=== PATIENT | male | born 1955 | race Caucasian/White ===

== ENCOUNTER 2018-10-19 10:55 | Inpatient (IN) | payer OTHER, SELFPAY ==
[2018-10-19] VITALS (17 sets, daily range): BP systolic 118–163; BP diastolic 73–92; PULSE 83–107; RESP 12–22; TEMP 36.6–36.7; O2SAT 94–98; BMI 26.3; BMI 25.5
--- NOTE | 2018-10-19 11:19 | EKG12_ITS ---
Test Reason : SOB Blood Pressure : / mmHG Vent. Rate : 081 BPM Atrial Rate : 081 BPM P-R Int : 102 ms QRS Dur : 080 ms QT Int : 372 ms P-R-T Axes : 064 077 076 degrees QTc Int : 432 ms Sinus rhythm with sinus arrhythmia with short [place] Otherwise normal ECG Confirmed by ARIANE KATE, LATISHA ([id number]), editor greeting card BRETT BILL ([id number]) on 10/23/2018 1:19:21 PM Referred By: JUAN Confirmed By:LATISHA THAKKAR MD
--- NOTE | 2018-10-19 11:21 | NURSING ---
NO OLD EKGS
[2018-10-19] MEDS: Nitroglycerin Oint 1 INCH PACKET TRANSDERM. ×2 (11:36→17:15)
[2018-10-19] MEDS: Aspirin 81 MG TAB.CHEW 324 MG PO (11:36)
[2018-10-19] MEDS: Enoxaparin 100 MG/ML Syringe 80 MG SC (11:36)
[2018-10-19 11:39] LABS: Absolute Lymphocyte Count 1.24 X10^3/ul (0.83-4.51); Absolute Neutrophil Count 5.5 X10^3/uL (2.0-7.7); Basophil# 0.02 X10^3/uL; Basophil% 0.3 % (0-1); Eosinophil# 0.32 X10^3/uL; Eosinophils% 4.1 % (0-5); Hematocrit 44.1 % (40-54); Hemoglobin 14.4 g/dl (13.0-16.5); Lymphocyte # 1.24 X10^3/ul (4.0); Lymphocyte % 15.8 % (19-41); Mean Corp Hgb Conc 32.7 g/gl (32-36); Mean Corpuscular Hgb 30.8 pg (27.0-32.0); Mean Corpuscular Volume 94.2 fL (80-94); Mean Platelet Vol. 9.5 fl (6.2-12.0); Monocyte% 10.2 % (0-10); Neutrophil # 5.45 X10^3/uL (2.7-7.7); Neutrophil % 69.1 % (47-70); Platelet Count 195 K/mm3 (150-450); RBC Distribution Width CV 13.4 % (11.6-14.6); Red Blood Count 4.68 M/mm3 (4.6-6.2); White Blood Count 7.9 K/mm3 (4.4-11.0)
[2018-10-19 11:41] LABS: POSITIVE COUNT NO; POSITIVE DIFFERENTIAL NO; POSITIVE MORPHOLOGY NO
--- NOTE | 2018-10-19 11:41 | RAD_ITS ---
STUDY: X-RAY CHEST REASON FOR EXAM: Male, 63 years old. TECHNIQUE: COMPARISON: None. FINDINGS: The lungs are clear and expanded. There is no demonstrated pleural abnormality. Normal size heart. Normal mediastinum and christiane. Normal visualized pulmonary arteries. Normal visualized aortic arch and descending thoracic aorta. Normal visualized thoracic spine. Normal visualized ribs, clavicles, and shoulders. There is no demonstrated abnormality of the visualized soft tissue structures of the upper abdomen. RAD/Chest 1 View (Portable) IMPRESSION: Normal x-ray examination of the chest. Electronically Signed: Dorene Contreras, at 12:06 EST Tel , Service support ,
[2018-10-19 11:55] LABS: Anion Gap 5 (5-15); BUN 17 mg/dL (7-18); BUN/Creat Ratio 28.1 RATIO (10-20); Calcium,Total 9.2 mg/dL (8.5-10.1); Chloride 101 mmol/L (98-107); Creatinine, Serum 0.61 mg/dL (0.70-1.30); EST Glomerular Filtration Rate 144 mL/min (>60); Est Glom Filt Rate - Afr Amer 174 mL/min (>60); Estimated Creatinine Clearance 123.03 ml/min; Glucose 103 mg/dL (74-106); Potassium 4.3 mmol/L (3.5-5.1); Sodium Level 136 mmol/L (136-145)
--- NOTE | 2018-10-19 12:42 | ED.VISSUMM ---
- ER Visit Summary Date of Service: 10/19/18 Chief Complaint: Chest tightness and dyspnea with exertion History of Present Illness: The patient is a 63 M who was seen approximately 3 weeks ago and treated with azithromycin for presumed bronchitis. Patient does have a cough that is productive of clear sputum. He states the amount of sputum or colored sputum is not changed. His cough is not changed. Upon further questioning been determined that patient has dyspnea with exertion. He is now not able to walk up a flight of steps. He denies chest pain. He states he has tightness in his chest. He has had dyspnea with exertion and tightness in his chest for the past 3-4 weeks. He states the chest tightness goes away after 3-5 minutes of rest and the breathing improves after 10-15 minutes. He admits that less activity is required to precipitate the chest tightness and the dyspnea. He has no known history of coronary disease. He was a smoker of 1 pack/day for 50+ years. He quit 4 months ago. He denies hematemesis, melena medication. He denies history of reflux, hiatal hernia or peptic ulcer disease. He denies nausea, diaphoresis or radiation of the discomfort. He denies fever, chills or night sweats. He denies weight gain or weight loss. He denies ocular, visual auditory symptoms. He denies symptoms of claudication. He does admit that he has less hair on his legs that he did when he was younger. He denies headache, paresthesia, anesthesia or motor weakness. He denies problems with balance. He denies trouble with speech or swallowing. Please read written note for complete detail. Physical Examination: Vital signs noted and unremarkable. Patient appears slightly dyspneic. He states he had difficulty walking up the incline. He is presently pain-free. Head is atraumatic normocephalic. Pupils are equal round reactive. Extraocular muscles are intact. TMs are pearly white with landmarks noted. Nares patent with no drainage. Posterior pharynx without erythema or exudate. Uvula is midline. There is no dysphonia or dysphasia. Trachea is midline. There is no stridor with auscultation of the neck. Heart is regular without murmur, gallop or rub. S1 and S2 are normal. Lungs are clear to auscultation with good movement of air bilaterally. Abdomen is soft nontender with no palpable cell mass. He has no abdominal bruit. DP pulses palpable bilaterally. He has minimal hair on his legs and decreased hair on his toes. Neuro exam is nonfocal. Test Results: EKG reveals a sinus rhythm rate of 81 with respiratory variation. ND interval is short. QRS duration and QT interval on unremarkable. [place] is normal. This was obtained when he was pain-free. Portal chest x-ray reveals normal cardiac silhouette, mediastinum and lung parenchyma. There is no N O'Jaci osseous structures per my interpretation. CBC, basic minimal panel troponin are normal. Emergency Department Course and Treatment: Patient has classic exertional angina. Patient was informed he will need a cardiac catheterization. Patient was treated with aspirin, Nitropaste and 1 mg/kg of Lovenox. Case was discussed with hospitalist and substation operator automatic. Plan is cardiac catheterization in the morning. Treatment Plan: Treatment for acute coronary syndrome Disposition: PCU Impression: Acute coronary syndrome This note was generated with [employer] dictation software. It may contain incorrect words, spelling, and punctuation that were not noted in review of the chart prior to signing ED Disposition - Plan for ED Patient: Chief Complaint: Shortness of Breath Referrals: Phan Verdugo MD [Primary Care Provider] -
--- NOTE | 2018-10-19 12:47 | HP.PCM_ITS ---
Problem List (1) Unstable angina Status: Acute (2) COPD (chronic obstructive pulmonary disease) Status: Chronic Qualifiers: Emphysema type: unspecified History of Present Illness Date of Admission: 10/19/18 Chief Complaint: Chest pain, ongoing for 1 month The patient is a 63 year old M with PMHx of COPD, not on oxygen, former tobacco user who has been complaining of progressive chest tightness, worse with exertion, with no radiation, relieved with rest. Over the last 3 weeks, he has been very SOB with the minimal amount of exertion. He denied diaphoresis, palpitations, dizziness. He has associated orthopnea, PND. Denies leg edema. Vitals in the ED is 97.8F, BP 163/81, HR 91 , RR 22 Spo2 94%. The admitting labs were unremarkable. D-Dimer was negative. BNpep was 15.5 Chest x-ray was negative. EKG shows no acute ST-T changes. Past Medical History Past Medical History (Chronic Problems): Chronic Problems COPD (chronic obstructive pulmonary disease) (Chronic) Allergies No Known Allergies Allergy (Verified 10/19/18 10:58) Home Medications: Ambulatory Orders Medication Instructions Recorded Albuterol IH (ProAir) [Proair Hfa] 2 puff PO Q6H PRN PRN 10/19/18 Ibuprofen [Advil] 800 mg PO PRN PRN 10/19/18 Mometasone Furoate [Asmanex 220 1 - 2 puff INHALATION DAILY 10/19/18 mcg Twisthaler] Umeclidinium Brm/Vilanterol Tr 1 puff INHALATION DAILY 10/19/18 [Anoro Ellipta 62.5-25 Mcg INH] Surgical History: - - s/p back surgery, s/p right eye aneurysm repair Psychiatric History: No pertinent psych hx Lives: Spouse/ Significant Other Smoking Status: Former smoker Tobacco Use: Non-smoker Alcohol: None Drugs: None - *Family History Maternal History Items: No pertinent history Paternal History Items: No pertinent history Review of Systems Constitutional: Denies: Anorexia, Chills, Fever, Weakness, Weight Change Eyes: Denies: Blurred vision, Cataracts, Drainage, Eyelid Inflammation HEENT: Denies: Head Aches, Hearing Changes, Sinus Congestion, Sinus Drainage Cardiovascular: Reports: Chest Pain, Chest Pressure, Chest Tightness, Orthopnea. Denies: Light Headedness, Palpitations, Syncope Respiratory: Denies: Cough, Shortness of breath at rest, Sputum production Gastrointestinal: Denies: Abdominal Pain, Constipation, Nausea, Vomiting Genitourinary: Denies: Dysuria, Frequency, Incontinence Musculoskeletal: Denies: Joint Pain, Joint stiffness, Joint swelling, Joint Tenderness Skin: Denies: Rash, Wounds Neurological: Denies: Numbness, Tingling, Focal weakness Psychiatric: Denies: Anxiety, Depression, Homicidal Ideations, Suicidal Ideations Endocrine: Denies: Change in Body Habitus, Heat/ Cold Intolerance, Hx of Irradiation Hematologic/ Lymphatic: Denies: Easy Bruising, Easy Bleeding VTE Information - Inpt Only VTE Present on Admission: No VTE Pharm Prophylaxis ordered?: Yes Patient Problems: Active and Suspected Problems Unstable angina (Acute) Exertional angina (Acute) - Physical Exam General: Alert, Oriented x3, Cooperative, No apparent distress, - - obes HEENT: Atraumatic, PERRLA, EOMI, Normocephalic Oral: Moist Mucosa Neck: Supple Lungs: Clear to auscultation, Normal air movement Cardiovascular: Regular rate, Regular Rhythm, Normal S1, Normal S2, No murmurs Abdomen: Bowel Sounds Present, Soft, Non Tender, Non-Distended, No Hepato- splenomegaly Extremities: No edema Skin: No rashes, No breakdown Musculoskeletal: No Tenderness to Palpation of Joints or Extremities Lymphatic: No Cervical, Supraclavicular, or Inguinal Adenopathy Neurological: Cranial nerves II-XII grossly intact Psych/Mental Status: Normal Affect, Appropriate Vital Signs Temp Pulse Resp BP Pulse Ox 97.8 F 86 12 128/83 H 98 10/19/18 12:00 10/19/18 12:00 10/19/18 12:00 10/19/18 12:00 10/19/18 12:00 Oxygen Flow Rate (L/min) 2 Oxygen Delivery Method Nasal Cannula Weight: 78.562 kg Body Mass Index (BMI) 26.3 Laboratory Tests Past 24 Hrs 10/19/18 10/19/18 11:30 11:30 WBC 7.9 RBC 4.68 Hgb 14.4 Hct 44.1 MCV 94.2 H MCH 30.8 MCHC 32.7 RDW 13.4 RDW Differential 46.0 H Plt Count 195 MPV 9.5 Immature Gran % (Auto) 0.500 Neut % (Auto) 69.1 Lymph % (Auto) 15.8 L [place] % (Auto) 10.2 H Eos % (Auto) 4.1 Baso % (Auto) 0.3 Absolute Neuts (auto) 5.5 Absolute Lymphs (auto) 1.24 Total Counted Not Reportable Sodium 136 Potassium 4.3 Chloride 101 Carbon Dioxide 30.0 Anion Gap 5 BUN 17 Creatinine 0.61 L Estim Creat Clear Calc 123.03 Est GFR (MDRD) Af Amer 174 Est GFR (MDRD) Non-Af 144 BUN/Creatinine Ratio 28.1 H Glucose 103 Calcium 9.2 Troponin I < 0.015 Assessment/Plan All Active Problems Unstable angina (Acute) Exertional angina (Acute) 63 year old M with PMHx of COPD, not on oxygen, former tobacco user who has been complaining of progressive chest tightness, worse with exertion, with no radiation, relieved with rest. Over the last 3 weeks, he has been very SOB with the minimal amount of exertion. He denied diaphoresis, palpitations, dizziness. 1. Chest discomfort likely secondary to unstable angina, EKG showed no acute ST- T changes, troponin x 1 negative Plan: Admit to PCU, trend cardiac enzymes, 2d-ech, cardiology consult, aspirin, Lovenox - therapeutic dosing, metoprolol, statin 2. COPD, stable, on prn breathing treatments 3. DVT PPx- Lovenox Therapeutic dosing Code Visit Inpatient E&M: 14485 Init Hosp L3
--- NOTE | 2018-10-19 12:51 | ED.DCSUM_ITS ---
- ER Visit Summary Date of Service: 10/19/18 Chief Complaint: Chest tightness and dyspnea with exertion History of Present Illness: The patient is a 63 M who was seen approximately 3 weeks ago and treated with azithromycin for presumed bronchitis. Patient does have a cough that is productive of clear sputum. He states the amount of sputum or colored sputum is not changed. His cough is not changed. Upon further questioning been determined that patient has dyspnea with exertion. He is now not able to walk up a flight of steps. He denies chest pain. He states he has tightness in his chest. He has had dyspnea with exertion and tightness in his chest for the past 3-4 weeks. He states the chest tightness goes away after 3-5 minutes of rest and the breathing improves after 10-15 minutes. He admits that less activity is required to precipitate the chest tightness and the dyspnea. He has no known history of coronary disease. He was a smoker of 1 pack/day for 50+ years. He quit 4 months ago. He denies hematemesis, melena medication. He denies history of reflux, hiatal hernia or peptic ulcer disease. He denies nausea, diaphoresis or radiation of the discomfort. He denies fever, chills or night sweats. He denies weight gain or weight loss. He denies ocular, visual auditory symptoms. He denies symptoms of claudication. He does admit that he has less hair on his legs that he did when he was younger. He denies headache, paresthesia, anesthesia or motor weakness. He denies problems with balance. He denies trouble with speech or swallowing. Please read written note for complete detail. Physical Examination: Vital signs noted and unremarkable. Patient appears slightly dyspneic. He states he had difficulty walking up the incline. He is presently pain-free. Head is atraumatic normocephalic. Pupils are equal round reactive. Extraocular muscles are intact. TMs are pearly white with landmarks noted. Nares patent with no drainage. Posterior pharynx without erythema or exudate. Uvula is midline. There is no dysphonia or dysphasia. Trachea is midline. There is no stridor with auscultation of the neck. Heart is regular without murmur, gallop or rub. S1 and S2 are normal. Lungs are clear to auscultation with good movement of air bilaterally. Abdomen is soft nontender with no palpable cell mass. He has no abdominal bruit. DP pulses palpable bilaterally. He has minimal hair on his legs and decreased hair on his toes. Neuro exam is nonfocal. Test Results: EKG reveals a sinus rhythm rate of 81 with respiratory variation. [place] interval is short. QRS duration and QT interval on unremarkable. [place] is normal. This was obtained when he was pain-free. Portal chest x-ray reveals normal cardiac silhouette, mediastinum and lung parenchyma. There is no N O'Jaci osseous structures per my interpretation. CBC, basic minimal panel troponin are normal. Emergency Department Course and Treatment: Patient has classic exertional angina. Patient was informed he will need a cardiac catheterization. Patient was treated with aspirin, Nitropaste and 1 mg/kg of Lovenox. Case was discussed with hospitalist and tank builder helper. Plan is cardiac catheterization in the [facility]. Treatment Plan: Treatment for acute coronary syndrome Disposition: PCU Impression: Acute coronary syndrome This note was generated with [employer] dictation software. It may contain incorrect words, spelling, and punctuation that were not noted in review of the chart prior to signing ED Disposition - Plan for ED Patient: Chief Complaint: Shortness of Breath Referrals: Phan Verduog MD [Primary Care Provider] -
--- NOTE | 2018-10-19 13:08 | NURSING ---
PCU UNSTABLE ANGINA PAINTSIL
--- NOTE | 2018-10-19 14:00 | ED.RN ---
121 UNSTABLE ANGINA PAINTSIL
--- NOTE | 2018-10-19 14:15 | ECHOD_ITS ---
Reason For Study: CHEST PAIN Procedure This was a 2D Doppler, Color Flow transthoracic echocardiogram. The study was technically difficult. Exam performed portable in patient room. Left Ventricle Based upon the 2D echocardiographic images obtained there appears to be grossly normal left ventricular size, wall motion, and systolic function. The estimated ejection fraction is 55 %. Unable to assess diastolic dysfunction. Right Ventricle Based upon the 2D echocardiographic images obtained there appears to be grossly normal right ventricular size and systolic function. Atria Normal left atrium. Normal right atrium. No doppler evidence for ASD. Mitral Valve There is no mitral annular calcification. Normal mitral valve. Tricuspid Valve The tricuspid valve is not well visualized. Aortic Valve The aortic valve is not well visualized. Pulmonic Valve The pulmonic valve is not well visualized. Great Vessels Normal sized aortic root. Pericardium/Pleural No pericardial effusion. MMode/2D Measurements & Calculations Ao root diam: 3.1 cm LAV(MOD-sp4): 38.0 ml LA A4 area: 15.7 cm2 RA A4 area: 11.9 cm2 Time Measurements MV dec time: 0.22 sec Doppler Measurements & Calculations MV E max robert: 55.2 cm/sec Lat Peak E' Robert: 7.5 cm/sec Med Peak E' Robert: 8.5 cm/sec MV A max robert: 75.9 cm/sec E/E' lat: 7.4 E/E' med: 6.5 MV E/A: 0.73 Ao V2 max: 97.4 cm/sec LV V1 max: 91.3 cm/sec PA V2 max: 84.6 cm/sec Ao max P.8 mmHg LV V1 max P.3 mmHg Interpretation Summary The study was technically difficult. Based upon the 2D echocardiographic images obtained there appears to be grossly normal left ventricular size, wall motion, and systolic function. The estimated ejection fraction is 55 %. Unable to assess diastolic dysfunction. Ordering Physician: Remedios Gusman Referring Physician: ROBERTO NULL Performed By: Yumiko Grant RDCS
--- NOTE | 2018-10-19 14:53 | EKG12_ITS ---
Test Reason : Blood Pressure : / mmHG Vent. Rate : 090 BPM Atrial Rate : 090 BPM P-R Int : 108 ms QRS Dur : 080 ms QT Int : 376 ms P-R-T Axes : 075 072 072 degrees QTc Int : 459 ms Sinus rhythm with sinus arrhythmia with short CO Confirmed by ARIANE KATE, LATISHA ([id number]), online editor BRETT BILL ([id number]) on 10/23/2018 1:37:06 PM Referred By: ILIR Confirmed By:LATISHA THAKKAR MD
[2018-10-19 14:59] LABS: D-Dimer Quantitative (DVT/PE) < 0.27 FEU/ug/m (0.27-0.49)
[2018-10-19 15:10] LABS: Thyroid Stim Hormone (TSH) 1.01 uIU/mL (0.358-3.74)
[2018-10-19 15:23] LABS: BNP,B-Type NATRIURETIC PEPTIDE 15.5 pg/mL (0-100)
--- NOTE | 2018-10-19 16:09 | PCM.CONS.C ---
Problem List (1) Exertional angina Status: Acute Reason for Consult Date of Consultation: 10/19/18 History of Present Illness: The patient is a 63 year who was seen in this ER approximately 5 weeks ago and treated with azithromycin for presumed bronchitis. Patient now presents with severe exertional dyspnea and chests tightness for 3-4 weeks. does have a cough that is productive of clear sputum. He states the amount of sputum or colored sputum is not changed. His cough is not changed. Upon further questioning been determined that patient has dyspnea with exertion. He is now not able to walk up a flight of steps. He denies chest pain. He states he has tightness in his chest. He has had dyspnea with exertion and tightness in his chest for the past 3-4 weeks. He states the chest tightness goes away after 3-5 minutes of rest and the breathing improves after 10-15 minutes. He admits that less activity is required to precipitate the chest tightness and the dyspnea. He has no known history of coronary disease. He was a smoker of 1 pack/day for 50+ years. He quit 4 months ago. He denies hematemesis, melena medication. He denies history of reflux, hiatal hernia or peptic ulcer disease. He denies nausea, diaphoresis or radiation of the discomfort. He denies fever, chills or night sweats. He denies weight gain or weight loss. He denies ocular, visual auditory symptoms. He denies symptoms of claudication. He does admit that he has less hair on his legs that he did when he was younger. He denies headache, paresthesia, anesthesia or motor weakness. He denies problems with balance. He denies trouble with speech or swallowing. Please read written note for complete detail. [] Past Medical History Allergies/Adverse Reactions: Allergies No Known Allergies Allergy (Verified 10/19/18 10:58) Home Medications: Ambulatory Orders Medication Instructions Recorded Albuterol IH (ProAir) [Proair Hfa] 2 puff PO Q6H PRN PRN 10/19/18 Ibuprofen [Advil] 800 mg PO PRN PRN 10/19/18 Mometasone Furoate [Asmanex 220 1 - 2 puff INHALATION DAILY 10/19/18 mcg Twisthaler] Umeclidinium Brm/Vilanterol Tr 1 puff INHALATION DAILY 10/19/18 [Anoro Ellipta 62.5-25 Mcg INH] Past Medical History (Chronic Problems): Chronic Problems COPD (chronic obstructive pulmonary disease) (Chronic) Smoking Status: Former smoker Tobacco Use: Cigarettes Review of Systems - Review of Systems General: Reports: Fatigue - 12 system reviewed. Pertinent positive and negative ones are per HPI. Objective: Vital Signs Temp Pulse Resp BP Pulse Ox 98.0 F 83 18 131/82 H 96 10/19/18 14:21 10/19/18 14:21 10/19/18 14:21 10/19/18 14:21 10/19/18 14:21 Oxygen Flow Rate (L/min) 2 Oxygen Delivery Method Nasal Cannula Weight: 76.2 kg Body Mass Index (BMI) 25.5 General: Alert, Oriented x 3, No Acute Distress HEENT: Atraumatic Oral: Poor Dentition Neck: Supple, No JVD Lungs: Diminished Oneil Bases, Expiratory Wheezes-Oneil - mild Cardiovascular: Regular Rhythm, No Murmurs, No Gallops Vascular: No Carotid Bruits Abdomen: Bowel Sounds Present, Soft, Non Tender Extremities: No Cyanosis, No edema Skin: No Rashes Neurological: No Focal Motor or Sensory Deficit Psych/Mental Status: Appropriate 10/19/18 11:30: WBC 7.9, RBC 4.68, Hgb 14.4, Hct 44.1, MCV 94.2 H, MCH 30.8, MCHC 32.7, RDW 13.4, RDW Differential 46.0 H, Plt Count 195, MPV 9.5, Immature Gran % (Auto) 0.500, Neut % (Auto) 69.1, Lymph % (Auto) 15.8 L, [place] % (Auto) 10.2 H, Eos % (Auto) 4.1, Baso % (Auto) 0.3, Absolute Neuts (auto) 5.5, Total Counted Not Reportable 10/19/18 11:30: Sodium 136, Potassium 4.3, Chloride 101, Carbon Dioxide 30.0, Anion Gap 5, BUN 17, Creatinine 0.61 L, Est GFR (MDRD) Af Amer 174, Est GFR (MDRD) Non-Af 144, BUN/Creatinine Ratio 28.1 H, Glucose 103, Calcium 9.2, Troponin I < 0.015 10/19/18 11:30: B-Natriuretic Peptide 15.5 10/19/18 11:30: D-Dimer Quant (PE/DVT) < 0.27 L Rhythm: Mild sinus tachycardia. EKG: Mild sinus tachycardia, otherwise normal. ECHO: P. CXR: COPD. Assessment/Plan Exertional dyspnea, chest tightness, angina equivalent, modest CAD risk. Will Cath at AM. Further recommendations to follow.
[2018-10-19] MEDS: Ipratropium/Albuterol Sulfate 3 ML AMPUL.NEB INHALATION (19:51)
[2018-10-19] MEDS: Enoxaparin 80 MG/0.8 ML Syringe SC (22:12)
[2018-10-19] MEDS: Atorvastatin Calcium 80 MG Tablet PO (22:12)
[2018-10-19] MEDS: Metoprolol Tartrate 25 MG Tablet 12.5 MG PO (22:12)
[2018-10-19 22:26] LABS: Bacteria 0 SEEN /hpf (None Seen); Mucous, Urine 0 SEEN /hpf (<or=2+); Squamous Epithelial Cells - UA 0 SEEN /hpf (0-5)
[2018-10-19 22:27] LABS: Color, Urine Yellow (Yellow); Glucose, Dipstick Normal (Normal); Ketone-Dipstick Negative (Negative); Leukocyte Esterase-Dipstick Negative /ul (Negative); Nitrite-Dipstick Negative (Negative); Occult Blood-Urine Negative /ul (Negative); Protein-Dipstick Negative (Negative); Specific Gravity, Urine 1.015 (1.002-1.030); Urine Bilirubin Dipstick Negative (Negative); Urine Clarity Clear (Clear); Urine Urobilinogen Normal (Normal); Urine pH 6.5 (5.0 - 8.0)
[2018-10-19 22:41] LABS: Red Blood Cells-Urine 0-5 SEEN /hpf (0-5); White Blood Cells 0-5 SEEN /hpf (0-5)
[2018-10-20] VITALS (17 sets, daily range): BP systolic 97–115; BP diastolic 45–78; PULSE 72–90; RESP 16–18; TEMP 36.5–36.8; O2SAT 85–96
[2018-10-20] MEDS: Nitroglycerin Oint 1 INCH PACKET TRANSDERM. ×2 (00:01→06:23)
[2018-10-20 05:51] LABS: Hematocrit 40.4 % (40-54); Hemoglobin 13.4 g/dl (13.0-16.5); Mean Corp Hgb Conc 33.2 g/gl (32-36); Mean Corpuscular Hgb 31.2 pg (27.0-32.0); Mean Corpuscular Volume 94.2 fL (80-94); Mean Platelet Vol. 9.7 fl (6.2-12.0); Platelet Count 195 K/mm3 (150-450); RBC Distribution Width CV 13.1 % (11.6-14.6); RBC Distribution Width SD 43.6 fl (35.1-43.9); Red Blood Count 4.29 M/mm3 (4.6-6.2); White Blood Count 5.7 K/mm3 (4.4-11.0)
[2018-10-20 05:52] LABS: Scan Indicated on CBC? Y/N NO
--- NOTE | 2018-10-20 05:55 | EKG12_ITS ---
Test Reason : MORNING EKG Blood Pressure : / mmHG Vent. Rate : 073 BPM Atrial Rate : 073 BPM P-R Int : 118 ms QRS Dur : 078 ms QT Int : 386 ms P-R-T Axes : 058 071 073 degrees QTc Int : 425 ms Normal sinus rhythm Consider Early repolarization Normal ECG Confirmed by ARIANE KATE, LATISHA ([id number]), editor in chief BRETT BILL ([id number]) on 10/23/2018 1:31:20 PM Referred By: ILIR Confirmed By:LATISHA THAKKAR MD
[2018-10-20 06:01] LABS: Prothrombin Time (Protime)PT. 13.2 SECONDS (11.7-14.9)
[2018-10-20 06:02] LABS: Partial Thromboplast Time 34.2 Seconds (24.1-36.2)
[2018-10-20 06:08] LABS: ALB/GLOB Ratio 0.9 RATIO (0.9-2.4); AST(SGOT) 32 U/L (15-37); Alanine Aminotransfer ALT/SGPT 51 U/L (16-61); Albumin, Serum 3.2 g/dL (3.2-5.0); Alkaline Phosphatase 91 U/L (45-117); Anion Gap 8 (5-15); BUN 21 mg/dL (7-18); BUN/Creat Ratio 29.2 RATIO (10-20); Calcium,Total 8.6 mg/dL (8.5-10.1); Chloride 104 mmol/L (98-107); Cholesterol 195 mg/dL (200); Creatinine, Serum 0.72 mg/dL (0.70-1.30); EST Glomerular Filtration Rate 118 mL/min (>60); Est Glom Filt Rate - Afr Amer 142 mL/min (>60); Estimated Creatinine Clearance 104.24 ml/min; Globulin 3.6 g/dL (2.2-4.2); Glucose 106 mg/dL (74-106); High Density Lipoprotein 77 mg/dL; Potassium 4.5 mmol/L (3.5-5.1); Protein, Total 6.8 g/dL (6.4-8.2); Sodium Level 140 mmol/L (136-145); Triglycerides 163 mg/dL; Very Low Density Lipoprotein 33 mg/dL (5-40)
[2018-10-20] MEDS: 0.9% NaCl Peripheral Flush Adult/Peds IV (06:23)
[2018-10-20] MEDS: Aspirin E.C. 81 MG Tablet PO (06:23)
[2018-10-20] MEDS: Metoprolol Tartrate 25 MG Tablet 12.5 MG PO (06:23)
--- NOTE | 2018-10-20 08:00 | NURSING ---
Nursing called report to clinical laboratory scientist; report given to Bryson MENDOZA
--- NOTE | 2018-10-20 09:23 | CL.D_ITS ---
Patient Name: HALEY BOSTON Study Date: 10/20/2018 Performing: Hakeem De MD Ht: 68.11 inches 173 cm : 1955 Wt: 167.55 lbs 76 kg Age: 63 Gender: male BSA: 1.9 PROCEDURE(S) PERFORMED TO57-WQI/COR/LV CLINICAL PROFILE AND INDICATIONS Indications: Worsening Angina Heart Failure: None Stress/Imaging Stress/Image Study Performed: No CONCLUSIONS Elevated Left Ventricular End Diastolic Pressure Mild CAD Normal LV systolic function RECOMMENDATIONS DESCRIPTION OF PROCEDURE The patient arrived to the procedure lab. The risks and benefits of the procedure as well as a full d escription of our services here and current unavailability of surgical backup were fully explained to the patient and/or their significant other prior to the catheterization. The Timeout was completed, verifying the correct patient and procedure. The patient's procedural site was prepped and draped in the usual fashion. Local anesthetic was given subcutaneously to right radial region with Lidocaine 2% . Using a modified Seldinger technique, arterial access was obtained via the right radial artery, a 6 Fr sheath was inserted. Right Coronary Artery selective angiography was then performed in multiple v iews using a 6 Fr. JR 4 catheter. Left Coronary Artery selective angiography was performed in multipl e views using a 5 Fr. JL3.5 catheter. Left Ventriculography was performed in ROMERO projection using a 5 Fr. Pigtail catheter. LV to AO pullback pressures were then recorded.The arterial sheath was pulled and a TR Band was applied for hemostasis 14 cc air CORONARY ANGIOGRAPHY DOMINANCE: Right Dominant LEFT HEART ASSESSMENT Left Ventricular Ejection Fraction: by LV Gram 65 % Normal LV wall motion LVEDP elevated at 24 LEFT MAIN: Angiographically normal LEFT ANTERIOR DECENDING ARTERY: MID LAD: Mild luminal irregularities less than 30% DISTAL LAD: sluggish flow noted DIAGONAL 1: Ostial - Mild luminal irregularities less than 30% CIRCUMFLEX ARTERY: Angiographically normal RIGHT CORONARY ARTERY: Angiographically normal OSTIAL RCA: spasm was noted but then resolved VALVE FINDINGS: Normal Aortic Valve function Normal Mitral Valve function COMPLICATIONS No Complications PROCEDURE MEDICATIONS Fentanyl 25 mcg IV Versed 1 mg IV Oxygen: 2 L/min via nasal cannula Nitro 300 mcg through arterial sheath 10/20/2018 08:49:13 SUMMARY OF HEMODYNAMIC DATA Time AIR REST ECG 08:14:37 AO 104/68 (85) SA 08:51:50 LV 99/18, 23 09:02:47 LV 85/21, 24 09:02:53 LV 96/27, 30 09:04:02 LVp 91/25, 28 09:04:08 AOp 102/74 (88) 09:04:13 Signed By Hakeem De MD On 10/20/2018 09:23:26 Hakeem De MD
--- NOTE | 2018-10-20 11:59 | DCINST_ITS ---
- Discharge Diagnoses Current Active Problems: Current Active and Chronic Problems Unstable angina (Acute) COPD (chronic obstructive pulmonary disease) (Chronic) Exertional angina (Acute) You will use the following diet at home:: No restrictions Your food should be the consistency of: Regular Your liquids should be the consistency of: Regular/Thin Discharge Activity: Return to Normal Activity Weight Bearing Status: Full weight bearing Allergies/Adverse Reactions: Allergies No Known Allergies Allergy (Verified 10/19/18 10:58) Medications to take at Discharge Albuterol IH (ProAir) [Proair Hfa] 2 puff PO Q6H PRN PRN 10/19/18 Ibuprofen [Advil] 800 mg PO PRN PRN 10/19/18 Mometasone Furoate [Asmanex 220 mcg Twisthaler] 1 - 2 puff INHALATION DAILY 10/19/18 Umeclidinium Brm/Vilanterol Tr [Anoro Ellipta 62.5-25 Mcg INH] 1 puff INHALATION DAILY 10/19/18 Acetaminophen [Tylenol Tablet] 650 mg PO Q6H PRN PRN tablet 10/20/18 Aspirin E.C. [Ecotrin] 81 mg PO DAILY@0800 tablet 10/20/18 Atorvastatin Calcium [Lipitor] 80 mg PO QHS #30 tab 10/20/18 The following prescriptions were given: Atorvastatin Calcium [Lipitor] 80 mg PO QHS #30 tab Primary Care Physician: Phan Verdugo MD [Primary Care Provider] - Please follow up with your Primary Care Physician in: in two weeks Test Results: Test results from this visit will be discussed in further detail at your follow- up appointment, if applicable. Please Follow Up With: Brice Fox MD When: in 3-4 weeks Please Follow Up With: Missael Zamudio MD When: in two weeks
--- NOTE | 2018-10-20 12:21 | CON.PCM_ITS ---
Problem List (1) Unstable angina Status: Acute (2) COPD (chronic obstructive pulmonary disease) Status: Chronic Qualifiers: Emphysema type: unspecified (3) Exertional angina Status: Acute Reason for Consult Date of Consultation: 10/20/18 Reason for Consultation: Shortness of breath History of Present Illness: The patient is a 63 year old M, with past medical history listed below, who presented to [facility] on 10/19/2018 secondary to progressive shortness of breath. Patient reportedly has had a protracted course of 3-4 weeks where he has had worsening shortness of breath. Patient continued to have a cough productive of clear sputum, but denied any fever, chills, nausea or vomiting. Patient states that he had progressive shortness of breath to the point that he cannot walk up a flight of steps. Patient did report a chest tightness in the center of his chest that was worse with exertion. Patient states that resting 3-5 minutes would relieve symptoms. Patient was admitted to the PCU and ultimately had a heart catheterization. Heart catheterization showed an elevated LVEDP, but no significant blockages requiring intervention. A pulmonary consultation was obtained to help explain hospital shortness of breath etiologies. Patient does report a 50+ pack year smoking history. Patient states he quit 4 months ago. Patient has had spirometry in his primary care office, but is never had complete pulmonary function test. Patient has been placed on triple therapy, but feels like his symptoms have worsened since . Patient readily admits that he does not follow any dietary restrictions. Patient has not had any melena, hematemesis, reflux or diaphoresis reported. Patient does report a 40 pound weight gain since discontinuation of smoking. Patient reports that he has been placed on prednisone for 14 days with no significant change and possible worsening of his condition. Patient does admit to drinking 4-6 alcoholic drinks per day. Patient has never had difficulty with alcohol cessation per his report. Patient denies any illicit drugs. 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 Patient does have a pulse oximeter at home and states that he will check it upon walking up the steps and saturations will be as low as 90-91%. Review of systems otherwise negative x10 systems Past Medical History Past Medical History (Chronic Problems): Chronic Problems COPD (chronic obstructive pulmonary disease) (Chronic) Allergies No Known Allergies Allergy (Verified 10/19/18 10:58) Home Medications: Ambulatory Orders Medication Instructions Recorded Albuterol IH (ProAir) [Proair Hfa] 2 puff PO Q6H PRN PRN 10/19/18 Ibuprofen [Advil] 800 mg PO PRN PRN 10/19/18 Mometasone Furoate [Asmanex 220 1 - 2 puff INHALATION DAILY 10/19/18 mcg Twisthaler] Umeclidinium Brm/Vilanterol Tr 1 puff INHALATION DAILY 10/19/18 [Anoro Ellipta 62.5-25 Mcg INH] Acetaminophen [Tylenol Tablet] 650 mg PO Q6H PRN PRN tablet 10/20/18 Aspirin E.C. [Ecotrin] 81 mg PO DAILY@0800 tablet 10/20/18 Atorvastatin Calcium [Lipitor] 80 mg PO QHS #30 tab 10/20/18 Surgical History: - - s/p back surgery, s/p right eye aneurysm repair Psychiatric History: No pertinent psych hx Lives: Spouse/ Significant Other Smoking Status: Former smoker Tobacco Use: Non-smoker Alcohol: None Drugs: None - *Family History Maternal History Items: No pertinent history Paternal History Items: No pertinent history Review of Systems Comment: See HPI, otherwise negative x10 systems Patient Problems: Active and Suspected Problems Unstable angina (Acute) Exertional angina (Acute) Objective: Chest x-ray was personally reviewed and was unremarkable. CT scan from 2005 of the abdomen was reviewed and did not show any emphysematous changes - Physical Exam General: Alert, Oriented x3, Cooperative, No apparent distress, Well developed, Well nourished, - HEENT: Atraumatic, PERRLA, EOMI, Normocephalic, - - No scleral icterus or injection noted. Oral: Moist Mucosa, No Gingival or Mucosal Lesions/ Ulcerations Neck: Supple, No JVD, No Nodes, Trachea Midline Lungs: No rhonchi, No wheeze, No rales, Diminished, - - Symmetric expansion. No dullness to percussion. Cardiovascular: Regular rate, Regular Rhythm, Normal S1, Normal S2, No murmurs, No rub noted, No Gallop Abdomen: Bowel Sounds Present, Soft, Non Tender, Non-Distended, Obese Extremities: No clubbing, No cyanosis, No edema, Capillary Refill Less than 3 Seconds Skin: No rashes, No breakdown Musculoskeletal: No Tenderness to Palpation of Joints or Extremities, No Muscle Wasting Lymphatic: No Cervical, Supraclavicular, or Inguinal Adenopathy Neurological: Cranial nerves II-XII grossly intact, Neuro grossly intact, Motor Exam 5/5 strength throughout Psych/Mental Status: Alert and oriented to time, place, person, mood and affect Vital Signs Temp Pulse Resp BP Pulse Ox 36.8 C 90 18 104/75 92 10/20/18 11:25 10/20/18 11:25 10/20/18 11:25 10/20/18 11:25 10/20/18 11:25 Oxygen Flow Rate (L/min) 2 Oxygen Delivery Method Room Air Weight: 75.9 kg Body Mass Index (BMI) 25.5 Intake and Output for Last 24 Hours 10/18/18 10/19/18 10/20/18 23:59 23:59 23:59 Intake Total 1030 / 1030 Balance 1030 / 1030 Laboratory Tests Past 24 Hrs 10/19/18 10/19/18 10/19/18 11:30 11:30 11:30 WBC RBC Hgb Hct MCV MCH MCHC RDW RDW Differential Plt Count MPV PT INR APTT D-Dimer Quant (PE/DVT) < 0.27 L Sodium Potassium Chloride Carbon Dioxide Anion Gap BUN Creatinine Estim Creat Clear Calc Est GFR (MDRD) Af Amer Est GFR (MDRD) Non-Af BUN/Creatinine Ratio Glucose Calcium Total Bilirubin AST ALT Alkaline Phosphatase Troponin I B-Natriuretic Peptide 15.5 Total Protein Albumin Globulin Albumin/Globulin Ratio Triglycerides Cholesterol LDL Cholesterol VLDL Cholesterol HDL Cholesterol TSH 1.01 Urine Color Urine Clarity Urine pH Ur Specific [place] Urine Protein Urine Glucose (UA) Urine Ketones Urine Occult Blood Urine Nitrite Urine Bilirubin Urine Urobilinogen Ur Leukocyte Esterase Urine RBC Urine WBC Ur Squamous Epith Cells Urine Bacteria Urine Mucus 10/19/18 10/19/18 10/19/18 15:22 18:20 22:15 WBC RBC Hgb Hct MCV MCH MCHC RDW RDW Differential Plt Count MPV PT INR APTT D-Dimer Quant (PE/DVT) Sodium Potassium Chloride Carbon Dioxide Anion Gap BUN Creatinine Estim Creat Clear Calc Est GFR (MDRD) Af Amer Est GFR (MDRD) Non-Af BUN/Creatinine Ratio Glucose Calcium Total Bilirubin AST ALT Alkaline Phosphatase Troponin I < 0.015 < 0.015 B-Natriuretic Peptide Total Protein Albumin Globulin Albumin/Globulin Ratio Triglycerides Cholesterol LDL Cholesterol VLDL Cholesterol HDL Cholesterol TSH Urine Color Yellow Urine Clarity Clear Urine pH 6.5 Ur Specific [place] 1.015 Urine Protein Negative Urine Glucose (UA) Normal Urine Ketones Negative Urine Occult Blood Negative Urine Nitrite Negative Urine Bilirubin Negative Urine Urobilinogen Normal Ur Leukocyte Esterase Negative Urine RBC 0-5 SEEN Urine WBC 0-5 SEEN Ur Squamous Epith Cells 0 SEEN Urine Bacteria 0 SEEN Urine Mucus 0 SEEN 10/20/18 10/20/18 10/20/18 05:24 05:24 05:24 WBC 5.7 RBC 4.29 L Hgb 13.4 Hct 40.4 MCV 94.2 H MCH 31.2 MCHC 33.2 RDW 13.1 RDW Differential 43.6 Plt Count 195 MPV 9.7 PT 13.2 INR 1.0 APTT 34.2 D-Dimer Quant (PE/DVT) Sodium 140 Potassium 4.5 Chloride 104 Carbon Dioxide 28.0 Anion Gap 8 BUN 21 H Creatinine 0.72 Estim Creat Clear Calc 104.24 Est GFR (MDRD) Af Amer 142 Est GFR (MDRD) Non-Af 118 BUN/Creatinine Ratio 29.2 H Glucose 106 Calcium 8.6 Total Bilirubin 0.70 AST 32 ALT 51 Alkaline Phosphatase 91 Troponin I B-Natriuretic Peptide Total Protein 6.8 Albumin 3.2 Globulin 3.6 Albumin/Globulin Ratio 0.9 Triglycerides 163 Cholesterol 195 LDL Cholesterol 85 VLDL Cholesterol 33 HDL Cholesterol 77 TSH Urine Color Urine Clarity Urine pH Ur Specific [place] Urine Protein Urine Glucose (UA) Urine Ketones Urine Occult Blood Urine Nitrite Urine Bilirubin Urine Urobilinogen Ur Leukocyte Esterase Urine RBC Urine WBC Ur Squamous Epith Cells Urine Bacteria Urine Mucus Clinical Impression(s) from Imaging Studies Chest X-Ray 10/19/18 11:41 IMPRESSION: Normal x-ray examination of the chest. Electronically Signed: Doreen Aguileradolores, at 12:06 EST Tel , Service support , Assessment/Plan All Active Problems Unstable angina (Acute) Exertional angina (Acute) RECOMMENDATIONS: 1. Walking oximetry prior to discharge 2. Low-salt diet 3. Continue current inhalers 4. Outpatient pulmonary function testing 5. Supplemental oxygen with ambulation on discharge if indicated 6. Follow-up with nurse practitioner in our office 1-2 weeks after discharge IMPRESSIONS: 1. Dyspnea/hypoxemia Unclear etiology at this time. Patient does carry a diagnosis of COPD, but is never had complete PFTs for quantification and clarification of lung function. Differential diagnosis would include a COPD exacerbation, but not res ponsive to supplemental steroid therapy. Other possible etiologies would include pulmonary hypertension, cor pulmonale, acute on chronic diastolic congestive heart failure with elevated LVEDP or shunts. Low clinical suspicion for pulmonary embolism as d-dimer was within normal limits on presentation. Patient does not require a CT scan for evaluation of PE. Patient can follow-up as an outpatient. Will obtain complete PFT. Patient may require right heart catheterization in the future for quantification and clarification of pulmonary artery pressures as echocardiogram was unable to assess for diastolic dysfunction or pulmonary artery hypertension. 2. History of smoking/hyperlipidemia Complicates care, management, recovery and prognosis. Okay to continue w ith baseline statin therapy Code Visit Inpatient E&M: 63582 Init Hosp L2
--- NOTE | 2018-10-20 13:02 | CASEMGMT ---
REJI BENÍTEZ assessment: Face to Face with patient for initial transition planning/care coordination assessment. REJI BENÍTEZ introduced self and role at [facility], pt voices understanding and consents to assessment at this time. Pt is sitting up in bed in no distress at this time. Pt is A/Ox4 at this time and answers all questions appropriately at this time. Care providers, pharmacy, and demographics verified/updated at this time. PCP: Kartik Specialists: Obdulio Veloz Pharmacy: [facility] Insurance: [employer] Prescription Benefit: [employer] Living Will/HPOA: Pt states does not have LW/HPOA but is interested in info at this time. Pt states no questions regarding AD info at this time and is provided with AD info as well as [employer] pamphlet at this time. LNOK: Martha Grijalva, Living Arrangements: Pt states lives with in 2 story home and bedroom is on 2nd floor. Pt states does have some dysnea with stairs but states no concerns with ADL's. Transportation: Pt states drives self and states no transportation concerns at this time. DME/HHC: Pt states has no current DME at home at this time. Per Manjula MENDOZA, pt does qualify for home oxygen at this time. Pt states would like to use [employer] for home oxygen at this time. Referral faxed to [employer] at this time and pt is aware of process for home oxygen set up at this time, voices understanding. Pt states no hx of HHC or SNF in the past. Pt states no concerns with going home at time of discharge. 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 Pt states quit smoking in December 2017 after smoking for 44 yrs and drinks 3-4 beers daily or every other day. Pt states no further concerns/needs at this time. CM to follow for any further discharge planning/needs. Advised pt to ask for CM if any further questions/concerns/needs arise, voices understanding. Plan: [place] REJI BENÍTEZ
--- NOTE | 2018-10-20 14:55 | NURSING ---
Reviewed and agreed on all charting with Jeanine MENDOZA
--- NOTE | 2018-10-22 18:16 | DS.PCM_ITS ---
Discharge Date and Diagnosis Date of Admission: 10/19/18 Date of Discharge: 10/20/18 - Primary Discharge Diagnosis #1 chest pain-probably secondary to chronic obstructive pulmonary disease and/or pulmonary hypertension #2 nonobstructive coronary artery disease #3 dyspnea-probably secondary to chronic obstructive pulmonary disease and/or pulmonary hypertension - Secondary Discharge Diagnosis Chronic Problems COPD (chronic obstructive pulmonary disease) (Chronic) Hospital Course and Treatment Operations: None Procedures: 2-D Echocardiogram, Cardiac catheterization Summary of Care Provided: The patient is a 63 year old M who was seen in the emergency [facility] with chief complaint of chest tightness and dyspnea with exertion. Workup in the emergency room included an EKG which showed a normal sinus rhythm 81 without evidence of ischemic changes, chest x-ray revealed no acute abnormalities, troponin was normal, CBC was unremarkable, chemistry panel was unremarkable. Patient was admitted to PCU, cardiac enzymes were cycled and these remain normal, patient was seen by cardiology and a cardiac catheterization was performed which showed mild nonocclusive coronary disease. The etiology of the patient's chest tightness and dyspnea was not known, he was seen in consultation by pulmonary medicine who felt that the patient could possibly have COPD and/or pulmonary hypertension. On 10/20/18, patient was seen and examined: On examination he appeared in good health and spirits. Vital signs as documented. Skin warm and dry and without overt rashes. Neck without JVD. Lungs clear. Heart exam notable for regular rhythm, normal sounds and absence of murmurs, rubs or gallops. Abdomen unremarkable and without evidence of or ganomegaly, masses, or abdominal aortic enlargement. Extremities nonedematous. Neuro: Cranial nerves II through XII are grossly intact, no focal motor deficits were noted. Psych: Patient was alert and oriented x3, he did not appear depressed or anxious. On 10/20/18, patient was seen and examined felt to be in stable condition for discharge home. - Physical Exam Vital Signs Temp Pulse Resp BP Pulse Ox 98.2 F 90 18 104/75 92 10/20/18 11:25 10/20/18 11:25 10/20/18 11:25 10/20/18 11:25 10/20/18 12:33 Oxygen Flow Rate (L/min) [ 2 AMBULATION with Oxygen] Oxygen Flow Rate (L/min) 2 Oxygen Delivery Method Nasal Cannula Weight: 75.9 kg Body Mass Index (BMI) 25.5 Intake and Output for Last 24 Hours 10/20/18 10/21/18 10/22/18 23:59 23:59 23:59 Intake Total 300 / 300 Balance 300 / 300 Discharge Activity: Return to Normal Activity Weight Bearing Status: Full weight bearing Home Medications: Medications to take at Discharge Albuterol IH (ProAir) [Proair Hfa] 2 puff PO Q6H PRN PRN 10/19/18 Ibuprofen [Advil] 800 mg PO PRN PRN 10/19/18 Mometasone Furoate [Asmanex 220 mcg Twisthaler] 1 - 2 puff INHALATION DAILY 10/19/18 Umeclidinium Brm/Vilanterol Tr [Anoro Ellipta 62.5-25 Mcg INH] 1 puff INHALATION DAILY 10/19/18 Acetaminophen [Tylenol Tablet] 650 mg PO Q6H PRN PRN tablet 10/20/18 Aspirin E.C. [Ecotrin] 81 mg PO DAILY@0800 tablet 10/20/18 Atorvastatin Calcium [Lipitor] 80 mg PO QHS #30 tab 10/20/18 Following Prescrptions Were Given to Patient: Atorvastatin Calcium [Lipitor] 80 mg PO QHS #30 tab Primary Care Physician: Phan Verdugo MD [Primary Care Provider] - Please follow up with your Primary Care Physician in: in two weeks Please Follow Up With: Brice Fox MD When: in 3-4 weeks Please Follow Up With: Missael Zamudio MD When: in two weeks Disposition: Home Minutes spent on discharge:: 32 Patient Condition:: Stable Medical Necessity - Tobacco Use Smoking Status: Former smoker Tobacco Use: Non-smoker Meaningful Use Info Meaningful Use Diagnoses (Choose all that apply): None applicable Code Visit Inpatient E&M: 45601 Disch Hosp
== END 2018-10-20 14:47 | disposition home or self-care (01) | DRG 287 ==
LOC: ED 12:01 → PCU 13:52
PROVIDERS: Internal Medicine Cardiovascular Disease; Admitting Provider Internal Medicine; Emergency Provider Emergency Medicine; Family Provider Family Medicine; PCP Family Medicine; Visit Provider Internal Medicine
DX: I27.20 Pulmonary hypertension, unspecified (principal); J44.9 Chronic obstructive pulmonary disease, unspecified; I25.10 Atherosclerotic heart disease of native coronary artery without angina pectoris; R07.89 Other chest pain; R06.00 Dyspnea, unspecified
CPT/HCPCS: 36415; 71045; 80048; 80053; 80061; 81001; 83880; 84443; 84484; 85025; 85027; 85379; 85610; 85730; 93005; 93306; 93458; 94640; 97802; 99152; 99153; 99283; A4216; C1769; C1894; Q9967

== ENCOUNTER → 2018-10-27 10:59 | Outpatient (CLI) | payer OTHER, SELFPAY ==
[2018-10-27 08:13] VITALS: BMI 25.5
[2018-10-27 11:35] LABS: D-Dimer Quantitative (DVT/PE) < 0.27 FEU/ug/m (0.27-0.49)
== END ==
LOC: PAVLAB 11:01
PROVIDERS: Family Provider Family Medicine; PCP Family Medicine; Visit Provider Nurse Practitioner Acute Care
DX: I20.0 Unstable angina (principal)
CPT/HCPCS: 36415; 85379

== ENCOUNTER → 2018-11-07 08:06 | Outpatient (CLI) | payer OTHER, SELFPAY ==
[2018-10-27 08:13] VITALS: BMI 25.5
[2018-11-07 08:40] VITALS: PULSE 106; PULSE 111; PULSE 112; PULSE 118; PULSE 119; PULSE 120; PULSE 121; PULSE 127; O2SAT 86; O2SAT 89; O2SAT 91; O2SAT 92; O2SAT 93; O2SAT 96
--- NOTE | 2018-11-07 08:46 | CPS ---
Mr. Grijalva wears 2 LPM at home for the night at this time. He started out on room air and had to put on at the end of 2 minutes of exercise. He rested from 2 mins to 320 in the test. I then took him off at the end and he returned to baseline.
--- NOTE | 2018-11-07 14:28 | PCM.PSN.6M ---
PSN 6 Minute Walk Test - 6 Minute Walk Test 6 Minute Walk Test: 6 Minute Walk Test PSN:6-Minute Walk Test Start: 11/07/18 08:38 Freq: Status: Active Protocol: RESP.6MINW Document 11/07/18 08:40 FR (Rec: 11/07/18 08:53 FR [id number]) 6 Minute Walk Test Date Performed 11/07/18 Time Performed 08:30 Height 5 ft 8 in Weight: 173 lb Weight in Pounds 173.[address]: Brian Assistive device used: None Pre-test Oxygen Delivery Method Room Air Pulse Ox (%) 96 Pulse Rate (60-100 beats/min) 106 H Dyspnea Lance Scale (0-10) 5 Exertion Lance Scale (6-20) 11 1st minute Oxygen Delivery Method Room Air Pulse Ox (%) 92 Pulse Rate (60-100 beats/min) 111 H 2nd minute Oxygen Delivery Method Room Air Pulse Ox (%) 86 Pulse Rate (60-100 beats/min) 118 H 3rd minute Oxygen Flow Rate (L/min) (L/min) 2 Oxygen Delivery Method Nasal Cannula Pulse Ox (%) 91 Pulse Rate (60-100 beats/min) 120 H Number of Rests Taken 1 4th minute Oxygen Flow Rate (L/min) (L/min) 2 Oxygen Delivery Method Nasal Cannula Pulse Ox (%) 93 Pulse Rate (60-100 beats/min) 121 H Reported Symptoms Increased Work of Breathing 5th minute Oxygen Flow Rate (L/min) (L/min) 2 Oxygen Delivery Method Nasal Cannula Pulse Ox (%) 91 Pulse Rate (60-100 beats/min) 127 H Reported Symptoms Increased Work of Breathing 6th minute Oxygen Flow Rate (L/min) (L/min) 2 Oxygen Delivery Method Nasal Cannula Pulse Ox (%) 89 Pulse Rate (60-100 beats/min) 119 H Dyspnea Lance Scale (0-10) 8 Exertion Lance Scale (6-20) 14 Reported Symptoms Increased Work of Breathing Post-test Oxygen Delivery Method Room Air Pulse Ox (%) 96 Pulse Rate (60-100 beats/min) 112 H Full Laps Walked 14 Partial Lap, Number of Tiles Walked 28 Total Distance Walked (ft) 854 11/07/18 08:46 Cardiopulmonary Services by Kari Leigh Mr. Grijalva wears 2 LPM at home for the night at this time. He started out on room air and had to put on at the end of 2 minutes of exercise. He rested from 2 mins to 320 in the test. I then took him off at the end and he returned to baseline. Initialized on 11/07/18 08:46 - END OF NOTE - Interpretation Interpretation: The patient ambulated 854 feet over the course of 6 minutes beginning on room air without assistive devices. Pretesting oxygen saturation was noted to be 96% on room air. With ambulation, the treva oxygen saturation was 86% at minute #2 of testing. The patient was placed on 2 L/min of supplemental oxygen was able to complete the remainder of the test while maintaining oxygen saturations at or above 88%. This testing indicates evidence of impaired walk distance along with significant exertional oxygen desaturation, suggestive of a pulmonary limitation to exercise tolerance. - Recommendations Recommendations: 2 L/min of supplemental oxygen should be utilized with exertion
--- NOTE | 2018-11-07 14:35 | WT_ITS ---
PSN 6 Minute Walk Test - 6 Minute Walk Test 6 Minute Walk Test: 6 Minute Walk Test PSN:6-Minute Walk Test Start: 11/07/18 08:38 Freq: Status: Active Protocol: RESP.6MINW Document 11/07/18 08:40 FR (Rec: 11/07/18 08:53 FR [id number]) 6 Minute Walk Test Date Performed 11/07/18 Time Performed 08:30 Height 5 ft 8 in Weight: 173 lb Weight in Pounds 173.[address]: Brain Assistive device used: None Pre-test Oxygen Delivery Method Room Air Pulse Ox (%) 96 Pulse Rate (60-100 beats/min) 106 H Dyspnea Lance Scale (0-10) 5 Exertion Lance Scale (6-20) 11 1st minute Oxygen Delivery Method Room Air Pulse Ox (%) 92 Pulse Rate (60-100 beats/min) 111 H 2nd minute Oxygen Delivery Method Room Air Pulse Ox (%) 86 Pulse Rate (60-100 beats/min) 118 H 3rd minute Oxygen Flow Rate (L/min) (L/min) 2 Oxygen Delivery Method Nasal Cannula Pulse Ox (%) 91 Pulse Rate (60-100 beats/min) 120 H Number of Rests Taken 1 4th minute Oxygen Flow Rate (L/min) (L/min) 2 Oxygen Delivery Method Nasal Cannula Pulse Ox (%) 93 Pulse Rate (60-100 beats/min) 121 H Reported Symptoms Increased Work of Breathing 5th minute Oxygen Flow Rate (L/min) (L/min) 2 Oxygen Delivery Method Nasal Cannula Pulse Ox (%) 91 Pulse Rate (60-100 beats/min) 127 H Reported Symptoms Increased Work of Breathing 6th minute Oxygen Flow Rate (L/min) (L/min) 2 Oxygen Delivery Method Nasal Cannula Pulse Ox (%) 89 Pulse Rate (60-100 beats/min) 119 H Dyspnea Lance Scale (0-10) 8 Exertion Lance Scale (6-20) 14 Reported Symptoms Increased Work of Breathing Post-test Oxygen Delivery Method Room Air Pulse Ox (%) 96 Pulse Rate (60-100 beats/min) 112 H Full Laps Walked 14 Partial Lap, Number of Tiles Walked 28 Total Distance Walked (ft) 854 11/07/18 08:46 Cardiopulmonary Services by Kari Leigh Mr. Grijalva wears 2 LPM at home for the night at this time. He started out on room air and had to put on at the end of 2 minutes of exercise. He rested from 2 mins to 320 in the test. I then took him off at the end and he returned to baseline. Initialized on 11/07/18 08:46 - END OF NOTE - Interpretation Interpretation: The patient ambulated 854 feet over the course of 6 minutes beginning on room air without assistive devices. Pretesting oxygen saturation was noted to be 96% on room air. With ambulation, the treva oxygen saturation was 86% at minute #2 of testing. The patient was placed on 2 L/min of supplemental oxygen was able to complete the remainder of the test while maintaining oxygen saturations at or above 88%. This testing indicates evidence of impaired walk distance along with significant exertional oxygen desaturation, suggestive of a pulmonary limitation to exercise tolerance. - Recommendations Recommendations: 2 L/min of supplemental oxygen should be utilized with exertion
== END ==
LOC: PSN 08:08
PROVIDERS: Family Provider Family Medicine; PCP Family Medicine; Referring Provider Nurse Practitioner Acute Care; Visit Provider Nurse Practitioner Acute Care
DX: J44.9 Chronic obstructive pulmonary disease, unspecified (principal)
CPT/HCPCS: 94618

== ENCOUNTER → 2018-11-08 06:34 | Outpatient (CLI) | payer OTHER, SELFPAY ==
[2018-10-27 08:13] VITALS: BMI 25.5
--- NOTE | 2018-11-09 09:37 | PFT ---
INTRODUCTION: The patient is a 63-year-old male that presents for pulmonary function studies secondary to a diagnosis of COPD. Respiratory therapy reports good patient effort. Bronchodilators were used during testing. INTERPRETATION: Forced expiration spirometry demonstrates the presence of a very severe large airways obstructive ventilatory defect. There was a significant response to aerosolized bronchodilators, based upon change noted in FVC. Spirograms do not plateau indicating slow emptying of the lungs. Body plethysmography revealed an elevated RV to 159% of predicted, indicative of underlying air trapping. Diffusing capacity by single breath CO is mildly reduced at 65% of predicted. IMPRESSION: These pulmonary function studies demonstrate the presence of a partially reversible very severe large airways obstructive ventilatory defect with associated air trapping and mild reduction in diffusing capacity. There are no previous pulmonary function studies available for comparison.
--- OUTSIDE RECORDS SUMMARY | 2019-01-12 22:13 | XMS RPT_ITS ---
:1955 Author Organization [place] Support Name Relationship Address Phone KEL GRIJALVA Unavailable [address] + [place] [address] [employer] Unavailable [address] + [place] [address] SHARONKEL BAILEY Unavailable [address] + [place] [address] [employer] Unavailable [address] + [place] [address] DARVIN KEL Unavailable [address] + [place] [address] [employer] Unavailable [address] + [place] [address] DARVINKEL Unavailable [address] + [place] [address] [employer] Unavailable [address] + [place] [address] DARVIN KEL Unavailable [address] + [place] [address] [employer] Unavailable [address] + [place] [address] DARVINDYLONAN Unavailable [address] + [place] [address] [employer] Unavailable [address] + [place] [address] DARVINDYLONAN Unavailable [address] + [place] [address] [employer] Unavailable [address] + [place] [address] KEL GRIJALVA Unavailable [address] + [place] [address] [employer] Unavailable [address] + [place] [address] SHARONKEL BAILEY Unavailable [address] + [place] [address] [employer] Unavailable [address] + [place] [address] SHARONKEL BAILEY Unavailable [address] + [place] [address] [employer] Unavailable [address] + [place] [address] SHARONKEL BAILEY Unavailable [address] + [place] [address] [employer] Unavailable [address] + [place] [address] SHARONKEL BAILEY Unavailable [address] + [place] [address] [employer] Unavailable [address] + [place] [address] SHARONKEL BAILEY Unavailable [address] + [place] [address] [employer] Unavailable [address] + [place] [address] Care Team Providers Name Role Phone KartikPhan arreaga [facility] Unavailable [place], [place] Admitting Unavailable Celineian, Hakeem Consulting Unavailable Ilya Romero Attending Unavailable Missael Zamudio Consulting Unavailable [place], [place] Admitting Unavailable [place], [place] Attending Unavailable [facility] Unavailable Karimian, Hakeem Consulting Unavailable [place], [place] Consulting Unavailable [place], [place] Admitting Unavailable Missael Zamudio Attending Unavailable [facility] Unavailable Celineian, Hakeem Consulting Unavailable Missael Zamudio Consulting Unavailable Ilya Romero Consulting Unavailable [place], [place] Admitting Unavailable Ilya Romero Attending Unavailable [facility] Unavailable Santino, Hakeem Consulting Unavailable Missael Zamudio Consulting Unavailable Ilya Romero Consulting Unavailable Mallika Ahumada Attending Unavailable Kartik, Phan Referring Unavailable Ahumada, Mallika Attending Unavailable Kartik, Phan Primary Care Unavailable Ahumada, Mallika Attending Unavailable Ahumada, Mallika Referring Unavailable Kartik, Phan Primary Care Unavailable Ahumada, Mallika Attending Unavailable Ahumada, Mallika Referring Unavailable Kartik, Phan Primary Care Unavailable Ahumada, Mallika Attending Unavailable Ahumada, Mallika Referring Unavailable Kartik, Phan Primary Care Unavailable Brice Thakkar Attending Unavailable Tereletsky, Ilya Referring Unavailable CelineianHakeem Attending Unavailable [place], [place] Referring Unavailable Mark Bergman D.O. Attending Unavailable Ahumada, Mallika Referring Unavailable Mark Bergman D.O. Attending Unavailable Ahumada, Mallika Referring Unavailable Kartik, Phan G Attending Unavailable PROBLEMS PROBLEMS DATE TYPE CONDITION / CODE ATTENDING STATUS SOURCE 11/17/2018 Unknown J44.9 - Chronic Mark Bergman, Active [place] obstructive D.O. [facility] pulmonary disease, Hospital unspecified / Repository J44.9(ICD-10) 10/27/2018 Unknown G47.33 - Ahumada, Active [place] Obstructive sleep [facility] apnea (adult) Hospital (pediatric) / Repository G47.33(ICD-10) 10/27/2018 Unknown F17.200 - Nicotine Ahumada, Active [place] dependence, [facility] unspecified, Hospital uncomplicated / Repository F17.200(ICD-10) 10/27/2018 Unknown I20.0 - Unstable Ahumada, Active [place] angina / [facility] I20.0(ICD-10) Hospital Repository 07/11/2018 Admitting Unknown / Kartik Phan Active [facility] Medical diagnosis UNK(Unknown) [facility] Repository PROCEDURES PROCEDURES No Procedure Records FoundRESULTS RESULTS LOW DOSE CT LUNG Observed: 11/10/2018 Status: F Source: [place] SCREENING 3:43 PM [facility] HOSPITAL REPOSITORY [facility] Imaging Services [address] [place] [address] Lung Screening MR#: [id number] Acct: [id number] Name: HALEY GRIJALVA Rep #: [id number] : 1955 M 63 From: David Smith MD PCP: Phan Null MD Status: REG CLI Study: Low Dose CT Lung Screening Date of Exam: 11/10/18 Exam# [id number] Ordering Dr: Mallika Ahumada VP BIOLOGY-C STUDY: LOW DOSE CT LUNG CANCER SCREENING REASON FOR EXAM: Male, 63 years old. Lung cancer screening with history of tobacco use. Quit smoking 10 months ago, 1 pack per day for 44 years RADIATION DOSAGE (If Supplied By Facility): CTDIvol = ( 3.02 ) mGy, DLP = ( 118.57 ) mGycm TECHNIQUE: No contrast was administered. Low dose technique was utilized (average mAS-38 and kVp 120). 1.25 mm axial source images with a slice interval of 1.25- mm were reconstructed in lung windows. 2.5 mm axial source images with a slice interval of 2.5-mm were reconstructed in lung windows. 5.0 mm axial source images with a slice interval of 5.0-mm were reconstructed in soft tissue windows. Nodule measured using lung windows on PACS and/or independent workstation with automated measurement of minimum and maximum diameter. Nodule measurement reported as average diameter rounded to the nearest whole number. Growth is defined as an increase ins size of greater than 1.5 mm. COMPARISON: None. NODULES: Total lung nodules (excluding granulomas): 0 Emphysema: Severe centrilobular emphysema predominantly in the upper and mid lung zones. Endobronchial lesion: None Aorta: Normal caliber with mild scattered atherosclerosis. Coronary arteries: Heart: No cardiomegaly. Pulmonary artery: Unremarkable. Mediastinal nodes: No soft tissue adenopathy. Other chest and abdominal findings: None CT/Low Dose CT Lung Screening IMPRESSION: 1. Lung-RADS category 1 - Continue annual screening with LDCT in 12 months. 2. Emphysema. 3. Atherosclerosis. IMPORTANT NOTES FOR USE: ACR Lung-RADS Version 1.0 Assessment Categories Release Date: February 18, 2014 Category: Coded 0-4 bases on nodule(s) with highest degree of suspicion. Negative screen is defined as categories 1 and 2; a positive screen is defined as categories 3 and 4. Category 3 and 4A nodules that are unchanged on interval CT should be coded as category 2, and individuals returned to screening in 12 months. Category 4X: Category 3 or 4 nodules with additional imaging findings that increase the suspicion of lung cancer, such as spiculation, GGN that doubles in size in 1 year, enlarged lymph notes, etc. Category Modifiers: S (significant finding unrelated to lung cancer) and C (prior history of treated lung cancer) may be added to the 0-4 Lung-RADS Electronically Signed: David Smith MD at 17:50 EST , Service support , CC: Mallika Null MD Marine Geologist: Signed PULMONARY FUNCTION Observed: 11/09/2018 Status: F Source: [place] TEST 9:40 AM [facility] Pulmonary Services/Neurology [address] [place] [address] MR#: [id number] Acct: [id number] Name: HALEY GRIJALVA Rep #: [id number] : 1955 63 From: Mark Bergman DO Referring Dr: Mallika Ahumada NP Status: REG CLI Ordering Dr: Date: Location: [facility] Sex: M C INTRODUCTION: The patient is a 63-year-old male that presents for pulmonary function studies secondary to a diagnosis of COPD. Respiratory therapy reports good patient effort. Bronchodilators were used during testing. INTERPRETATION: Forced expiration spirometry demonstrates the presence of a very severe large airways obstructive ventilatory defect. There was a significant response to aerosolized bronchodilators, based upon change noted in FVC. Spirograms do not plateau indicating slow emptying of the lungs. Body plethysmography revealed an elevated RV to 159% of predicted, indicative of underlying air trapping. Diffusing capacity by single breath CO is mildly reduced at 65% of predicted. IMPRESSION: These pulmonary function studies demonstrate the presence of a partially reversible very severe large airways obstructive ventilatory defect with associated air trapping and mild reduction in diffusing capacity. There are no previous pulmonary function studies available for comparison. 11/09/18939 <Electronically signed by Mark Bergman DO> Date Mark Bergman DO CC: Mallika Null MD Date Dictated: 11/09/18936 Date Transcribed: 11/09/18936 Marine Geologist: DB Signed 6 MINUTE WALK TEST Observed: 11/07/2018 Status: F Source: [place] 2:35 PM [facility] Pulmonary Services/Neurology [address] [place] [address] MR#: [id number] Acct: [id number] Name: HALEY GRIJALVA Rep #: [id number] : 1955 63 From: Mark Bergman DO Referring Dr: Mallika Ahumada NP Date: Ordering Dr: Sex: M C Location: PSN PSN 6 Minute Walk Test - 6 Minute Walk Test 6 Minute Walk Test: 6 Minute Walk Test PSN:6-Minute Walk Test Start: 11/07/18 08:38 Freq: Status: Active Protocol: [id number] Document 11/07/18 08:40 FR (Rec: 11/07/18 08:53 FR [id number]) 6 Minute Walk Test Date Performed 11/07/18 Time Performed 08:30 Height 5 ft 8 in Weight: 173 lb Weight in Pounds 173.[address]: Brian Assistive device used: None Pre-test Oxygen Delivery Method Room Air Pulse Ox (%) 96 Pulse Rate (60-100 beats/min) 106 H Dyspnea Lance Scale (0-10) 5 Exertion Lance Scale (6-20) 11 1st minute Oxygen Delivery Method Room Air Pulse Ox (%) 92 Pulse Rate (60-100 beats/min) 111 H 2nd minute Oxygen Delivery Method Room Air Pulse Ox (%) 86 Pulse Rate (60-100 beats/min) 118 H 3rd minute Oxygen Flow Rate (L/min) (L/min) 2 Oxygen Delivery Method Nasal Cannula Pulse Ox (%) 91 Pulse Rate (60-100 beats/min) 120 H Number of Rests Taken 1 4th minute Oxygen Flow Rate (L/min) (L/min) 2 Oxygen Delivery Method Nasal Cannula Pulse Ox (%) 93 Pulse Rate (60-100 beats/min) 121 H Reported Symptoms Increased Work of Breathing 5th minute Oxygen Flow Rate (L/min) (L/min) 2 Oxygen Delivery Method Nasal Cannula Pulse Ox (%) 91 Pulse Rate (60-100 beats/min) 127 H Reported Symptoms Increased Work of Breathing 6th minute Oxygen Flow Rate (L/min) (L/min) 2 Oxygen Delivery Method Nasal Cannula Pulse Ox (%) 89 Pulse Rate (60-100 beats/min) 119 H Dyspnea Lance Scale (0-10) 8 Exertion Lance Scale (6-20) 14 Reported Symptoms Increased Work of Breathing Post-test Oxygen Delivery Method Room Air Pulse Ox (%) 96 Pulse Rate (60-100 beats/min) 112 H Full Laps Walked 14 Partial Lap, Number of Tiles Walked 28 Total Distance Walked (ft) 854 11/07/18 08:46 Cardiopulmonary Services by Kari Leigh Mr. Grijalva wears 2 LPM at home for the night at this time. He started out on room air and had to put on at the end of 2 minutes of exercise. He rested from 2 mins to 320 in the test. I then took him off at the end and he returned to baseline. Initialized on 11/07/18 08:46 - END OF NOTE - Interpretation Interpretation: The patient ambulated 854 feet over the course of 6 minutes beginning on room air without assistive devices. Pretesting oxygen saturation was noted to be 96% on room air. With ambulation, the treva oxygen saturation was 86% at minute #2 of testing. The patient was placed on 2 L/min of supplemental oxygen was able to complete the remainder of the test while maintaining oxygen saturations at or above 88%. This testing indicates evidence of impaired walk distance along with significant exertional oxygen desaturation, suggestive of a pulmonary limitation to exercise tolerance. - Recommendations Recommendations: 2 L/min of supplemental oxygen should be utilized with exertion 11/07/18 1435 <Electronically signed by Mark Bergman DO> Date Mark Bergman DO CC: Date Dictated: 11/07/18 1428 Date Transcribed: 11/07/181427 Marine Geologist: Mark Bergman DO Signed PULMONARY VISIT REPORT Observed: 10/27/2018 Status: F Source: [place] 12:36 PM [facility] [place] [address] [place] [address] OFFICE VISIT Date of Service: 10/27/18 MR#: [id number] Acct: [id number] Name: HALEY GRIJALVA Rep #: [id number] : 1955 Provider: Mallika Ahumada Age/Sex: 63/M [place] [facility] Status: Signed Assessment AND Plan 1. SUNIL (obstructive sleep apnea) G47.33 Plan Highly suspicious for SUNIL/COPD overlap syndrome. The patient has several symptoms consistent with obstructive sleep apnea, he snores and has been witnessed having episodes of apnea during sleep. He also wakes up feeling tired and unrefreshed. Plan for a split-night study and to begin treatment as soon as possible. Discussed that initially we want him to wear the device at least 4 hours nightly but ultimately any time spent sleeping. Lengthy discussion about the pathophysiology of obstructive sleep apnea and its impact on pulmonary hypertension which is also being suspected in this patient. Follow-up with Dr. Zamudio in 2 months, at which time anticipate the patient will be on therapy for approximately 4 weeks. He has been encouraged to contact the office with any difficulties acclimating to therapy in the meantime. Orders Orders: 2. COPD (chronic obstructive pulmonary disease) J44.9 Plan Need to obtain pulmonary function test to both clarify and quantify his COPD. We will also obtain a pulmonary stress test to evaluate for hypoxia with ambulation. Follow-up with Dr. Zamudio in 2 months, at which time he will review test results and continue to develop a plan. No change in maintenance medications at this point, if any changes will be made it will be done after PFTs are available for review. Also completed a alpha- 1 screening in the office today and results will be discussed at the follow-up appointment. The patient does believe that he has a niece that has a inherited emphysema gene. Orders Orders: 3. Chronic respiratory failure with hypoxia J96.11 Plan New. Encourage supplemental oxygen as needed to maintain saturations 89-92%. Obtaining a formal pulmonary stress test to identify and accurately tell the patient when he should be utilizing his supplemental oxygen with ambulation. This may be able to be partially or completely resolved over the next 3-6 months as we fully identify his medical problems and begin necessary treatments, specifically obstructive sleep apnea/pulmonary hypertension/hypoxemia. 4. Nicotine abuse Z72.0 Plan Patient maintains smoking cessation at this point. However he does have risk of lung cancer secondary to his pack per day and years of smoking history (greater than 81-odek-nprb history). He also just quit smoking in the past few months. Will obtain a low-dose CT of the chest screening for lung cancer and discuss nodules if any are discovered at his follow-up appointment with Dr. Zamudio. Briefly discussed that depending on the size and number of nodules repeat screening may be necessary, or biopsy and/or other interventions may be necessary. Patient conveys understanding and is agreeable to treatment. Plan Detail Other Orders Orders: Follow Up 2 Months ([facility]) [facility] Hospital FU: Chief Complaint: Shortness of breath [facility] Comments Details: This is a 63 year old very pleasant M, currently under the care of Phan Null, here to follow up after a recent hospitalization at [facility], from October 19 - October 20, 2018 for chest pain likely secondary to COPD and/or pulmonary hypertension, dyspnea also likely secondary to COPD and/or pulmonary hypertension, nonobstructive coronary artery disease. The hospital stay was relatively non-complicated. 15 pages of hospital documentation was reviewed, and found to be significant for chest x-ray completed on October 19, 2018 showing a normal x-ray examination of the chest. Left heart cath was completed, no intervention required. Today, he presents the office on room air, ambulatory and accompanied by his . Continues to experience shortness of breath on exertion and is exerting very easily. He has been using supplemental oxygen at home. He is typically using 2 L/min continuous. He does have a pulse oximeter at home. He denies any cough, sputum production or hemoptysis. He denies any wheezing, chest tightness, chest pain or palpitations but does report chest heaviness. He denies any lower extremity edema and states that actually over the past 2 months he has not experienced any lower extremity edema as he did previously. He denies any fever, chills or body aches. He continues to be smoke free. He is compliant with Asmanex, but admits that he is not currently rinsing his mouth out after each use. He denies any medication side effects such as sore throat or thrush. He is also compliant with Anoro daily. He does not believe that these medications have been very effective for him, he reports that he notices no difference. He denies any need for rescue inhaler, it has also not been very effective in the past. Intake Vital Signs10/27/18 Body Mass Index (BMI) 25.5 10/27/18 Height 5 ft 8 in 10/27/18 Weight: 173 lb Intake Visit Reasons: Hospital [facility] Vendor: VANDANA Accompanied by: Allergies No Known Allergies Allergy (Verified 10/27/18 08:05) Medications Albuterol IH (ProAir) [Proair Hfa] 2 puff PO Q6H PRN PRN 10/19/18 [History Confirmed 10/27/18] Ibuprofen [Advil] 800 mg PO PRN PRN 10/19/18 [History Confirmed 10/27/18] Mometasone Furoate [Asmanex 220 mcg Twisthaler] 1 - 2 puff INHALATION DAILY 10/19/18 [History Confirmed 10/27/18] Umeclidinium Brm/Vilanterol Tr [Anoro Ellipta 62.5-25 Mcg INH] 1 puff INHALATION DAILY 10/19/18 [History Confirmed 10/27/18] Acetaminophen [Tylenol Tablet] 650 mg PO Q6H PRN PRN tab 10/20/18 [Rx Confirmed 10/27/18] Aspirin E.C. [Ecotrin] 81 mg PO DAILY@0800 tab 10/20/18 [Rx Confirmed 10/27/18] Atorvastatin Calcium [Lipitor] 80 mg PO QHS #30 tab 10/20/18 [Rx Confirmed 10/27/18] PFSH Medical History Unstable angina (Ruled-out) COPD (chronic obstructive pulmonary disease) (Chronic) Exertional angina (Ruled-out) Social History Smoking Status: Former smoker how long ago did patient quit smokin, 1ppd second hand exposure: Yes Review of Systems Const CONSTITUTIONAL: Positive daytime sleepiness, stops breathing during sleep (per ) and fatigue; negative anorexia, body ache, chills, fever(s), night sweats, oral thrush, weight loss, sleeping in chair, weight loss, weight gain, frequent colds, seasonal allergies, other, headache(s) or orthopnea EETM Ear Nose Throat Mouth: Positive dry mouth in morning and post nasal drip; negative hard of hearing, hearing normal, hoarseness, change in vision, itchy eyes, eye pain, swallowing Difficulty, ear pain, nose bleed, headache(s), mouth pain, nasal congestion, nasal discharge, sinus pain, sinus pressure, sore throat or other Cardio Cardiovascular: Negative chest pain, chest pain at rest, chest pain with activity, irregular heart rhythm, edema, shortness of breath when lying down, palpitations or other Resp Respiratory: Positive as per HPI and shortness of breath shortness of breath: Positive with activity; negative pain with cough, wheezing, chest congestion, cough, chest tightness, pain on inspiration, inhalers, increase use of rescue inhalers, snoring, apnea or other (heavy chest ) Gastro Gastrointestional: Negative bloody stools, change in appetite, difficulty swallowing, reflux, hematemesis, melena stool, loose stool, constipation or other Genitourinary: Negative blood in urine, nocturia, pain with urination or other Musc Musculoskeletal: Negative body pain, back pain, neck pain or other Skin/Breast Skin/Breast: Negative dry skin, itching, rash, unusual bruising, breast lump or other Neuro Neurological: Negative restless legs, confusion, weakness or other Psych Psychocological: Negative abnormal sleep pattern, anxiety, thoughts of hurting self/others, hopelessness or other Lymph Lymphatic: Negative easy bleeding, easy bruising, swollen lymph nodes or other Exam Const Constitutional: Positive conversant, cooperative, in no acute respiratory distress, well developed, well nourished, dyspenic and appears older than stated age Head Head: Positive normocephalic and atraumatic; negative cyanosis of lips/distal nose Eyes Eye: Positive clear conjunctiva; negative nystagmus or scleral abnormality Ears Ear: Positive external ears normal; negative hard of hearing or hearing normal Nose Nose: Positive external nose normal and no nasal discharge; negative epistaxis Mouth Mouth: Positive post nasal drip, oral mucosae normal, no lesions, poor dentition and crowded posterior oropharynx; negative malodorous breath or oral thrush present Mallampati Score: IV: Mallampati Score Neck Neck: Positive normal visual inspection, full ROM, trachea midline, thick neck and male neck greater than 43 cm (17 in); negative lymphadenopathy, JVD or tender Chest Wall Chest: Positive normal inspection of the chest and symmetric chest movement; negative increased A/P diameter Resp lung sounds: Positive diminished, wheezes, prolonged expiratory time and increased work of breathing; negative rhonchi, rales, dullness to percussion or use of accessory muscles Cardio Cardiac: Positive regular rate, regular rhythm, S1 normal and S2 normal GI GI: Positive normal to inspection; negative distended Genitourinary: Positive deferred Musc Musculoskeletal: Positive steady gait and ROM normal; negative kyphosis or scoliosis Skin Pulmonary Skin Exam: Positive intact; negative rash Pulses Pulse: Yes pulses normal x4 extremities Extremities Extremities: Yes capillary refill normal, No edema Neuro Neurologic: Yes conversant, Yes no focal neuro deficits, Yes normal concentration, Yes understands questions, Yes cooperative, Yes normal cognition, Yes normal coordination, No tremor Lymph Lymphatic: No lymphadenopathy, No tenderness, No cervical adenopathy Psych Appearance: Positive grossly normal and eye contact Mental Status: Positive mental status grossly normal Mood: Positive anxious mood Affect: Positive anxious affect Coding Level of Care Code Off vis,est,level 4 Diagnoses SUNIL (obstructive sleep apnea) G47.33 COPD (chronic obstructive pulmonary disease) J44.9 Emphysema type: unspecified Chronic respiratory failure with hypoxia J96.11 Nicotine abuse Z72.0 Time Spent (min) 40 10/27/18 1236 <Electronically signed by Mallika DEJESUS> Date Mallika DEJESUS Cosigner Signature: Date (if applicable) CC: Phan Null MD D-DIMER QUANTITATIVE Collected: 10/27/2018 Status: F Source: [place] (DVT/PE) 11:02 AM [facility] TYPE CODE TESTS RESULT OUT OF RANGE REFERENCE UNITS LAB L300.8000 0.27-0.49 FEU/ug/m Low D-DIMER < 0.27 QUANT Result Comment: NORMAL D-Dimer level (<0.50) indicates no DVT or PE. Performed By: #### L300.8000 #### [facility] Laboratory [facility] [address] [place], [place], [id number] 12 LEAD ELECTROCARDIOGRAM Observed: 10/23/2018 Status: F Source: [place]QUEL[place] 1:37 PM [facility] HOSPITAL REPOSITORY [facility] Cardiovascular Services [address] [place] [address] 12 Lead EKG 10/19/18 1528 MR#: [id number] Acct: [id number] Name: HALEY GRIJALVA Rep #: [id number] : 1955 63 From: Brice Thakkar MD Attending Dr: Ilya Romero DO Status: DIS IN Ordering Dr: Remedios Gusman MD Date: 10/19/18 Location: [facility] Sex: M C Admitted: 10/19/18 Test Reason : Blood Pressure : / mmHG Vent. Rate : 090 BPM Atrial Rate : 090 BPM P-R Int : 108 ms QRS Dur : 080 ms QT Int : 376 ms P-R-T Axes : 075 072 072 degrees QTc Int : 459 ms Sinus rhythm with sinus arrhythmia with short LA Confirmed by ARIANE KATE, BRICE ([id number]), scientific editor BRETT BILL ([id number]) on 10/23/2018 1:37:06 PM Referred By: ILIR Confirmed By:BRICE THAKKAR MD 10/23/18 1337 Date Brice Thakkar MD CC: Remedios Gusman MD; Ilya Romero DO; Phan Null MD Signed 12 LEAD ELECTROCARDIOGRAM Observed: 10/23/2018 Status: F Source: [place] 1:31 PM [facility] REPOSITORY [facility] Cardiovascular Services [address] [place] [address] 12 Lead EKG 10/20/18 0538 MR#: [id number] Acct: [id number] Name: HALEY GRIJALVA Rep #: [id number] : 1955 63 From: Brice Thakkar MD Attending Dr: Ilya Romero DO Status: DIS IN Ordering Dr: Hakeem De MD Date: 10/20/18 Location: U Sex: M C Admitted: 10/19/18 Test Reason : MORNING EKG Blood Pressure : / mmHG Vent. Rate : 073 BPM Atrial Rate : 073 BPM P-R Int : 118 ms QRS Dur : 078 ms QT Int : 386 ms P-R-T Axes : 058 071 073 degrees QTc Int : 425 ms Normal sinus rhythm Consider Early repolarization Normal ECG Confirmed by BRICE THAKKAR MD ([id number]), scientific editor BRETT BILL ([id number]) on 10/23/2018 1:31:20 PM Referred By: ILIR Confirmed By:BRICE THAKKAR MD 10/23/18 1331 Date Brice Thakkar MD CC: Ilya Romero DO; Phan Null MD; Hakeem De MD Signed 12 LEAD ELECTROCARDIOGRAM Observed: 10/23/2018 Status: F Source: [place] 1:19 PM [facility] Cardiovascular Services [address] [place] [address] 12 Lead EKG 10/19/18 1142 MR#: [id number] Acct: [id number] Name: HALEY GRIJALVA Rep #: [id number] : 1955 63 From: Brice Thakkar MD Attending Dr: Ilya Romero DO Status: DIS IN Ordering Dr: Price Parra MD Date: 10/19/18 Location: [facility] Sex: M C Admitted: 10/19/18 Test Reason : SOB Blood Pressure : / mmHG Vent. Rate : 081 BPM Atrial Rate : 081 BPM P-R Int : 102 ms QRS Dur : 080 ms QT Int : 372 ms P-R-T Axes : 064 077 076 degrees QTc Int : 432 ms Sinus rhythm with sinus arrhythmia with short LA Otherwise normal ECG Confirmed by BRICE THAKKAR MD ([id number]), scientific editor BRETT BILL ([id number]) on 10/23/2018 1:19:21 PM Referred By: JUAN Confirmed By:BRICE THAKKAR MD 10/23/18 1317 Date Brice Thakkar MD CC: Ilya Romero DO; Phan Null MD; Price Parra MD Signed DISCHARGE SUMMARY Observed: 10/22/2018 Status: F Source: [place] 6:18 PM [facility] Medical Records Department [address] [place] [address] Discharge Summary 10/22/18 1810 MR#: [id number] Acct: [id number] Name: HALEY GRIJALVA Rep #: [id number] : 1955 63 From: Ilya Romero DO PCP: Phan Null MD Status: DIS IN Y Location: [place] [address] Discharge Date and Diagnosis Date of Admission: 10/19/18 Date of Discharge: 10/20/18 - Primary Discharge Diagnosis #1 chest pain-probably secondary to chronic obstructive pulmonary disease and/or pulmonary hypertension #2 nonobstructive coronary artery disease #3 dyspnea-probably secondary to chronic obstructive pulmonary disease and/or pulmonary hypertension - Secondary Discharge Diagnosis Chronic Problems COPD (chronic obstructive pulmonary disease) (Chronic) Hospital Course and Treatment Operations: None Procedures: 2-D Echocardiogram, Cardiac catheterization Summary of Care Provided: The patient is a 63 year old M who was seen in the emergency [facility] with chief complaint of chest tightness and dyspnea with exertion. Workup in the emergency room included an EKG which showed a normal sinus rhythm 81 without evidence of ischemic changes, chest x-ray revealed no acute abnormalities, troponin was normal, CBC was unremarkable, chemistry panel was unremarkable. Patient was admitted to PCU, cardiac enzymes were cycled and these remain normal, patient was seen by cardiology and a cardiac catheterization was performed which showed mild nonocclusive coronary disease. The etiology of the patient's chest tightness and dyspnea was not known, he was seen in consultation by pulmonary medicine who felt that the patient could possibly have COPD and/or pulmonary hypertension. On 10/20/18, patient was seen and examined: On examination he appeared in good health and spirits. Vital signs as documented. Skin warm and dry and without overt rashes. Neck without JVD. Lungs clear. Heart exam notable for regular rhythm, normal sounds and absence of murmurs, rubs or gallops. Abdomen unremarkable and without evidence of organomegaly, masses, or abdominal aortic enlargement. Extremities nonedematous. Neuro: Cranial nerves II through XII are grossly intact, no focal motor deficits were noted. Psych: Patient was alert and oriented x3, he did not appear depressed or anxious. On 10/20/18, patient was seen and examined felt to be in stable condition for discharge home. - Physical Exam Vital Signs Temp Pulse Resp BP Pulse Ox 98.2 F 90 18 104/75 92 10/20/18 11:25 10/20/18 11:25 10/20/18 11:25 10/20/18 11:25 10/20/18 12:33 Oxygen Flow Rate (L/min) [ 2 AMBULATION with Oxygen] Oxygen Flow Rate (L/min) 2 Oxygen Delivery Method Nasal Cannula Weight: 75.9 kg Body Mass Index (BMI) 25.5 Intake and Output for Last 24 Hours Intake Total 300 / 300 Balance 300 / 300 Discharge Activity: Return to Normal Activity Weight Bearing Status: Full weight bearing Home Medications: Medications to take at Discharge Albuterol IH (ProAir) [Proair Hfa] 2 puff PO Q6H PRN PRN 10/19/18 Ibuprofen [Advil] 800 mg PO PRN PRN 10/19/18 Mometasone Furoate [Asmanex 220 mcg Twisthaler] 1 - 2 puff INHALATION DAILY 10/19/18 Umeclidinium Brm/Vilanterol Tr [Anoro Ellipta 62.5-25 Mcg INH] 1 puff INHALATION DAILY 10/19/18 Acetaminophen [Tylenol Tablet] 650 mg PO Q6H PRN PRN tablet 10/20/18 Aspirin E.C. [Ecotrin] 81 mg PO DAILY@0800 tablet 10/20/18 Atorvastatin Calcium [Lipitor] 80 mg PO QHS #30 tab 10/20/18 Following Prescrptions Were Given to Patient: Atorvastatin Calcium [Lipitor] 80 mg PO QHS #30 tab Primary Care Physician: Phan Null MD [Primary Care Provider] - Please follow up with your Primary Care Physician in: in two weeks Please Follow Up With: Brice Thakkar MD When: in 3-4 weeks Please Follow Up With: Missael Zamudio MD When: in two weeks Disposition: Home Minutes spent on discharge:: 32 Patient Condition:: Stable Medical Necessity - Tobacco Use Smoking Status: Former smoker Tobacco Use: Non-smoker Meaningful Use Info Meaningful Use Diagnoses (Choose all that apply): None applicable Code Visit Inpatient Pauline AND M: [id number] Disch Hosp 10/22/18 1818 <Electronically signed by Ilya Romero DO> Date Ilya Romero DO Cosigner Signature (if applicable): Date CC: Ilya Romero DO; Phan Null MD Signed CONSULTATION Observed: 10/21/2018 Status: F Source: [place] 5:46 [facility] [place] [place] REPOSITORY [facility] Medical Records Department [address] [place] [address] [place] [address] Consultation 10/20/18 1212 MR#: [id number] Acct: [id number] Name: HALEY GRIJALVA Rep #: [id number] : 1955 63 From: Missael Zamudio MD PCP: Phan Null MD Status: DIS IN Y Location: [place] [address] Problem List (1) Unstable angina Status: Acute (2) COPD (chronic obstructive pulmonary disease) Status: Chronic Qualifiers: Emphysema type: unspecified (3) Exertional angina Status: Acute Reason for Consult Date of Consultation: 10/20/18 Reason for Consultation: Shortness of breath History of Present Illness: The patient is a 63 year old M, with past medical history listed below, who presented to [facility] on 10/19/2018 secondary to progressive shortness of breath. Patient reportedly has had a protracted course of 3-4 weeks where he has had worsening shortness of breath. Patient continued to have a cough productive of clear sputum, but denied any fever, chills, nausea or vomiting. Patient states that he had progressive shortness of breath to the point that he cannot walk up a flight of steps. Patient did report a chest tightness in the center of his chest that was worse with exertion. Patient states that resting 3-5 minutes would relieve symptoms. Patient was admitted to the PCU and ultimately had a heart catheterization. Heart catheterization showed an elevated LVEDP, but no significant blockages requiring intervention. A pulmonary consultation was obtained to help explain hospital shortness of breath etiologies. Patient does report a 50+ pack year smoking history. Patient states he quit 4 months ago. Patient has had spirometry in his primary care office, but is never had complete pulmonary function test. Patient has been placed on triple therapy, but feels like his symptoms have worsened since . Patient readily admits that he does not follow any dietary restrictions. Patient has not had any melena, hematemesis, reflux or diaphoresis reported. Patient does report a 40 pound weight gain since discontinuation of smoking. Patient reports that he has been placed on prednisone for 14 days with no significant change and possible worsening of his condition. Patient does admit to drinking 4-6 alcoholic drinks per day. Patient has never had difficulty with alcohol cessation per his report. Patient denies any illicit drugs. 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 Patient does have a pulse oximeter at home and states that he will check it upon walking up the steps and saturations will be as low as 90-91%. Review of systems otherwise negative x10 systems Past Medical History Past Medical History (Chronic Problems): Chronic Problems COPD (chronic obstructive pulmonary disease) (Chronic) Allergies No Known Allergies Allergy (Verified 10/19/18 10:58) Home Medications: Ambulatory Orders Medication Instructions Recorded Albuterol IH (ProAir) [Proair Hfa] 2 puff PO Q6H PRN PRN 10/19/18 Ibuprofen [Advil] 800 mg PO PRN PRN 10/19/18 Surgical History: - - s/p back surgery, s/p right eye aneurysm repair Psychiatric History: No pertinent psych hx Lives: Spouse/ Significant Other Smoking Status: Former smoker Tobacco Use: Non-smoker Alcohol: None Drugs: None - *Family History Maternal History Items: No pertinent history Paternal History Items: No pertinent history Review of Systems Comment: See HPI, otherwise negative x10 systems Patient Problems: Active and Suspected Problems Unstable angina (Acute) Exertional angina (Acute) Objective: Chest x-ray was personally reviewed and was unremarkable. CT scan from 2005 of the abdomen was reviewed and did not show any emphysematous changes - Physical Exam General: Alert, Oriented x3, Cooperative, No apparent distress, Well developed, Well nourished, - HEENT: Atraumatic, PERRLA, EOMI, Normocephalic, - - No scleral icterus or injection noted. Oral: Moist Mucosa, No Gingival or Mucosal Lesions/ Ulcerations Neck: Supple, No JVD, No Nodes, Trachea Midline Lungs: No rhonchi, No wheeze, No rales, Diminished, - - Symmetric expansion. No dullness to percussion. Cardiovascular: Regular rate, Regular Rhythm, Normal S1, Normal S2, No murmurs, No rub noted, No Gallop Abdomen: Bowel Sounds Present, Soft, Non Tender, Non-Distended, Obese Extremities: No clubbing, No cyanosis, No edema, Capillary Refill Less than 3 Seconds Skin: No rashes, No breakdown Musculoskeletal: No Tenderness to Palpation of Joints or Extremities, No Muscle Wasting Lymphatic: No Cervical, Supraclavicular, or Inguinal Adenopathy Neurological: Cranial nerves II-XII grossly intact, Neuro grossly intact, Motor Exam 5/5 strength throughout Psych/Mental Status: Alert and oriented to time, place, person, mood and affect Vital Signs Temp Pulse Resp BP Pulse Ox 36.8 C 90 18 104/75 92 10/20/18 11:25 10/20/18 11:25 10/20/18 11:25 10/20/18 11:25 10/20/18 11:25 Oxygen Flow Rate (L/min) 2 Oxygen Delivery Method Room Air Weight: 75.9 kg Body Mass Index (BMI) 25.5 Intake and Output for Last 24 Hours Intake Total 1030 / 1030 Balance 1030 / 1030 Laboratory Tests Past 24 Hrs WBC RBC Hgb Hct MCV MCH MCHC RDW WBC 5.7 RBC 4.29 L Clinical Impression(s) from Imaging Studies Chest X-Ray 10/19/18 11:41 IMPRESSION: Normal x-ray examination of the chest. Electronically Signed: Doreen Contreras, at 12:06 EST Tel , Service support , Assessment/Plan All Active Problems Unstable angina (Acute) Exertional angina (Acute) RECOMMENDATIONS: 1. Walking oximetry prior to discharge 2. Low-salt diet 3. Continue current inhalers 4. Outpatient pulmonary function testing 5. Supplemental oxygen with ambulation on discharge if indicated 6. Follow-up with nurse practitioner in our office 1-2 weeks after discharge IMPRESSIONS: 1. Dyspnea/hypoxemia Unclear etiology at this time. Patient does carry a diagnosis of COPD, but is never had complete PFTs for quantification and clarification of lung function. Differential diagnosis would include a COPD exacerbation, but not responsive to supplemental steroid therapy. Other possible etiologies would include pulmonary hypertension, cor pulmonale, acute on chronic diastolic congestive heart failure with elevated LVEDP or shunts. Low clinical suspicion for pulmonary embolism as d-dimer was within normal limits on presentation. Patient does not require a CT scan for evaluation of PE. Patient can follow- up as an outpatient. Will obtain complete PFT. Patient may require right heart catheterization in the future for quantification and clarification of pulmonary artery pressures as echocardiogram was unable to assess for diastolic dysfunction or pulmonary artery hypertension. 2. History of smoking/hyperlipidemia Complicates care, management, recovery and prognosis. Okay to continue with baseline statin therapy Code Visit Inpatient E AND M: 12410 Init Hosp L2 10/21/18 0546 <Electronically signed by Missael Zamudio MD> Date Missael Zamudio MD Cosigner Signature (if applicable): Date CC: Missael Zamudio MD; Phan Null MD; Hakeem De MD Signed DISCHARGE INSTRUCTION Observed: 10/20/2018 Status: F Source: [place] 11:59 AM [facility] Medical Records Department [address] [place] [address] Instructions for Home/Discharge Instructions 10/20/18 1158 MR#: [id number] Acct: [id number] Name: HALEY GRIJALVA Rep #: [id number] : 1955 63 From: Ilya Romero DO PCP: Phan Null MD Status: ADM IN - Discharge Diagnoses Current Active Problems: Current Active and Chronic Problems Unstable angina (Acute) COPD (chronic obstructive pulmonary disease) (Chronic) Exertional angina (Acute) You will use the following diet at home:: No restrictions Your food should be the consistency of: Regular Your liquids should be the consistency of: Regular/Thin Discharge Activity: Return to Normal Activity Weight Bearing Status: Full weight bearing Allergies/Adverse Reactions: Allergies No Known Allergies Allergy (Verified 10/19/18 10:58) Medications to take at Discharge Albuterol IH (ProAir) [Proair Hfa] 2 puff PO Q6H PRN PRN 10/19/18 Ibuprofen [Advil] 800 mg PO PRN PRN 10/19/18 Mometasone Furoate [Asmanex 220 mcg Twisthaler] 1 - 2 puff INHALATION DAILY 10/19/18 Umeclidinium Brm/Vilanterol Tr [Anoro Ellipta 62.5-25 Mcg INH] 1 puff INHALATION DAILY 10/19/18 Acetaminophen [Tylenol Tablet] 650 mg PO Q6H PRN PRN tablet 10/20/18 Aspirin E.C. [Ecotrin] 81 mg PO DAILY@0800 tablet 10/20/18 Atorvastatin Calcium [Lipitor] 80 mg PO QHS #30 tab 10/20/18 The following prescriptions were given: Atorvastatin Calcium [Lipitor] 80 mg PO QHS #30 tab Primary Care Physician: Phan Null MD [Primary Care Provider] - Please follow up with your Primary Care Physician in: in two weeks Test Results: Test results from this visit will be discussed in further detail at your follow-up appointment, if applicable. Please Follow Up With: Brice Thakkar MD When: in 3-4 weeks Please Follow Up With: Missael Zamudio MD When: in two weeks 10/20/18 6025 <Electronically signed by Ilya Romero DO> Date Ilya Romero DO CC: Missael Zamudio MD; Phan Null MD; Hakeem De MD Signed CBC-COMPLETE BLOOD CNT Collected: 10/20/2018 Status: F Source: [place] NO DIFF 5:24 AM [facility] TYPE CODE TESTS RESULT OUT OF RANGE REFERENCE UNITS LAB L100.1000 4.4-11.0 K/mm3 Normal WBC 5.7 LAB L100.1200 4.6-6.2 M/mm3 Low RBC 4.29 LAB L100.1300 13.0-16.5 g/dl Normal HGB 13.4 LAB L100.1400 40-54 % Normal HCT 40.4 LAB L100.1500 80-94 fL High MCV 94.2 LAB L100.1600 27.0-32.0 pg Normal MCH 31.2 LAB L100.1700 32-36 g/gl Normal MCHC 33.2 LAB L100.1810 11.6-14.6 % Normal RDW CV 13.1 LAB L100.1820 35.1-43.9 fl Normal RDW SD 43.6 LAB L100.1900 150-450 K/mm3 Normal PLT 195 LAB L100.2000 6.2-12.0 fl Normal MPV 9.7 Performed By: #### L100.0500 #### [facility] [address] [place], [place], [address] COMPREHENSIVE METABOLIC Collected: 10/20/2018 Status: F Source: [place] PROFIL 5:24 AM [facility] TYPE CODE TESTS RESULT OUT OF RANGE REFERENCE UNITS LAB L501.0100 74-106 mg/dL Normal GLU 106 Result Comment: Fasting Glucose result from 100 to 125 mg/dL suggests IMPAIRED HOMEOSTASIS per A.D.A. criteria. Please note revised GLUCOSE reference range effective 2017. LAB L501.1000 7-18 mg/dL High BUN 21 LAB L501.1100 0.70-1.30 mg/dL Normal CREAT,SERUM 0.72 Result Comment: The validity of the calculated GFR AND GFRAA in patients over 70 years has not been determined. Clinical correlation is essential. LAB L501.1110 >60 mL/min Normal EST GFR 118 Result Comment: Non- GFR Calc LAB L501.1115 >60 mL/min Normal EST GFR - AA 142 Result Comment: GFR Calc LAB L501.1255 ml/min Normal Estimated CRCL 104.24 LAB L501.1300 10-20 RATIO High BUN/CRE 29.2 LAB L501.1500 6.4-8. g/dL 2 T PROT Normal 6.8 LAB L501.1800 3.2-5. g/dL 0 ALB Normal 3.2 LAB L501.1950 2.2-4. g/dL 2 GLOB Normal 3.6 LAB L501.2000 0.9-2. RATIO 4 A/G Normal 0.9 LAB L501.2200 8.5-10 mg/dL .1 CA Normal 8.6 LAB L501.4100 15-37 U/L AST Normal 32 Result Comment: Slight Hemolysis, Result may be falsely increased. LAB L501.4305 45-117 U/L Normal ALK P 91 LAB L501.4405 16-61 U/L Normal ALT 51 LAB L501.4600 0.20-1.00 mg/dL Normal T BILI 0.70 LAB L501.5300 136-145 mmol/L Normal NA 140 LAB L501.5600 3.5-5.1 mmol/L Normal K 4.5 Result Comment: Slight Hemolysis, Result may be falsely increased. LAB L501.5900 98-107 mmol/L Normal CL 104 LAB L501.6100 21.0-32.0 mmol/L Normal CO2 28.0 LAB L501.6200 5-15 Normal 8 GAP Performed By: #### L500.4050, L500.4100 #### [facility] [address] [place], [place], [address] LIPID PROFILE Collected: 10/20/2018 Status: F Source: [place] 5:24 AM [facility] TYPE CODE TESTS RESULT OUT OF RANGE REFERENCE UNITS LAB L501.4900 200 mg/dL Normal CHOL 195 Result Comment: <200 mg/dL Desirable 200-240 mg/dL Borderline >240 mg/dL High Risk LAB L501.5000 mg/dL Normal TRIG 163 Result Comment: The drugs N-Acetylcysteine and Metamizole may falsely depress this assay. Serum Triglycerides Reference Interval Normal <150 mg/dL Borderline high 150 - 199 mg/dL High 200 - 499 mg/dL Very High > or = 500 mg/dL LAB L501.6400 mg/dL Normal HDL 77 Result Comment: The drugs N-Acetylcysteine and Metamizole may falsely depress this assay. Reference Range HDL <40 mg/dL Low HDL Cholesterol HDL >or= 60 mg/dL High HDL Cholesterol LAB L501.6500 0-130 mg/dL Normal LDL 85 LAB L501.6600 5-40 mg/dL Normal VLDL 33 Performed By: #### L500.4050, L500.4100 #### [facility] [address] [place], [address] PROTHROMBIN TIME W/INR Collected: 10/20/2018 Status: F Source: [place] 5:24 AM [facility] TYPE CODE TESTS RESULT OUT OF RANGE REFERENCE UNITS LAB L300.4150 11.7-14.9 SECONDS Normal PROTIME 13.2 LAB L300.4200 Normal INR 1.0 Performed By: #### L300.3900, L300.4310 #### [facility] [address] [place], [address] PARTIAL THROMBOPLAST Collected: 10/20/2018 Status: F Source: [place] TIME 5:24 AM [facility] TYPE CODE TESTS RESULT OUT OF RANGE REFERENCE UNITS LAB L300.4310 24.1-36.2 Seconds Normal PTT 34.2 Performed By: #### L300.3900, L300.4310 #### [facility] [address] [place], [address] HISTORY AND PHYSICAL Observed: 10/19/2018 Status: F Source: [place] EXAM 10:55 PM [facility] Medical Records Department [address] [place] [address] History and Physical 10/19/18 1247 MR#: [id number] Acct: [id number] Name: HALEY GRIJALVA Rep #: [id number] : 1955 63 From: Remedios Gusman MD PCP: Phan Null MD Status: ADM IN Y Location: [place] [address] Problem List (1) Unstable angina Status: Acute (2) COPD (chronic obstructive pulmonary disease) Status: Chronic Qualifiers: Emphysema type: unspecified History of Present Illness Date of Admission: 10/19/18 Chief Complaint: Chest pain, ongoing for 1 month The patient is a 63 year old M with PMHx of COPD, not on oxygen, former tobacco user who has been complaining of progressive chest tightness, worse with exertion, with no radiation, relieved with rest. Over the last 3 weeks, he has been very SOB with the minimal amount of exertion. He denied diaphoresis, palpitations, dizziness. He has associated orthopnea, PND. Denies leg edema. Vitals in the ED is 97.8F, BP 163/81, HR 91 , RR 22 Spo2 94%. The admitting labs were unremarkable. D-Dimer was negative. BNpep was 15.5 Chest x-ray was negative. EKG shows no acute ST-T changes. Past Medical History Past Medical History (Chronic Problems): Chronic Problems COPD (chronic obstructive pulmonary disease) (Chronic) Allergies No Known Allergies Allergy (Verified 10/19/18 10:58) Home Medications: Ambulatory Orders Medication Instructions Recorded Albuterol IH (ProAir) [Proair Hfa] 2 puff PO Q6H PRN PRN 10/19/18 Ibuprofen [Advil] 800 mg PO PRN PRN 10/19/18 Surgical History: - - s/p back surgery, s/p right eye aneurysm repair Psychiatric History: No pertinent psych hx Lives: Spouse/ Significant Other Smoking Status: Former smoker Tobacco Use: Non-smoker Alcohol: None Drugs: None - *Family History Maternal History Items: No pertinent history Paternal History Items: No pertinent history Review of Systems Constitutional: Denies: Anorexia, Chills, Fever, Weakness, Weight Change Eyes: Denies: Blurred vision, Cataracts, Drainage, Eyelid Inflammation HEENT: Denies: Head Aches, Hearing Changes, Sinus Congestion, Sinus Drainage Cardiovascular: Reports: Chest Pain, Chest Pressure, Chest Tightness, Orthopnea. Denies: Light Headedness, Palpitations, Syncope Respiratory: Denies: Cough, Shortness of breath at rest, Sputum production Gastrointestinal: Denies: Abdominal Pain, Constipation, Nausea, Vomiting Genitourinary: Denies: Dysuria, Frequency, Incontinence Musculoskeletal: Denies: Joint Pain, Joint stiffness, Joint swelling, Joint Tenderness Skin: Denies: Rash, Wounds Neurological: Denies: Numbness, Tingling, Focal weakness Psychiatric: Denies: Anxiety, Depression, Homicidal Ideations, Suicidal Ideations Endocrine: Denies: Change in Body Habitus, Heat/ Cold Intolerance, Hx of Irradiation Hematologic/ Lymphatic: Denies: Easy Bruising, Easy Bleeding VTE Information - Inpt Only VTE Present on Admission: No VTE Pharm Prophylaxis ordered?: Yes Patient Problems: Active and Suspected Problems Unstable angina (Acute) Exertional angina (Acute) - Physical Exam General: Alert, Oriented x3, Cooperative, No apparent distress, - - obes HEENT: Atraumatic, PERRLA, EOMI, Normocephalic Oral: Moist Mucosa Neck: Supple Lungs: Clear to auscultation, Normal air movement Cardiovascular: Regular rate, Regular Rhythm, Normal S1, Normal S2, No murmurs Abdomen: Bowel Sounds Present, Soft, Non Tender, Non-Distended, No Hepato-splenomegaly Extremities: No edema Skin: No rashes, No breakdown Musculoskeletal: No Tenderness to Palpation of Joints or Extremities Lymphatic: No Cervical, Supraclavicular, or Inguinal Adenopathy Neurological: Cranial nerves II-XII grossly intact Psych/Mental Status: Normal Affect, Appropriate Vital Signs Temp Pulse Resp BP Pulse Ox 97.8 F 86 12 128/83 H 98 10/19/18 12:00 10/19/18 12:00 10/19/18 12:00 10/19/18 12:00 10/19/18 12:00 Oxygen Flow Rate (L/min) 2 Oxygen Delivery Method Nasal Cannula Weight: 78.562 kg Body Mass Index (BMI) 26.3 Laboratory Tests Past 24 Hrs WBC 7.9 RBC 4.68 Hgb 14.4 Hct 44.1 MCV 94.2 H MCH 30.8 MCHC 32.7 RDW 13.4 RDW Differential 46.0 H Assessment/Plan All Active Problems Unstable angina (Acute) Exertional angina (Acute) 63 year old M with PMHx of COPD, not on oxygen, former tobacco user who has been complaining of progressive chest tightness, worse with exertion, with no radiation, relieved with rest. Over the last 3 weeks, he has been very SOB with the minimal amount of exertion. He denied diaphoresis, palpitations, dizziness. 1. Chest discomfort likely secondary to unstable angina, EKG showed no acute ST-T changes, troponin x 1 negative Plan: Admit to PCU, trend cardiac enzymes, 2d-ech, cardiology consult, aspirin, Lovenox - therapeutic dosing, metoprolol, statin 2. COPD, stable, on prn breathing treatments 3. DVT PPx- Lovenox Therapeutic dosing Code Visit Inpatient E AND M: 39600 Init Hosp L3 10/19/18 4695 <Electronically signed by Remedios Gusman MD> Date Remedios Gusman MD Cosigner Signature: Date (if applicable) CC: Remedios Gusman MD; Phan Null MD Signed URINALYSIS, COMPLETE Collected: 10/19/2018 Status: F Source: [place] 10:15 PM [facility] Order Comment: How was Urine Obtained? CLEAN CATCH TYPE CODE TESTS RESULT OUT OF RANGE REFERENCE UNITS LAB L400.3000 Yellow COLOR Normal Yellow LAB L400.3050 Clear Normal CLARITY Clear LAB L400.3200 Normal mg/dl Normal GLUCOSE, UR Normal LAB L400.3300 Negative mg/dL Normal BILIRUBIN URINE Negative LAB L400.3400 Negative mg/dl Normal KETONE UR Negative LAB L400.3465 1.002-1.030 Normal SP.GR. DIPSTX 1.015 LAB L400.3550 5.0 - 8.0 pH UR Normal 6.5 LAB L400.3600 Negative mg/dl PROT Normal DIPSTX Negative LAB L400.3700 Normal mg/dl Normal UROBILI Normal LAB L400.3750 Negative Normal NITRITE UR Negative LAB L400.3780 Negative /ul Normal OCCULT BLOOD-UR Negative LAB L400.3800 Negative /ul LEUK Normal ESTERASE Negative LAB L400.4050 0-5 /hpf WBC Normal 0-5 SEEN LAB L400.4100 0-5 /hpf Normal RBC-UA 0-5 SEEN LAB L400.4150 0-5 /hpf SQUAM 0 Normal EPI SEEN LAB L400.4300 None Seen /hpf 0 Normal BACTERIA SEEN LAB L400.4350 <or=2+ /hpf 0 Normal MUCUS, URINE SEEN Performed By: #### L400.0001 #### [facility] [address] [place], [address] TROPONIN-I Collected: 10/19/2018 Status: F Source: [place] 6:20 PM [facility] Order Comment: 'TROP' Serial specimen #1, #2 or #3: 3 TYPE CODE TESTS RESULT OUT OF RANGE REFERENCE UNITS LAB L501.4010 <0.045 ng/mL Normal < 0.015 TROPONIN-I Result Comment: TROPONIN-I EXPECTED VALUES <0.045 Negative 0.045 - 0.590 Consistent with Cardiac Damage > OR = 0.600 Critical Value Not every elevated troponin is indicative of CO. These values should be used with clinical judgement in examining the patient's clinical picture for diagnosis. To establish a diagnosis of CO versus myocardial injury, there must be a demonstrated rise and/or fall in the troponin values, in addition to ischemic symptoms, EKG changes, new regional wall motion abnormality, and/or angiographical evidence. PLEASE NOTE: REFERENCE RANGES EDITED 18 Performed By: #### L501.4010 #### [facility] [address] [place], [address] ECHOCARDIOGRAM COMPLETE Observed: 10/19/2018 Status: F Source: [place] 4:47 PM [facility] Cardiovascular Services [address] [facility] [place] [address] Echo Complete 10/19/18 1501 MR#: [id number] Acct: [id number] Name: HALEY GRIJALVA Rep #: [id number] : 1955 63 From: Brice Thakkar MD Attending Dr: Remedios Gusman MD Status: ADM IN Ordering Dr: Remedios Gusman MD Date: 10/19/18 Location: U Sex: M C Admitted: 10/19/18 Reason For Study: CHEST PAIN Procedure This was a 2D Doppler, Color Flow transthoracic echocardiogram. The study was technically difficult. Exam performed portable in patient room. Left Ventricle Based upon the 2D echocardiographic images obtained there appears to be grossly normal left ventricular size, wall motion, and systolic function. The estimated ejection fraction is 55 %. Unable to assess diastolic dysfunction. Right Ventricle Based upon the 2D echocardiographic images obtained there appears to be grossly normal right ventricular size and systolic function. Atria Normal left atrium. Normal right atrium. No doppler evidence for ASD. Mitral Valve There is no mitral annular calcification. Normal mitral valve. Tricuspid Valve The tricuspid valve is not well visualized. Aortic Valve The aortic valve is not well visualized. Pulmonic Valve The pulmonic valve is not well visualized. Great Vessels Normal sized aortic root. Pericardium/Pleural No pericardial effusion. MMode/2D Measurements AND Calculations Ao root diam: 3.1 cm LAV(MOD-sp4): 38.0 ml LA A4 area: 15.7 cm2 RA A4 area: 11.9 cm2 Time Measurements MV dec time: 0.22 sec Doppler Measurements AND Calculations MV E max robert: 55.2 cm/sec Lat Peak E' Robert: 7.5 cm/sec Med Peak E' Robert: 8.5 cm/sec MV A max robert: 75.9 cm/sec E/E' lat: 7.4 E/E' med: 6.5 MV E/A: 0.73 Ao V2 max: 97.4 cm/sec LV V1 max: 91.3 cm/sec PA V2 max: 84.6 cm/sec Ao max P.8 mmHg LV V1 max P.3 mmHg Interpretation Summary The study was technically difficult. Based upon the 2D echocardiographic images obtained there appears to be grossly normal left ventricular size, wall motion, and systolic function. The estimated ejection fraction is 55 %. Unable to assess diastolic dysfunction. Ordering Physician: Remedios Gusman Referring Physician: PHAN NULL Performed By: Yumiko Grant [facility] 10/19/18 1646 Date Brice Thakkar MD CC: Remedios Gusman MD; Phan Null MD Date Dictated: 10/19/18 1501 Date Transcribed: 10/19/18 164 Marine Geologist: Signed CONSULTATION Observed: 10/19/2018 Status: F Source: [place] 4:18 PM [facility] Medical Records Department [address] [place] [address] Consultation 10/19/18 1609 MR#: [id number] Acct: [id number] Name: HALEY GRIJALVA Rep #: [id number] : 1955 63 From: Hakeem De MD PCP: Phan Null MD Status: ADM IN Y Location: [place] [address] Problem List (1) Exertional angina Status: Acute Reason for Consult Date of Consultation: 10/19/18 History of Present Illness: The patient is a 63 year who was seen in this ER approximately 5 weeks ago and treated with azithromycin for presumed bronchitis. Patient now presents with severe exertional dyspnea and chests tightness for 3-4 weeks. does have a cough that is productive of clear sputum. He states the amount of sputum or colored sputum is not changed. His cough is not changed. Upon further questioning been determined that patient has dyspnea with exertion. He is now not able to walk up a flight of steps. He denies chest pain. He states he has tightness in his chest. He has had dyspnea with exertion and tightness in his chest for the past 3-4 weeks. He states the chest tightness goes away after 3-5 minutes of rest and the breathing improves after 10-15 minutes. He admits that less activity is required to precipitate the chest tightness and the dyspnea. He has no known history of coronary disease. He was a smoker of 1 pack/day for 50+ years. He quit 4 months ago. He denies hematemesis, melena medication. He denies history of reflux, hiatal hernia or peptic ulcer disease. He denies nausea, diaphoresis or radiation of the discomfort. He denies fever, chills or night sweats. He denies weight gain or weight loss. He denies ocular, visual auditory symptoms. He denies symptoms of claudication. He does admit that he has less hair on his legs that he did when he was younger. He denies headache, paresthesia, anesthesia or motor weakness. He denies problems with balance. He denies trouble with speech or swallowing. Please read written note for complete detail. [] Past Medical History Allergies/Adverse Reactions: Allergies No Known Allergies Allergy (Verified 10/19/18 10:58) Home Medications: Ambulatory Orders Medication Instructions Recorded Albuterol IH (ProAir) [Proair Hfa] 2 puff PO Q6H PRN PRN 10/19/18 Ibuprofen [Advil] 800 mg PO PRN PRN 10/19/18 Past Medical History (Chronic Problems): Chronic Problems COPD (chronic obstructive pulmonary disease) (Chronic) Smoking Status: Former smoker Tobacco Use: Cigarettes Review of Systems - Review of Systems General: Reports: Fatigue - 12 system reviewed. Pertinent positive and negative ones are per HPI. Objective: Vital Signs Temp Pulse Resp BP Pulse Ox 98.0 F 83 18 131/82 H 96 10/19/18 14:21 10/19/18 14:21 10/19/18 14:21 10/19/18 14:21 10/19/18 14:21 Oxygen Flow Rate (L/min) 2 Oxygen Delivery Method Nasal Cannula Weight: 76.2 kg Body Mass Index (BMI) 25.5 General: Alert, Oriented x 3, No Acute Distress HEENT: Atraumatic Oral: Poor Dentition Neck: Supple, No JVD Lungs: Diminished Oneil Bases, Expiratory Wheezes-Oneil - mild Cardiovascular: Regular Rhythm, No Murmurs, No Gallops Vascular: No Carotid Bruits Abdomen: Bowel Sounds Present, Soft, Non Tender Extremities: No Cyanosis, No edema Skin: No Rashes Neurological: No Focal Motor or Sensory Deficit Psych/Mental Status: Appropriate 10/19/18 11:30: WBC 7.9, RBC 4.68, Hgb 14.4, Hct 44.1, MCV 94.2 H, MCH 30.8, MCHC 32.7, RDW 13.4, RDW Differential 46.0 H, Plt Count 195, MPV 9.5, Immature Gran % (Auto) 0.500, Neut % (Auto) 69.1, Lymph % (Auto) 15.8 L, Titus % (Auto) 10.2 H, Eos % (Auto) 4.1, Baso % (Auto) 0.3, Absolute Neuts (auto) 5.5, Total Counted Not Reportable 10/19/18 11:30: Sodium 136, Potassium 4.3, Chloride 101, Carbon Dioxide 30.0, Anion Gap 5, BUN 17, Creatinine 0.61 L, Est GFR (MDRD) Af Amer 174, Est GFR (MDRD) Non-Af 144, BUN/Creatinine Ratio 28.1 H, Glucose 103, Calcium 9.2, Troponin I < 0.015 10/19/18 11:30: B-Natriuretic Peptide 15.5 10/19/18 11:30: D-Dimer Quant (PE/DVT) < 0.27 L Rhythm: Mild sinus tachycardia. EKG: Mild sinus tachycardia, otherwise normal. ECHO: P. CXR: COPD. Assessment/Plan Exertional dyspnea, chest tightness, angina equivalent, modest CAD risk. Will Cath at AM. Further recommendations to follow. 10/19/18 2268 <Electronically signed by Hakeem De MD> Date Hakeem De MD Cosigner Signature (if applicable): Date CC: Phan Null MD; Hakeem De MD Signed TROPONIN-I Collected: 10/19/2018 Status: F Source: [place] 3:22 PM [facility] Order Comment: 'TROP' Serial specimen #1, #2 or #3: 2 TYPE CODE TESTS RESULT OUT OF RANGE REFERENCE UNITS LAB L501.4010 <0.045 ng/mL Normal < 0.015 TROPONIN-I Result Comment: TROPONIN-I EXPECTED VALUES <0.045 Negative 0.045 - 0.590 Consistent with Cardiac Damage > OR = 0.600 Critical Value Not every elevated troponin is indicative of CO. These values should be used with clinical judgement in examining the patient's clinical picture for diagnosis. To establish a diagnosis of CO versus myocardial injury, there must be a demonstrated rise and/or fall in the troponin values, in addition to ischemic symptoms, EKG changes, new regional wall motion abnormality, and/or angiographical evidence. PLEASE NOTE: REFERENCE RANGES EDITED 18 Performed By: #### L501.4010 #### [facility] [address] [facility] [place], [address] EMERGENCY DEPARTMENT Observed: 10/19/2018 Status: F Source: [place] SUMMARY 1:13 PM [facility] Medical Records Department [address] [place] [address] Emergency Department Summary 10/19/18 1242 MR#: [id number] Acct: [id number] Name: HALEY GRIJALVA Rep #: [id number] : 1955 63 From: Price Parra MD PCP: Phan Null MD Status: REG ER - ER Visit Summary Date of Service: 10/19/18 Chief Complaint: Chest tightness and dyspnea with exertion History of Present Illness: The patient is a 63 M who was seen approximately 3 weeks ago and treated with azithromycin for presumed bronchitis. Patient does have a cough that is productive of clear sputum. He states the amount of sputum or colored sputum is not changed. His cough is not changed. Upon further questioning been determined that patient has dyspnea with exertion. He is now not able to walk up a flight of steps. He denies chest pain. He states he has tightness in his chest. He has had dyspnea with exertion and tightness in his chest for the past 3-4 weeks. He states the chest tightness goes away after 3-5 minutes of rest and the breathing improves after 10-15 minutes. He admits that less activity is required to precipitate the chest tightness and the dyspnea. He has no known history of coronary disease. He was a smoker of 1 pack/day for 50+ years. He quit 4 months ago. He denies hematemesis, melena medication. He denies history of reflux, hiatal hernia or peptic ulcer disease. He denies nausea, diaphoresis or radiation of the discomfort. He denies fever, chills or night sweats. He denies weight gain or weight loss. He denies ocular, visual auditory symptoms. He denies symptoms of claudication. He does admit that he has less hair on his legs that he did when he was younger. He denies headache, paresthesia, anesthesia or motor weakness. He denies problems with balance. He denies trouble with speech or swallowing. Please read written note for complete detail. Physical Examination: Vital signs noted and unremarkable. Patient appears slightly dyspneic. He states he had difficulty walking up the incline. He is presently pain-free. Head is atraumatic normocephalic. Pupils are equal round reactive. Extraocular muscles are intact. TMs are pearly white with landmarks noted. Nares patent with no drainage. Posterior pharynx without erythema or exudate. Uvula is midline. There is no dysphonia or dysphasia. Trachea is midline. There is no stridor with auscultation of the neck. Heart is regular without murmur, gallop or rub. S1 and S2 are normal. Lungs are clear to auscultation with good movement of air bilaterally. Abdomen is soft nontender with no palpable cell mass. He has no abdominal bruit. DP pulses palpable bilaterally. He has minimal hair on his legs and decreased hair on his toes. Neuro exam is nonfocal. Test Results: EKG reveals a sinus rhythm rate of 81 with respiratory variation. LA interval is short. QRS duration and QT interval on unremarkable. [place] is normal. This was obtained when he was pain-free. Portal chest x-ray reveals normal cardiac silhouette, mediastinum and lung parenchyma. There is no N O'Jaci osseous structures per my interpretation. CBC, basic minimal panel troponin are normal. Emergency Department Course and Treatment: Patient has classic exertional angina. Patient was informed he will need a cardiac catheterization. Patient was treated with aspirin, Nitropaste and 1 mg/kg of Lovenox. Case was discussed with hospitalist and driver medic. Plan is cardiac catheterization in the morning. Treatment Plan: Treatment for acute coronary syndrome Disposition: PCU Impression: Acute coronary syndrome This note was generated with [employer] dictation software. It may contain incorrect words, spelling, and punctuation that were not noted in review of the chart prior to signing ED Disposition - Plan for ED Patient: Chief Complaint: Shortness of Breath Referrals: Phan Null MD [Primary Care Provider] - What to do if you have Problems For any increased pain, shortness of breath, bleeding, nausea or vomiting, chest pain, or any unexpected problems, contact your Primary Care Provider. Call [employer] [facility] ([phone]) or report to the closest Emergency Room. Call 911 if necessary. 10/19/18 1313 <Electronically signed by Price Parra MD> Date Price Parra MD Cosigner Signature (If Indicated): Date CC: Phan Null MD CBC W/DIFF, AUTOMATED Collected: 10/19/2018 Status: F Source: [place] 11:30 AM [facility] TYPE CODE TESTS RESULT OUT OF RANGE REFERENCE UNITS LAB L100.1000 4.4-11.0 K/mm3 Normal WBC 7.9 LAB L100.1200 4.6-6.2 M/mm3 Normal RBC 4.68 LAB L100.1300 13.0-16.5 g/dl Normal HGB 14.4 LAB L100.1400 40-54 % Normal HCT 44.1 LAB L100.1500 80-94 fL High MCV 94.2 LAB L100.1600 27.0-32.0 pg Normal MCH 30.8 LAB L100.1700 32-36 g/gl Normal MCHC 32.7 LAB L100.1810 11.6-14.6 % Normal RDW CV 13.4 LAB L100.1820 35.1-43.9 fl High RDW SD 46.0 LAB L100.1900 150-450 K/mm3 Normal PLT 195 LAB L100.2000 6.2-12.0 fl Normal MPV 9.5 LAB L100.2100 47-70 % Normal NEUT% 69.1 LAB L100.2200 19-41 % Low LY% 15.8 LAB L100.2300 0-10 % High MONO% 10.2 LAB L100.2400 0-5 % Normal EO% 4.1 LAB L100.2500 0-1 % Normal BASO% 0.3 LAB L100.2550 0.0-0.9 % Normal IM GRAN % 0.500 Result Comment: IG% - Immature Granulocytes (promyelocytes, myelocytes and metamyelocytes) > 1% indicates that a LEFT SHIFT is Present. LAB L100.2620 2.0-7.7 X10 3/uL Normal Absolute Neut 5.5 LAB L100.2720 0.83-4.51 X10 3/ul Normal Absolute Lymph 1.24 Performed By: #### L100.0100 #### [facility] [address] [place], [place], [address] BASIC METABOLIC Collected: 10/19/2018 Status: F Source: [place] PROFILE (BMP) 11:30 AM [facility] TYPE CODE TESTS RESULT OUT OF RANGE REFERENCE UNITS LAB L501.0100 74-106 mg/dL Normal GLU 103 Result Comment: Fasting Glucose result from 100 to 125 mg/dL suggests IMPAIRED HOMEOSTASIS per A.D.A. criteria. Please note revised GLUCOSE reference range effective 2017. LAB L501.1000 7-18 mg/dL Normal BUN 17 LAB L501.1100 0.70-1.30 mg/dL Low CREAT,SERUM 0.61 Result Comment: The validity of the calculated GFR AND GFRAA in patients over 70 years has not been determined. Clinical correlation is essential. LAB L501.1110 >60 mL/min Normal EST GFR 144 Result Comment: Non- GFR Calc LAB L501.1115 >60 mL/min Normal EST GFR - AA 174 Result Comment: GFR Calc LAB L501.1255 ml/min Normal Estimated CRCL 123.03 LAB L501.1300 10-20 RATIO High BUN/CRE 28.1 LAB L501.2200 8.5-10 mg/dL .1 CA Normal 9.2 LAB L501.5300 136-14 mmol/L 5 NA Normal 136 LAB L501.5600 3.5-5. mmol/L 1 K Normal 4.3 LAB L501.5900 98-107 mmol/L CL Normal 101 LAB L501.6100 21.0-3 mmol/L 2.0 CO2 Normal 30.0 LAB L501.6200 5-15 GAP Normal 5 Performed By: #### L500.2500, L501.4010 #### [facility] [address] [place], [place], [id number] TROPONIN-I Collected: 10/19/2018 Status: F Source: [place] 11:30 AM [facility] TYPE CODE TESTS RESULT OUT OF RANGE REFERENCE UNITS LAB L501.4010 <0.045 ng/mL Normal < 0.015 TROPONIN-I Result Comment: TROPONIN-I EXPECTED VALUES <0.045 Negative 0.045 - 0.590 Consistent with Cardiac Damage > OR = 0.600 Critical Value Not every elevated troponin is indicative of CO. These values should be used with clinical judgement in examining the patient's clinical picture for diagnosis. To establish a diagnosis of CO versus myocardial injury, there must be a demonstrated rise and/or fall in the troponin values, in addition to ischemic symptoms, EKG changes, new regional wall motion abnormality, and/or angiographical evidence. PLEASE NOTE: REFERENCE RANGES EDITED 18 Performed By: #### L500.2500, L501.4010 #### [facility] [address] [place], [place], [address] D-DIMER QUANTITATIVE Collected: 10/19/2018 Status: F Source: [place] (DVT/PE) 11:30 AM [facility] Order Comment: Comments: as add on test TYPE CODE TESTS RESULT OUT OF RANGE REFERENCE UNITS LAB L300.8000 0.27-0.49 FEU/ug/m Low D-DIMER < 0.27 QUANT Result Comment: NORMAL D-Dimer level (<0.50) indicates no DVT or PE. Performed By: #### L300.8000 #### [facility] [address] [place], [address] THYROID STIM HORMONE Collected: 10/19/2018 Status: F Source: [place] (TSH) 11:30 AM [facility] Order Comment: Comments: as add on test TYPE CODE TESTS RESULT OUT OF RANGE REFERENCE UNITS LAB L501.9520 0.358-3.74 uIU/mL Normal TSH 1.01 Performed By: #### L501.9520 #### [facility] [address] [place], [address] BNP,B-TYPE NATRIURETIC Collected: 10/19/2018 Status: F Source: [place] PEPTIDE 11:30 AM [facility] Order Comment: Comments: as add on test TYPE CODE TESTS RESULT OUT OF RANGE REFERENCE UNITS LAB L503.6620 0-100 pg/mL Normal B-TYPE 15.5 KELLI PEP Performed By: #### L503.6620 #### [facility] [address] [place], [address] CHEST 1 VIEW Observed: 10/19/2018 Status: F Source: [place] (PORTABLE) 11:21 AM [facility] Imaging Services [address] [place] [address] Chest 1 View (Portable) MR#: [id number] Acct: [id number] Name: HALEY GRIJALVA Rep #: [id number] : 1955 M 63 From: Doreen Contreras MD PCP: Phan Null MD Status: REG ER Study: Chest 1 View (Portable) Date of Exam: 10/19/18 Exam# [id number] Ordering Dr: Price Parra MD STUDY: X-RAY CHEST REASON FOR EXAM: Male, 63 years old. TECHNIQUE: COMPARISON: None. FINDINGS: The lungs are clear and expanded. There is no demonstrated pleural abnormality. Normal size heart. Normal mediastinum and christiane. Normal visualized pulmonary arteries. Normal visualized aortic arch and descending thoracic aorta. Normal visualized thoracic spine. Normal visualized ribs, clavicles, and shoulders. There is no demonstrated abnormality of the visualized soft tissue structures of the upper abdomen. RAD/Chest 1 View (Portable) IMPRESSION: Normal x-ray examination of the chest. Electronically Signed: Doreen Contreras, at 12:06 EST Tel , Service support , CC: Phan Null MD; Price Parra MD Marine Geologist: Signed UA COMPLETE Collected: 07/11/2018 Status: F Source: [facility] 1:15 PM [facility] REPOSITORY TYPE CODE TESTS RESULT OUT OF REFERENCE UNITS RANGE LAB L600.20366 UA COLOR Normal Yellow LAB L600.27315 CLEAR UA Normal APPEARANCE Hazy LAB L600.77686 1.005-1.030 UA SPEC Normal GRAV 1.017 LAB L600.34263 UA PH Normal 5.0 LAB L600.62445 UA GLUCOSE Normal NEG LAB L600.42421 UA KETONE Normal NEGATIVE LAB L600.32659 UA Normal BILIRUBIN NEGATIVE LAB L600.49858 UA Normal UROBILINOGEN NEG LAB L600.65684 NEGATIVE UA PROTEIN Normal NEGATIVE LAB L600.63950 NEGATIVE UA BLOOD Normal NEGATIVE LAB L600.70902 NEGATIVE UA NITRITE Normal NEGATIVE LAB L600.76687 NEGATIVE UA LK Normal ESTERASE NEG Performed By: #### L600.46808 #### [facility] [address] [place] [address] CMP Collected: 07/11/2018 Status: F Source: [facility] 1:15 PM [facility] REPOSITORY TYPE CODE TESTS RESULT OUT OF RANGE REFERENCE UNITS LAB L500.73904 136-145 MMOL/L Low NA 135 LAB L500.66976 3.5-5.1 MMOL/L Normal K 4.5 LAB L500.85631 98-107 MMOL/L Normal CL 98 LAB L500.02649 21-32 MMOL/L Normal CO2 26 LAB L500.38115 5-16 MMOL/L Normal AGAP 11 LAB L500.20199 70-100 MG/DL Normal GLU 93 Result Comment: 70-100- Normal Fasting; 100-125 Impaired Fasting; greater than 126 on more than one result- Diabetes. ADA guidelines. Results may be falsely elevated after the administration of Sulfapyridine. Results may be falsely depressed after the administration of Sulfasalazine. LAB L500.66679 7-26 MG/DL Normal BUN 20 LAB L500.91663 0.670-1.170 MG/DL Normal CREAT 0.797 Result Comment: Patients receiving either N-Acetylcysteine (NAC) or Metamizole prior to venipuncture, may have falsely depressed results. LAB L500.04457 15-24 High BUN/CREA 25 LAB L500.63424 6.0-8.5 GM/DL Normal TP 7.6 LAB L500.72107 3.2-5.0 GM/DL Normal ALBUMIN 3.9 LAB L500.60100 2.2-4.2 GM/DL Normal GLOBULIN 3.7 LAB L500.17047 0.8-2.0 Normal A/G RATIO 1.0 LAB L500.22304 8.5-10.1 MG/DL Normal CALCIUM TOTAL 9.2 LAB L500.21571 0.2-1.0 MG/DL Normal BILI TOTAL 0.8 LAB L500.60156 8-34 U/L Normal SGOT (AST) 20 Result Comment: RESULTS MAY BE FALSELY DEPRESSED AFTER THE ADMINISTRATION OF SULFASALAZINE AND/OR SULFAPYRIDINE. LAB L500.47070 13-61 IU/L Normal SGPT (ALT) 32 Result Comment: RESULTS MAY BE FALSELY DEPRESSED AFTER THE ADMINISTRATION OF SULFASALAZINE AND/OR SULFAPYRIDINE. LAB L500.62947 45-117 U/L Normal ALK PHOS 103 Performed By: #### L500.08628, L500.82727, L550.23785 #### [facility] [place] [address] GFR EST Collected: 07/11/2018 Status: F Source: [facility] 1:15 PM [facility] REPOSITORY TYPE CODE TESTS RESULT OUT OF RANGE REFERENCE UNITS LAB L500.88495 ML/MIN Normal IF non-AFR Greater than AMER 60 LAB L500.84846 ML/MIN Normal IF Greater than AMER 60 Performed By: #### L500.63496, L500.65248, L550.67002 #### [facility] [place] [id number] CRP Collected: 07/11/2018 Status: F Source: [facility] 1:15 PM [facility] REPOSITORY TYPE CODE TESTS RESULT OUT OF RANGE REFERENCE UNITS LAB L550.53197 0.00-0.32 MG/DL High CRP 1.27 Performed By: #### L500.91379, L500.00475, L550.45363 #### [facility] [address] [place] [address] CBC W/DIFF Collected: 07/11/2018 Status: F Source: [facility] 1:15 PM [facility] REPOSITORY TYPE CODE TESTS RESULT OUT OF RANGE REFERENCE UNITS LAB L200.57480 4.5-11.0 K/CU MM High WBC 11.2 LAB L200.88475 4.50-6.00 M/CU MM RBC Normal 4.71 LAB L200.30960 13.5-17.5 G/DL HGB Normal 14.8 LAB L200.13170 41.0-53.0 % HCT Normal 44.3 LAB L200.29171 80.0-99.0 fl MCV Normal 94.1 LAB L200.15742 32.0-36.0 GM/DL MCHC Normal 33.4 LAB L200.10485 11-14.5 RDW Normal 12.2 LAB L200.68340 9.4-12.4 MPV Normal 9.9 LAB L200.33058 150-450 K/CU MM PLT Normal 231 LAB L200.63371 45-75 % NEUTROPHILS Normal % 66.4 LAB L200.46804 Less than 2 % IMMATURE Normal GRAN % 0.4 LAB L200.70478 20-40 % LYMPH % Normal 22.0 LAB L200.11241 2-10 % High MONOCYTE % 10.2 LAB L200.63829 0-5 % EOSINOPHIL Normal % 0.6 LAB L200.01667 0-2 % BASOPHIL % Normal 0.4 LAB L200.23554 2.0-8.3 K/CU MM NEUTROPHIL Normal ABS 7.40 LAB L200.18348 Less than 2 K/CU MM IMMATR GRAN Normal ABS 0.00 LAB L200.29794 0.9-4.4 K/CU MM LYMPH ABS Normal 2.50 LAB L200.45333 0.1-1.1 K/CU MM MONO ABS Normal 1.10 LAB L200.50804 0-0.5 K/CU MM EOS ABS Normal 0.10 LAB L200.64810 0-0.2 K/CU MM BASO ABS Normal 0.10 LAB L200.67882 Less than 1 % NRBC Normal 0.0 Performed By: #### L200.88139, L200.17369 #### [facility] [address] [place] [address] WSR/MOD Collected: 07/11/2018 Status: F Source: [facility] 1:15 PM [facility] TYPE CODE TESTS RESULT OUT OF RANGE REFERENCE UNITS LAB L200.40465 0-20 MM/HR Normal WSR/MOD 18 Performed By: #### L200.59946, L200.48238 #### [facility] [address] [place] [address] CHEST PA/AP AND Observed: 07/11/2018 Status: F Source: [facility] LATERAL 12:30 PM [facility] CHEST PA/AP & LATERAL Ordering Physician: Phan Null MD 07/11/2018 12:33 PM CHEST Clinical Statement: Fever FINDINGS: PA and lateral chest images were obtained. There were no prior studies available for comparison. The lungs appear emphysematous. The heart is normal in size. The costophrenic angles are clear. No acute infiltrates or congestion is seen. IMPRESSION: No acute abnormalities. ---- Electronic Signature on File ---- Signed By: Zach Boucher MD FACR [email or web address] Dictated: 07/11/2018 2:09 PM Signed: 07/11/2018 2:10 PM Reported By: ZACH BUOCHER M.D. Signed By: ZACH BOUCHER M.D. ALLERGIES ALLERGIES DATE TYPE / CODE NAME / CODE REACTION SEVERITY SOURCE 10/27/2018 Drug No Known Unknown [place] [facility] Allergy/4160 Allergies/F00 Hospital 07966(SNOMED 8552142(RXNOR Repository CT) M) ENCOUNTERS ENCOUNTERS ADMIT/DISCHARGE ACCOUNT ADMITTING ENCOUNTER LOCATION SOURCE NUMBER CLASS 11/10/2018 [id number] Ambulatory [place] 2 [facility] ing:CT Repository 11/09/2018 [id number] Ambulatory BMSBuilding:W [place] 1 [facility] Repository 11/08/2018 [id number] Ambulatory [place] 6 [facility] ing:PSN Repository 11/07/2018 [id number] Ambulatory [place] 7 [facility] ing:PSN Repository 11/07/2018 [id number] Ambulatory BMSBuilding:W [place] 5 [facility] Repository 10/27/2018 [id number] Ambulatory [place] 1 [facility] ing:PAVLAB Repository 10/27/2018/ [id number] Ambulatory BMSBuilding:B [place] 9 0 [place] Repository 10/19/2018 [id number] [place], [place] Ambulatory BMSBuilding:B [place] 3 [place] Repository 10/19/2018/ [id number] [place] Inpatient [place] 8 6 Encounter [facility] ing:PCURoom: Repository [id number]: 1 10/19/2018 [id number] [place] Ambulatory BMSBuilding:B [place] 1 [place].CF.[facility] Repository 10/19/2018 [id number] [place] Ambulatory BMSBuilding:B [place] 7 [place] Repository 10/19/2018/ [id number] Ambulatory BMSBuilding:W [place] 8 5 [facility] Repository 10/19/2018/ [id number] Ambulatory BMSBuilding:W [place] 8 3 [facility] Repository 07/11/2018 [id number] Ambulatory [address] [place] g:HIanVA [facility] Repository PAYERS PAYERS ENCOUNTER GUARANTOR PAYER SUBSCRIBER SOURCE 11/10/2018 HALEY B Primary HALEY B [place] [id number] Insurance:AULTCAREPol ALKIREDOB: Community [place] icy [facility]: [id number] [address]Jde: [id number] Repository Date:3830-91-02[address] () [address], [place] [address]VR: 11/10/2018 Secondary NOT GIVENUNK [place] Insurance:SELF PAY [facility] Number: Effective Repository Date:2018-11-03 11/09/2018 HALEY B Primary HALEY B [place] [id number] Insurance:AULTCAREPol ALKIREDOB: [facility] nghia REAy Number: [id number] Hospital [address]Yuq: [id number] Repository Date:7764-60-23WJ [address] () [address], [place] [address]YJ: 11/09/2018 Secondary NOT GIVENUNK [place] Insurance:SELF PAY [facility] Number: Effective Repository Date:2018-11-09 11/08/2018 HALEY B Primary HALEY B [place] [id number] Insurance:AULTCAREPol ALKIREDOB: [facility] [place] icy Number: [id number] Hospital [address]Nyu: [id number] Repository Date:1274-85-54KV [address] () [address], [place] [address]XQ: 11/08/2018 Secondary NOT GIVENUNK [place] Insurance:SELF PAY [facility] Number: Effective Repository Date:2018-10-27 11/07/2018 HALEY B Primary HALEY B [place] [id number] Insurance:AULTCAREPol ALKIREDOB: emily [place] Number: [id number] Hospital [address]Qwx: [id number] Repository Date:4270-00-69WT [address] () [address], [place] [address]YY: 11/07/2018 Secondary NOT GIVENUNK [place] Insurance:SELF PAY [facility] Number: Effective Repository Date:2018-10-27 11/07/2018 HALEY B Primary HALEY B [place] [id number] Insurance:AULTCAREPol ALKIREDOB: [facility] [place], icy Number: [id number] Hospital [address]Yna: [id number] Repository Date:9642-50-81KT [address] () [address], [place] [address]VK: 11/07/2018 Secondary NOT GIVENUNK [place] Insurance:SELF PAY [facility] Number: Effective Repository Date:2018-11-07 10/27/2018 HALEY B Primary HALEY B [place] [id number] Insurance:AULTCAREPol ALKIREDOB: [facility] SHAHLA, icy Number: [id number] Hospital [address]Aoz: [id number] Repository Date:7823-53-36FM [address] () [address] [address]RR: 10/27/2018 Secondary NOT GIVENUNK [place] Insurance:SELF PAY [facility] Number: Effective Repository Date:2018-10-27 10/27/2018 HALEY B Primary HALEY B [place] [id number] Insurance:[employer]ULTCAREPol ALKIREDOB: [facility] [place], icy Number: [id number] Hospital [address]Yzh: [id number] Repository Date:6300-64-37MO [address] () [address], [place] [address]BY: 10/27/2018 Secondary NOT GIVENUNK [place] Insurance:SELF PAY [facility] Number: Effective Repository Date:2018-10-25 10/19/2018 HALEY B Primary HALEY B [place] [id number] Insurance:[employer]ULTCAREPol ALKIREDOB: [facility] [place], icy Number: [id number] Hospital [address]Hrf: [id number] Repository Date:1391-58-95CG [address] () [address], [place] [address]EC: 10/19/2018 Secondary NOT GIVENUNK [place] Insurance:SELF PAY [facility] Number: Effective Repository Date:2018-10-19 10/19/2018 HALEY B Primary HALEY B [place] [id number] Insurance:[employer]ULTCAREPol ALKIREDOB: Community [place], icy Number: [id number] Hospital [address]Xuv: [id number] Repository Date:2894-58-73VR [address] () [address] [address]GP: 10/19/2018 Secondary NOT GIVENUNK [place] Insurance:SELF PAY [facility] Number: Effective Repository Date:2018-10-19 10/19/2018 HALEY B Primary HALEY B [place] [id number] Insurance:[employer]ULTCAREPol ALKIREDOB: Community [place], icy Number: [id number] Hospital [address]Tlb: [id number] Repository Date:8064-43-45XB [address] () [address], [place] [address]IP: 10/19/2018 Secondary NOT GIVENUNK [place] Insurance:SELF PAY [facility] Number: Effective Repository Date:2018-10-19 10/19/2018 HALEY B Primary HALEY B [place] [id number] Insurance:[employer]ULTCAREPol ALKIREDOB: Community [place], icy Number: [id number] Hospital [address]Uag: [id number] Repository Date:1879-75-20IL [address] () [address] [place] [address]NM: 10/19/2018 Secondary NOT GIVENUNK [place] Insurance:SELF PAY [facility] Hospital Number: Effective Repository Date:2018-10-19 10/19/2018 HALEY B Primary HALEY Taylor [place] [id number] Insurance:AULTCAREPol ALKIREDOB: [facility] [place] icy Number: [id number] Hospital [address]Ree: [id number] Repository Date:0597-29-70SX [address] () [address], [place] [address]OK: 10/19/2018 Secondary NOT GIVENUNK [place] Insurance:SELF PAY [facility] Number: Effective Repository Date:2018-10-19 10/19/2018 HALEY B Primary HALEY B [place] [id number] Insurance:AULTCAREPol ALKIREDOB: [facility] icy Number: [id number] Hospital [address]Wft: [id number] Repository Date:6223-56-49SQ [address] () [address], [place] [address]UF: 10/19/2018 Secondary NOT GIVENUNK [place] Insurance:SELF PAY [facility] Number: Effective Repository Date:2018-10-19 07/11/2018 HALEY [place] Primary HALEY MORALES [facility] [id number] Insurance:AULTCAREPol [facility] [place], icy Number: [place]ository [place] [address]Ztx: [id number] Date:9366-35-61SV [address] () [address], [place] [address]XQ:
== END ==
LOC: PSN 06:35
PROVIDERS: Family Provider Family Medicine; PCP Family Medicine; Referring Provider Nurse Practitioner Acute Care; Visit Provider Nurse Practitioner Acute Care
DX: J44.9 Chronic obstructive pulmonary disease, unspecified (principal)
CPT/HCPCS: 94060; 94726; 94729

== ENCOUNTER → 2018-11-10 15:41 | Outpatient (CLI) | payer OTHER, SELFPAY ==
[2018-10-27 08:13] VITALS: BMI 25.5
--- NOTE | 2018-11-10 15:43 | CT_ITS ---
STUDY: LOW DOSE CT LUNG CANCER SCREENING REASON FOR EXAM: Male, 63 years old. Lung cancer screening with history of tobacco use. Quit smoking 10 months ago, 1 pack per day for 44 years RADIATION DOSAGE (If Supplied By Facility): CTDIvol = ( 3.02 ) mGy, DLP = ( 118.57 ) mGycm TECHNIQUE: No contrast was administered. Low dose technique was utilized (average mAS-38 and kVp 120). 1.25 mm axial source images with a slice interval of 1.25-mm were reconstructed in lung windows. 2.5 mm axial source images with a slice interval of 2.5-mm were reconstructed in lung windows. 5.0 mm axial source images with a slice interval of 5.0-mm were reconstructed in soft tissue windows. Nodule measured using lung windows on PACS and/or independent workstation with automated measurement of minimum and maximum diameter. Nodule measurement reported as average diameter rounded to the nearest whole number. Growth is defined as an increase ins size of greater than 1.5 mm. COMPARISON: None. NODULES: Total lung nodules (excluding granulomas): 0 Emphysema: Severe centrilobular emphysema predominantly in the upper and mid lung zones. Endobronchial lesion: None Aorta: Normal caliber with mild scattered atherosclerosis. Coronary arteries: Heart: No cardiomegaly. Pulmonary artery: Unremarkable. Mediastinal nodes: No soft tissue adenopathy. Other chest and abdominal findings: None CT/Low Dose CT Lung Screening IMPRESSION: 1. Lung-RADS category 1 - Continue annual screening with LDCT in 12 months. 2. Emphysema. 3. Atherosclerosis. IMPORTANT NOTES FOR USE: ACR Lung-RADS Version 1.0 Assessment Categories Release Date: February 18, 2014 Category: Coded 0-4 bases on nodule(s) with highest degree of suspicion. Negative screen is defined as categories 1 and 2; a positive screen is defined as categories 3 and 4. Category 3 and 4A nodules that are unchanged on interval CT should be coded as category 2, and individuals returned to screening in 12 months. Category 4X: Category 3 or 4 nodules with additional imaging findings that increase the suspicion of lung cancer, such as spiculation, GGN that doubles in size in 1 year, enlarged lymph notes, etc. Category Modifiers: S (significant finding unrelated to lung cancer) and C (prior history of treated lung cancer) may be added to the 0-4 Lung-RADS Electronically Signed: David Smith MD at 17:50 EST , Service support ,
--- OUTSIDE RECORDS SUMMARY | 2019-01-15 05:34 | XMS RPT_ITS ---
:1955 Author Organization [place] Support Name Relationship Address Phone KEL GRIJALVA Unavailable [address] + [place] [address] [employer] Unavailable [address] + [place] [address] SHARONKEL BAILEY Unavailable [address] + [place] [address] [employer] Unavailable [address] + [place] [address] DARVIN KEL Unavailable [address] + [place] [address] [employer] Unavailable [address] + [place] [address] DARVINKEL Unavailable [address] + [place] [address] [employer] Unavailable [address] + [place] [address] DARVIN KEL Unavailable [address] + [place] [address] [employer] Unavailable [address] + [place] [address] DARVINDYLONAN Unavailable [address] + [place] [address] [employer] Unavailable [address] + [place] [address] DARVINDYLONAN Unavailable [address] + [place] [address] [employer] Unavailable [address] + [place] [address] KEL GRIJALVA Unavailable [address] + [place] [address] [employer] Unavailable [address] + [place] [address] SHARONKEL BAILEY Unavailable [address] + [place] [address] [employer] Unavailable [address] + [place] [address] SHARONKEL BAILEY Unavailable [address] + [place] [address] [employer] Unavailable [address] + [place] [address] SHARONKEL BAILEY Unavailable [address] + [place] [address] [employer] Unavailable [address] + [place] [address] SHARONKEL BAILEY Unavailable [address] + [place] [address] [employer] Unavailable [address] + [place] [address] SHARONKEL BAILEY Unavailable [address] + [place] [address] [employer] Unavailable [address] + [place] [address] Care Team Providers Name Role Phone KartikPhan arreaga [facility] Unavailable Paintsil, Eclectic Admitting Unavailable Celineian, Hakeem Consulting Unavailable Ilya Romero Attending Unavailable Missael Zamudio Consulting Unavailable Paintsil, Eclectic Admitting Unavailable Paintsil, Eclectic Attending Unavailable [facility] Unavailable Karimian, Hakeem Consulting Unavailable Paintsil, Eclectic Consulting Unavailable Paintsil, Eclectic Admitting Unavailable Missael Zamudio Attending Unavailable [facility] Unavailable Celineian, Hakeem Consulting Unavailable Missael Zamudio Consulting Unavailable Ilya Romero Consulting Unavailable Paintsil, Eclectic Admitting Unavailable Ilya Romero Attending Unavailable [facility] Unavailable Santino, Hakeem Consulting Unavailable Missael Zamudio [...] Ilya Referring Unavailable CelineianHakeem Attending Unavailable Paintsil, Eclectic Referring Unavailable Mark Bergman D.O. Attending Unavailable Ahumada, Mallika Referring Unavailable Mark Bergman D.O. Attending Unavailable Ahumada, Mallika Referring Unavailable Kartik, Phan G Attending Unavailable PROBLEMS PROBLEMS DATE TYPE CONDITION / CODE ATTENDING STATUS SOURCE 11/17/2018 Unknown J44.9 - Chronic Mark Bergman, Active [place] obstructive D.O. [facility] pulmonary disease, Hospital unspecified / Repository J44.9(ICD-10) 10/27/2018 Unknown G47.33 - Ahumada, Active [place] Mott Obstructive sleep [facility] apnea (adult) Hospital (pediatric) / Repository G47.33(ICD-10) 10/27/2018 Unknown F17.200 - Nicotine Ahumada, Active Jacquelin dependence, [facility] unspecified, Hospital uncomplicated / Repository F17.200(ICD-10) 10/27/2018 Unknown I20.0 - Unstable Ahumada, Active [place] Mott angina / [facility] I20.0(ICD-10) Hospital Repository 07/11/2018 Admitting Unknown / Kartik Phan Active [facility] Medical diagnosis UNK(Unknown) G [facility] Repository PROCEDURES PROCEDURES No Procedure Records FoundRESULTS RESULTS LOW DOSE CT LUNG Observed: 11/10/2018 Status: F Source: [place] SCREENING 3:43 PM [facility] REPOSITORY [facility] Imaging Services [address] [place] [address] Lung Screening MR#: [id number] Acct: [id number] Name: HALEY GRIJALVA Rep #: [id number] : 1955 M 63 From: David Smith MD PCP: Phan Null MD Status: REG CLI Study: Low Dose CT Lung Screening Date of Exam: 11/10/18 Exam# [id number] Ordering Dr: Mallika Ahumada 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 Sex: M C INTRODUCTION: The patient is [...] MD Date Dictated: 11/09/18936 Date Transcribed: 11/09/18936 Radiator Mechanic: DB Signed 6 MINUTE WALK TEST Observed: 11/07/2018 Status: F Source: [place] 2:35 PM [facility] Pulmonary Services/Neurology [address] [place] [address] MR#: [id number] Acct: [id number] Name: HALEY GRIJALVA Rep #: [id number] : 1955 63 From: Mark Bergman DO Referring Dr: Mallika Ahumada NP Date: Ordering Dr: Sex: M C Location: PSN PSN 6 Minute Walk Test - 6 Minute Walk Test 6 Minute Walk Test: 6 Minute Walk Test PSN:6-Minute Walk Test Start: 11/07/18 08:38 Freq: Status: Active Protocol: RESP.6MINW Document 11/07/18 08:40 FR (Rec: 11/07/18 08:53 FR [id number]) 6 Minute Walk Test Date Performed 11/07/18 [...] Date Dictated: 11/07/18 1428 Date Transcribed: 11/07/181427 Radiator Mechanic: Mark Bergman DO Signed PULMONARY VISIT REPORT Observed: 10/27/2018 Status: F Source: [place] 12:36 PM [facility] [place] [place] [address] [place] [address] OFFICE VISIT Date of Service: 10/27/18 MR#: [id number] Acct: [id number] Name: HALEY GRIJALVA Rep #: [id number] : 1955 Provider: Mallika Ahumada Age/Sex: 63/M [place] [facility] Status: Signed Assessment AND Plan 1. SUNIL [...] and years of smoking history (greater than 98-icvp-agyc history). He also just quit smoking in [...] Other Orders Orders: Follow Up 2 Months ([facility]) [facility] Hospital FU: Chief Complaint: Shortness of breath [facility] Comments Details: This is a 63 year old very pleasant M, currently under the care of Phan Null, here to follow up after a recent hospitalization at [facility], from October 19 - October 20, 2018 [...] Weight: 173 lb Intake Visit Reasons: Hospital [facility] Vendor: VANDANA Accompanied by: Allergies No Known [...] Status: F Source: [place] (DVT/PE) 11:02 AM [facility] [place] TYPE CODE TESTS RESULT OUT OF RANGE REFERENCE UNITS LAB L300.8000 0.27-0.49 FEU/ug/m Low D-DIMER < 0.27 QUANT Result Comment: NORMAL D-Dimer level (<0.50) indicates no DVT or PE. Performed By: #### L300.8000 #### [facility] Laboratory [facility] [address] [place], [place], [address] 12 LEAD ELECTROCARDIOGRAM Observed: 10/23/2018 Status: F Source: [place] 1:37 PM [facility] REPOSITORY [facility] Cardiovascular Services [address] [place] [address] 12 Lead EKG 10/19/18 1528 MR#: [id number] Acct: [id number] Name: HALEY GRIJALVA Rep #: [id number] : 1955 63 From: Brice Thakkar MD Attending Dr: Ilya Romero DO Status: DIS IN Ordering Dr: Remedios Gusman MD Date: 10/19/18 Location: [facility] Sex: M C Admitted: 10/19/18 Test Reason : Blood Pressure : / mmHG Vent. Rate : 090 BPM Atrial Rate : 090 BPM P-R Int : 108 ms QRS Dur : 080 ms QT Int : 376 ms P-R-T Axes : 075 072 072 degrees QTc Int : 459 ms Sinus rhythm with sinus arrhythmia with short FL Confirmed by ARIANE KATE, BRICE ([id number]), video news editor BRETT BILL (56) on 10/23/2018 1:37:06 PM Referred By: ILIR Confirmed By:BRICE THAKKAR MD 10/23/18 1337 Date Brice Thakkar MD CC: Remedios Gusman MD; Ilya Romero DO; Phan Null MD Signed 12 LEAD ELECTROCARDIOGRAM Observed: 10/23/2018 Status: F Source: [place] 1:31 PM [facility] REPOSITORY [facility] Cardiovascular Services [address] [place] [address] 12 Lead EKG 10/20/18 0538 MR#: [id number] Acct: [id number] Name: HALEY GRIJALVA Rep #: [id number] : 1955 63 From: Brice Thakkar MD [...] Normal ECG Confirmed by BRICE THAKKAR MD ([id number]), video news editor BRETT BILL (56) on 10/23/2018 1:31:20 PM Referred By: ILIR Confirmed By:BRICE THAKKAR MD 10/23/18 1331 Date Brice Thakkar MD CC: Ilya Romero DO; Phan Null MD; Hakeem De MD Signed 12 LEAD ELECTROCARDIOGRAM Observed: 10/23/2018 Status: F Source: [place] 1:19 PM [facility] [place] Cardiovascular Services [address] [place] [address] 12 Lead EKG 10/19/18 1142 MR#: [id number] Acct: [id number] Name: HALEY GRIJALVA Rep #: [id number] : 1955 63 From: Brice Thakkar MD Attending Dr: Ilya Romero DO Status: DIS IN Ordering Dr: Price Parra MD Date: 10/19/18 Location: [facility] Sex: M C Admitted: 10/19/18 Test Reason : SOB Blood Pressure : / mmHG Vent. Rate : 081 BPM Atrial Rate : 081 BPM P-R Int : 102 ms QRS Dur : 080 ms QT Int : 372 ms P-R-T Axes : 064 077 076 degrees QTc Int : 432 ms Sinus rhythm with sinus arrhythmia with short FL Otherwise normal ECG Confirmed by BRICE THAKKAR MD ([id number]), video news editor BRETT BILL (56) on 10/23/2018 1:19:21 PM Referred By: JUAN Confirmed By:BRICE THAKKAR MD 10/23/18 1317 Date Brice Thakkar MD CC: Ilya Romero DO; Phan Null MD; Price Parra MD Signed DISCHARGE SUMMARY Observed: 10/22/2018 Status: F Source: [place] 6:18 PM [facility] [place] Medical Records Department [address] [place] [address] Discharge Summary 10/22/18 1810 MR#: [id number] Acct: [id number] Name: HALEY GRIJALVA Rep #: [id number] : 1955 63 From: Ilya Romero DO PCP: Phan Null MD Status: DIS IN Y Location: [place] [address] Discharge Date and Diagnosis Date of Admission: [...] M who was seen in the emergency [facility] with chief complaint of chest tightness and [...] applicable Code Visit Inpatient Pauline AND M: 98156 Disch Hosp 10/22/18 1818 <Electronically signed by Ilya Romero DO> Date Ilya Romero DO Cosigner Signature (if applicable): Date CC: Ilya Romero DO; Phan Null MD Signed CONSULTATION Observed: 10/21/2018 Status: F Source: [place] 5:46 [facility] REPOSITORY [facility] Medical Records Department [address] [place] [address] [place] [address] Consultation 10/20/18 1212 MR#: [id number] Acct: [id number] Name: HALEY GRIJALVA Rep #: [id number] : 1955 63 From: Missael Zamudio MD PCP: Phan Null MD Status: DIS IN Y Location: [place] [address] Problem List (1) Unstable angina Status: Acute (2) COPD (chronic obstructive pulmonary disease) Status: Chronic Qualifiers: Emphysema type: unspecified (3) Exertional angina Status: Acute Reason for Consult Date of Consultation: 10/20/18 Reason for Consultation: Shortness of breath History of Present Illness: The patient is a 63 year old M, with past medical history listed below, who presented to [facility] on 10/19/2018 secondary to progressive shortness of [...] drugs. 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, but denies any exposure to asbestos or [...] therapy Code Visit Inpatient E AND M: 28427 Init Hosp L2 10/21/18 0546 <Electronically signed by Missael Zamudio MD> Date Missael Zamudio MD Cosigner Signature (if applicable): Date CC: Missael Zamudio MD; Phan Null MD; Hakeem De MD Signed DISCHARGE INSTRUCTION Observed: 10/20/2018 Status: F Source: [place] 11:59 AM [facility] [place] [facility] Medical Records Department [address] [place] [address] Instructions for Home/Discharge Instructions 10/20/18 1158 MR#: [id number] Acct: [id number] Name: HALEY GRIJALVA Rep #: [id number] : 1955 63 From: Ilya Romero DO [...] Zamudio MD When: in two weeks 10/20/18 2645 <Electronically signed by Ilya Romero DO> Date Ilya Romero DO CC: Missael Zamudio MD; Phan Null MD; Hakeem De MD Signed CBC-COMPLETE BLOOD CNT Collected: 10/20/2018 Status: F Source: [place] NO DIFF 5:24 AM [facility] [place] TYPE CODE TESTS RESULT OUT OF [...] MPV 9.7 Performed By: #### L100.0500 #### [facility] [address] [place], [place], [address] COMPREHENSIVE METABOLIC Collected: 10/20/2018 Status: F Source: [place] PROFIL 5:24 AM [facility] [place] TYPE CODE TESTS RESULT OUT OF [...] GAP Performed By: #### L500.4050, L500.4100 #### [facility] [address] [place], [place], [address] LIPID PROFILE Collected: 10/20/2018 Status: F Source: [place] 5:24 AM [facility] [place] TYPE CODE TESTS RESULT OUT OF [...] 33 Performed By: #### L500.4050, L500.4100 #### [facility] [address] [place], [address] PROTHROMBIN TIME W/INR Collected: 10/20/2018 Status: F Source: [place] 5:24 AM [facility] [place] TYPE CODE TESTS RESULT OUT OF RANGE REFERENCE UNITS LAB L300.4150 11.7-14.9 SECONDS Normal PROTIME 13.2 LAB L300.4200 Normal INR 1.0 Performed By: #### L300.3900, L300.4310 #### [facility] [address] [place], [address] PARTIAL THROMBOPLAST Collected: 10/20/2018 Status: F Source: [place] TIME 5:24 AM [facility] [place] TYPE CODE TESTS RESULT OUT OF RANGE REFERENCE UNITS LAB L300.4310 24.1-36.2 Seconds Normal PTT 34.2 Performed By: #### L300.3900, L300.4310 #### [facility] [address] [place], [address] HISTORY AND PHYSICAL Observed: 10/19/2018 Status: F Source: [place] EXAM 10:55 PM [facility] [place] Medical Records Department [address] [place] [address] History and Physical 10/19/18 1247 MR#: [id number] Acct: [id number] Name: HALEY GRIJALVA Rep #: [id number] : 1955 63 From: Remedios Gusman MD PCP: Phan Null MD Status: ADM IN Y Location: [place] [address] Problem List (1) Unstable angina Status: Acute [...] dosing Code Visit Inpatient E AND M: 14478 Init Hosp L3 10/19/18 9866 <Electronically signed by Remedios Gusman MD> Date Remedios Gusman MD Cosigner Signature: Date (if applicable) CC: Remedios Gusman MD; Phan Null MD Signed URINALYSIS, COMPLETE Collected: 10/19/2018 Status: F Source: [place] 10:15 PM [facility] [place] Order Comment: How was Urine Obtained? [...] URINE SEEN Performed By: #### L400.0001 #### [facility] [address] [place], [address] TROPONIN-I Collected: 10/19/2018 Status: F Source: [place] 6:20 PM [facility] Order Comment: 'TROP' Serial specimen #1, #2 or #3: 3 TYPE CODE TESTS RESULT OUT OF RANGE REFERENCE UNITS LAB L501.4010 <0.045 ng/mL Normal < 0.015 TROPONIN-I Result Comment: TROPONIN-I EXPECTED VALUES <0.045 Negative 0.045 - 0.590 Consistent with Cardiac Damage > OR = 0.600 Critical Value Not every elevated troponin is indicative of HI. These values should be used with clinical judgement in examining the patient's clinical picture for diagnosis. To establish a diagnosis of HI versus myocardial injury, there must be a demonstrated rise and/or fall in the troponin values, in addition to ischemic symptoms, EKG changes, new regional wall motion abnormality, and/or angiographical evidence. PLEASE NOTE: REFERENCE RANGES EDITED 18 Performed By: #### L501.4010 #### [facility] [address] [place], [address] ECHOCARDIOGRAM COMPLETE Observed: 10/19/2018 Status: F Source: [place] 4:47 PM [facility] [place] Cardiovascular Services [address] [facility] [place] [address] Echo Complete 10/19/18 1501 MR#: [id number] Acct: [id number] Name: HALEY GRIJALVA Rep #: [id number] : 1955 63 From: Brice Thakkar MD [...] Physician: PHAN NULL Performed By: Yumiko Grant [facility] 10/19/18 1646 Date Brice Thakkar MD CC: Remedios Gusman MD; Phan Null MD Date Dictated: 10/19/18 1501 Date Transcribed: 10/19/18 164 Radiator Mechanic: Signed CONSULTATION Observed: 10/19/2018 Status: F Source: [place] 4:18 PM [facility] [place] Medical Records Department [address] [place] [address] Consultation 10/19/18 1609 MR#: [id number] Acct: [id number] Name: HALEY GRJIALVA Rep #: [id number] : 1955 63 From: Hakeem De MD PCP: Phan Null MD Status: ADM IN Y Location: [place] [address] Problem List (1) Exertional angina Status: Acute [...] (Auto) 69.1, Lymph % (Auto) 15.8 L, [place] % (Auto) 10.2 H, Eos % (Auto) [...] at AM. Further recommendations to follow. 10/19/18 7118 <Electronically signed by Hakeem De MD> Date Hakeem De MD Cosigner Signature (if applicable): Date CC: Phan Null MD; Hakeem De MD Signed TROPONIN-I Collected: 10/19/2018 Status: F Source: [place] 3:22 PM [facility] Order Comment: 'TROP' Serial specimen #1, #2 or #3: 2 TYPE CODE TESTS RESULT OUT OF RANGE REFERENCE UNITS LAB L501.4010 <0.045 ng/mL Normal < 0.015 TROPONIN-I Result Comment: TROPONIN-I EXPECTED VALUES <0.045 Negative 0.045 - 0.590 Consistent with Cardiac Damage > OR = 0.600 Critical Value Not every elevated troponin is indicative of HI. These values should be used with clinical judgement in examining the patient's clinical picture for diagnosis. To establish a diagnosis of HI versus myocardial injury, there must be a demonstrated rise and/or fall in the troponin values, in addition to ischemic symptoms, EKG changes, new regional wall motion abnormality, and/or angiographical evidence. PLEASE NOTE: REFERENCE RANGES EDITED 18 Performed By: #### L501.4010 #### [facility] [address] [facility] [place], [address] EMERGENCY DEPARTMENT Observed: 10/19/2018 Status: F Source: [place] SUMMARY 1:13 PM [facility] [place] Medical Records Department [address] [place] [address] Emergency Department Summary 10/19/18 1242 MR#: [id number] Acct: [id number] Name: HALEY GRIJALVA Rep #: [id number] : 1955 63 From: Price Parra MD [...] rhythm rate of 81 with respiratory variation. FL interval is short. QRS duration and QT interval on unremarkable. Mears is normal. This was obtained when he [...] Lovenox. Case was discussed with hospitalist and descriptive catalog librarian. Plan is cardiac catheterization in the morning. Treatment Plan: Treatment for acute coronary syndrome Disposition: PCU Impression: Acute coronary syndrome This note was generated with [employer] dictation software. It may contain incorrect words, [...] problems, contact your Primary Care Provider. Call [facility] ([phone]) or report to the closest Emergency Room. Call 911 if necessary. 10/19/18 1313 <Electronically signed by Price Parra MD> Date Price Parra MD Cosigner Signature (If Indicated): Date CC: Phan Null MD CBC W/DIFF, AUTOMATED Collected: 10/19/2018 Status: F Source: [place] 11:30 AM [facility] TYPE CODE TESTS RESULT OUT OF [...] Lymph 1.24 Performed By: #### L100.0100 #### [facility] [address] [place], [place], [address] BASIC METABOLIC Collected: 10/19/2018 Status: F Source: [place] PROFILE (BMP) 11:30 AM [facility] [place] TYPE CODE TESTS RESULT OUT OF [...] 5 Performed By: #### L500.2500, L501.4010 #### [facility] [address] [facility] [address] [place], [place], [address] TROPONIN-I Collected: 10/19/2018 Status: F Source: [place] 11:30 AM [facility] [place] TYPE CODE TESTS RESULT OUT OF RANGE REFERENCE UNITS LAB L501.4010 <0.045 ng/mL Normal < 0.015 TROPONIN-I Result Comment: TROPONIN-I EXPECTED VALUES <0.045 Negative 0.045 - 0.590 Consistent with Cardiac Damage > OR = 0.600 Critical Value Not every elevated troponin is indicative of HI. These values should be used with clinical judgement in examining the patient's clinical picture for diagnosis. To establish a diagnosis of HI versus myocardial injury, there must be a demonstrated rise and/or fall in the troponin values, in addition to ischemic symptoms, EKG changes, new regional wall motion abnormality, and/or angiographical evidence. PLEASE NOTE: REFERENCE RANGES EDITED 18 Performed By: #### L500.2500, L501.4010 #### [facility] [address] [place], [place], [address] D-DIMER QUANTITATIVE Collected: 10/19/2018 Status: F Source: [place] (DVT/PE) 11:30 AM [facility] Order Comment: Comments: as add on test TYPE CODE TESTS RESULT OUT OF RANGE REFERENCE UNITS LAB L300.8000 0.27-0.49 FEU/ug/m Low D-DIMER < 0.27 QUANT Result Comment: NORMAL D-Dimer level (<0.50) indicates no DVT or PE. Performed By: #### L300.8000 #### [facility] [address] [place], [address] THYROID STIM HORMONE Collected: 10/19/2018 Status: F Source: [place] (TSH) 11:30 AM [facility] Order Comment: Comments: as add on test TYPE CODE TESTS RESULT OUT OF RANGE REFERENCE UNITS LAB L501.9520 0.358-3.74 uIU/mL Normal TSH 1.01 Performed By: #### L501.9520 #### [facility] [address] [facility] [place], [address] BNP,B-TYPE NATRIURETIC Collected: 10/19/2018 Status: F Source: [place] PEPTIDE 11:30 AM [facility] Order Comment: Comments: as add on test TYPE CODE TESTS RESULT OUT OF RANGE REFERENCE UNITS LAB L503.6620 0-100 pg/mL Normal B-TYPE 15.5 KELLI PEP Performed By: #### L503.6620 #### [facility] [address] [place], [address] CHEST 1 VIEW Observed: 10/19/2018 Status: F Source: [place] (PORTABLE) 11:21 AM [facility] [place] Imaging Services [address] [place] [address] Chest 1 View (Portable) MR#: [id number] Acct: [id number] Name: HALEY GRIJALVA Rep #: [id number] : 1955 M 63 From: Doreen Contreras MD PCP: Phan Null MD Status: REG ER Study: Chest 1 View (Portable) Date of Exam: 10/19/18 Exam# [id number] Ordering Dr: Price Parra MD STUDY: X-RAY [...] CC: Phan Null MD; Price Parra MD Radiator Mechanic: Signed UA COMPLETE Collected: 07/11/2018 Status: F Source: [facility] 1:15 PM [facility] REPOSITORY TYPE CODE TESTS RESULT OUT OF REFERENCE UNITS RANGE LAB L600.04003 UA COLOR Normal Yellow LAB L600.09443 CLEAR UA Normal APPEARANCE Hazy LAB L600.81186 1.005-1.030 UA SPEC Normal GRAV 1.017 LAB L600.09657 UA PH Normal 5.0 LAB L600.51799 UA GLUCOSE Normal NEG LAB L600.94398 UA KETONE Normal NEGATIVE LAB L600.61797 UA Normal BILIRUBIN NEGATIVE LAB L600.66625 UA Normal UROBILINOGEN NEG LAB L600.71206 NEGATIVE UA PROTEIN Normal NEGATIVE LAB L600.57970 NEGATIVE UA BLOOD Normal NEGATIVE LAB L600.48345 NEGATIVE UA NITRITE Normal NEGATIVE LAB L600.29131 NEGATIVE UA LK Normal ESTERASE NEG Performed By: #### L600.56062 #### [facility] [address] [place] [address] CMP Collected: 07/11/2018 Status: F Source: [facility] 1:15 PM [facility] REPOSITORY TYPE CODE TESTS RESULT OUT OF RANGE REFERENCE UNITS LAB L500.34092 136-145 MMOL/L Low NA 135 LAB L500.77179 3.5-5.1 MMOL/L Normal K 4.5 LAB L500.57695 98-107 MMOL/L Normal CL 98 LAB L500.13650 21-32 MMOL/L Normal CO2 26 LAB L500.04391 5-16 MMOL/L Normal AGAP 11 LAB L500.49510 70-100 MG/DL Normal GLU 93 Result Comment: 70-100- Normal Fasting; 100-125 Impaired Fasting; greater than 126 on more than one result- Diabetes. ADA guidelines. Results may be falsely elevated after the administration of Sulfapyridine. Results may be falsely depressed after the administration of Sulfasalazine. LAB L500.09383 7-26 MG/DL Normal BUN 20 LAB L500.39636 0.670-1.170 MG/DL Normal CREAT 0.797 Result Comment: Patients receiving either N-Acetylcysteine (NAC) or Metamizole prior to venipuncture, may have falsely depressed results. LAB L500.79787 15-24 High BUN/CREA 25 LAB L500.15126 6.0-8.5 GM/DL Normal TP 7.6 LAB L500.41251 3.2-5.0 GM/DL Normal ALBUMIN 3.9 LAB L500.65021 2.2-4.2 GM/DL Normal GLOBULIN 3.7 LAB L500.88426 0.8-2.0 Normal A/G RATIO 1.0 LAB L500.54811 8.5-10.1 MG/DL Normal CALCIUM TOTAL 9.2 LAB L500.02625 0.2-1.0 MG/DL Normal BILI TOTAL 0.8 LAB L500.05424 8-34 U/L Normal SGOT (AST) 20 Result Comment: RESULTS MAY BE FALSELY DEPRESSED AFTER THE ADMINISTRATION OF SULFASALAZINE AND/OR SULFAPYRIDINE. LAB L500.34642 13-61 IU/L Normal SGPT (ALT) 32 Result Comment: RESULTS MAY BE FALSELY DEPRESSED AFTER THE ADMINISTRATION OF SULFASALAZINE AND/OR SULFAPYRIDINE. LAB L500.49858 45-117 U/L Normal ALK PHOS 103 Performed By: #### L500.08243, L500.64942, L550.39219 #### [facility] [place] [address] GFR EST Collected: 07/11/2018 Status: F Source: [facility] 1:15 PM [facility] REPOSITORY TYPE CODE TESTS RESULT OUT OF RANGE REFERENCE UNITS LAB L500.77182 ML/MIN Normal IF non-AFR Greater than AMER 60 LAB L500.77364 ML/MIN Normal IF Greater than AMER 60 Performed By: #### L500.62470, L500.66924, L550.63185 #### [facility] [place] [id number] CRP Collected: 07/11/2018 Status: F Source: [facility] 1:15 PM [facility] REPOSITORY TYPE CODE TESTS RESULT OUT OF RANGE REFERENCE UNITS LAB L550.16416 0.00-0.32 MG/DL High CRP 1.27 Performed By: #### L500.35129, L500.59906, L550.72845 #### [facility] [address] [place] [address] CBC W/DIFF Collected: 07/11/2018 Status: F Source: [facility] 1:15 PM [facility] REPOSITORY TYPE CODE TESTS RESULT OUT OF RANGE REFERENCE UNITS LAB L200.88345 4.5-11.0 K/CU MM High WBC 11.2 LAB L200.67113 4.50-6.00 M/CU MM RBC Normal 4.71 LAB L200.80134 13.5-17.5 G/DL HGB Normal 14.8 LAB L200.49793 41.0-53.0 % HCT Normal 44.3 LAB L200.69791 80.0-99.0 fl MCV Normal 94.1 LAB L200.83231 32.0-36.0 GM/DL MCHC Normal 33.4 LAB L200.85565 11-14.5 RDW Normal 12.2 LAB L200.94905 9.4-12.4 MPV Normal 9.9 LAB L200.87981 150-450 K/CU MM PLT Normal 231 LAB L200.87851 45-75 % NEUTROPHILS Normal % 66.4 LAB L200.52936 Less than 2 % IMMATURE Normal GRAN % 0.4 LAB L200.78301 20-40 % LYMPH % Normal 22.0 LAB L200.61118 2-10 % High MONOCYTE % 10.2 LAB L200.88079 0-5 % EOSINOPHIL Normal % 0.6 LAB L200.57491 0-2 % BASOPHIL % Normal 0.4 LAB L200.09125 2.0-8.3 K/CU MM NEUTROPHIL Normal ABS 7.40 LAB L200.65278 Less than 2 K/CU MM IMMATR GRAN Normal ABS 0.00 LAB L200.30671 0.9-4.4 K/CU MM LYMPH ABS Normal 2.50 LAB L200.11617 0.1-1.1 K/CU MM MONO ABS Normal 1.10 LAB L200.56164 0-0.5 K/CU MM EOS ABS Normal 0.10 LAB L200.66889 0-0.2 K/CU MM BASO ABS Normal 0.10 LAB L200.41556 Less than 1 % NRBC Normal 0.0 Performed By: #### L200.97803, L200.13452 #### [facility] [address] [place] [address] WSR/MOD Collected: 07/11/2018 Status: F Source: [facility] 1:15 PM [facility] TYPE CODE TESTS RESULT OUT OF RANGE REFERENCE UNITS LAB L200.34235 0-20 MM/HR Normal WSR/MOD 18 Performed By: #### L200.78513, L200.25909 #### [facility] [address] [place] [address] CHEST PA/AP AND Observed: 07/11/2018 Status: F Source: [facility] LATERAL 12:30 PM [facility] CHEST PA/AP & LATERAL Ordering Physician: Phan [...] Signed: 07/11/2018 2:10 PM Reported By: ZACH BOUCHER M.D. Signed By: ZACH BOUCHER M.D. ALLERGIES ALLERGIES DATE TYPE / CODE NAME / CODE REACTION SEVERITY SOURCE 10/27/2018 Drug No Known Unknown [place] [facility] Allergy/4160 Allergies/F00 Hospital 92457(SNOMED 2877621(RXNOR Repository CT) M) ENCOUNTERS ENCOUNTERS ADMIT/DISCHARGE ACCOUNT ADMITTING ENCOUNTER LOCATION SOURCE NUMBER CLASS 11/10/2018 [id number] Ambulatory [place] 2 [facility] ing:CT Repository 11/09/2018 [id number] Ambulatory BMSBuilding:W [place] 1 [facility] Repository 11/08/2018 [id number] Ambulatory [place] 6 [facility] ing:PSN Repository 11/07/2018 [id number] Ambulatory [place] 7 [facility] ing:PSN Repository 11/07/2018 [id number] Ambulatory BMSBuilding:W [place] 5 [facility] Repository 10/27/2018 [id number] Ambulatory [place] 1 [facility] ing:PAVLAB Repository 10/27/2018/ [id number] Ambulatory BMSBuilding:B [place] 9 0 [facility] Repository 10/19/2018 [id number] [place] Ambulatory BMSBuilding:B [place] 3 [facility] Repository 10/19/2018/ [id number] [place] Inpatient [place] Jac[place] 8 6 Encounter [facility] ing:PCURoom: Repository [id number]: 1 10/19/2018 [id number] [place] Ambulatory BMSBuilding:B [place] 1 MS.[facility] Repository 10/19/2018 [id number] [place] Ambulatory BMSBuilding:B [place] 7 [facility] Repository 10/19/2018/ [id number] Ambulatory BMSBuilding:W [place] 8 5 [facility] Repository 10/19/2018/ [id number] Ambulatory BMSBuilding:W [place] 8 3 [facility] Repository 07/11/2018 [id number] Ambulatory [address] [place] [facility] PAYERS PAYERS ENCOUNTER GUARANTOR PAYER SUBSCRIBER SOURCE 11/10/2018 HALEY B Primary HALEY B [place] [id number] Insurance:AULTCAREPol ALKIREDOB: Community [place] icy Number: [id number] [address]Nsk: [id number] Repository Date:3113-66-75[address] () [address] [address]SL: 11/10/2018 Secondary NOT GIVENUNK [place] Insurance:SELF PAY [facility] Number: Effective Repository Date:2018-11-03 11/09/2018 HALEY B Primary HALEY B [place] [id number] Insurance:AULTCAREPol ALKIREDOB: [facility] nghia REAy Number: [id number] Hospital [address]Gui: [id number] Repository Date:1441-04-47[address] () [address] [address]IC: 11/09/2018 Secondary NOT GIVENUNK [place] Insurance:SELF PAY [facility] Number: Effective Repository Date:2018-11-09 11/08/2018 HALEY B Primary HALEY B [place] [id number] Insurance:AULTCAREPol ALKIREDOB: [facility] [place] icy Number: [id number] Hospital [address]Kqm: [id number] Repository Date:5055-33-93[address] () [address] [address]TZ: 11/08/2018 Secondary NOT GIVENUNK [place] Insurance:SELF PAY [facility] Number: Effective Repository Date:2018-10-27 11/07/2018 HALEY B Primary HALEY B [place] [id number] Insurance:AULTCAREPol ALKIREDOB: emily [place] Number: [id number] Hospital [address]Skt: [id number] Repository Date:5306-12-18[address] () [address] [address]AJ: 11/07/2018 Secondary NOT GIVENUNK [place] Insurance:SELF PAY [facility] Number: Effective Repository Date:2018-10-27 11/07/2018 HALEY B Primary HALEY B [place] [id number] Insurance:[employer]ULTCAREPol ALKIREDOB: [facility] [place], icy Number: [id number] Hospital [address]Myk: [id number] Repository Date:4220-75-75IZ [address] () [address] [address]QQ: 11/07/2018 Secondary NOT GIVENUNK [place] Insurance:SELF PAY [facility] Number: Effective Repository Date:2018-11-07 10/27/2018 HALEY B Primary HALEY B [place] [id number] Insurance:AULTCAREPol ALKIREDOB: [facility] SHAHLA, icy Number: [id number] Hospital [address]Cky: [id number] Repository Date:4804-99-30VV [address] () [address] [address]MD: 10/27/2018 Secondary NOT GIVENUNK [place] Insurance:SELF PAY [facility] Number: Effective Repository Date:2018-10-27 10/27/2018 HALEY B Primary HALEY B [place] [id number] Insurance:[employer]ULTCAREPol ALKIREDOB: [facility] [place], icy Number: [id number] Hospital [address]Zjj: [id number] Repository Date:1053-10-86OW [address] () [address] [address]GT: 10/27/2018 Secondary NOT GIVENUNK [place] Insurance:SELF PAY [facility] Number: Effective Repository Date:2018-10-25 10/19/2018 HALEY B Primary HALEY B [place] [id number] Insurance:[employer]ULTCAREPol ALKIREDOB: [facility] [place], icy Number: [id number] Hospital [address]Fwd: [id number] Repository Date:2730-50-27BY [address] () [address] [address]GO: 10/19/2018 Secondary NOT GIVENUNK [place] Insurance:SELF PAY [facility] Number: Effective Repository Date:2018-10-19 10/19/2018 HALEY B Primary HALEY B [place] [id number] Insurance:[employer]ULTCAREPol ALKIREDOB: Community [place], icy Number: [id number] Hospital [address]Lbc: [id number] Repository Date:5678-73-91FS [address] () [address] [address]HC: 10/19/2018 Secondary NOT GIVENUNK [place] Insurance:SELF PAY [facility] Number: Effective Repository Date:2018-10-19 10/19/2018 HALEY B Primary HALEY B [place] [id number] Insurance:[employer]ULTCAREPol ALKIREDOB: Community [place], icy Number: [id number] Hospital [address]Vls: [id number] Repository Date:7218-16-91IK [address] () [address] [address]MR: 10/19/2018 Secondary NOT GIVENUNK [place] Insurance:SELF PAY [facility] Number: Effective Repository Date:2018-10-19 10/19/2018 HALEY B Primary HALEY B [place] [id number] Insurance:[employer]ULTCAREPol ALKIREDOB: Community [place], icy Number: [id number] Hospital [address]Jxf: [id number] Repository Date:6932-86-73WI BOX () [address] [place] [address]WK: 10/19/2018 Secondary NOT GIVENUNK Jac[place] Insurance:SELF PAY [facility] Number: Effective Repository Date:2018-10-19 10/19/2018 HALEY B Primary HALEY Taylor [place] [id number] Insurance:AULTCAREPol ALKIREDOB: [facility] [place] icy Number: [id number] Hospital [address]Utr: [id number] Repository Date:9242-61-28KA [address] () [address] [address]PZ: 10/19/2018 Secondary NOT GIVENUNK Jac[place] Insurance:SELF PAY [facility] Number: Effective Repository Date:2018-10-19 10/19/2018 HALEY B Primary HALEY B [place] [id number] Insurance:AULTCAREPol ALKIREDOB: [facility] TALABANNER SHAHLA icy Number: [id number] Hospital [address]Vmb: [id number] Repository Date:3784-17-55TZ [address] () [address] [address]WQ: 10/19/2018 Secondary NOT GIVENUNK [place] Insurance:SELF PAY [facility] Number: Effective Repository Date:2018-10-19 07/11/2018 HALEY Taylor Primary HAELY MORALES [facility] [id number] Insurance:AULTCAREPol [facility] [place], icy Number: Repository [place] [address]Lir: [id number] Date:5065-05-48TP [address] () [address], [place] [address]KL:
== END ==
PROVIDERS: Family Provider Family Medicine; PCP Family Medicine; Referring Provider Nurse Practitioner Acute Care; Visit Provider Nurse Practitioner Acute Care
DX: F17.200 Nicotine dependence, unspecified, uncomplicated (principal)
CPT/HCPCS: G0297

== ENCOUNTER → 2018-11-27 20:00 | Outpatient (CLI) | payer OTHER, SELFPAY ==
[2018-10-27 08:13] VITALS: BMI 25.5
== END ==
PROVIDERS: Family Provider Family Medicine; PCP Family Medicine; Visit Provider Nurse Practitioner Acute Care
DX: G47.33 Obstructive sleep apnea (adult) (pediatric) (principal); I49.3 Ventricular premature depolarization; G47.61 Periodic limb movement disorder
CPT/HCPCS: 95810

== ENCOUNTER → 2018-12-15 19:59 | Outpatient (CLI) | payer OTHER, SELFPAY ==
[2018-10-27 08:13] VITALS: BMI 25.5
== END ==
LOC: SL 19:59
PROVIDERS: Family Provider Family Medicine; PCP Family Medicine; Referring Provider Nurse Practitioner Acute Care; Visit Provider Nurse Practitioner Acute Care
DX: G47.33 Obstructive sleep apnea (adult) (pediatric) (principal)
CPT/HCPCS: 95811

== ENCOUNTER → 2019-08-30 10:08 | Outpatient (CLI) | payer OTHER, SELFPAY ==
[2019-08-17 11:20] VITALS: BMI 26.9
[2019-08-30 10:18] LABS: Red Blood Cells-Urine 0 SEEN /hpf (0-5); Squamous Epithelial Cells - UA 0 SEEN /hpf (0-5)
[2019-08-30 12:27] LABS: Color, Urine Yellow (Yellow); Glucose, Dipstick Normal (Normal); Ketone-Dipstick Negative (Negative); Leukocyte Esterase-Dipstick Negative /ul (Negative); Nitrite-Dipstick Negative (Negative); Occult Blood-Urine Negative /ul (Negative); Protein-Dipstick Negative (Negative); Urine Bilirubin Dipstick Negative (Negative); Urine Clarity Clear (Clear); Urine Urobilinogen Normal (Normal)
[2019-08-30 12:35] LABS: Bacteria RARE /hpf (None Seen); Mucous, Urine 2+ /hpf (<or=2+); White Blood Cells 0-5 SEEN /hpf (0-5)
[2019-08-30 12:36] LABS: Erythrocyte Sedimentation Rate 19 mm/hr (0-20)
[2019-08-30 12:45] LABS: Absolute Lymphocyte Count 1.34 X10^3/uL (0.83-4.51); Basophil# 0.03 X10^3/uL; Basophil% 0.4 % (0-1); Eosinophil# 0.21 X10^3/uL; Eosinophils% 2.9 % (0-5); Hematocrit 42.7 % (40-54); Hemoglobin 13.4 g/dL (13.0-16.5); Lymphocyte # 1.34 X10^3/ul (4.0); Lymphocyte % 18.2 % (19-41); Mean Corp Hgb Conc 31.4 g/dL (32-36); Mean Corpuscular Volume 95.7 fL (80-94); Mean Platelet Vol. 10.3 fl (6.2-12.0); Monocyte# 0.78 X10^3/uL; Monocyte% 10.6 % (0-10); NRBC Flagged by Analyzer 0 % (0-5); Neutrophil # 4.96 X10^3/uL (2.7-7.7); Neutrophil % 67.5 % (47-70); Platelet Count 299 K/mm3 (150-450); RBC Distribution Width CV 12.9 % (11.6-14.6); RBC Distribution Width SD 45.1 fl (35.1-43.9); Red Blood Count 4.46 M/mm3 (4.6-6.2); White Blood Count 7.4 K/mm3 (4.4-11.0)
[2019-08-30 12:48] LABS: ALB/GLOB Ratio 0.8 RATIO (0.9-2.4); AST(SGOT) 22 U/L (15-37); Alanine Aminotransfer ALT/SGPT 49 U/L (16-61); Albumin, Serum 3.7 g/dL (3.2-5.0); Alkaline Phosphatase 137 U/L (45-117); Anion Gap 4 (5-15); BUN 20 mg/dL (7-18); BUN/Creat Ratio 27.6 RATIO (10-20); Calcium,Total 9.4 mg/dL (8.5-10.1); Chloride 105 mmol/L (98-107); Cholesterol 187 mg/dL (200); Creatinine, Serum 0.72 mg/dL (0.70-1.30); EST Glomerular Filtration Rate 116 mL/min (>60); Est Glom Filt Rate - Afr Amer 141 mL/min (>60); Globulin 4.4 g/dL (2.2-4.2); Glucose 111 mg/dL (74-106); High Density Lipoprotein 60 mg/dL; PSA,Total - Annual Screen 2.31 ng/mL (0.00-4.00); Potassium 4.1 mmol/L (3.5-5.1); Protein, Total 8.1 g/dL (6.4-8.2); Rheumatoid Factor < 10.0 IU/mL (<15); Sodium Level 141 mmol/L (136-145); Triglycerides 71 mg/dL; Very Low Density Lipoprotein 14 mg/dL (5-40)
[2019-08-31 16:58] LABS: ANTINUCLEAR ANTIBODIES DIRECT Positive (Negative)
== END ==
PROVIDERS: Family Provider Family Medicine; PCP Family Medicine; Referring Provider Family Medicine; Visit Provider Family Medicine
DX: Z00.00 Encounter for general adult medical examination without abnormal findings (principal); J44.9 Chronic obstructive pulmonary disease, unspecified; M13.0 Polyarthritis, unspecified; Z12.5 Encounter for screening for malignant neoplasm of prostate
CPT/HCPCS: 36415; 80053; 80061; 81001; 84153; 85025; 85652; 86038; 86431; G0103

== ENCOUNTER → 2019-11-08 09:46 | Outpatient (CLI) | payer BC, SELFPAY ==
[2019-08-17 11:20] VITALS: BMI 26.9
--- NOTE | 2019-11-09 10:54 | PFT ---
INTRODUCTION: The patient is a 64-year-old male that presents for pulmonary function studies secondary to a diagnosis of COPD. Respiratory therapy reports good patient effort. Bronchodilators were used during testing. INTERPRETATION: Forced expiration spirometry demonstrates the presence of a very severe large airways obstructive ventilatory defect. There was a significant response to aerosolized bronchodilators. Spirograms or above poor quality and do not plateau indicating slow emptying of the lungs. Body plethysmography was performed and reveals a decreased TLC to 4.04 L, 66% of predicted, indicative of a moderate restrictive ventilatory impairment. The remainder of the lung volumes are symmetrically reduced. Diffusing capacity by single breath CO is reduced at 55% of predicted. There has been worsening in the patient's FEV1 and DLCO since October 2018. IMPRESSION: Partially reversible very severe mixed ventilatory defect with symmetric reduction in diffusing capacity. There has been worsening in the patient's PFTs since October 2018.
== END ==
LOC: PSN 09:47
PROVIDERS: Family Provider Family Medicine; PCP Family Medicine; Referring Provider Internal Medicine Critical Care Medicine; Visit Provider Internal Medicine Critical Care Medicine
DX: J44.9 Chronic obstructive pulmonary disease, unspecified (principal); J96.11 Chronic respiratory failure with hypoxia
CPT/HCPCS: 94060; 94726; 94729

== ENCOUNTER → 2019-11-12 12:17 | Outpatient (CLI) | payer BC, SELFPAY ==
[2019-08-17 11:20] VITALS: BMI 26.9
[2019-11-12 13:32] VITALS: PULSE 118; PULSE 120; PULSE 125; PULSE 136; PULSE 144; PULSE 145; PULSE 148; PULSE 157; O2SAT 84; O2SAT 86; O2SAT 89; O2SAT 90; O2SAT 91; O2SAT 92; O2SAT 93; O2SAT 95
--- NOTE | 2019-11-12 13:45 | CPS ---
Patient came in on own O2 tank at 2 lpm pulse dose. Room Air SpO2 92%. Patient monitors SpO2 at home and states that it stays >89-90% when sitting on room air, started testing on room air. Half way through the 1st minute of testing patient was 87%, stopped patient, SpO2 dropped to 84% before it started to increase while resting on 2 lpm pulse dose. Patient was able to walk until the 3rd minute when SpO2 was 86%, increased O2 to 3 lpm pulse dose. Patient walked until 5 minutes and 45 seconds when he complained of severe shortness of breath and I stopped patient due to heart rate being 157-162, SpO2 89%.
--- NOTE | 2019-11-12 17:04 | PCM.PSN.6M ---
PSN 6 Minute Walk Test - 6 Minute Walk Test 6 Minute Walk Test: 6 Minute Walk Test PSN:6-Minute Walk Test Start: 11/12/19 13:31 Freq: Status: Active Protocol: RESP.6MINW Document 11/12/19 13:32 LEIGHTONKAMALA (Rec: 11/12/19 13:50 ART [id number]) 6 Minute Walk Test Date Performed 11/12/19 Time Performed 12:30 Height 5 ft 8 in Weight: 85.729 kg Weight in Pounds 189.[address]: Missael Zamudio Assistive device used: None Pre-test Oxygen Delivery Method Room Air Pulse Ox (%) 92 Pulse Rate (60-100 beats/min) 118 H Dyspnea Lance Scale (0-10) 0 Exertion Lance Scale (6-20) 6 1st minute Oxygen Delivery Method Room Air Pulse Ox (%) 84 Pulse Rate (60-100 beats/min) 136 H 2nd minute Oxygen Flow Rate (L/min) (L/min) 2 Oxygen Delivery Method Nasal Cannula Pulse Ox (%) 91 Pulse Rate (60-100 beats/min) 144 H 3rd minute Oxygen Flow Rate (L/min) (L/min) 2 Oxygen Delivery Method Nasal Cannula Pulse Ox (%) 86 Pulse Rate (60-100 beats/min) 148 H 4th minute Oxygen Flow Rate (L/min) (L/min) 3 Oxygen Delivery Method Nasal Cannula Pulse Ox (%) 93 Pulse Rate (60-100 beats/min) 120 H 5th minute Oxygen Flow Rate (L/min) (L/min) 3 Oxygen Delivery Method Nasal Cannula Pulse Ox (%) 90 Pulse Rate (60-100 beats/min) 145 H 6th minute Oxygen Flow Rate (L/min) (L/min) 3 Oxygen Delivery Method Nasal Cannula Pulse Ox (%) 89 Pulse Rate (60-100 beats/min) 157 H Dyspnea Lance Scale (0-10) 6 Exertion Lance Scale (6-20) 13 Post-test Oxygen Flow Rate (L/min) (L/min) 3 Oxygen Delivery Method Nasal Cannula Pulse Ox (%) 95 Pulse Rate (60-100 beats/min) 125 H Full Laps Walked 16 Partial Lap, Number of Tiles Walked 15 Total Distance Walked (ft) 959 11/12/19 13:45 Cardiopulmonary Services by Erin Patel Patient came in on own O2 tank at 2 lpm pulse dose. Room Air SpO2 92%. Patient monitors SpO2 at home and states that it stays >89-90% when sitting on room air, started testing on room air. Half way through the 1st minute of testing patient was 87%, stopped patient, SpO2 dropped to 84% before it started to increase while resting on 2 lpm pulse dose. Patient was able to walk until the 3rd minute when SpO2 was 86%, increased O2 to 3 lpm pulse dose. Patient walked until 5 minutes and 45 seconds when he complained of severe shortness of breath and I stopped patient due to heart rate being 157-162, SpO2 89%. Initialized on 11/12/19 13:45 - END OF NOTE - Interpretation Interpretation: The patient was noted to be 92% on room air with a heart rate of 118 bpm. Patient desaturated to 84% in the second minute and was placed on 2 L pulse dose with improvement to 93%. The patient required 3 L nasal cannula to maintain saturations, but had progressive tachycardia with a peak heart rate of 157 bpm at 6 minutes. These findings are consistent with a cardiopulmonary limitation exercise tolerance. - Recommendations Recommendations: The patient requires no supplemental oxygen at rest, but should be using 3 L nasal cannula with exertion. Consider cardiac evaluation for tachycardia if not completed previously.
== END ==
LOC: PSN 12:17
PROVIDERS: Family Provider Family Medicine; PCP Family Medicine; Referring Provider Internal Medicine Critical Care Medicine; Visit Provider Internal Medicine Critical Care Medicine
DX: J44.9 Chronic obstructive pulmonary disease, unspecified (principal); J96.11 Chronic respiratory failure with hypoxia
CPT/HCPCS: 94618

== ENCOUNTER 2019-12-12 16:45 | Emergency (ER) | payer BC, SELFPAY ==
[2019-11-21 06:22] VITALS: BMI 28.8
[2019-12-12 16:47] VITALS: BP 143/78; PULSE 99; RESP 24; TEMP 37.1; O2SAT 94; BMI 29.7
[2019-12-12 17:21] VITALS: O2SAT 95
[2019-12-12 17:27] VITALS: BP 122/79; PULSE 85; RESP 10; O2SAT 96
--- NOTE | 2019-12-12 17:41 | EKG12_ITS ---
Test Reason : SOB Blood Pressure : / mmHG Vent. Rate : 082 BPM Atrial Rate : 082 BPM P-R Int : 136 ms QRS Dur : 062 ms QT Int : 342 ms P-R-T Axes : 072 064 071 degrees QTc Int : 399 ms Normal sinus rhythm Nonspecific ST abnormality Abnormal ECG Confirmed by ADONIS KATE, RORY ([id number]), health editor YULI ANTUNEZ ([id number]) on 12/17/2019 2:33:01 PM Referred By: FRANCISCO Confirmed By:DALILA LAMB MD
[2019-12-12 17:50] VITALS: PULSE 102; RESP 22
[2019-12-12] MEDS: Ipratropium/Albuterol Sulfate 3 ML AMPUL.NEB INHALATION (17:57)
[2019-12-12 18:06] LABS: Absolute Lymphocyte Count 1.42 X10^3/uL (0.83-4.51); Absolute Neutrophil Count 7.5 X10^3/uL (2.0-7.7); Basophil# 0.02 X10^3/uL; Basophil% 0.2 % (0-1); Eosinophil# 0.14 X10^3/uL; Eosinophils% 1.4 % (0-5); Hematocrit 37.6 % (40-54); Hemoglobin 12.3 g/dL (13.0-16.5); Lymphocyte # 1.42 X10^3/ul (4.0); Mean Corp Hgb Conc 32.7 g/dL (32-36); Mean Corpuscular Hgb 30.2 pg (27.0-32.0); Mean Corpuscular Volume 92.4 fL (80-94); Mean Platelet Vol. 9.6 fl (6.2-12.0); Monocyte% 10.8 % (0-10); NRBC Flagged by Analyzer 0 % (0-5); Neutrophil # 7.46 X10^3/uL (2.7-7.7); Neutrophil % 73.3 % (47-70); Platelet Count 190 K/mm3 (150-450); RBC Distribution Width CV 13.7 % (11.6-14.6); RBC Distribution Width SD 46.9 fl (35.1-43.9); Red Blood Count 4.07 M/mm3 (4.6-6.2); White Blood Count 10.2 K/mm3 (4.4-11.0)
--- NOTE | 2019-12-12 18:22 | RAD_ITS ---
STUDY: X-RAY CHEST REASON FOR EXAM: Male, 64 years old. COUGH TECHNIQUE: PA and lateral views of the chest. COMPARISON: 10/19/2018 FINDINGS: Lungs are hyperexpanded with patchy fibrotic changes predominantly in the lung bases. There is no demonstrated pleural abnormality. Normal size heart. Normal mediastinum and christiane. Normal visualized pulmonary arteries. Normal visualized aortic arch and descending thoracic aorta. There is demineralization of the osseous structures. Normal visualized ribs, clavicles, and shoulders. There is no demonstrated abnormality of the visualized soft tissue structures of the upper abdomen. RAD/Chest PA and Lateral IMPRESSION: Stable, nonacute x-ray examination of the chest. COPD. Electronically Signed: David Smith MD (Brooks) at 19:27 EST , Service support ,
[2019-12-12 18:26] LABS: ALB/GLOB Ratio 0.7 RATIO (0.9-2.4); AST(SGOT) 30 U/L (15-37); Alanine Aminotransfer ALT/SGPT 75 U/L (16-61); Albumin, Serum 3.2 g/dL (3.2-5.0); Alkaline Phosphatase 136 U/L (45-117); Anion Gap 4 (5-15); BUN 14 mg/dL (7-18); BUN/Creat Ratio 21.2 RATIO (10-20); Calcium,Total 9.3 mg/dL (8.5-10.1); Chloride 106 mmol/L (98-107); Creatinine, Serum 0.66 mg/dL (0.70-1.30); EST Glomerular Filtration Rate 130 mL/min (>60); Est Glom Filt Rate - Afr Amer 157 mL/min (>60); Estimated Creatinine Clearance 112.27 ml/min; Globulin 4.4 g/dL (2.2-4.2); Glucose 100 mg/dL (74-106); Potassium 3.7 mmol/L (3.5-5.1); Protein, Total 7.6 g/dL (6.4-8.2); Sodium Level 139 mmol/L (136-145)
[2019-12-12] MEDS: predniSONE 20 MG Tablet 60 MG PO (18:49)
--- NOTE | 2019-12-12 19:46 | ED.DCSUM_ITS ---
- ER Visit Summary Date of Service: 12/12/19 Chief Complaint: Shortness of breath History of Present Illness: The patient is a 64 M who presents with shortness of breath, cough, and COPD that has been getting worse since yesterday. Patient states his breathing is worse with any exertion. Patient states he is coughing up some green sputum. Patient denies any fevers. Patient denies any chest pain. Patient denies any sore throat or rhinorrhea. Patient states he has a history of COPD and is on home oxygen at 3 L nasal cannula. Patient states he has been taking his inhalers as prescribed. Physical Examination: Vital signs are stable for mild tachypnea of 24. Patient is afebrile. Patient is in no acute distress. Oral mucosa is pink and moist. Neck is supple. Trachea is midline. There is no JVD. Heart was regular rate and rhythm. Lungs showed diffuse expiratory wheezing. There is good respiratory effort noted. Abdomen is soft and nontender. Cranial nerves II through XII are intact. There are no focal motor or sensory deficits noted. Extremities are intact. There is no calf tenderness or edema. Test Results: PA and lateral chest x-ray shows chronic changes but no acute cardiopulmonary process. This was interpreted by the radiologist and myself. EKG showed normal sinus rhythm with a rate of 82. There are no acute ST or T wave changes. This was unchanged compared to previous EKG dated 10/20/2018. CBC, comprehensive metabolic profile, troponin were obtained and were essentially within normal limits. Emergency Department Course and Treatment: Patient was given a DuoNeb aerosol here. Patient was given a dose of prednisone here. Patient was feeling better on reevaluation. Case was discussed with Dr. Zamudio. He agrees with a burst of prednisone and will follow-up with the patient in the office. Patient understands and is agreeable with the plan. All questions were answered. Disposition: Discharge home Impression: COPD exacerbation This note was generated with [employer] dictation software. It may contain incorrect words, spelling, and punctuation that were not noted in review of the chart prior to signing ED Disposition - Plan for ED Patient: Disposition: Home or Assisted Living Diagnosis: COPD (chronic obstructive pulmonary disease) Instructions: Copd Flare Prescriptions: Prednisone [Deltasone] 60 mg PO DAILY #12 tab Prescription Printed Referrals: Phan Verdugo MD [Primary Care Provider] - 5-7 Days Missael Zamudio MD [STAFF PHYSICIAN] - 3-5 Days
[2019-12-12 19:50] VITALS: BP 122/74; PULSE 94; RESP 14; O2SAT 97
== END 2019-12-12 20:06 | disposition home or self-care (01) ==
PROVIDERS: Emergency Provider Emergency Medicine; PCP Family Medicine
DX: J44.1 Chronic obstructive pulmonary disease with (acute) exacerbation (principal); Z99.81 Dependence on supplemental oxygen; Z87.891 Personal history of nicotine dependence
CPT/HCPCS: 71046; 80053; 84484; 85025; 93005; 94640; 99285; A4216

== ENCOUNTER → 2020-02-28 08:53 | Outpatient (CLI) | payer BC, SELFPAY ==
[2020-02-20 08:34] VITALS: BMI 29.7
--- NOTE | 2020-02-28 09:22 | RAD_ITS ---
STUDY: X-RAY CHEST REASON FOR EXAM: Male, 65 years old. SOB AND COUGHING. HX OF COPD. TECHNIQUE: PA and lateral views of the chest. COMPARISON: Comparison is made with prior examination dated December 12, 2019. FINDINGS: Hyperinflation. Stable increased markings at the lung bases suggestive of bibasilar scarring. Decreased bronchovascular markings in the upper lobes suggestive of emphysematous changes. There is no demonstrated pleural abnormality. Normal size heart. Normal mediastinum and christiane. There is prominence of the pulmonary hilar arteries without peripheral pulmonary vascular congestion, suggesting pulmonary hypertension. Normal visualized aortic arch and descending thoracic aorta. There is demineralization of the osseous structures. Normal visualized ribs, clavicles, and shoulders. There is no demonstrated abnormality of the visualized soft tissue structures of the upper abdomen. RAD/Chest PA and Lateral IMPRESSION: Hyperinflation. Stable increased markings at the lung bases in keeping with scarring. Electronically Signed: Artur Power, at 9:55 EDT , Service support ,
[2020-02-28 10:47] LABS: Absolute Lymphocyte Count 1.71 X10^3/uL (0.83-4.51); Absolute Neutrophil Count 4.2 X10^3/uL (2.0-7.7); Basophil# 0.02 X10^3/uL; Basophil% 0.3 % (0-1); Eosinophil# 0.12 X10^3/uL; Eosinophils% 1.8 % (0-5); Hematocrit 41.8 % (40-54); Hemoglobin 13.2 g/dL (13.0-16.5); Lymphocyte # 1.71 X10^3/ul (4.0); Lymphocyte % 25.2 % (19-41); Mean Corp Hgb Conc 31.6 g/dL (32-36); Mean Corpuscular Hgb 29.9 pg (27.0-32.0); Mean Corpuscular Volume 94.6 fL (80-94); Mean Platelet Vol. 10.5 fl (6.2-12.0); Monocyte# 0.71 X10^3/uL; Monocyte% 10.5 % (0-10); NRBC Flagged by Analyzer 0 % (0-5); Neutrophil % 61.9 % (47-70); Platelet Count 265 K/mm3 (150-450); RBC Distribution Width CV 14.1 % (11.6-14.6); Red Blood Count 4.42 M/mm3 (4.6-6.2); White Blood Count 6.8 K/mm3 (4.4-11.0)
[2020-02-28 11:04] LABS: ALB/GLOB Ratio 0.9 RATIO (0.9-2.4); AST(SGOT) 20 U/L (15-37); Alanine Aminotransfer ALT/SGPT 41 U/L (16-61); Albumin, Serum 3.7 g/dL (3.2-5.0); Alkaline Phosphatase 105 U/L (45-117); Anion Gap 6 (5-15); BUN 17 mg/dL (7-18); Calcium,Total 9.1 mg/dL (8.5-10.1); Chloride 103 mmol/L (98-107); Cholesterol 199 mg/dL (200); Creatinine, Serum 0.77 mg/dL (0.70-1.30); EST Glomerular Filtration Rate 108 mL/min (>60); Est Glom Filt Rate - Afr Amer 130 mL/min (>60); Glucose 115 mg/dL (74-106); High Density Lipoprotein 65 mg/dL; Potassium 3.7 mmol/L (3.5-5.1); Protein, Total 7.7 g/dL (6.4-8.2); Sodium Level 137 mmol/L (136-145); Triglycerides 95 mg/dL; Very Low Density Lipoprotein 19 mg/dL (5-40)
[2020-02-28 11:07] LABS: Color, Urine Yellow (Yellow); Glucose, Dipstick Normal (Normal); Ketone-Dipstick 5 mg/dl (Negative); Leukocyte Esterase-Dipstick 25 /ul (Negative); Nitrite-Dipstick Negative (Negative); Occult Blood-Urine Negative /ul (Negative); Protein-Dipstick 15 mg/dl (Negative); Specific Gravity, Urine 1.025 (1.002-1.030); Urine Clarity Sl. Cloudy (Clear); Urine Urobilinogen 1 mg/dl (Normal)
[2020-02-28 11:07] LABS: Ferritin 266 ng/mL (26-388); Iron 73 ug/dL (65-175); Iron Binding Capacity,Total 340 ug/dL (250-450); PERCENT IRON SATURATION 21.5 % (15.0-55.0)
[2020-02-28 11:11] LABS: Urine Bilirubin Dipstick 1 mg/dL (Negative)
== END ==
PROVIDERS: Nurse Practitioner Acute Care; PCP Family Medicine; Referring Provider Family Medicine; Visit Provider Family Medicine
DX: Z00.00 Encounter for general adult medical examination without abnormal findings (principal); J44.9 Chronic obstructive pulmonary disease, unspecified; Z12.5 Encounter for screening for malignant neoplasm of prostate; G25.81 Restless legs syndrome
CPT/HCPCS: 36415; 71046; 80053; 80061; 81002; 82728; 83540; 83550; 85025

== ENCOUNTER → 2020-03-27 09:37 | Outpatient (CLI) | payer BC, SELFPAY ==
[2020-03-20 09:46] VITALS: BMI 29.7
--- NOTE | 2020-03-27 09:37 | RAD_ITS ---
STUDY: SNIFF STUDY. REASON FOR EXAM: Male, 65 years old. SOB, COPD, FORMER SMOKER RADIATION DOSAGE (If Supplied By Facility): CTDIvol = ( ) mGy, DLP = ( ) mGycm. Individualized dose optimization techniques were used for this CT.? FLUOROSCOPY TIME (if supplied): ( 22nd ) minutes/seconds TECHNIQUE: Under fluoroscopic guidance, the patient took in inspiration and expiration breath. COMPARISON: None. FINDINGS: Normal translation of the right and left hemidiaphragms. RAD/Chest Sniff Test Fluoro Only IMPRESSION: Normal examination. Electronically Signed: Artur Power, at 10:29 EDT , Service support ,
--- NOTE | 2020-03-27 09:37 | CT_ITS ---
STUDY: LOW DOSE CT LUNG CANCER SCREENING REASON FOR EXAM: Male, 65 years old. TOBACCO USE, 1 PPD X 40 YRS. QUIT 3 YRS AGO. COPD RADIATION DOSAGE (If Supplied By Facility): CTDIvol = ( 2.55 ) mGy, DLP = ( 87.42 ) mGycm TECHNIQUE: No contrast was administered. Low dose technique was utilized (average mAS-38 and kVp 120). 1.25 mm axial source images with a slice interval of 1.25-mm were reconstructed in lung windows. 2.5 mm axial source images with a slice interval of 2.5-mm were reconstructed in lung windows. 5.0 mm axial source images with a slice interval of 5.0-mm were reconstructed in soft tissue windows. Nodule measured using lung windows on PACS and/or independent workstation with automated measurement of minimum and maximum diameter. Nodule measurement reported as average diameter rounded to the nearest whole number. Growth is defined as an increase ins size of greater than 1.5 mm. COMPARISON: Comparison is made with prior study dated November 10, 2018. NODULES: No suspicious nodules are seen. Emphysema: Hyperinflation. Stable emphysematous changes with bullous formation in both lungs worse in the upper lobes. Stable appearance of the scarring at the right lung apex. Stable 4.5 Efrem by 6.7 cm bulla in the posterior medial segment of the left lower lobe. Endobronchial lesion: None. Aorta: Mild atherosclerotic calcific plaques. Coronary arteries: Unremarkable. Heart: Unremarkable. Pulmonary artery: Unremarkable. Mediastinal nodes: None Other chest and abdominal findings: CT/Low Dose CT Lung Screening IMPRESSION: Lung-RADS category 2 - Continue annual screening with LDCT in 12 months. IMPORTANT NOTES FOR USE: ACR Lung-RADS Version 1.0 Assessment Categories Release Date: February 18, 2014 Category: Coded 0-4 bases on nodule(s) with highest degree of suspicion. Negative screen is defined as categories 1 and 2; a positive screen is defined as categories 3 and 4. Category 3 and 4A nodules that are unchanged on interval CT should be coded as category 2, and individuals returned to screening in 12 months. Category 4X: Category 3 or 4 nodules with additional imaging findings that increase the suspicion of lung cancer, such as spiculation, GGN that doubles in size in 1 year, enlarged lymph notes, etc. Category Modifiers: S (significant finding unrelated to lung cancer) and C (prior history of treated lung cancer) may be added to the 0-4 Lung-RADS Electronically Signed: Artur Power, at 10:37 EDT , Service support ,
== END ==
PROVIDERS: PCP Family Medicine; Referring Provider Nurse Practitioner Acute Care; Visit Provider Nurse Practitioner Acute Care
DX: Z12.2 Encounter for screening for malignant neoplasm of respiratory organs (principal); G71.02 Facioscapulohumeral muscular dystrophy; F17.210 Nicotine dependence, cigarettes, uncomplicated
CPT/HCPCS: 76000; G0297

== ENCOUNTER → 2020-07-22 12:26 | Outpatient (CLI) | payer BC, SELFPAY ==
[2020-03-20 09:46] VITALS: BMI 29.7
== END ==
PROVIDERS: PCP Family Medicine
DX: R00.0 Tachycardia, unspecified (principal)
CPT/HCPCS: 93225; 93226

== ENCOUNTER → 2020-09-03 12:44 | Outpatient (CLI) | payer BC, SELFPAY ==
[2020-08-25 13:56] VITALS: BMI 29.4
--- NOTE | 2020-09-03 12:46 | ECHOCS_ITS ---
Reason For Study: Arrhythmia Procedure This was a 2D Doppler, Color Flow transthoracic echocardiogram. The study was technically difficult. Contrast injection was performed. Exam performed in department. Left Ventricle Normal LV size. Left ventricular systolic function is normal. The estimated ejection fraction is 65 %. No evidence for diastolic dysfunction. No regional wall motion abnormalities noted. Right Ventricle Normal RV size. Normal systolic function. Atria Normal left atrium. Normal right atrium. No doppler evidence for ASD. Mitral Valve There is no mitral annular calcification. Mitral valve not well visualized. Tricuspid Valve The tricuspid valve is not well visualized. Aortic Valve Trisinus/trileaflet aortic valve. Normal aortic valve. Pulmonic Valve The pulmonic valve is not well visualized. Trivial pulmonic valve insufficiency. Great Vessels The aortic root is not well visualized. Pericardium/Pleural No pericardial effusion. Epicardial fat. Medication 22 gauge I.V. with prn adaptor inserted into right arm. Diluted definity 2ml given slow IV push to enhance endocardial definition. MMode/2D Measurements & Calculations LVIDd: 4.5 cm IVSd: 1.1 cm LAV(MOD-bp): 33.1 ml LVIDs: 2.8 cm LVPWd: 1.0 cm FS: 39.3 % LAV(MOD-bp) Indexed: 16.5 ml/m2 LAV(MOD-sp2): 30.5 ml LAV(MOD-sp4): 29.1 ml LA A4 area: 13.9 cm2 RA A4 area: 12.0 cm2 Time Measurements MV dec time: 0.22 sec Doppler Measurements & Calculations MV E max robert: 73.0 cm/sec Lat Peak E' Robert: 10.5 cm/sec Med Peak E' Robert: 8.6 cm/sec MV A max robert: 85.2 cm/sec E/E' lat: 7.0 E/E' med: 8.5 MV E/A: 0.86 MV V2 max: 91.2 cm/sec MV P1/2t max robert: 74.4 cm/sec Ao V2 max: 125.2 cm/sec MV max P.3 mmHg MV P1/2t: 76.9 msec Ao max P.3 mmHg MV V2 mean: 55.6 cm/sec MV mean P.4 mmHg MV dec slope: 283.3 cm/sec2 MV V2 VTI: 16.0 cm MVA(P1/2t): 2.9 cm2 LV V1 max: 111.6 cm/sec PA V2 max: 112.7 cm/sec LV V1 max P.0 mmHg Interpretation Summary The study was technically difficult. Contrast injection was performed. Left ventricular systolic function is normal. The estimated ejection fraction is 65 %. Trivial pulmonic valve insufficiency. Epicardial fat. No evidence for diastolic dysfunction. Ordering Physician: Brice Fox Referring Physician: Phan Verdugo Performed By: Porfirio Gary RCS
== END ==
LOC: CVS 12:46
PROVIDERS: PCP Family Medicine; Referring Provider Internal Medicine Cardiovascular Disease; Visit Provider Internal Medicine Cardiovascular Disease
DX: R00.0 Tachycardia, unspecified (principal); I49.3 Ventricular premature depolarization; I25.10 Atherosclerotic heart disease of native coronary artery without angina pectoris; J44.9 Chronic obstructive pulmonary disease, unspecified; G47.33 Obstructive sleep apnea (adult) (pediatric); Z72.0 Tobacco use
CPT/HCPCS: 93306; Q9957; A4216; C8929

== ENCOUNTER 2021-01-16 15:46 | Outpatient (RCR) | payer BC, SELFPAY ==
[2020-08-25 13:56] VITALS: BMI 29.4
== END 2021-03-31 23:59 ==
LOC: IMMUN 15:46
PROVIDERS: PCP Family Medicine; Visit Provider Family Medicine
DX: Z23 Encounter for immunization (principal)
CPT/HCPCS: 0001A; 0002A; 91300

== ENCOUNTER → 2021-04-08 13:06 | Outpatient (CLI) | payer MEDICARE, SELFPAY ==
[2020-08-25 13:56] VITALS: BMI 29.4
--- NOTE | 2021-04-08 13:12 | CT_ITS ---
STUDY: LOW DOSE CT LUNG CANCER SCREENING REASON FOR EXAM: Male, 66 years old. Smoker and gt; 40 pack years quit 2015 RADIATION DOSAGE (If Supplied By Facility): CTDIvol = ( 3.02 ) mGy, DLP = ( 100.05 ) mGycm TECHNIQUE: No contrast was administered. Low dose technique was utilized (average mAS-38 and kVp 120). 1.25 mm axial source images with a slice interval of 1.25-mm were reconstructed in lung windows. 2.5 mm axial source images with a slice interval of 2.5-mm were reconstructed in lung windows. 5.0 mm axial source images with a slice interval of 5.0-mm were reconstructed in soft tissue windows. Nodule measured using lung windows on PACS and/or independent workstation with automated measurement of minimum and maximum diameter. Nodule measurement reported as average diameter rounded to the nearest whole number. Growth is defined as an increase ins size of greater than 1.5 mm. COMPARISON: Comparison is made with prior examination dated 03/27/2020. NODULES: No suspicious nodules are seen. Emphysema: Hyperinflation. Once again, there is evidence of diffuse emphysematous changes with bullous formation in both lungs worse in the upper lobes. Stable stable 6.1 cm x 5.1 cm bulla in the posterior medial aspect of the left lower lobe. Stable mild scarring at the right lung apex as well as at the right lung base. Endobronchial lesion: None Aorta: Mild atherosclerotic calcific plaques. Coronary arteries: Heart: Unremarkable Pulmonary artery: Unremarkable Mediastinal nodes: Small mediastinal lymph nodes. Other chest and abdominal findings: CT/Low Dose CT Lung Screening IMPRESSION: Lung-RADS category 2 - Continue annual screening with LDCT in 12 months. IMPORTANT NOTES FOR USE: ACR Lung-RADS Version 1.1 Assessment Categories Release Date: 2018 Category: Coded 0-4 bases on nodule(s) with highest degree of suspicion. Negative screen is defined as categories 1 and 2; a positive screen is defined as categories 3 and 4. Category 3 and 4A nodules that are unchanged on interval CT should be coded as category 2, and individuals returned to screening in 12 months. Category 4X: Category 3 or 4 nodules with additional imaging findings that increase the suspicion of lung cancer, such as spiculation, GGN that doubles in size in 1 year, enlarged lymph notes, etc. Category Modifiers: S (significant finding unrelated to lung cancer) Electronically Signed: Artur Power MD at 14:07 EDT , Service support ,
== END ==
PROVIDERS: PCP Family Medicine; Referring Provider Nurse Practitioner Acute Care; Visit Provider Nurse Practitioner Acute Care
DX: Z12.2 Encounter for screening for malignant neoplasm of respiratory organs (principal); F17.210 Nicotine dependence, cigarettes, uncomplicated
CPT/HCPCS: 71271

== ENCOUNTER → 2021-08-25 08:29 | Outpatient (CLI) | payer MEDICARE, SELFPAY ==
[2021-08-25 09:45] LABS: Absolute Lymphocyte Count 1.32 X10^3/uL (0.83-4.51); Absolute Neutrophil Count 3.7 X10^3/uL (2.0-7.7); Basophil# 0.04 X10^3/uL; Basophil% 0.7 % (0-1); Eosinophil# 0.13 X10^3/uL; Eosinophils% 2.2 % (0-5); Hematocrit 40.2 % (40-54); Lymphocyte # 1.32 X10^3/ul (0.83-4.51); Lymphocyte % 22.8 % (19-41); Mean Corp Hgb Conc 32.3 g/dL (32-36); Mean Corpuscular Hgb 31.1 pg (27.0-32.0); Mean Corpuscular Volume 96.2 fL (80-94); Mean Platelet Vol. 9.6 fl (6.2-12.0); Monocyte# 0.62 X10^3/uL; Monocyte% 10.7 % (0-10); NRBC Flagged by Analyzer 0 % (0-5); Neutrophil # 3.66 X10^3/uL (2.7-7.7); Neutrophil % 63.3 % (47-70); Platelet Count 239 K/mm3 (150-450); RBC Distribution Width CV 13.3 % (11.6-14.6); Red Blood Count 4.18 M/mm3 (4.6-6.2); White Blood Count 5.8 K/mm3 (4.4-11.0)
[2021-08-25 10:21] LABS: ALB/GLOB Ratio 0.9 RATIO (0.9-2.4); AST(SGOT) 24 U/L (15-37); Alanine Aminotransfer ALT/SGPT 41 U/L (16-61); Albumin, Serum 3.6 g/dL (3.2-5.0); Alkaline Phosphatase 132 U/L (45-117); Anion Gap 6 (5-15); BUN 16 mg/dL (7-18); BUN/Creat Ratio 26.4 RATIO (10-20); Calcium,Total 9.1 mg/dL (8.5-10.1); Chloride 102 mmol/L (98-107); Cholesterol 195 mg/dL (200); Creatinine, Serum 0.61 mg/dL (0.70-1.30); EST Glomerular Filtration Rate 142 mL/min (>60); Est Glom Filt Rate - Afr Amer 172 mL/min (>60); Globulin 4.1 g/dL (2.2-4.2); Glucose 109 mg/dL (74-106); High Density Lipoprotein 72 mg/dL; PSA,Total - Annual Screen 3.48 ng/mL (0.00-4.00); Protein, Total 7.7 g/dL (6.4-8.2); Sodium Level 138 mmol/L (136-145); Triglycerides 71 mg/dL; Very Low Density Lipoprotein 14 mg/dL (5-40)
== END ==
PROVIDERS: PCP Family Medicine; Referring Provider Family Medicine; Visit Provider Family Medicine
DX: Z00.00 Encounter for general adult medical examination without abnormal findings (principal); J44.9 Chronic obstructive pulmonary disease, unspecified; Z12.5 Encounter for screening for malignant neoplasm of prostate
CPT/HCPCS: 36415; 80053; 80061; 84153; 85025; G0103

== ENCOUNTER → 2022-09-30 | Outpatient (CLI) | payer MEDICARE, SELFPAY ==
[2022-09-30 11:30] VITALS: PULSE 102; PULSE 113; PULSE 122; PULSE 126; PULSE 128; O2SAT 86; O2SAT 89; O2SAT 90; O2SAT 91; O2SAT 92
--- NOTE | 2022-09-30 12:07 | CPS ---
Pt was placed on room air upon arrival. Pt desaturated to 88% while at rest. Pt was placed on 2 lpm pulse dose per his own unit. Pt started walk at 2 lpm pulse dose. Pt was increased to 3 lpm pulse dose at 1 min. At 3 minutes pt was increased to 4 lpm pulse dose. Pt states he wears the 4 lpm usually. Pt needed multiple rests and rated his dyspnea a 3 throughout the walk. Pt was at rest for minute 6.
--- NOTE | 2022-09-30 13:51 | WT_ITS ---
PSN 6 Minute Walk Test 6 Minute Walk Test 6 Minute Walk Test: 6 Minute Walk Test PSN:6-Minute Walk Test Start: 09/30/22 12:01 Freq: Status: Active Protocol: [id number] Document 09/30/22 11:30 [facility] (Rec: 09/30/22 12:14 [facility] [id number]) 6 Minute Walk Test Date Performed 09/30/22 Time Performed 11:30 Height 5 ft 8 in Weight: 83.461 kg Weight in Pounds 184.[address]: Missael Zamudio Assistive device used: None Pre-test Oxygen Flow Rate (L/min) (L/min) 2 Oxygen Delivery Method Nasal Cannula Pulse Ox (%) 92 Pulse Rate (60-100 beats/min) 102 H Dyspnea Lance Scale (0-10) 0 Exertion Lance Scale (6-20) 6 1st minute Oxygen Flow Rate (L/min) (L/min) 2 Oxygen Delivery Method Room Air Pulse Ox (%) 86 Pulse Rate (60-100 beats/min) 126 H Dyspnea Lance Scale (0-10) 3 Number of Rests Taken 1 Reported Symptoms Increased Work of Breathing 2nd minute Oxygen Flow Rate (L/min) (L/min) 3 Oxygen Delivery Method Nasal Cannula Pulse Ox (%) 91 Pulse Rate (60-100 beats/min) 122 H Dyspnea Lance Scale (0-10) 3 Number of Rests Taken 1 Reported Symptoms Increased Work of Breathing 3rd minute Oxygen Flow Rate (L/min) (L/min) 3 Oxygen Delivery Method Nasal Cannula Pulse Ox (%) 89 Pulse Rate (60-100 beats/min) 122 H Dyspnea Lance Scale (0-10) 3 Number of Rests Taken 1 Reported Symptoms Increased Work of Breathing 4th minute Oxygen Flow Rate (L/min) (L/min) 4 Oxygen Delivery Method Nasal Cannula Pulse Ox (%) 92 Pulse Rate (60-100 beats/min) 126 H Dyspnea Lance Scale (0-10) 3 Number of Rests Taken 1 Reported Symptoms Increased Work of Breathing 5th minute Oxygen Flow Rate (L/min) (L/min) 4 Oxygen Delivery Method Nasal Cannula Pulse Ox (%) 90 Pulse Rate (60-100 beats/min) 128 H Dyspnea Lance Scale (0-10) 3 Number of Rests Taken 1 Reported Symptoms Increased Work of Breathing 6th minute Oxygen Flow Rate (L/min) (L/min) 4 Oxygen Delivery Method Nasal Cannula Dyspnea Lance Scale (0-10) 3 Number of Rests Taken 1 Reported Symptoms Increased Work of Breathing Post-test Oxygen Flow Rate (L/min) (L/min) 4 Oxygen Delivery Method Nasal Cannula Pulse Ox (%) 91 Pulse Rate (60-100 beats/min) 113 H Full Laps Walked 3 Partial Lap, Number of Tiles Walked 0 Total Distance Walked (ft) 177 09/30/22 12:07 Cardiopulmonary Services by Lissa Mcmanus Pt was placed on room air upon arrival. Pt desaturated to 88% while at rest. Pt was placed on 2 lpm pulse dose per his own unit. Pt started walk at 2 lpm pulse dose. Pt was increased to 3 lpm pulse dose at 1 min. At 3 minutes pt was increased to 4 lpm pulse dose. Pt states he wears the 4 lpm usually. Pt needed multiple rests and rated his dyspnea a 3 throughout the walk. Pt was at rest for minute 6. Initialized on 09/30/22 12:07 - END OF NOTE Interpretation Interpretation: The patient was noted to be 92% on room air at rest. However, the patient desaturated to 86% in the first minute and had to be placed on 2 L nasal cannula. Patient eventually required 4 L/min to maintain saturations. Patient did have significant tachycardia with a peak heart rate of 128 bpm. In total, the patient traveled 177 feet over the course of 6 minutes with no assistive devices, but 5 breaks. Recommendations Recommendations: The patient requires no supplemental oxygen at rest, but should be using 4 L nasal cannula with any exertion.
== END | disposition home or self-care (01) ==
LOC: PSN 10:56
PROVIDERS: PCP Family Medicine; Referring Provider Internal Medicine Critical Care Medicine; Visit Provider Internal Medicine Critical Care Medicine
DX: J44.9 Chronic obstructive pulmonary disease, unspecified (principal)
CPT/HCPCS: 94618

== ENCOUNTER 2023-09-19 16:18 | Inpatient (IN) | payer MEDICARE, SELFPAY ==
[2023-09-19] VITALS (45 sets, daily range): BP systolic 101–153; BP diastolic 6–104; PULSE 104–152; RESP 10–25; TEMP 36.7–37.3; O2SAT 89–98; BMI 29.8; BMI 29.2
[2023-09-19] MEDS: Adenosine 6 MG/2 ML Syringe 12 MG IV (16:31)
--- NOTE | 2023-09-19 16:31 | ED.RN ---
1631 - adenosine 12mg administered with a flush.
--- NOTE | 2023-09-19 16:36 | ED.RN ---
no changed with adenosine. dr discussing cardioversion with pt.
--- NOTE | 2023-09-19 16:37 | EKG12_ITS ---
Test Reason : Blood Pressure : / mmHG Vent. Rate : 151 BPM Atrial Rate : 151 BPM P-R Int : 128 ms QRS Dur : 066 ms QT Int : 276 ms P-R-T Axes : 076 071 063 degrees QTc Int : 437 ms Critical Test Result: High HR Sinus tachycardia Nonspecific ST abnormality Abnormal ECG Confirmed by SANJAY KATE, KARIN ([id number]), development editor YULI ANTUNEZ ([id number]) on 09/20/2023 10:49:44 AM Referred By: Confirmed By:KARIN GRACE MD
--- NOTE | 2023-09-19 16:38 | EX.ED.DYSGE1 ---
HPI History of Present Illness Chief Complaint: Palpitations Informant: patient Narrative Narrative: Patient presents with feelings of palpitations at 1 PM after eating a small meal. He states he checked his pulse ox meter his heart rate into the 160s he got worse when he went to the restroom feeling lightheaded. EMS was contacted. They tried Identicard 6 mg with no relief. He denies any cardiac dysrhythmia history. Denies recent illness or cough. Denies recent vomiting diarrhea. History of COPD on chronic 4 L of oxygen. No current smoking history. No coronary disease history. No stroke history. Prior similar symptoms: No PFSH PFS Medical History (Updated 09/19/23 @ 22:[address] Ed Noel DO) Atherosclerotic heart disease of [place] coronary artery without angina pectoris COPD (chronic obstructive pulmonary disease) Exertional angina Fascioscapulohumeral muscular dystrophy History of left heart catheterization (LHC) (~10/20/18) Premature ventricular contraction Stage 4 very severe COPD by GOLD classification Unstable angina Home Medications ibuprofen 200 mg tablet 800 mg PO DAILY PRN Pain 10/19/18 [History Last Taken 10/18/18] aspirin 81 mg tablet,delayed release 81 mg PO DAILY@0800 10/20/18 [Rx Last Taken 09/18/23] Disability Placard #1 ea 10/06/21 [Rx Last Taken Unknown] buspirone 5 mg tablet 5 mg PO DAILY ANXIETY 04/15/23 [History Last Taken 09/19/23] albuterol sulfate 2.5 mg/3 mL (0.083 %) solution for nebulization 2.5 mg (3 mL) inhalation Q4H PRN Sob &/Or Wheezing #180 mL 09/08/23 [Rx Last Taken 09/18/23] albuterol sulfate 90 mcg/actuation aerosol inhaler 2 inh PO Q6H PRN PRN Sob &/Or Wheezing #3 device 09/08/23 [Rx Last Taken 09/19/23] guaifenesin 1,200 mg tablet, extended release 12 hr 1,200 mg PO Q12H #60 tabs 09/08/23 [Rx Last Taken 09/19/23] ipratropium 0.5 mg-albuterol 3 mg (2.5 mg base)/3 mL nebulization soln 3 ml inhalation Q4H PRN PRN SOB &/OR WHEEZING #180 mL 09/08/23 [Rx Last Taken 09/18/23] mometasone 200 mcg/actuation HFA aerosol inhaler (Asmanex HFA) 2 inh inhalation BID #3 device 09/08/23 [Rx Last Taken 09/19/23] ropinirole 1 mg tablet 2 mg (2 x 1 mg) PO QHS RESTLESS LEGS #60 tabs 09/08/23 [Rx Last Taken 09/18/23] umeclidinium 62.5 mcg-vilanterol 25 mcg/actuation powdr for inhalation 1 inh inhalation DAILY #3 device 09/08/23 [Rx Last Taken 09/19/23] Allergy/AdvReac Type Severity Reaction Status Date / Time No Known Allergies Allergy Verified 09/08/23 13:10 Family History Sister Muscular dystrophy Brother Muscular dystrophy Father Heart disease Mother Cancer Breast Surgical History Brain aneurysm Social History Smoking Status: Former smoker how long ago did patient quit smokin, 1ppd second hand exposure: Yes alcohol intake: current substance use type: does not use caffeine: Yes Type: coffee Number of servings: 3 EXAM Physical Exam Const Vital Signs: 09/19/23 16:20 09/19/23 16:27 09/19/23 16:32 Temperature 98.1 F Temperature Source Oral Pulse Rate 152 H 149 H Pulse Rate [1 (Initial Baseline)] Pulse Rate [3] Respiratory Rate 20 H 20 H Respiratory Rate [1 (Initial Baseline)] Respiratory Rate [3] Respiratory Effort Respiratory Depth Respiratory Pattern Blood Pressure 153/93 H 147/91 H Blood Pressure [1 (Initial Baseline)] Blood Pressure [3] Blood Pressure Mean 113 109 Blood Pressure Position Blood Pressure Location Pulse Ox 89 90 90 Oxygen Delivery Method Nasal Cannula Nasal Cannula Nasal Cannula Oxygen Delivery Method [1 (Initial Baseline)] Oxygen Delivery Method [3] Oxygen Flow Rate (L/min) 5 5 5 Oxygen Flow Rate (L/min) [1 (Initial Baseline)] Oxygen Flow Rate (L/min) [3] 09/19/23 16:46 09/19/23 16:36 09/19/23 17:12 Temperature Temperature Source Pulse Rate 144 H 145 H Pulse Rate [1 (Initial Baseline)] 145 H Pulse Rate [3] 133 H Respiratory Rate 16 18 Respiratory Rate [1 (Initial Baseline)] 18 Respiratory Rate [3] 18 Respiratory Effort Respiratory Depth Respiratory Pattern Blood Pressure 142/78 H 130/103 H Blood Pressure [1 (Initial Baseline)] 120/80 Blood Pressure [3] 119/63 Blood Pressure Mean 99 Blood Pressure Position Blood Pressure Location Pulse Ox 98 91 Oxygen Delivery Method Room Air Nasal Cannula Oxygen Delivery Method [1 (Initial Baseline)] Nasal Cannula Oxygen Delivery Method [3] Nasal Cannula Oxygen Flow Rate (L/min) 5 Oxygen Flow Rate (L/min) [1 (Initial Baseline)] 6 Oxygen Flow Rate (L/min) [3] 6 09/19/23 17:22 09/19/23 17:27 09/19/23 17:32 Temperature Temperature Source Pulse Rate Pulse Rate [1 (Initial Baseline)] Pulse Rate [3] Respiratory Rate Respiratory Rate [1 (Initial Baseline)] Respiratory Rate [3] Respiratory Effort Respiratory Depth Respiratory Pattern Blood Pressure Blood Pressure [1 (Initial Baseline)] Blood Pressure [3] Blood Pressure Mean Blood Pressure Position Blood Pressure Location Pulse Ox Oxygen Delivery Method Nasal Cannula Nasal Cannula Nasal Cannula Oxygen Delivery Method [1 (Initial Baseline)] Oxygen Delivery Method [3] Oxygen Flow Rate (L/min) 6 5 5 Oxygen Flow Rate (L/min) [1 (Initial Baseline)] Oxygen Flow Rate (L/min) [3] 09/19/23 17:42 09/19/23 18:32 09/19/23 18:37 Temperature 99.1 F Temperature Source Oral Pulse Rate 127 H 121 H 122 H Pulse Rate [1 (Initial Baseline)] Pulse Rate [3] Respiratory Rate 14 19 H 22 H Respiratory Rate [1 (Initial Baseline)] Respiratory Rate [3] Respiratory Effort Respiratory Depth Respiratory Pattern Blood Pressure 121/79 H 126/82 H 114/75 Blood Pressure [1 (Initial Baseline)] Blood Pressure [3] Blood Pressure Mean 93 96 88 Blood Pressure Position Blood Pressure Location Pulse Ox 92 92 Oxygen Delivery Method Nasal Cannula Oxygen Delivery Method [1 (Initial Baseline)] Oxygen Delivery Method [3] Oxygen Flow Rate (L/min) 5 Oxygen Flow Rate (L/min) [1 (Initial Baseline)] Oxygen Flow Rate (L/min) [3] 09/19/23 19:00 09/19/23 19:33 09/19/23 18:02 Temperature Temperature Source Pulse Rate 119 H 121 H 121 H Pulse Rate [1 (Initial Baseline)] Pulse Rate [3] Respiratory Rate 20 H 20 H 21 H Respiratory Rate [1 (Initial Baseline)] Respiratory Rate [3] Respiratory Effort Respiratory Depth Respiratory Pattern Blood Pressure 138/104 H 117/77 Blood Pressure [1 (Initial Baseline)] Blood Pressure [3] Blood Pressure Mean 115 90 Blood Pressure Position Semi-Fowlers Blood Pressure Location Left Arm Pulse Ox 96 94 89 Oxygen Delivery Method Oxygen Delivery Method [1 (Initial Baseline)] Oxygen Delivery Method [3] Oxygen Flow Rate (L/min) Oxygen Flow Rate (L/min) [1 (Initial Baseline)] Oxygen Flow Rate (L/min) [3] 09/19/23 18:05 09/19/23 18:10 09/19/23 18:15 Temperature Temperature Source Pulse Rate 116 H 121 H 119 H Pulse Rate [1 (Initial Baseline)] Pulse Rate [3] Respiratory Rate 16 22 H 15 Respiratory Rate [1 (Initial Baseline)] Respiratory Rate [3] Respiratory Effort Respiratory Depth Respiratory Pattern Blood Pressure 101/82 H 120/79 111/76 Blood Pressure [1 (Initial Baseline)] Blood Pressure [3] Blood Pressure Mean 89 90 88 Blood Pressure Position Blood Pressure Location Pulse Ox 90 91 91 Oxygen Delivery Method Oxygen Delivery Method [1 (Initial Baseline)] Oxygen Delivery Method [3] Oxygen Flow Rate (L/min) Oxygen Flow Rate (L/min) [1 (Initial Baseline)] Oxygen Flow Rate (L/min) [3] 09/19/23 18:20 09/19/23 18:25 09/19/23 18:30 Temperature Temperature Source Pulse Rate 120 H 122 H 125 H Pulse Rate [1 (Initial Baseline)] Pulse Rate [3] Respiratory Rate 17 13 21 H Respiratory Rate [1 (Initial Baseline)] Respiratory Rate [3] Respiratory Effort Respiratory Depth Respiratory Pattern Blood Pressure 131/72 H 101/78 126/82 H Blood Pressure [1 (Initial Baseline)] Blood Pressure [3] Blood Pressure Mean 88 87 94 Blood Pressure Position Blood Pressure Location Pulse Ox 91 92 91 Oxygen Delivery Method Nasal Cannula Oxygen Delivery Method [1 (Initial Baseline)] Oxygen Delivery Method [3] Oxygen Flow Rate (L/min) 5 Oxygen Flow Rate (L/min) [1 (Initial Baseline)] Oxygen Flow Rate (L/min) [3] 09/19/23 18:35 09/19/23 18:40 09/19/23 18:45 Temperature Temperature Source Pulse Rate 122 H 124 H 127 H Pulse Rate [1 (Initial Baseline)] Pulse Rate [3] Respiratory Rate 17 25 H 23 H Respiratory Rate [1 (Initial Baseline)] Respiratory Rate [3] Respiratory Effort Respiratory Depth Respiratory Pattern Blood Pressure 114/75 133/82 H 121/86 H Blood Pressure [1 (Initial Baseline)] Blood Pressure [3] Blood Pressure Mean 85 93 95 Blood Pressure Position Blood Pressure Location Pulse Ox 92 93 92 Oxygen Delivery Method Oxygen Delivery Method [1 (Initial Baseline)] Oxygen Delivery Method [3] Oxygen Flow Rate (L/min) Oxygen Flow Rate (L/min) [1 (Initial Baseline)] Oxygen Flow Rate (L/min) [3] 09/19/23 18:50 09/19/23 18:00 09/19/23 19:00 Temperature Temperature Source Pulse Rate 127 H 124 H Pulse Rate [1 (Initial Baseline)] Pulse Rate [3] Respiratory Rate 19 H 22 H Respiratory Rate [1 (Initial Baseline)] Respiratory Rate [3] Respiratory Effort Short of Breath Respiratory Depth Normal Respiratory Pattern Normal Blood Pressure 138/104 H Blood Pressure [1 (Initial Baseline)] Blood Pressure [3] Blood Pressure Mean 111 Blood Pressure Position Blood Pressure Location Pulse Ox 93 93 Oxygen Delivery Method Oxygen Delivery Method [1 (Initial Baseline)] Oxygen Delivery Method [3] Oxygen Flow Rate (L/min) Oxygen Flow Rate (L/min) [1 (Initial Baseline)] Oxygen Flow Rate (L/min) [3] 09/19/23 19:10 09/19/23 19:14 09/19/23 19:15 Temperature Temperature Source Pulse Rate 122 H 126 H Pulse Rate [1 (Initial Baseline)] Pulse Rate [3] Respiratory Rate 16 21 H Respiratory Rate [1 (Initial Baseline)] Respiratory Rate [3] Respiratory Effort Respiratory Depth Respiratory Pattern Blood Pressure 121/82 H 125/77 H Blood Pressure [1 (Initial Baseline)] Blood Pressure [3] Blood Pressure Mean 95 91 Blood Pressure Position Blood Pressure Location Pulse Ox 95 95 Oxygen Delivery Method Oxygen Delivery Method [1 (Initial Baseline)] Oxygen Delivery Method [3] Oxygen Flow Rate (L/min) Oxygen Flow Rate (L/min) [1 (Initial Baseline)] Oxygen Flow Rate (L/min) [3] 09/19/23 19:20 09/19/23 19:30 09/19/23 19:45 Temperature Temperature Source Pulse Rate 126 H 120 H Pulse Rate [1 (Initial Baseline)] Pulse Rate [3] Respiratory Rate 16 16 Respiratory Rate [1 (Initial Baseline)] Respiratory Rate [3] Respiratory Effort Respiratory Depth Respiratory Pattern Blood Pressure 117/77 124/90 H Blood Pressure [1 (Initial Baseline)] Blood Pressure [3] Blood Pressure Mean 90 103 Blood Pressure Position Blood Pressure Location Pulse Ox 92 94 Oxygen Delivery Method Oxygen Delivery Method [1 (Initial Baseline)] Oxygen Delivery Method [3] Oxygen Flow Rate (L/min) Oxygen Flow Rate (L/min) [1 (Initial Baseline)] Oxygen Flow Rate (L/min) [3] 09/19/23 19:54 09/19/23 20:00 09/19/23 20:10 Temperature Temperature Source Pulse Rate Pulse Rate [1 (Initial Baseline)] Pulse Rate [3] Respiratory Rate 25 H 10 L Respiratory Rate [1 (Initial Baseline)] Respiratory Rate [3] Respiratory Effort Respiratory Depth Respiratory Pattern Blood Pressure 120/76 Blood Pressure [1 (Initial Baseline)] Blood Pressure [3] Blood Pressure Mean 91 Blood Pressure Position Blood Pressure Location Pulse Ox 94 95 95 Oxygen Delivery Method Nasal Cannula Oxygen Delivery Method [1 (Initial Baseline)] Oxygen Delivery Method [3] Oxygen Flow Rate (L/min) 5 Oxygen Flow Rate (L/min) [1 (Initial Baseline)] Oxygen Flow Rate (L/min) [3] 09/19/23 20:20 09/19/23 20:30 09/19/23 20:40 Temperature Temperature Source Pulse Rate 123 H 115 H 114 H Pulse Rate [1 (Initial Baseline)] Pulse Rate [3] Respiratory Rate 17 13 21 H Respiratory Rate [1 (Initial Baseline)] Respiratory Rate [3] Respiratory Effort Respiratory Depth Respiratory Pattern Blood Pressure Blood Pressure [1 (Initial Baseline)] Blood Pressure [3] Blood Pressure Mean Blood Pressure Position Blood Pressure Location Pulse Ox Oxygen Delivery Method Oxygen Delivery Method [1 (Initial Baseline)] Oxygen Delivery Method [3] Oxygen Flow Rate (L/min) Oxygen Flow Rate (L/min) [1 (Initial Baseline)] Oxygen Flow Rate (L/min) [3] MDM MDM MDM Narrative Medical decision making narrative: Interventions / MDM: Differential diagnosis: Diagnosis considered but do not suspect: N/A My EKG interpretation: Narrow complex tachycardia 151, no ST or T wave changes. D-dimer 11/25/1922: Sinus tachycardia at 123, no ST or T wave changes. Imaging independently reviewed and interpreted by myself: 1 view chest x-ray: No acute process. Per radiology bibasilar infiltrates. CTA chest: Negative for PE. Noted cavitary lesions right lower lobe stable from previous per radiology read in body of text. External documents reviewed: N/A Test considered but not ordered:N/A ED course: Patient presenting sudden palpitations and tachycardia at 1 PM. Lightheaded symptoms. Narrow complex in the room, attempted Valsalva with no relief with a syringe. Attempted additional adenosine 12 mg bedside he had a pause, and restart immediately there was irregular run of tachycardia then back to a narrow complex tachycardia. Discussed suspicion likely A-fib with RVR, symptoms onset known little over 3 hours ago. Discussed cardioversion for which she agrees. Consent will be obtained. 1715: Written consent was signed risk and benefits discussed. athletic monitor oxygen capnography, IV fluids were running. Narrow complex tachycardia on the monitor. Timeout was performed. Patient given a total of 40 mg propofol with good sedation effects. 50 mics of fentanyl was given for pain. AP plans were on, patient was given initially 150 J synchronized cardioversion with no changes in his heart rhythm. Patient remained good to sedation, pads were checked in good position, additional cardioversion synchronized at 200 J performed again with no changes in cardiac rhythm. Heart rate in the 130s currently, blood pressure stable at 119. Will use Cardizem IV 15 mg for rate control. 1800: Heart rate 110s- 120s on reevaluation. Clinically improving. Still narrow complex. Blood pressure stable. Labs are all stable. Will start Cardizem drip. Still consideration of possible a flutter. Will discuss with hospital service for admission. Labs are all stable. Chest x-ray per radiology concern for bibasilar infiltrate however clinically denied any productive cough for concerns for pneumonia. 192: Discussed with hospitalist Dr. Wooten for admission. Condition good discussed with harness brusher Dr. Niño, discussed history and sent EKGs to him for evaluate. Ordered he does recommend PE rule out. With normal creatinine. CTA chest ordered. No PE on CT. Stable cavitary lesions reported per radiology. Denies any cough or fevers. Patient admitted to medicine service for further management. Re-evaluation: stable Disposition discussed with patient/family/significant other: Patient and family Case discussed with consulting clinician: Hospitalist, harness brusher This note was generated with [employer] dictation software. It may contain incorrect words, spelling, and punctuation that were not noted in checking the note before signing. Lab Data Attestation: I reviewed the patient's lab results. Labs: Laboratory Results - last 24 hr 09/19/23 09/19/23 16:22 17:42 WBC 8.1 RBC 5.39 Hgb 16.1 Hct 51.6 MCV 95.7 H MCH 29.9 MCHC 31.2 L RDW Std Deviation 46.6 H RDW Coeff of [place] 13.2 Plt Count 323 MPV 10.2 Immature Gran % (Auto) 0.200 Neut % (Auto) 63.1 Lymph % (Auto) 26.0 [place] % (Auto) 4.2 Eos % (Auto) 6.3 H Baso % (Auto) 0.2 Absolute Neuts (auto) 5.1 Absolute Lymphs (auto) 2.11 Nucleated RBC % 0 PT Cancelled 13.6 INR Cancelled 1.0 APTT Cancelled 23.5 L Sodium 138 Potassium 4.6 Chloride 99 Carbon Dioxide 35.0 H Anion Gap 4 L BUN 18 Creatinine 0.86 Estim Creat Clear Calc 81.74 Est GFR (MDRD) Af Amer 114 Est GFR (MDRD) Non-Af 95 BUN/Creatinine Ratio 21.0 H Glucose 159 H Calcium 9.7 Magnesium 2.3 TSH 1.55 Radiography Diagnostic Testing: Clinical Impression(s) from Imaging Studies Chest X-Ray 09/19/23 16:50 IMPRESSION: Nonspecific increased mild Bibasilar interstitial infiltrates. Electronically Signed: Wily Connell MD at 17:18 EST , Chest CTA 09/19/23 19:24 IMPRESSION: Complex cystic/cavitary lesion right lower lobe demonstrating interval evolution. Differential considerations include infectious, and inflammatory, and neoplastic etiologies. Right lower lobe interstitial infiltrate/bronchiectasis/and/or bronchitis. Stable large pneumatocele left lower lobe. COPD. Electronically Signed: Wily Connell MD at 20:22 EST , Discharge Plan Dx/Rx/DC Orders Clinical Impression: Narrow complex tachycardia, COPD (chronic obstructive pulmonary disease), Syncope, near, Sleep apnea, Encounter for cardioversion procedure Disposition Disposition: Acute Care Hospital [facility] Discharge Date/Time: 09/19/23 20:54
--- NOTE | 2023-09-19 16:50 | RAD_ITS ---
STUDY: X-RAY CHEST REASON FOR EXAM: Male, 68 years old. palpitations TECHNIQUE: Single frontal view of the chest. COMPARISON: CT chest April 08, 2021 FINDINGS: Lungs are hyperaerated. Bibasilar interstitial infiltrates increased. There is no demonstrated pleural abnormality. Normal size heart. Normal mediastinum and christiane. Normal visualized pulmonary arteries. Normal visualized aortic arch and descending thoracic aorta. Normal visualized thoracic spine. Normal visualized ribs, clavicles, and shoulders. There is no demonstrated abnormality of the visualized soft tissue structures of the upper abdomen. RAD/Chest 1 View (Portable) IMPRESSION: Nonspecific increased mild Bibasilar interstitial infiltrates. Electronically Signed: Wily Connell MD at 17:18 EST ,
[2023-09-19] MEDS: 0.9% Normal Saline (1000mL) 1,000 ML 30 ML IV (17:05)
[2023-09-19 17:06] LABS: Absolute Lymphocyte Count 2.11 X10^3/uL (0.83-4.51); Absolute Neutrophil Count 5.1 X10^3/uL (2.0-7.7); Basophil# 0.02 X10^3/uL; Basophil% 0.2 % (0-1); Eosinophil# 0.51 X10^3/uL; Eosinophils% 6.3 % (0-5); Hematocrit 51.6 % (40-54); Hemoglobin 16.1 g/dL (13.0-16.5); Lymphocyte # 2.11 X10^3/ul (0.83-4.51); Mean Corp Hgb Conc 31.2 g/dL (32-36); Mean Corpuscular Hgb 29.9 pg (27.0-32.0); Mean Corpuscular Volume 95.7 fL (80-94); Mean Platelet Vol. 10.2 fl (6.2-12.0); Monocyte# 0.34 X10^3/uL; Monocyte% 4.2 % (0-10); NRBC Flagged by Analyzer 0 % (0-5); Neutrophil # 5.12 X10^3/uL (2.7-7.7); Neutrophil % 63.1 % (47-70); Platelet Count 323 K/mm3 (150-450); RBC Distribution Width CV 13.2 % (11.6-14.6); RBC Distribution Width SD 46.6 fl (35.1-43.9); Red Blood Count 5.39 M/mm3 (4.6-6.2); White Blood Count 8.1 K/mm3 (4.4-11.0)
[2023-09-19] MEDS: fentaNYL 100 MCG/2 ML Ampul 50 MCG IV (17:25)
[2023-09-19] MEDS: dilTIAZem 25 MG/5 ML Vial 15 MG IV BOLUS (17:31)
[2023-09-19 17:40] LABS: Anion Gap 4 (5-15); BUN 18 mg/dL (7-18); Calcium,Total 9.7 mg/dL (8.5-10.1); Chloride 99 mmol/L (98-107); Creatinine, Serum 0.86 mg/dL (0.70-1.30); EST Glomerular Filtration Rate 95 mL/min (>60); Est Glom Filt Rate - Afr Amer 114 mL/min (>60); Estimated Creatinine Clearance 81.74 ml/min; Glucose 159 mg/dL (74-106); Magnesium 2.3 mg/dL (1.6-2.6); Potassium 4.6 mmol/L (3.5-5.1); Sodium Level 138 mmol/L (136-145); Thyroid Stim Hormone (TSH) 1.55 uIU/mL (0.358-3.74)
[2023-09-19 18:05] LABS: Partial Thromboplast Time 23.5 Seconds (24.1-36.2); Prothrombin Time (Protime)PT. 13.6 SECONDS (11.7-14.9)
[2023-09-19] MEDS: Diltiazem 125 MG in Dextrose 5%-Water (100mL Bag) 100 ML CONT INF (18:32)
--- NOTE | 2023-09-19 19:14 | EKG12_ITS ---
Test Reason : DYSRHYTHMIA Blood Pressure : / mmHG Vent. Rate : 123 BPM Atrial Rate : 123 BPM P-R Int : 116 ms QRS Dur : 074 ms QT Int : 306 ms P-R-T Axes : 069 068 064 degrees QTc Int : 438 ms Sinus tachycardia Otherwise normal ECG Confirmed by SANJAY KATE, KARIN ([id number]), video effects editor YULI ANTUNEZ ([id number]) on 09/20/2023 10:49:57 AM Referred By: MELANIE Confirmed By:KARIN GRACE MD
--- NOTE | 2023-09-19 19:24 | CT_ITS ---
STUDY: CTA CHEST REASON FOR EXAM: Male, 68 years old. tachycardia RADIATION DOSAGE (If Supplied By Facility): CTDIvol = ( 10.64 ) mGy, DLP = ( 423.18 ) mGycm TECHNIQUE: The examination was performed with the intravenous administration of IV 100mL Isovue-370. Post-processing of the angiographic images was performed, with multiplanar reformation and 3D reconstruction. Individualized dose optimization techniques were used for this CT. COMPARISON: Chest x-ray from today. CT chest April 08, 2021. FINDINGS: Normal enhancement of the main pulmonary artery and right and left pulmonary arteries. Normal enhancement of the bilateral peripheral pulmonary arteries. There is no demonstrated pulmonary embolism. Normal thoracic aorta and visualized great vessels. There is no demonstrated aortic dissection. Normal heart and pericardium. Normal mediastinum. Normal hilar regions. Normal visualized trachea and bronchi. The lungs are well expanded. Centrilobular and paraseptal emphysema. Normal pleura. Right lower lobe interstitial infiltrate and bronchial thickening. Right lower lobe spiculated mass appears smaller and well-circumscribed with an air-fluid level. It measures 18 x 26 mm in AP and transverse dimensions. Large multiloculated pneumatocele left lower lobe unchanged measuring 5.4 x 7.7 cm in transverse dimensions. Bilateral subsegmental atelectasis. Normal chest wall structures. Normal osseous structures. Normal visualized upper abdomen. CT/CTA Chest W/WO Contrast IMPRESSION: Complex cystic/cavitary lesion right lower lobe demonstrating interval evolution. Differential considerations include infectious, and inflammatory, and neoplastic etiologies. Right lower lobe interstitial infiltrate/bronchiectasis/and/or bronchitis. Stable large pneumatocele left lower lobe. COPD. Electronically Signed: Wily Connell MD at 20:22 EST ,
--- NOTE | 2023-09-19 20:51 | ED.RN ---
medic transporting patient to floor; family going with pt.
--- NOTE | 2023-09-19 20:54 | PCM.HP.STD ---
HPI - General General Date of Admission: 09/19/23 Date of Service: 09/19/23 Chief Complaint: Tachycardia HPI Narrative HALEY BOSTON, is a 68 M who presents with tachycardia. Patient was just finishing eating and just was not feeling well. Patient has advanced COPD and put his pulse oximeter on and it was noted that his heart rate was in the 160s to 170s. EMS was contacted and is concerning that patient may have had SVT and he did receive an adenosine. That was unsuccessful. Patient was then brought to the emergency room where he received adenosine again at 12 mg, again unsuccessful. The decision was made to attempt to cardiovert him. Patient was sedated and cardioversion was attempted twice and was unsuccessful. It was then started on diltiazem bolus and drip which did improve his heart rate into the 120s. Patient denies ever having history of that. Patient does note that he does get tachycardic when he ambulates into the 140s but when he stops, that does get better. Also notes that when he ambulates, his oxygen drops down into the 85% range. Normally, patient is on oxygen 4 L/min. Patient states that his recent changed up to 5 L with this recent weeks. Currently he is feeling fine with a heart rate in the 120s. On my evaluation of the rhythm, appear to be a sinus tachycardia. [facility] Medical History (Updated 09/19/23 @ 20:[address] Roque Wooten, ) Atherosclerotic heart disease of [place] coronary artery without angina pectoris COPD (chronic obstructive pulmonary disease) Exertional angina Fascioscapulohumeral muscular dystrophy History of left heart catheterization (LHC) (~10/20/18) Premature ventricular contraction Stage 4 very severe COPD by GOLD classification Unstable angina Home Medications ibuprofen 200 mg tablet 800 mg PO DAILY PRN Pain 10/19/18 [History Last Taken 10/18/18] aspirin 81 mg tablet,delayed release 81 mg PO DAILY@0800 10/20/18 [Rx Last Taken 09/18/23] Disability Placard #1 ea 10/06/21 [Rx Last Taken Unknown] buspirone 5 mg tablet 5 mg PO DAILY ANXIETY 04/15/23 [History Last Taken 09/19/23] albuterol sulfate 2.5 mg/3 mL (0.083 %) solution for nebulization 2.5 mg (3 mL) inhalation Q4H PRN Sob &/Or Wheezing #180 mL 09/08/23 [Rx Last Taken 09/18/23] albuterol sulfate 90 mcg/actuation aerosol inhaler 2 inh PO Q6H PRN PRN Sob &/Or Wheezing #3 device 09/08/23 [Rx Last Taken 09/19/23] guaifenesin 1,200 mg tablet, extended release 12 hr 1,200 mg PO Q12H #60 tabs 09/08/23 [Rx Last Taken 09/19/23] ipratropium 0.5 mg-albuterol 3 mg (2.5 mg base)/3 mL nebulization soln 3 ml inhalation Q4H PRN PRN SOB &/OR WHEEZING #180 mL 09/08/23 [Rx Last Taken 09/18/23] mometasone 200 mcg/actuation HFA aerosol inhaler (Asmanex HFA) 2 inh inhalation BID #3 device 09/08/23 [Rx Last Taken 09/19/23] ropinirole 1 mg tablet 2 mg (2 x 1 mg) PO QHS RESTLESS LEGS #60 tabs 09/08/23 [Rx Last Taken 09/18/23] umeclidinium 62.5 mcg-vilanterol 25 mcg/actuation powdr for inhalation 1 inh inhalation DAILY #3 device 09/08/23 [Rx Last Taken 09/19/23] Allergy/AdvReac Type Severity Reaction Status Date / Time No Known Allergies Allergy Verified 09/08/23 13:10 Family History Sister Muscular dystrophy Brother Muscular dystrophy Father Heart disease Mother Cancer Breast Surgical History Brain aneurysm Social History Smoking Status: Former smoker how long ago did patient quit smokin, 1ppd second hand exposure: Yes alcohol intake: current substance use type: does not use caffeine: Yes Type: coffee Number of servings: 3 ROS ROS Narrative All review of systems were negative except as mentioned above in the history of present illness and the other review of systems. Vital Signs Vital Signs Vital Signs: 09/19/23 16:20 09/19/23 16:27 09/19/23 16:32 Temperature 36.7 C Temperature Source Oral Pulse Rate 152 H 149 H Pulse Rate [1 (Initial Baseline)] Pulse Rate [3] Respiratory Rate 20 H 20 H Respiratory Rate [1 (Initial Baseline)] Respiratory Rate [3] Respiratory Effort Respiratory Depth Respiratory Pattern Blood Pressure 153/93 H 147/91 H Blood Pressure [1 (Initial Baseline)] Blood Pressure [3] Blood Pressure Mean 113 109 Blood Pressure Position Blood Pressure Location Pulse Ox 89 90 90 Oxygen Delivery Method Nasal Cannula Nasal Cannula Nasal Cannula Oxygen Delivery Method [1 (Initial Baseline)] Oxygen Delivery Method [3] Oxygen Flow Rate (L/min) 5 5 5 Oxygen Flow Rate (L/min) [1 (Initial Baseline)] Oxygen Flow Rate (L/min) [3] 09/19/23 16:46 09/19/23 16:36 09/19/23 17:12 Temperature Temperature Source Pulse Rate 144 H 145 H Pulse Rate [1 (Initial Baseline)] 145 H Pulse Rate [3] 133 H Respiratory Rate 16 18 Respiratory Rate [1 (Initial Baseline)] 18 Respiratory Rate [3] 18 Respiratory Effort Respiratory Depth Respiratory Pattern Blood Pressure 142/78 H 130/103 H Blood Pressure [1 (Initial Baseline)] 120/80 Blood Pressure [3] 119/63 Blood Pressure Mean 99 Blood Pressure Position Blood Pressure Location Pulse Ox 98 91 Oxygen Delivery Method Room Air Nasal Cannula Oxygen Delivery Method [1 (Initial Baseline)] Nasal Cannula Oxygen Delivery Method [3] Nasal Cannula Oxygen Flow Rate (L/min) 5 Oxygen Flow Rate (L/min) [1 (Initial Baseline)] 6 Oxygen Flow Rate (L/min) [3] 6 09/19/23 17:22 09/19/23 17:27 09/19/23 17:32 Temperature Temperature Source Pulse Rate Pulse Rate [1 (Initial Baseline)] Pulse Rate [3] Respiratory Rate Respiratory Rate [1 (Initial Baseline)] Respiratory Rate [3] Respiratory Effort Respiratory Depth Respiratory Pattern Blood Pressure Blood Pressure [1 (Initial Baseline)] Blood Pressure [3] Blood Pressure Mean Blood Pressure Position Blood Pressure Location Pulse Ox Oxygen Delivery Method Nasal Cannula Nasal Cannula Nasal Cannula Oxygen Delivery Method [1 (Initial Baseline)] Oxygen Delivery Method [3] Oxygen Flow Rate (L/min) 6 5 5 Oxygen Flow Rate (L/min) [1 (Initial Baseline)] Oxygen Flow Rate (L/min) [3] 09/19/23 17:42 09/19/23 18:32 09/19/23 18:37 Temperature 37.3 C Temperature Source Oral Pulse Rate 127 H 121 H 122 H Pulse Rate [1 (Initial Baseline)] Pulse Rate [3] Respiratory Rate 14 19 H 22 H Respiratory Rate [1 (Initial Baseline)] Respiratory Rate [3] Respiratory Effort Respiratory Depth Respiratory Pattern Blood Pressure 121/79 H 126/82 H 114/75 Blood Pressure [1 (Initial Baseline)] Blood Pressure [3] Blood Pressure Mean 93 96 88 Blood Pressure Position Blood Pressure Location Pulse Ox 92 92 Oxygen Delivery Method Nasal Cannula Oxygen Delivery Method [1 (Initial Baseline)] Oxygen Delivery Method [3] Oxygen Flow Rate (L/min) 5 Oxygen Flow Rate (L/min) [1 (Initial Baseline)] Oxygen Flow Rate (L/min) [3] 09/19/23 19:00 09/19/23 19:33 09/19/23 18:02 Temperature Temperature Source Pulse Rate 119 H 121 H 121 H Pulse Rate [1 (Initial Baseline)] Pulse Rate [3] Respiratory Rate 20 H 20 H 21 H Respiratory Rate [1 (Initial Baseline)] Respiratory Rate [3] Respiratory Effort Respiratory Depth Respiratory Pattern Blood Pressure 138/104 H 117/77 Blood Pressure [1 (Initial Baseline)] Blood Pressure [3] Blood Pressure Mean 115 90 Blood Pressure Position Semi-Fowlers Blood Pressure Location Left Arm Pulse Ox 96 94 89 Oxygen Delivery Method Oxygen Delivery Method [1 (Initial Baseline)] Oxygen Delivery Method [3] Oxygen Flow Rate (L/min) Oxygen Flow Rate (L/min) [1 (Initial Baseline)] Oxygen Flow Rate (L/min) [3] 09/19/23 18:05 09/19/23 18:10 09/19/23 18:15 Temperature Temperature Source Pulse Rate 116 H 121 H 119 H Pulse Rate [1 (Initial Baseline)] Pulse Rate [3] Respiratory Rate 16 22 H 15 Respiratory Rate [1 (Initial Baseline)] Respiratory Rate [3] Respiratory Effort Respiratory Depth Respiratory Pattern Blood Pressure 101/82 H 120/79 111/76 Blood Pressure [1 (Initial Baseline)] Blood Pressure [3] Blood Pressure Mean 89 90 88 Blood Pressure Position Blood Pressure Location Pulse Ox 90 91 91 Oxygen Delivery Method Oxygen Delivery Method [1 (Initial Baseline)] Oxygen Delivery Method [3] Oxygen Flow Rate (L/min) Oxygen Flow Rate (L/min) [1 (Initial Baseline)] Oxygen Flow Rate (L/min) [3] 09/19/23 18:20 09/19/23 18:25 09/19/23 18:30 Temperature Temperature Source Pulse Rate 120 H 122 H 125 H Pulse Rate [1 (Initial Baseline)] Pulse Rate [3] Respiratory Rate 17 13 21 H Respiratory Rate [1 (Initial Baseline)] Respiratory Rate [3] Respiratory Effort Respiratory Depth Respiratory Pattern Blood Pressure 131/72 H 101/78 126/82 H Blood Pressure [1 (Initial Baseline)] Blood Pressure [3] Blood Pressure Mean 88 87 94 Blood Pressure Position Blood Pressure Location Pulse Ox 91 92 91 Oxygen Delivery Method Nasal Cannula Oxygen Delivery Method [1 (Initial Baseline)] Oxygen Delivery Method [3] Oxygen Flow Rate (L/min) 5 Oxygen Flow Rate (L/min) [1 (Initial Baseline)] Oxygen Flow Rate (L/min) [3] 09/19/23 18:35 09/19/23 18:40 09/19/23 18:45 Temperature Temperature Source Pulse Rate 122 H 124 H 127 H Pulse Rate [1 (Initial Baseline)] Pulse Rate [3] Respiratory Rate 17 25 H 23 H Respiratory Rate [1 (Initial Baseline)] Respiratory Rate [3] Respiratory Effort Respiratory Depth Respiratory Pattern Blood Pressure 114/75 133/82 H 121/86 H Blood Pressure [1 (Initial Baseline)] Blood Pressure [3] Blood Pressure Mean 85 93 95 Blood Pressure Position Blood Pressure Location Pulse Ox 92 93 92 Oxygen Delivery Method Oxygen Delivery Method [1 (Initial Baseline)] Oxygen Delivery Method [3] Oxygen Flow Rate (L/min) Oxygen Flow Rate (L/min) [1 (Initial Baseline)] Oxygen Flow Rate (L/min) [3] 09/19/23 18:50 09/19/23 18:00 09/19/23 19:00 Temperature Temperature Source Pulse Rate 127 H 124 H Pulse Rate [1 (Initial Baseline)] Pulse Rate [3] Respiratory Rate 19 H 22 H Respiratory Rate [1 (Initial Baseline)] Respiratory Rate [3] Respiratory Effort Short of Breath Respiratory Depth Normal Respiratory Pattern Normal Blood Pressure 138/104 H Blood Pressure [1 (Initial Baseline)] Blood Pressure [3] Blood Pressure Mean 111 Blood Pressure Position Blood Pressure Location Pulse Ox 93 93 Oxygen Delivery Method Oxygen Delivery Method [1 (Initial Baseline)] Oxygen Delivery Method [3] Oxygen Flow Rate (L/min) Oxygen Flow Rate (L/min) [1 (Initial Baseline)] Oxygen Flow Rate (L/min) [3] 09/19/23 19:10 09/19/23 19:14 09/19/23 19:15 Temperature Temperature Source Pulse Rate 122 H 126 H Pulse Rate [1 (Initial Baseline)] Pulse Rate [3] Respiratory Rate 16 21 H Respiratory Rate [1 (Initial Baseline)] Respiratory Rate [3] Respiratory Effort Respiratory Depth Respiratory Pattern Blood Pressure 121/82 H 125/77 H Blood Pressure [1 (Initial Baseline)] Blood Pressure [3] Blood Pressure Mean 95 91 Blood Pressure Position Blood Pressure Location Pulse Ox 95 95 Oxygen Delivery Method Oxygen Delivery Method [1 (Initial Baseline)] Oxygen Delivery Method [3] Oxygen Flow Rate (L/min) Oxygen Flow Rate (L/min) [1 (Initial Baseline)] Oxygen Flow Rate (L/min) [3] 09/19/23 19:20 09/19/23 19:30 09/19/23 19:45 Temperature Temperature Source Pulse Rate 126 H 120 H Pulse Rate [1 (Initial Baseline)] Pulse Rate [3] Respiratory Rate 16 16 Respiratory Rate [1 (Initial Baseline)] Respiratory Rate [3] Respiratory Effort Respiratory Depth Respiratory Pattern Blood Pressure 117/77 124/90 H Blood Pressure [1 (Initial Baseline)] Blood Pressure [3] Blood Pressure Mean 90 103 Blood Pressure Position Blood Pressure Location Pulse Ox 92 94 Oxygen Delivery Method Oxygen Delivery Method [1 (Initial Baseline)] Oxygen Delivery Method [3] Oxygen Flow Rate (L/min) Oxygen Flow Rate (L/min) [1 (Initial Baseline)] Oxygen Flow Rate (L/min) [3] 09/19/23 19:54 09/19/23 20:00 09/19/23 20:10 Temperature Temperature Source Pulse Rate Pulse Rate [1 (Initial Baseline)] Pulse Rate [3] Respiratory Rate 25 H 10 L Respiratory Rate [1 (Initial Baseline)] Respiratory Rate [3] Respiratory Effort Respiratory Depth Respiratory Pattern Blood Pressure 120/76 Blood Pressure [1 (Initial Baseline)] Blood Pressure [3] Blood Pressure Mean 91 Blood Pressure Position Blood Pressure Location Pulse Ox 94 95 95 Oxygen Delivery Method Nasal Cannula Oxygen Delivery Method [1 (Initial Baseline)] Oxygen Delivery Method [3] Oxygen Flow Rate (L/min) 5 Oxygen Flow Rate (L/min) [1 (Initial Baseline)] Oxygen Flow Rate (L/min) [3] 09/19/23 20:20 09/19/23 20:30 09/19/23 20:40 Temperature Temperature Source Pulse Rate 123 H 115 H 114 H Pulse Rate [1 (Initial Baseline)] Pulse Rate [3] Respiratory Rate 17 13 21 H Respiratory Rate [1 (Initial Baseline)] Respiratory Rate [3] Respiratory Effort Respiratory Depth Respiratory Pattern Blood Pressure Blood Pressure [1 (Initial Baseline)] Blood Pressure [3] Blood Pressure Mean Blood Pressure Position Blood Pressure Location Pulse Ox Oxygen Delivery Method Oxygen Delivery Method [1 (Initial Baseline)] Oxygen Delivery Method [3] Oxygen Flow Rate (L/min) Oxygen Flow Rate (L/min) [1 (Initial Baseline)] Oxygen Flow Rate (L/min) [3] Weight Weight: 89.1 kg Body Mass Index (BMI) 29.8 Physical Exam Const alert and no apparent distress HEENT normocephalic and head/scalp atraumatic Resp normal respiratory effort and no retractions Resp Narrative: Diminished breath sounds bilaterally. Faint end expiratory wheeze. No respiratory distress. Conversational dyspnea. Cardio regular rate, regular rhythm, S1 normal heart sound and S2 normal heart sound GI normal to inspection, nondistended, normoactive bowel sounds, soft to palpation, non-tender and non-distended Extremity normal to inspection Neuro oriented x3 and moves all extremities Sensorium / Orientation: awake and alert Psych affect normal Results Lab / Micro Data Attestation: I reviewed the patient's lab results. 09/19/23 16:22 09/19/23 16:22 Labs: Laboratory Results - last 24 hr 09/19/23 16:22: WBC 8.1, RBC 5.39, Hgb 16.1, Hct 51.6, MCV 95.7 H, MCH 29.9, MCHC 31.2 L, RDW Std Deviation 46.6 H, RDW Coeff of [place] 13.2, Plt Count 323, MPV 10.2, Immature Gran % (Auto) 0.200, Neut % (Auto) 63.1, Lymph % (Auto) 26.0, [place] % (Auto) 4.2, Eos % (Auto) 6.3 H, Baso % (Auto) 0.2, Absolute Neuts (auto) 5.1, Absolute Lymphs (auto) 2.11, Nucleated RBC % 0, PT Cancelled, INR Cancelled, APTT Cancelled, Sodium 138, Potassium 4.6, Chloride 99, Carbon Dioxide 35.0 H, Anion Gap 4 L, BUN 18, Creatinine 0.86, Estim Creat Clear Calc 81.74, Est GFR (MDRD) Af Amer 114, Est GFR (MDRD) Non-Af 95, BUN/Creatinine Ratio 21.0 H, Glucose 159 H, Calcium 9.7, Magnesium 2.3, TSH 1.55 09/19/23 17:42: PT 13.6, INR 1.0, APTT 23.5 L EKG Initial EKG: Attestation: I personally reviewed and interpreted this EKG as follows: Prior EKG tracings: available for review EKG Rhythm Intrepretation: Sinus Tachycardia Imagaing Radiology Impression Chest X-Ray 09/19/23 16:50 IMPRESSION: Nonspecific increased mild Bibasilar interstitial infiltrates. Electronically Signed: Wily Connell MD at 17:18 EST Reading Location ID and State: [id number] / [place] Tel , Service support , Chest CTA 09/19/23 19:24 IMPRESSION: Complex cystic/cavitary lesion right lower lobe demonstrating interval evolution. Differential considerations include infectious, and inflammatory, and neoplastic etiologies. Right lower lobe interstitial infiltrate/bronchiectasis/and/or bronchitis. Stable large pneumatocele left lower lobe. COPD. Electronically Signed: Wily Connell MD at 20:22 EST , Assessment & Plan Assessment/Plan (1) Sinus tachycardia: PLAN: Cannot rule out the patient may have had SVT upon arrival but did not respond with adenosine. Current rhythm disappear to be sinus tachycardia. Will continue with the diltiazem drip as that did appear to improve his heart rate with a bolus. Cardiology has been notified during his stay in the emergency room and did recommend a CT angiogram of the chest. No pulmonary embolism was identified nor any dissection. Patient does have very advanced COPD as well as some large cavitary lesions. Check an echocardiogram. Consult cardiology for further recommendations. Cycle troponins. Previously, patient did undergo cardiac catheterizations but did not require stents. (2) COPD exacerbation: PLAN: Acute suspected and patient does not appear to be in any distress and he seems to minimize many of his symptoms with his oxygen dropped down to 85% when he walks. Does have some expiratory wheezing he does have some conversational dyspnea. Will like to treat him with steroids we will give him a dose of methylprednisolone and start him on prednisone in the morning. Continue with the bronchodilators that he has at home. CAT scan does show cavitary lesions but does appear to be relatively stable though perhaps slightly larger than was few years ago. He recently did see the pulmonary clinic this month. Will hold off on pulmonary consultation at this time PLAN: Plan Chronic conditions Restless leg syndrome: Recently had an increase of ropinirole couple weeks ago. Continue with that. SUNIL. Patient has been compliant with ventilatory therapy. Family can bring in his device. Chronic respiratory failure: Appears to be stable at this time. Will check an ambulatory pulse ox in the morning. VTE prophylaxis with Lovenox weight heparin CODE STATUS: Addressed with the patient and his . Patient was to be full code Charges/Coding Visit Charges Inpatient E&M: 82810 Init Hosp L3
--- NOTE | 2023-09-19 21:01 | ECHOCS_ITS ---
Reason For Study: Abnormal EKG Procedure This was a 2D Doppler, Color Flow transthoracic echocardiogram. Technically difficult study due to patients body habitus and SOB. Contrast injection was performed. Exam performed portable in patient room. Left Ventricle Normal LV size. Left ventricular systolic function is normal. The estimated ejection fraction is 60 %. No regional wall motion abnormalities noted. Right Ventricle Normal RV size. Normal systolic function. Atria Normal left atrium. Normal right atrium. Mitral Valve Normal mitral valve. Tricuspid Valve Normal tricuspid valve. Aortic Valve The aortic valve is not well visualized. Pulmonic Valve The pulmonic valve is not well visualized. Great Vessels Normal aortic root. The pulmonary artery is normal size. Normal inferior vena cava. Pericardium/Pleural No pericardial effusion. Medication Diluted definity 6ml given slow IV push to enhance endocardial definition. MMode/2D Measurements & Calculations LVIDd: 4.7 cm IVSd: 0.92 cm LAV(MOD-sp2): 19.5 ml LVIDs: 3.7 cm LVPWd: 0.61 cm FS: 21.9 % Time Measurements MV dec time: 0.21 sec Doppler Measurements & Calculations MV E max robert: 92.3 cm/sec Lat Peak E' Robert: 8.2 cm/sec Med Peak E' Robert: 9.2 cm/sec MV A max robert: 76.4 cm/sec E/E' lat: 11.2 E/E' med: 10.0 MV E/A: 1.2 MV V2 max: 96.9 cm/sec MV P1/2t max robert: 97.6 cm/sec Ao V2 max: 103.3 cm/sec MV max P.8 mmHg MV P1/2t: 49.1 msec Ao max P.3 mmHg MV V2 mean: 59.6 cm/sec MV mean P.7 mmHg MV dec slope: 581.5 cm/sec2 MV V2 VTI: 19.7 cm MVA(P1/2t): 4.5 cm2 LV V1 max: 107.5 cm/sec PA V2 max: 102.6 cm/sec LV V1 max P.6 mmHg PA V2 mean: 68.2 cm/sec ECHO/Echo Complete W/ Contrast Interpretation Summary Normal LV size. Left ventricular systolic function is normal. The estimated ejection fraction is 60 %. Contrast injection was performed. Ordering Physician: Roque Wooten Performed By: Porfirio Gary RCS
[2023-09-19 22:08] LABS: Troponin-I HS 23 pg/mL (3.0-78.0)
[2023-09-19] MEDS: Pramipexole Di-HCl 1 MG Tablet PO (22:12)
[2023-09-19] MEDS: guaiFENesin 1,200 MG Tablet 1200 MG PO (22:12)
[2023-09-19] MEDS: Ipratropium/Albuterol Sulfate 3 ML AMPUL.NEB INHALATION (22:15)
[2023-09-20] VITALS (17 sets, daily range): BP systolic 100–123; BP diastolic 63–74; PULSE 92–107; RESP 15–20; TEMP 36.5–36.6; O2SAT 4–100
[2023-09-20] MEDS: Diltiazem 125 MG in Dextrose 5%-Water (100mL Bag) 100 ML 15 MG CONT INF (03:49)
[2023-09-20] MEDS: dilTIAZem 60 MG Tablet PO (05:33)
[2023-09-20 07:20] LABS: Absolute Lymphocyte Count 0.79 X10^3/uL (0.83-4.51); Absolute Neutrophil Count 8.1 X10^3/uL (2.0-7.7); Basophil# 0.02 X10^3/uL; Basophil% 0.2 % (0-1); Eosinophil# 0.12 X10^3/uL; Eosinophils% 1.3 % (0-5); Lymphocyte # 0.79 X10^3/ul (0.83-4.51); Lymphocyte % 8.6 % (19-41); Mean Corp Hgb Conc 31.7 g/dL (32-36); Mean Corpuscular Hgb 30.7 pg (27.0-32.0); Mean Corpuscular Volume 96.7 fL (80-94); Mean Platelet Vol. 10.2 fl (6.2-12.0); Monocyte# 0.14 X10^3/uL; Monocyte% 1.5 % (0-10); NRBC Flagged by Analyzer 0 % (0-5); Neutrophil # 8.07 X10^3/uL (2.7-7.7); Neutrophil % 87.6 % (47-70); Platelet Count 244 K/mm3 (150-450); RBC Distribution Width CV 12.9 % (11.6-14.6); RBC Distribution Width SD 45.7 fl (35.1-43.9); Red Blood Count 4.24 M/mm3 (4.6-6.2); White Blood Count 9.2 K/mm3 (4.4-11.0)
--- NOTE | 2023-09-20 07:22 | PCM.CONS.C ---
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 I do not see any evidence of a supraventricular tachycardia or atrial flutter with a 2-1 block. I would like us to obtain an echocardiogram to assess his ventricular function and look at his atrial size. Depending on the findings further recommendations will be made. In the meantime he will be a candidate for low-dose diltiazem at 120 mg twice a day. He should continue with his pulmonary evaluation. Thank you for allowing me to participate in the care of your patient. Please don't hesitate to call if any issues arise. HPI Consult Data Date of Consult: 09/20/23 HPI Narrative HPI Narrative: HALEY BOSTON, is a 68 M who presents to the emergency room with palpitations. He had previously been followed up with one of my colleagues here in [place]. In 2018 he underwent a cardiac catheterization which demonstrated minimal coronary artery disease. He has also been followed up with a ammonia box tender and does have obstructive lung disease. He had previously had a Holter monitor which demonstrated an average heart rate of 97 bpm in sinus rhythm with episodes of sinus tachycardia and PACs. No atrial fibrillation or wide-complex was noted. In the emergency room yesterday he was noted to have a narrow complex tachycardia with rates of up to 170 bpm he was given adenosine with some slowing down but no significant pauses. They called me for an evaluation I reviewed the EKGs and they appeared to be sinus tachycardia. He says that he had not used any medication which was unusual for him. A CT scan of the chest was performed which demonstrated no evidence of pulmonary embolism. Pulmonary blebs were noted. This morning his heart rate is better and his EKGs have demonstrated sinus rhythm only. He denies ongoing chest discomfort. He is chronically short of breath and dyspneic and wears O2 nasal cannula [id number]. He has had no orthopnea or PND or peripheral pitting edema. There is been no near syncope or syncope. [facility] Medical History Atherosclerotic heart disease of [place] coronary artery without angina pectoris COPD (chronic obstructive pulmonary disease) Exertional angina Fascioscapulohumeral muscular dystrophy History of left heart catheterization (LHC) (~10/20/18) Premature ventricular contraction Stage 4 very severe COPD by GOLD classification Unstable angina Home Medications ibuprofen 200 mg tablet 800 mg PO DAILY PRN Pain 10/19/18 [History Last Taken 10/18/18] aspirin 81 mg tablet,delayed release 81 mg PO DAILY@0800 10/20/18 [Rx Last Taken 09/18/23] Disability Placard #1 ea 10/06/21 [Rx Last Taken Unknown] buspirone 5 mg tablet 5 mg PO DAILY ANXIETY 04/15/23 [History Last Taken 09/19/23] albuterol sulfate 2.5 mg/3 mL (0.083 %) solution for nebulization 2.5 mg (3 mL) inhalation Q4H PRN Sob &/Or Wheezing #180 mL 09/08/23 [Rx Last Taken 09/18/23] albuterol sulfate 90 mcg/actuation aerosol inhaler 2 inh PO Q6H PRN PRN Sob &/Or Wheezing #3 device 09/08/23 [Rx Last Taken 09/19/23] guaifenesin 1,200 mg tablet, extended release 12 hr 1,200 mg PO Q12H #60 tabs 09/08/23 [Rx Last Taken 09/19/23] ipratropium 0.5 mg-albuterol 3 mg (2.5 mg base)/3 mL nebulization soln 3 ml inhalation Q4H PRN PRN SOB &/OR WHEEZING #180 mL 09/08/23 [Rx Last Taken 09/18/23] mometasone 200 mcg/actuation HFA aerosol inhaler (Asmanex HFA) 2 inh inhalation BID #3 device 09/08/23 [Rx Last Taken 09/19/23] ropinirole 1 mg tablet 2 mg (2 x 1 mg) PO QHS RESTLESS LEGS #60 tabs 09/08/23 [Rx Last Taken 09/18/23] umeclidinium 62.5 mcg-vilanterol 25 mcg/actuation powdr for inhalation 1 inh inhalation DAILY #3 device 09/08/23 [Rx Last Taken 09/19/23] Allergy/AdvReac Type Severity Reaction Status Date / Time No Known Allergies Allergy Verified 09/08/23 13:10 Family History Sister Muscular dystrophy Brother Muscular dystrophy Father Heart disease Mother Cancer Breast Surgical History Brain aneurysm Social History Smoking Status: Former smoker how long ago did patient quit smokin, 1ppd second hand exposure: Yes alcohol intake: current substance use type: does not use caffeine: Yes Type: coffee Number of servings: 3 ROS Constitutional Constitutional: Denies fever(s) or weight loss Eyes Eyes: Reports systems reviewed and no addt'l complaints, except as documented ENT HEENT: Reports systems reviewed and no addt'l complaints, except as documented Cardiovascular Cardiovascular: Reports palpitations; Denies chest pain at rest, chest pain with activity, dyspnea at rest, dyspnea on exertion, edema or paroxysmal nocturnal dyspnea Respiratory/Chest Respiratory/Chest: Denies dyspnea on exertion, productive cough, shortness of breath at rest or shortness of breath with exertion Gastrointestinal Gastrointestinal: Denies change in bowel habits, nausea, vomiting or weight changes Genitourinary Genitourinary: Denies difficulty urinating Musculoskeletal Musculoskeletal: Denies joint stiffness or muscle weakness Integumentary Integumentary: Denies lesions Neurologic Neurologic: Denies dizziness or syncope Psychiatric Psychiatric: Denies anxiety Endocrine Endocrinology: Denies excessive sweating or fatigue Hematologic/Lymphatic Hematologic/Lymphatic: Denies anemia Allergic/Immunologic Allergic/Immunologic: Denies seasonal rhinorrhea Physical Exam Const alert, oriented x3 and no apparent distress General Appearance: cooperative HEENT hearing grossly normal bilaterally Head and Scalp: atraumatic Eyes EOMs intact bilaterally Neck General: normal visual inspection Chest inspection of chest normal and palpation of chest normal Resp normal respiratory effort Auscultation: clear to auscultation bilaterally Cardio regular rate, regular rhythm, S1 normal heart sound and S2 normal heart sound Jugular Venous Distention: JVD GI normal to inspection, nondistended, normoactive bowel sounds Extremity normal capillary refill and no pedal edema Peripheral Pulses: Yes pulses 2+ throughout and femoral pulses present Skin no rashes or lesions noted Neuro oriented x3 and CN's II-XII intact bilaterally Psych Appearance: grossly normal and appropriate Risk Stratification Risk Stratification Applicable: No Objective Data Vital Signs: Vital Signs Temp Pulse Resp BP Pulse Ox O2 Del Method O2 Flow Rate 99.1 F 98 20 H 105/67 93 Nasal Cannula 4 09/19/23 18:32 09/20/23 06:07 09/20/23 06:07 09/20/23 05:31 09/20/23 03:07 09/20/23 06:07 09/20/23 06:07 Oxygen Flow Rate (L/min) [3] 6 Oxygen Flow Rate (L/min) [1 ( 6 Initial Baseline)] Oxygen Flow Rate (L/min) 4 Oxygen Delivery Method [3] Nasal Cannula Oxygen Delivery Method [1 ( Nasal Cannula Initial Baseline)] Oxygen Delivery Method Nasal Cannula Weight: 192 lb 7.417 oz Body Mass Index (BMI) 29.2 Intake & Output: Intake and Output for Last 24 Hours 09/18/23 09/19/23 09/20/23 23:59 23:59 23:59 Intake Total 59.58 / 74.58 1083.17 / 1083.17 Output Total 450 / 450 Balance 59.58 / 24.58 633.17 / 633.17 Lab / Micro Data 09/19/23 16:22 09/19/23 16:22 Labs: Laboratory Results - last 24 hr 09/19/23 16:22: WBC 8.1, RBC 5.39, Hgb 16.1, Hct 51.6, MCV 95.7 H, MCH 29.9, MCHC 31.2 L, RDW Std Deviation 46.6 H, RDW Coeff of Clara 13.2, Plt Count 323, MPV 10.2, Immature Gran % (Auto) 0.200, Neut % (Auto) 63.1, Lymph % (Auto) 26.0, Campbell % (Auto) 4.2, Eos % (Auto) 6.3 H, Baso % (Auto) 0.2, Absolute Neuts (auto) 5.1, Absolute Lymphs (auto) 2.11, Nucleated RBC % 0, PT Cancelled, INR Cancelled, APTT Cancelled, Sodium 138, Potassium 4.6, Chloride 99, Carbon Dioxide 35.0 H, Anion Gap 4 L, BUN 18, Creatinine 0.86, Estim Creat Clear Calc 81.74, Est GFR (MDRD) Af Amer 114, Est GFR (MDRD) Non-Af 95, BUN/Creatinine Ratio 21.0 H, Glucose 159 H, Calcium 9.7, Magnesium 2.3, TSH 1.55 09/19/23 17:42: PT 13.6, INR 1.0, APTT 23.5 L 09/19/23 21:38: Troponin I High Sens 23 Cardiology Labs/Tests 09/19/23 16:22: WBC 8.1, RBC 5.39, Hgb 16.1, Hct 51.6, MCV 95.7 H, MCH 29.9, MCHC 31.2 L, Plt Count 323, MPV 10.2, Immature Gran % (Auto) 0.200, Neut % (Auto) 63.1, Lymph % (Auto) 26.0, Campbell % (Auto) 4.2, Eos % (Auto) 6.3 H, Baso % (Auto) 0.2, Absolute Neuts (auto) 5.1, Nucleated RBC % 0, PT Cancelled, INR Cancelled, APTT Cancelled, Sodium 138, Potassium 4.6, Chloride 99, Carbon Dioxide 35.0 H, Anion Gap 4 L, BUN 18, Creatinine 0.86, Est GFR (MDRD) Af Amer 114, Est GFR (MDRD) Non-Af 95, BUN/Creatinine Ratio 21.0 H, Glucose 159 H, Calcium 9.7, Magnesium 2.3 09/19/23 17:42: PT 13.6, INR 1.0, APTT 23.5 L Rhythm: EKG: ECHO: Stress Test: Cardiac Cath: PCI: CT Surgery: Holter monitor: EPS: PPM: CXR: Chest CT Scan: Radiography Diagnostic Testing: Radiology Impression Chest X-Ray 09/19/23 16:50 IMPRESSION: Nonspecific increased mild Bibasilar interstitial infiltrates. Electronically Signed: Wily Connell MD at 17:18 EST Reading Location ID and State: [address] [place] [address] Tel , Service support , Chest CTA 09/19/23 19:24 IMPRESSION: Complex cystic/cavitary lesion right lower lobe demonstrating interval evolution. Differential considerations include infectious, and inflammatory, and neoplastic etiologies. Right lower lobe interstitial infiltrate/bronchiectasis/and/or bronchitis. Stable large pneumatocele left lower lobe. COPD. Electronically Signed: Wily Connell MD at 20:22 EST Reading Location ID and State: [facility] [place] Tel , Service support ,
[2023-09-20] MEDS: Ipratropium/Albuterol Sulfate 3 ML AMPUL.NEB INHALATION ×5 (07:26→23:50)
[2023-09-20 07:53] LABS: Anion Gap 3 (5-15); BUN 22 mg/dL (7-18); BUN/Creat Ratio 36.7 RATIO (10-20); Chloride 104 mmol/L (98-107); EST Glomerular Filtration Rate 143 mL/min (>60); Est Glom Filt Rate - Afr Amer 173 mL/min (>60); Glucose 155 mg/dL (74-106); Magnesium 2.1 mg/dL (1.6-2.6); Potassium 3.8 mmol/L (3.5-5.1); Sodium Level 138 mmol/L (136-145); Thyroid Stim Hormone (TSH) 0.41 uIU/mL (0.358-3.74)
--- NOTE | 2023-09-20 10:02 | PCM.PN.HOSP ---
Reason for Visit Reason for Visit: Diagnoses Chronic obstructive pulmonary disease with (acute) exacerbation (09/19/23) Tachycardia, unspecified (09/19/23) Subjective Subjective Patient's heart rate under better control but he has significant shortness of breath and is hypoxic even going from bed to bathroom, no chest pain, no swelling in lower extremities Objective Data Objective Data Vital Signs: Vital Signs Temp Pulse Resp BP Pulse Ox O2 Del Method O2 Flow Rate 99.1 F 99 15 105/67 4 Nasal Cannula 4 09/19/23 18:32 09/20/23 07:30 09/20/23 07:30 09/20/23 05:31 09/20/23 07:30 09/20/23 08:14 09/20/23 08:14 Oxygen Flow Rate (L/min) [3] 6 Oxygen Flow Rate (L/min) [1 ( 6 Initial Baseline)] Oxygen Flow Rate (L/min) 4 Oxygen Delivery Method [3] Nasal Cannula Oxygen Delivery Method [1 ( Nasal Cannula Initial Baseline)] Oxygen Delivery Method Nasal Cannula Weight: 87.3 kg Body Mass Index (BMI) 29.2 Intake & Output: Intake and Output for Last 24 Hours 09/18/23 09/19/23 09/20/23 23:59 23:59 23:59 Intake Total 59.58 / 74.58 1083.17 / 1083.17 Output Total 450 / 450 Balance 59.58 / 24.58 633.17 / 633.17 Lab / Micro Data 09/20/23 06:23 09/20/23 06:23 Labs: Laboratory Results - last 24 hr 09/19/23 16:22: WBC 8.1, RBC 5.39, Hgb 16.1, Hct 51.6, MCV 95.7 H, MCH 29.9, MCHC 31.2 L, RDW Std Deviation 46.6 H, RDW Coeff of Clara 13.2, Plt Count 323, MPV 10.2, Immature Gran % (Auto) 0.200, Neut % (Auto) 63.1, Lymph % (Auto) 26.0, [place] % (Auto) 4.2, Eos % (Auto) 6.3 H, Baso % (Auto) 0.2, Absolute Neuts (auto) 5.1, Absolute Lymphs (auto) 2.11, Nucleated RBC % 0, PT Cancelled, INR Cancelled, APTT Cancelled, Sodium 138, Potassium 4.6, Chloride 99, Carbon Dioxide 35.0 H, Anion Gap 4 L, BUN 18, Creatinine 0.86, Estim Creat Clear Calc 81.74, Est GFR (MDRD) Af Amer 114, Est GFR (MDRD) Non-Af 95, BUN/Creatinine Ratio 21.0 H, Glucose 159 H, Calcium 9.7, Magnesium 2.3, TSH 1.55 09/19/23 17:42: PT 13.6, INR 1.0, APTT 23.5 L 09/19/23 21:38: Troponin I High Sens 09/20/23 06:23: WBC 9.2, RBC 4.24 L, Hgb 13.0, Hct 41.0, MCV 96.7 H, MCH 30.7, MCHC 31.7 L, RDW Std Deviation 45.7 H, RDW Coeff of [place] 12.9, Plt Count 244, MPV 10.2, Immature Gran % (Auto) 0.800, Neut % (Auto) 87.6 H, Lymph % (Auto) 8.6 L, [place] % (Auto) 1.5, Eos % (Auto) 1.3, Baso % (Auto) 0.2, Absolute Neuts (auto) 8.1 H, Absolute Lymphs (auto) 0.79 L, Nucleated RBC % 0, Sodium 138, Potassium 3.8, Chloride 104, Carbon Dioxide 31.0, Anion Gap 3 L, BUN 22 H, Creatinine 0.60 L, Estim Creat Clear Calc 70.30, Est GFR (MDRD) Af Amer 173, Est GFR (MDRD) Non-Af 143, BUN/Creatinine Ratio 36.7 H, Glucose 155 H, Calcium 9.0, Magnesium 2.1, TSH 0.41 Radiography Diagnostic Testing: Radiology Impression Chest X-Ray 09/19/23 16:50 IMPRESSION: Nonspecific increased mild Bibasilar interstitial infiltrates. Electronically Signed: Wily Connell MD at 17:18 EST , Chest CTA 09/19/23 19:24 IMPRESSION: Complex cystic/cavitary lesion right lower lobe demonstrating interval evolution. Differential considerations include infectious, and inflammatory, and neoplastic etiologies. Right lower lobe interstitial infiltrate/bronchiectasis/and/or bronchitis. Stable large pneumatocele left lower lobe. COPD. Electronically Signed: Wily Connell MD at 20:22 EST Reading Location ID and State: [address] [place] [address] Tel , Service support , Physical Exam Narrative General: Alert, oriented, tachypneic with increased respiratory effort HEENT: Atraumatic, normocephalic Eyes: Anicteric, normal conjunctiva, extraocular movements grossly intact Neck: Supple Respiratory: Wheezes at the bases, increased respiratory effort with pursed lip breathing Cardiovascular: Sinus tachycardia GI: Soft, nontender, nondistended Extremities: No edema Musculoskeletal: Moving all extremities Neuro: No overt focal neurological deficits Skin: No rashes appreciated Psych: Cooperative Assessment & Plan Assessment/Plan (1) Sinus tachycardia: (2) COPD exacerbation: PLAN: Plan #Acute hypoxia on chronic hypoxia with 4 L O2 at baseline secondary to likely COPD exacerbation/history of SUNIL on CPAP -Patient was hypoxic to 70s and 80s when ambulated on 4 L of O2 -Patient even conversationally dyspneic and has pursed lip breathing and respiratory distress -Patient wheezing, on oral prednisone but will escalate this to IV Methylpred given his present status, continue Mucinex, azithromycin added -Continue nebs -Patient follows with pulmonology on outpatient basis and is known to have severe COPD at baseline however patient has significantly more distress than baseline -CTA demonstrates complex cystic/cavitary lesion in right lower lobe demonstrating interval evolution and right lower lobe interstitial infiltrate/bronchiectasis/and/or bronchitis, additionally stable large pneumatocele in the left lower lobe -Given interval worsening of this right lower lobe lesion and respiratory distress pulmonology consulted -We will also test for COVID/flu/respiratory viruses -Patient does not have productive cough and do not necessarily think patient has an underlying bacterial pneumonia but will monitor closely for need to escalate antibiotics #Tachycardia -Heart rate 170s initially on arrival and there was concern for SVT and he received adenosine x2 which was unsuccessful and attempted cardioversion x2 which was unsuccessful -Did improve with diltiazem bolus and drip and patient was seen by cardiology and transition to oral Cardizem -Remains mildly tachycardic however this is sinus tachycardia and seems to be more physiologic and related to his breathing -Echo pending #RLS -Continue ropinirole #DVT ppx: Lovenox subcu Sissy Dawson MD Time spent in the patient's overall evaluation,decision-making process, review of diagnostic data, adjustment of management, discussion with other providers, nursing nursing and ancillary staff involved in patient's care documentation, 40 minutes Charges/Coding Visit Charges Inpatient E&M: 53233 Subs Hosp L2
[2023-09-20] MEDS: guaiFENesin 1,200 MG Tablet 1200 MG PO ×2 (10:24→21:11)
[2023-09-20] MEDS: dilTIAZem CD 120 MG Capsule PO ×2 (10:24→21:10)
[2023-09-20] MEDS: Aspirin E.C. 81 MG Tablet PO (10:25)
[2023-09-20] MEDS: predniSONE 20 MG Tablet 40 MG PO (10:25)
[2023-09-20] MEDS: busPIRone 5 MG Tablet PO (10:25)
[2023-09-20] MEDS: Enoxaparin 40 MG/0.4 ML Syringe SC (10:25)
[2023-09-20] MEDS: Azithromycin 250 MG Tablet 500 MG PO (13:19)
[2023-09-20] MEDS: 0.9% Saline Lock 10 ML Syringe IV ×2 (13:19→21:13)
--- NOTE | 2023-09-20 14:38 | CON.PCM.CC_ITS ---
Assessment & Plan Assessment/Plan (1) Stage 4 very severe COPD by GOLD classification: (2) Chronic respiratory failure with hypoxia: (3) Unstable angina: (4) SUNIL (obstructive sleep apnea): PLAN: Plan RECOMMENDATIONS: 1. Okay to treat with steroids and azithromycin 2. Obtain sputum culture if possible to guide antibiotics 3. Optimization of SVT per cardiology 4. Walking oximetry prior to discharge 5. Wean oxygen as tolerated 6. AVAPS with targeted volume of 450 with sleep IMPRESSIONS: 1. Acute hypoxic respiratory insufficiency secondary to SVT Patient with advanced lung disease at baseline with an FEV1 of 23% at most. Patient has significant hyperinflation leading to restriction and air trapping on previous testing. Patient will not tolerate SVT well. Reasonable to treat patient with antibiotics and steroids. Patient does have significant bronchiectasis. Lung CT appears to be patient's baseline at this time. Patient does not have significant leukocytosis, purulent sputum or protracted course to suggest acute pneumonia at this time. Continue patient's noninvasive therapy with sleep. Can try the vest to help with sputum production. 2. SVT Patient with heart rates in the 170s. Patient was not able to be cardioverted or respond to adenosine. Patient was seen by cardiology and transition to oral Cardizem and appears to be improving. Echocardiogram has be en ordered. Given rapid recovery of respiratory status, this is suggestive of SVT as an etiology. 3. SUNIL/restless legs/advanced age Complicates care, management, recovery and prognosis. Okay to continue with baseline ropinirole. I have discussed with the patient about possible DNR Comfort Care arrest without intubation in the past, but patient is not ready for this. Patient is a full code. HPI Consult Data Date of Consult: 09/20/23 HPI Narrative HPI Narrative: HALEY BOSTON is a 68 M, with past medical history listed below and well-known to me from the outpatient office, who presents to [facility] 09/19/2023 secondary to acute onset of palpitations and shortness of breath. Patient reportedly had felt normal upon waking and then later in the day started to notice some palpitations. Patient went to the restroom and started to feel lightheaded. Patient states that his heart rate was in the 160s, but oxygen saturations were 94%. Patient states EMS was called. Patient was given some adenosine with no relief. Patient had not reported any recent increase in cough, nausea or vomiting. Patient not reporting any sinus congestion. Patient did report that he had stopped using his vest therapy approximately 4 days prior to presentation. In the ER, patient was afebrile, but tachycardic at 152 bpm. Patient was saturating 89% on 5 L nasal cannula (baseline 4 L/min) with normal blood pressure. Patient was tachypneic at times as high as 23 breaths/min. Patient was given some IV fluids, but it did not respond to adenosine at 12 mg. Patient was attempted on a cardioversion that was unsuccessful x 2. Patient was then given some Cardizem with improvement in heart rate and then subsequently admitted to the hospital for further evaluation. All laboratory data was reviewed, but mostly unremarkable. Patient did not have a significant leukocytosis, renal failure or elevated TSH. Patient did have an elevated bicarbonate, but close to baseline. A CT of the chest showed no significant changes compared to previous On my evaluation this morning, patient was sitting in the chair and feeling subjectively much improved compared to previous. Patient has not reported any current chest pain or palpitations and heart rate was noted to be in the 90s. Patient did report that he was having shortness of breath with minimal exertion. Patient had been seen by cardiology and it was suggested that this was more of a lung pathology, so a pulmonary consult was obtained. Patient does report that he had not used his vest in 4 days as he felt like this was not as helpful. Patient has not had a productive cough or fever. Patient denies any sick contacts. Patient does report having a holiday meal, but he felt like he was being reasonable. Patient did take turkey and noodles, but not had significant lower extremity swelling 1 to 2 days later. Review of systems otherwise negative from a constitutional, HEENT, respiratory, cardiovascular, GI, genitourinary, musculoskeletal, skin, neurologic, psychiatric and hematologic system unless stated above. [facility] Medical History Atherosclerotic heart disease of [place] coronary artery without angina pectoris COPD (chronic obstructive pulmonary disease) Exertional angina Fascioscapulohumeral muscular dystrophy History of left heart catheterization (LHC) (~10/20/18) Premature ventricular contraction Stage 4 very severe COPD by GOLD classification Unstable angina Home Medications ibuprofen 200 mg tablet 800 mg PO DAILY PRN Pain 10/19/18 [History Last Taken 10/18/18] aspirin 81 mg tablet,delayed release 81 mg PO DAILY@0800 10/20/18 [Rx Last Taken 09/18/23] Disability Placard #1 ea 10/06/21 [Rx Last Taken Unknown] buspirone 5 mg tablet 5 mg PO DAILY ANXIETY 04/15/23 [History Last Taken 09/19/23] albuterol sulfate 2.5 mg/3 mL (0.083 %) solution for nebulization 2.5 mg (3 mL) inhalation Q4H PRN Sob &/Or Wheezing #180 mL 09/08/23 [Rx Last Taken 09/18/23] albuterol sulfate 90 mcg/actuation aerosol inhaler 2 inh PO Q6H PRN PRN Sob &/Or Wheezing #3 device 09/08/23 [Rx Last Taken 09/19/23] guaifenesin 1,200 mg tablet, extended release 12 hr 1,200 mg PO Q12H #60 tabs 09/08/23 [Rx Last Taken 09/19/23] ipratropium 0.5 mg-albuterol 3 mg (2.5 mg base)/3 mL nebulization soln 3 ml inhalation Q4H PRN PRN SOB &/OR WHEEZING #180 mL 09/08/23 [Rx Last Taken 09/18/23] mometasone 200 mcg/actuation HFA aerosol inhaler (Asmanex HFA) 2 inh inhalation BID #3 device 09/08/23 [Rx Last Taken 09/19/23] ropinirole 1 mg tablet 2 mg (2 x 1 mg) PO QHS RESTLESS LEGS #60 tabs 09/08/23 [Rx Last Taken 09/18/23] umeclidinium 62.5 mcg-vilanterol 25 mcg/actuation powdr for inhalation 1 inh inhalation DAILY #3 device 09/08/23 [Rx Last Taken 09/19/23] Allergy/AdvReac Type Severity Reaction Status Date / Time No Known Allergies Allergy Verified 09/08/23 13:10 Family History Sister Muscular dystrophy Brother Muscular dystrophy Father Heart disease Mother Cancer Breast Surgical History Brain aneurysm Social History Smoking Status: Former smoker how long ago did patient quit smokin, 1ppd second hand exposure: Yes alcohol intake: current substance use type: does not use caffeine: Yes Type: coffee Number of servings: 3 ROS ROS Narrative See HPI Physical Exam Const alert, oriented x3 and no apparent distress Constitutional Narrative: Sitting in the chair on my arrival. was also present to provide additional history General Appearance: cooperative HEENT Head and Scalp: atraumatic General Ear: hearing grossly impaired Mouth: oral and palatal mucosa normal Eyes PERRL, EOMs intact bilaterally, conjunctivae normal and no scleral icterus Neck full ROM and no lymphadenopathy Chest palpation of chest normal Chest: abnormal inspection of the chest increased A-P diameter Resp normal respiratory effort and no use of accessory muscles Effort and Inspection: able to speak in complete sentences Auscultation: diminished lung sounds; Negative for rales, rhonchi or wheezes Cardio regular rate, regular rhythm, S1 normal heart sound and S2 normal heart sound Jugular Venous Distention: JVD GI normal to inspection, nondistended, normoactive bowel sounds Extremity normal capillary refill and no pedal edema Peripheral Pulses: Yes pulses 2+ throughout and femoral pulses present Skin no rashes or lesions noted Neuro oriented x3 and CN's II-XII intact bilaterally Psych Appearance: grossly normal and appropriate Medical Records Data Attestation: I reviewed the patient's medical records Medical records narrative: Patient's last PFT was done in 2019 showing an FEV1 of 23% Lab / Micro Data Attestation: I reviewed the patient's lab results. 09/20/23 06:23 09/20/23 06:23 Labs: Laboratory Results - last 24 hr 09/19/23 16:22: WBC 8.1, RBC 5.39, Hgb 16.1, Hct 51.6, MCV 95.7 H, MCH 29.9, MCHC 31.2 L, RDW Std Deviation 46.6 H, RDW Coeff of Clara 13.2, Plt Count 323, MPV 10.2, Immature Gran % (Auto) 0.200, Neut % (Auto) 63.1, Lymph % (Auto) 26.0, [place] % (Auto) 4.2, Eos % (Auto) 6.3 H, Baso % (Auto) 0.2, Absolute Neuts (auto) 5.1, Absolute Lymphs (auto) 2.11, Nucleated RBC % 0, PT Cancelled, INR Cancelled, APTT Cancelled, Sodium 138, Potassium 4.6, Chloride 99, Carbon Dioxide 35.0 H, Anion Gap 4 L, BUN 18, Creatinine 0.86, Estim Creat Clear Calc 81.74, Est GFR (MDRD) Af Amer 114, Est GFR (MDRD) Non-Af 95, BUN/Creatinine Ratio 21.0 H, Glucose 159 H, Calcium 9.7, Magnesium 2.3, TSH 1.55 09/19/23 17:42: PT 13.6, INR 1.0, APTT 23.5 L 09/19/23 21:38: Troponin I High Sens 23 09/20/23 06:23: WBC 9.2, RBC 4.24 L, Hgb 13.0, Hct 41.0, MCV 96.7 H, MCH 30.7, MCHC 31.7 L, RDW Std Deviation 45.7 H, RDW Coeff of Clara 12.9, Plt Count 244, MPV 10.2, Immature Gran % (Auto) 0.800, Neut % (Auto) 87.6 H, Lymph % (Auto) 8.6 L, [place] % (Auto) 1.5, Eos % (Auto) 1.3, Baso % (Auto) 0.2, Absolute Neuts (auto) 8.1 H, Absolute Lymphs (auto) 0.79 L, Nucleated RBC % 0, Sodium 138, Potassium 3.8, Chloride 104, Carbon Dioxide 31.0, Anion Gap 3 L, BUN 22 H, Creatinine 0.60 L, Estim Creat Clear Calc 70.30, Est GFR (MDRD) Af Amer 173, Est GFR (MDRD) Non- Af 143, BUN/Creatinine Ratio 36.7 H, Glucose 155 H, Calcium 9.0, Magnesium 2.1, TSH 0.41 Micro: Microbiology 09/20/23 12:25 Nasal Secretion SARS-CoV-2 & FLU Antigen (Rapid) - Final Imagaing Radiology Impression Chest X-Ray 09/19/23 16:50 IMPRESSION: Nonspecific increased mild Bibasilar interstitial infiltrates. Electronically Signed: Wily Connell MD at 17:18 EST , Chest CTA 09/19/23 19:24 IMPRESSION: Complex cystic/cavitary lesion right lower lobe demonstrating interval evolution. Differential considerations include infectious, and inflammatory, and neoplastic etiologies. Right lower lobe interstitial infiltrate/bronchiectasis/and/or bronchitis. Stable large pneumatocele left lower lobe. COPD. Electronically Signed: Wily Connell MD at 20:22 EST , Charges/Coding Visit Charges Inpatient E&M: 23081 Init Hosp L2
--- NOTE | 2023-09-20 14:50 | CHAPLAIN ---
Type of Pastoral Visit _x__ Initial Visit ___ Follow-up Visit ___ On-call Visit ___ General Patient Visit ___ Spiritual Assessment ___ Family Conference ___ Bereavement ___ Rapid Response ___ Code Blue ___ Other (describe below) Pastoral Care Referral From _x__ Patient ___ Family ___ Nurse ___ Physician ___ Kettle Worker ___ Golf Ball Inspector ___ Other (describe below) Sacrament/Intervention _x__ Active listening ___ Anointing ___ Druze ___ Bereavement ___ Communion _x__ Elizabeth exploration ___ _x__ Life review _x__ Prayer ___ Reconciliation ___ Sacrament of Sick _x__ Supportive presence ___ Wedding ___ Other (describe below) Pastoral Comments patient and spouse are together in the room and are welcoming; pt states that he believes in prayer; pt gives some life review and tells story of recent reconciliation with a son that had been estranged for 10 years; this experience reinforces how God works in us; pt admits to being emotional due to the unknowns and how this may impact living; pt states he is already limited due to copd and that his does so much for him now; pt is given time to talk and his thoughts and feelings are validated; offer of support and prayer received well by both
--- NOTE | 2023-09-20 16:00 | CASEMGMT ---
REJI BENÍTEZ Face to Face with patient for initial transition planning/care coordination assessment. REJI BENÍTEZ introduced self and role at [facility]. Patient sitting in chair, alert and oriented, at bedside. Patient willing to participate in assessment and is able to answer all questions appropriately. Care providers, pharmacy, and demographics verified. Patient wishes to discharge home, denies need for home health at this time. Patient states he has no further needs or concerns at this time. CM to follow for discharge planning needs that may arise. PCP: Kartik Specialists: Robb director part Preferred Pharmacy: [facility] Insurance: Daquan FINNEGAN Prescription Benefit: yes Living Will/HPOA: yes, Martha Grijalva LNOK: Living Arrangements: Patient lives with in a raised ranch with stair lift to enter the home. Patient toilets and dresses self, assists with bathing. Transportation: self, DME/HHC: Patient has shower chair, riased toilet, wlaker, wheelchair, nebuilzer, pulse ox, NIV, and oxygen through [facility] verified at 2lpm with portable tanks and POC. REJI BENÍTEZ updated patient regarding oxygen order at [facility] at 2lpm continuously, patient became upset and states he is to wear 4 lpm continuously. REJI BENÍTEZ clarified with patient that [facility] will be updated with appropriate order after oxygen testing prior to discharge. Patient voiced understanding. Disposition Plan: Patient to discharge home with family support and follow-u plans in place. Emmanuelle GUTIERREZ, RN, CM
[2023-09-20] MEDS: Pramipexole Di-HCl 1 MG Tablet PO (21:11)
--- NOTE | 2023-09-20 23:53 | CPS ---
Pt does not want to wear bipap tonite
[2023-09-21] MEDS: 0.9% Saline Lock 10 ML Syringe IV ×2 (06:19→13:19)
--- NOTE | 2023-09-21 06:48 | PN.CARD_ITS ---
Subjective Subjective Patient seen and valuated. Appears to be doing well today. Objective Data Vital Signs: Vital Signs Temp Pulse Resp BP Pulse Ox O2 Del Method O2 Flow Rate 97.9 F 97 20 H 123/74 H 94 Nasal Cannula 3 09/20/23 21:06 09/20/23 23:51 09/20/23 23:51 09/20/23 21:06 09/20/23 21:06 09/20/23 22:00 09/20/23 22:00 Oxygen Flow Rate (L/min) [3] 6 Oxygen Flow Rate (L/min) [1 ( 6 Initial Baseline)] Oxygen Flow Rate (L/min) 3 Oxygen Delivery Method [3] Nasal Cannula Oxygen Delivery Method [1 ( Nasal Cannula Initial Baseline)] Oxygen Delivery Method Nasal Cannula Weight: 192 lb 7.417 oz Body Mass Index (BMI) 29.2 Intake & Output: Intake and Output for Last 24 Hours 09/19/23 09/20/23 09/21/23 23:59 23:59 23:59 Intake Total 59.58 / 74.58 2023.17 / 2022.17 0 / 0 Output Total 900 / 900 220 / 220 Balance 59.58 / 24.58 1123.17 / 1123.17 -220 / -220 Lab / Micro Data 09/20/23 06:23 09/20/23 06:23 Labs: Laboratory Results - last 24 hr 09/20/23 06:23: WBC 9.2, RBC 4.24 L, Hgb 13.0, Hct 41.0, MCV 96.7 H, MCH 30.7, MCHC 31.7 L, RDW Std Deviation 45.7 H, RDW Coeff of Clara 12.9, Plt Count 244, MPV 10.2, Immature Gran % (Auto) 0.800, Neut % (Auto) 87.6 H, Lymph % (Auto) 8.6 L, [place] % (Auto) 1.5, Eos % (Auto) 1.3, Baso % (Auto) 0.2, Absolute Neuts (auto) 8.1 H, Absolute Lymphs (auto) 0.79 L, Nucleated RBC % 0, Sodium 138, Potassium 3.8, Chloride 104, Carbon Dioxide 31.0, Anion Gap 3 L, BUN 22 H, Creatinine 0.60 L, Estim Creat Clear Calc 70.30, Est GFR (MDRD) Af Amer 173, Est GFR (MDRD) Non- Af 143, BUN/Creatinine Ratio 36.7 H, Glucose 155 H, Calcium 9.0, Magnesium 2.1, TSH 0.41 Micro: Microbiology 09/20/23 18:10 Sputum, Expectorated/Coughed Gram Stain - Preliminary 09/20/23 13:13 Mucosa - Nose Respiratory Panel (PCR) - Final 09/20/23 12:25 Nasal Secretion SARS-CoV-2 & FLU Antigen (Rapid) - Final Cardiology Labs/Tests 09/20/23 06:23: WBC 9.2, RBC 4.24 L, Hgb 13.0, Hct 41.0, MCV 96.7 H, MCH 30.7, MCHC 31.7 L, Plt Count 244, MPV 10.2, Immature Gran % (Auto) 0.800, Neut % (Auto) 87.6 H, Lymph % (Auto) 8.6 L, [place] % (Auto) 1.5, Eos % (Auto) 1.3, Baso % (Auto) 0.2, Absolute Neuts (auto) 8.1 H, Nucleated RBC % 0, Sodium 138, Potassium 3.8, Chloride 104, Carbon Dioxide 31.0, Anion Gap 3 L, BUN 22 H, Creatinine 0.60 L, Est GFR (MDRD) Af Amer 173, Est GFR (MDRD) Non-Af 143, BUN/Creatinine Ratio 36.7 H, Glucose 155 H, Calcium 9.0, Magnesium 2.1 Rhythm: EKG: ECHO: Stress Test: Cardiac Cath: PCI: CT Surgery: Holter monitor: EPS: PPM: CXR: Chest CT Scan: Radiography Diagnostic Testing: Radiology Impression Echocardiogram 09/19/23 21:01 Interpretation Summary Normal LV size. Left ventricular systolic function is normal. The estimated ejection fraction is 60 %. Contrast injection was performed. Ordering Physician: Roque Wooten Performed By: Porfirio Gary RCS Physical Exam Const alert, oriented x3 and no apparent distress Constitutional Narrative: Sitting in the chair on my arrival. was also present to provide additional history General Appearance: cooperative HEENT Head and Scalp: atraumatic General Ear: hearing grossly impaired Mouth: oral and palatal mucosa normal Eyes PERRL, EOMs intact bilaterally, conjunctivae normal and no scleral icterus Neck full ROM and no lymphadenopathy Chest palpation of chest normal Chest: abnormal inspection of the chest increased A-P diameter Resp normal respiratory effort and no use of accessory muscles Effort and Inspection: able to speak in complete sentences Auscultation: diminished lung sounds; Negative for rales, rhonchi or wheezes Cardio regular rate, regular rhythm, S1 normal heart sound and S2 normal heart sound Jugular Venous Distention: JVD GI normal to inspection, nondistended, normoactive bowel sounds Extremity normal capillary refill and no pedal edema Peripheral Pulses: Yes pulses 2+ throughout and femoral pulses present Skin no rashes or lesions noted Neuro oriented x3 and CN's II-XII intact bilaterally Psych Appearance: grossly normal and appropriate Assessment & Plan Assessment/Plan (1) Sinus tachycardia: PLAN: 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 I do not see any evidence of a supraventricular tachycardia or atrial flutter with a 2-1 block. * His echocardiogram demonstrated preserved left ventricular systolic function. He is in regular sinus rhythm at this time. * Will recommend continuing his diltiazem 120 twice daily and discharged for outpatient follow-up. Thank you for allowing me to participate in the care of your patient. Please don't hesitate to call if any issues arise.
[2023-09-21] MEDS: Ipratropium/Albuterol Sulfate 3 ML AMPUL.NEB INHALATION ×3 (07:19→15:05)
[2023-09-21 07:20] VITALS: PULSE 88; RESP 18; O2SAT 94
[2023-09-21] MEDS: Aspirin E.C. 81 MG Tablet PO (08:08)
[2023-09-21] MEDS: busPIRone 5 MG Tablet PO (08:09)
[2023-09-21] MEDS: guaiFENesin 1,200 MG Tablet 1200 MG PO (08:10)
[2023-09-21] MEDS: Enoxaparin 40 MG/0.4 ML Syringe SC (08:10)
[2023-09-21] MEDS: dilTIAZem CD 120 MG Capsule PO (08:10)
[2023-09-21] MEDS: Azithromycin 250 MG Tablet 500 MG PO (08:10)
[2023-09-21 08:22] LABS: Absolute Lymphocyte Count 1.19 X10^3/uL (0.83-4.51); Absolute Neutrophil Count 10.4 X10^3/uL (2.0-7.7); Basophil# 0.01 X10^3/uL; Basophil% 0.1 % (0-1); Eosinophil# 0.02 X10^3/uL; Eosinophils% 0.2 % (0-5); Hematocrit 39.5 % (40-54); Hemoglobin 12.7 g/dL (13.0-16.5); Lymphocyte # 1.19 X10^3/ul (0.83-4.51); Lymphocyte % 9.8 % (19-41); Mean Corp Hgb Conc 32.2 g/dL (32-36); Mean Corpuscular Hgb 31.4 pg (27.0-32.0); Mean Corpuscular Volume 97.5 fL (80-94); Mean Platelet Vol. 11.7 fl (6.2-12.0); Monocyte% 4.1 % (0-10); NRBC Flagged by Analyzer 0 % (0-5); Neutrophil # 10.36 X10^3/uL (2.7-7.7); Neutrophil % 85.2 % (47-70); POSITIVE COUNT YES; Platelet Count 143 K/mm3 (150-450); RBC Distribution Width SD 46.2 fl (35.1-43.9); Red Blood Count 4.05 M/mm3 (4.6-6.2); White Blood Count 12.2 K/mm3 (4.4-11.0)
[2023-09-21 09:00] VITALS: BP 114/72; PULSE 95; RESP 18; TEMP 36.7; O2SAT 94
[2023-09-21 09:19] LABS: Anion Gap 3 (5-15); BUN 15 mg/dL (7-18); BUN/Creat Ratio 29.4 RATIO (10-20); Calcium,Total 8.8 mg/dL (8.5-10.1); Chloride 105 mmol/L (98-107); Creatinine, Serum 0.51 mg/dL (0.70-1.30); EST Glomerular Filtration Rate 173 mL/min (>60); Est Glom Filt Rate - Afr Amer 210 mL/min (>60); Glucose 145 mg/dL (74-106); Potassium 3.9 mmol/L (3.5-5.1); Sodium Level 140 mmol/L (136-145)
[2023-09-21 11:16] VITALS: PULSE 92; RESP 20
[2023-09-21 12:05] VITALS: O2SAT 80; O2SAT 86; O2SAT 91; O2SAT 93
[2023-09-21 13:24] VITALS: BP 127/69; PULSE 94; RESP 16; TEMP 36.7; O2SAT 94
--- NOTE | 2023-09-21 13:34 | CASEMGMT ---
REJI BENÍTEZ updated that patient will need increase in home oxygen, 2lpm at rest and 6lpm with ambulation. Updated script received and sent to [facility] patient oxygen provider. REJI BENÍTEZ in to patient's room to update regarding increase in oxygen. Patient and voiced understanding. has portable tank in car that goes up to 6lpm. Patient and denied further needs. Patient had no further questions or concerns.
--- NOTE | 2023-09-21 14:16 | PCM.DC ---
Discharge Instructions Diet Discharge Diet: No restrictions Activity Discharge Activity: - (Increase activity as tolerated) Follow Up Care Test Results: Test results from this visit will be discussed in further detail at your follow-up appointment, if applicable. Discharge Plan Admission Admit Date/Time: 09/19/23 20:47 Primary Reason for Your Visit: Fast heart rate Attending Provider: Sissy Dawson Primary Care Provider: Phan Verdugo Consulting Providers: Dusty Niño; Roque Wooten; Missael Zamudio; Mark Bergman; Rodolfo Adbi; Samuel Escalante; Mallika Ahumada MAINTENANCE MECHANIC ELEVATORS Instructions Patient Instructions: Shortness of Breath Coping, ED Dyspnea Additional Instructions / Restrictions: DISCHARGE INSTRUCTIONS PLEASE READ *Please take this with you to your next doctors appointment* -You will be discharged on 3 more days of azithromycin 500 mg -You will be discharged on a prednisone taper: -60 mg daily x3 days -50mg daily x3 days -40mg daily x3 days -30mg daily x3 days -20mg daily x3 days -10mg daily x3 days -You will also be discharged on diltiazem twice daily -You will need to follow-up with cardiology upon discharge, please call the office of Dr. Niño upon discharge to schedule your hospital follow-up appointment (ph [phone]) -Please follow-up with your crime scene technician, Dr. Zmaudio, upon discharge. Please call their office to schedule hospital follow-up appointment upon discharge. -You will need 6 L of oxygen with ambulation, updated prescription will be sent to [facility] -Please call your primary care provider's office upon discharge to schedule a hospital follow up within 1 week. -For any concerning signs or symptoms please call 911 or proceed to the nearest emergency department Discharge Orders/Prescriptions Prescriptions: New diltiazem HCl 120 mg Capsule,Extended Release 24hr 120 mg PO Q12 30 Days Qty: 60 0RF azithromycin 500 mg tablet 500 mg PO DAILY 3 Days Qty: 3 0RF prednisone 20 mg Tablet See Taper PO BREAKFAST Qty: 32 0RF Taper: Prednisone Taper 60 mg WITH BREAKFAST for 3 Days and 0 Hour 50 mg WITH BREAKFAST for 3 Days and 0 Hour 40 mg WITH BREAKFAST for 3 Days and 0 Hour 30 mg WITH BREAKFAST for 3 Days and 0 Hour 20 mg WITH BREAKFAST for 3 Days and 0 Hour 10 mg WITH BREAKFAST for 3 Days and 0 Hour Continued (DME) Disability Placard See Rx Instructions .Route .MEDSUPPLY Qty: 1 0RF Rx Instructions: expires 10/06/2026 buspirone 5 mg tablet 5 mg PO DAILY albuterol sulfate 90 mcg/actuation HFA aerosol inhaler 2 inh PO Q6H PRN PRN (Reason: Sob &/Or Wheezing) Qty: 3 2RF albuterol sulfate 2.5 mg /3 mL (0.083 %) solution for nebulization 2.5 mg inhalation Q4H PRN (Reason: Sob &/Or Wheezing) Qty: 180 3RF guaifenesin 1,200 mg tablet extended release 12hr 1,200 mg PO Q12H Qty: 60 11RF ipratropium-albuterol 0.5 mg-3 mg(2.5 mg base)/3 mL solution for nebulization 3 ml inhalation Q4H PRN PRN (Reason: SOB &/OR WHEEZING) Qty: 180 6RF umeclidinium-vilanterol 62.5-25 mcg/actuation blister with device 1 inh inhalation DAILY Qty: 3 3RF Asmanex HFA 200 mcg/actuation HFA aerosol inhaler 2 inh INHALATION BID Qty: 3 3RF ropinirole 1 mg tablet 2 mg PO QHS Qty: 60 11RF Rx Instructions: administer 1-3 hours before bedtime ibuprofen 200 MG tablet 800 mg PO DAILY PRN (Reason: Pain) aspirin 81 MG tablet 81 mg PO DAILY@0800 0RF Referrals / Follow Up: Missael Zamudio MD [Med Staff - Active Staff] - Dusty Niño MD [Med Staff - Active Staff] - Phan Verdugo MD [Primary Care Provider] - Within 1 Week Disposition Disposition (needs filled in before D/C Order can be placed): Home, Self Care
--- NOTE | 2023-09-21 14:25 | DS.PCM_ITS ---
Providers Date of Admission: 09/19/23 Date of Discharge: 09/21/23 Primary Care Physician: Dr. 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 Medicine Routine Consulting Provider: Pulmonary Medicine gayle Barclay Reason for Consult: significant resp distress and hypoxia, complex cavitary lesion RLL w/ evolu EMERGENT Consult: No MD Notified: Yes Date Notified: 09/20/23 Time Notified: 13:12 Method of Notification: Text Reason For Visit: TACHYCARDIA Diagnosis Discharge Diagnosis (1) Sinus tachycardia: Status: Acute Code(s): R00.0 - Tachycardia, unspecified (2) Chronic respiratory failure with hypoxia: Status: Chronic Code(s): J96.11 - Chronic respiratory failure with hypoxia (3) COPD exacerbation: Status: Chronic Code(s): J44.1 - Chronic obstructive pulmonary disease with (acute) exacerbation (4) Stage 4 very severe COPD by GOLD classification: Status: Chronic Code(s): J44.9 - Chronic obstructive pulmonary disease, unspecified (5) SUNIL (obstructive sleep apnea): Status: Chronic Code(s): G47.33 - Obstructive sleep apnea (adult) (pediatric) Plan #Acute hypoxia on chronic hypoxia with 4 L O2 at baseline secondary to likely COPD exacerbation and significant tachycardia/history of SUNIL on CPAP #Tachycardia #RLS Medications at Discharge Home Medications ibuprofen 200 mg tablet 800 mg PO DAILY PRN Pain 10/19/18 aspirin 81 mg tablet,delayed release 81 mg PO DAILY@0800 10/20/18 Disability Placard #1 ea 10/06/21 buspirone 5 mg tablet 5 mg PO DAILY ANXIETY 04/15/23 albuterol sulfate 2.5 mg/3 mL (0.083 %) solution for nebulization 2.5 mg (3 mL) inhalation Q4H PRN Sob &/Or Wheezing #180 mL 09/08/23 albuterol sulfate 90 mcg/actuation aerosol inhaler 2 inh PO Q6H PRN PRN Sob &/Or Wheezing #3 device 09/08/23 guaifenesin 1,200 mg tablet, extended release 12 hr 1,200 mg PO Q12H #60 tabs 09/08/23 ipratropium 0.5 mg-albuterol 3 mg (2.5 mg base)/3 mL nebulization soln 3 ml inhalation Q4H PRN PRN SOB &/OR WHEEZING #180 mL 09/08/23 mometasone 200 mcg/actuation HFA aerosol inhaler (Asmanex HFA) 2 inh inhalation BID #3 device 09/08/23 ropinirole 1 mg tablet 2 mg (2 x 1 mg) PO QHS RESTLESS LEGS #60 tabs 09/08/23 umeclidinium 62.5 mcg-vilanterol 25 mcg/actuation powdr for inhalation 1 inh inhalation DAILY #3 device 09/08/23 azithromycin 500 mg tablet 500 mg PO DAILY 3 days #3 tabs 09/21/23 diltiazem HCl 120 mg capsule,extended release 24 hr 120 mg PO Q12 30 days #60 caps 09/21/23 prednisone 20 mg tablet See Taper PO BREAKFAST #32 tabs 09/21/23 Hospital Course Summary of Care Provided Minutes Spent on Discharge: 32 Hospital Course: Patient is a 68-year-old male with history of severe COPD/SUNIL who presented to [facility] 09/19/2023 due to tachycardia with heart rates in the 170s with concern for SVT and he received adenosine x2 which was unsuccessful and attempted cardioversion x2 which was unsuccessful. Did improve with diltiazem bolus and drip and patient was seen by cardiology and transition to oral Cardizem. His breathing significantly worsened when he was tachycardic but given his severe underlying disease and significant desaturations he was given azithromycin and Methylpred, CTA had been obtained which had no PE but had complex cystic/cavitary lesion right lower lobe with interval evolution, pulm consulted and felt patient was close to baseline and recommended cardiac optimization and walking pulse ox prior to DC. Patient's heart rate was controlled with diltiazem and he had an echo that showed an EF of 60% and he was cleared for discharge from cardiac perspective. Patient was ambulated and was able to walk house distance with 6 L and he was comfortable with discharge home as he was feeling much better and felt his breathing was almost back to baseline. No chest pain or other significant bouts of tachycardia. Patient is ambulatory in the home and in the community and requires home oxygen with portability. Discharge instructions as follows: -You will be discharged on 3 more days of azithromycin 500 mg -You will be discharged on a prednisone taper: -60 mg daily x3 days -50mg daily x3 days -40mg daily x3 days -30mg daily x3 days -20mg daily x3 days -10mg daily x3 days -You will also be discharged on diltiazem twice daily -You will need to follow-up with cardiology upon discharge, please call the office of Dr. 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 Zamudio, upon discharge. Please call their office to schedule hospital follow-up appointment upon discharge. -You will need 6 L of oxygen with ambulation, updated prescription will be sent to [facility] -Please call your primary care provider's office upon discharge to schedule a hospital follow up within 1 week. -For any concerning signs or symptoms please call 911 or proceed to the nearest emergency department Physical Exam Narrative General: Alert, oriented, no apparent distress HEENT: Atraumatic, normocephalic Eyes: Anicteric, normal conjunctiva, extraocular movements grossly intact Neck: Supple Respiratory: Respiratory effort much more comfortable at rest, somewhat diminished at the bases Cardiovascular: Slightly tachycardic but primarily when patient moves around and then improves GI: Soft, nontender, nondistended Extremities: No edema Musculoskeletal: Moving all extremities Neuro: No overt focal neurological deficits Skin: No rashes appreciated Psych: Cooperative Weight / BMI Weight Weight: 87.3 kg Body Mass Index (BMI) 29.2 ABG / Lab / Microbiology Data 09/21/23 07:25 09/21/23 07:25 Laboratory: Laboratory Results - last 24 hr 09/21/23 07:25: WBC 12.2 H, RBC 4.05 L, Hgb 12.7 L, Hct 39.5 L, MCV 97.5 H, MCH 31.4, MCHC 32.2, RDW Std Deviation 46.2 H, RDW Coeff of Clara 13.0, Plt Count 143 L, MPV 11.7, Immature Gran % (Auto) 0.600, Neut % (Auto) 85.2 H, Lymph % (Auto) 9.8 L, [place] % (Auto) 4.1, Eos % (Auto) 0.2, Baso % (Auto) 0.1, Absolute Neuts (auto) 10.4 H, Absolute Lymphs (auto) 1.19, Nucleated RBC % 0, Sodium 140, Potassium 3.9, Chloride 105, Carbon Dioxide 32.0, Anion Gap 3 L, BUN 15, Creatinine 0.51 L, Estim Creat Clear Calc 70.30, Est GFR (MDRD) Af Amer 210, Est GFR (MDRD) Non-Af 173, BUN/Creatinine Ratio 29.4 H, Glucose 145 H, Calcium 8.8 Microbiology: Microbiology 09/20/23 18:10 Sputum, Expectorated/Coughed Gram Stain - Final 09/20/23 13:13 Mucosa - Nose Respiratory Panel (PCR) - Final 09/20/23 12:25 Nasal Secretion SARS-CoV-2 & FLU Antigen (Rapid) - Final Radiography Diagnostic Testing: Radiology Impression Echocardiogram 09/19/23 21:01 Interpretation Summary Normal LV size. Left ventricular systolic function is normal. The estimated ejection fraction is 60 %. Contrast injection was performed. Ordering Physician: Roque Wooten Performed By: Porfirio Gary RCS D/C Instructions Discharge Diet: No restrictions Meaningful Use Info Meaningful Use Diagnoses (Choose all that apply): None applicable Discharge Plan Admission Admit Date/Time: 09/19/23 20:47 Primary Reason for Your Visit: Fast heart rate Attending Provider: Sissy Dawson Primary Care Provider: Phan Verdugo Consulting Providers: Dusty Niño; Roque Wooten; Missael Zamudio; Mark Bergman; Rodolfo Abdi; Samuel Escalante; Mallika Ahumada BASS MECHANISM MAKER Instructions Patient Instructions: Shortness of Breath Coping, ED Dyspnea Additional Instructions / Restrictions: DISCHARGE INSTRUCTIONS PLEASE READ *Please take this with you to your next doctors appointment* -You will be discharged on 3 more days of azithromycin 500 mg -You will be discharged on a prednisone taper: -60 mg daily x3 days -50mg daily x3 days -40mg daily x3 days -30mg daily x3 days -20mg daily x3 days -10mg daily x3 days -You will also be discharged on diltiazem twice daily -You will need to follow-up with cardiology upon discharge, please call the office of Dr. Niño upon discharge to schedule your hospital follow-up appointment ( [phone]) -Please follow-up with your supervisor core drilling, Dr. Zamudio, upon discharge. Please call their office to schedule hospital follow-up appointment upon discharge. -You will need 6 L of oxygen with ambulation, updated prescription will be sent to [facility] -Please call your primary care provider's office upon discharge to schedule a hospital follow up within 1 week. -For any concerning signs or symptoms please call 911 or proceed to the nearest emergency department Discharge Orders/Prescriptions Prescriptions: New diltiazem HCl 120 mg Capsule,Extended Release 24hr 120 mg PO Q12 30 Days Qty: 60 0RF azithromycin 500 mg tablet 500 mg PO DAILY 3 Days Qty: 3 0RF prednisone 20 mg Tablet See Taper PO BREAKFAST Qty: 32 0RF Taper: Prednisone Taper 60 mg WITH BREAKFAST for 3 Days and 0 Hour 50 mg WITH BREAKFAST for 3 Days and 0 Hour 40 mg WITH BREAKFAST for 3 Days and 0 Hour 30 mg WITH BREAKFAST for 3 Days and 0 Hour 20 mg WITH BREAKFAST for 3 Days and 0 Hour 10 mg WITH BREAKFAST for 3 Days and 0 Hour Continued (DME) Disability Placard See Rx Instructions .Route .MEDSUPPLY Qty: 1 0RF Rx Instructions: expires 10/06/2026 buspirone 5 mg tablet 5 mg PO DAILY albuterol sulfate 90 mcg/actuation HFA aerosol inhaler 2 inh PO Q6H PRN PRN (Reason: Sob &/Or Wheezing) Qty: 3 2RF albuterol sulfate 2.5 mg /3 mL (0.083 %) solution for nebulization 2.5 mg inhalation Q4H PRN (Reason: Sob &/Or Wheezing) Qty: 180 3RF guaifenesin 1,200 mg tablet extended release 12hr 1,200 mg PO Q12H Qty: 60 11RF ipratropium-albuterol 0.5 mg-3 mg(2.5 mg base)/3 mL solution for nebulization 3 ml inhalation Q4H PRN PRN (Reason: SOB &/OR WHEEZING) Qty: 180 6RF umeclidinium-vilanterol 62.5-25 mcg/actuation blister with device 1 inh inhalation DAILY Qty: 3 3RF Asmanex HFA 200 mcg/actuation HFA aerosol inhaler 2 inh INHALATION BID Qty: 3 3RF ropinirole 1 mg tablet 2 mg PO QHS Qty: 60 11RF Rx Instructions: administer 1-3 hours before bedtime ibuprofen 200 MG tablet 800 mg PO DAILY PRN (Reason: Pain) aspirin 81 MG tablet 81 mg PO DAILY@0800 0RF Referrals / Follow Up: Missael Zamudio MD [Med Staff - Active Staff] - Dusty Niño MD [Med Staff - Active Staff] - Phan Verdugo MD [Primary Care Provider] - Within 1 Week Disposition Disposition (needs filled in before D/C Order can be placed): Home, Self Care Charges/Coding Visit Charges Inpatient E&M: 99613 Disch Hosp >30min
[2023-09-21 15:05] VITALS: PULSE 112; RESP 22
--- NOTE | 2023-09-21 17:01 | PHA.DC_ITS ---
Pharmacy [facility] has performed discharge medication reconciliation and counseling for this patient. 1. AZITHROMYCIN 500MG PO DAILY X 3 DAYS 2. DILTIAZEM CD 120MG PO Q12 3. PREDNISONE 60MG PO BREAKFAST X 3 DAYS, 50MG X3 DAYS, 40MG X 3 DAYS, 30MG X 3 DAYS, 20MG X 3 DAYS, 10MG X 3 DAYS The patient's discharge medication list was reviewed for discrepancies and discrepancies were resolved. The patient was counseled on the following discharge medications and changes in medications for homegoing were reviewed. The Reason for Use, instructions for use, and potential side effects were reviewed for all new medications. The patient's questions regarding all of their medications were answered. The patient was able to verbally demonstrate an understanding of their discharge medications. Patient counseled by pharmacy technology instructorPaxton. Medications at Discharge Home Medications ibuprofen 200 mg tablet 800 mg PO DAILY PRN Pain 10/19/18 aspirin 81 mg tablet,delayed release 81 mg PO DAILY@0800 10/20/18 Disability Placard #1 ea 10/06/21 buspirone 5 mg tablet 5 mg PO DAILY ANXIETY 04/15/23 albuterol sulfate 2.5 mg/3 mL (0.083 %) solution for nebulization 2.5 mg (3 mL) inhalation Q4H PRN Sob &/Or Wheezing #180 mL 09/08/23 albuterol sulfate 90 mcg/actuation aerosol inhaler 2 inh PO Q6H PRN PRN Sob &/Or Wheezing #3 device 09/08/23 guaifenesin 1,200 mg tablet, extended release 12 hr 1,200 mg PO Q12H #60 tabs 09/08/23 ipratropium 0.5 mg-albuterol 3 mg (2.5 mg base)/3 mL nebulization soln 3 ml inhalation Q4H PRN PRN SOB &/OR WHEEZING #180 mL 09/08/23 mometasone 200 mcg/actuation HFA aerosol inhaler (Asmanex HFA) 2 inh inhalation BID #3 device 09/08/23 ropinirole 1 mg tablet 2 mg (2 x 1 mg) PO QHS RESTLESS LEGS #60 tabs 09/08/23 umeclidinium 62.5 mcg-vilanterol 25 mcg/actuation powdr for inhalation 1 inh inhalation DAILY #3 device 09/08/23 azithromycin 500 mg tablet 500 mg PO DAILY 3 days #3 tabs 09/21/23 diltiazem HCl 120 mg capsule,extended release 24 hr 120 mg PO Q12 30 days #60 caps 09/21/23 prednisone 20 mg tablet See Taper PO BREAKFAST #32 tabs 09/21/23
== END 2023-09-21 18:28 | disposition home or self-care (01) | DRG 191 ==
LOC: ED 19:29 → PCU 09-20 05:24
PROVIDERS: Emergency Provider Emergency Medicine; PCP Family Medicine; Visit Provider Internal Medicine
DX: J44.1 Chronic obstructive pulmonary disease with (acute) exacerbation (principal); I47.11 Inappropriate sinus tachycardia, so stated; J96.11 Chronic respiratory failure with hypoxia; J47.9 Bronchiectasis, uncomplicated; G25.81 Restless legs syndrome; G47.33 Obstructive sleep apnea (adult) (pediatric); I25.10 Atherosclerotic heart disease of native coronary artery without angina pectoris; Z87.891 Personal history of nicotine dependence; Z79.82 Long term (current) use of aspirin; Z79.51 Long term (current) use of inhaled steroids
CPT/HCPCS: 36415; 71045; 71275; 80048; 83735; 84443; 84484; 85025; 85610; 85730; 87070; 87077; 87186; 87205; 87428; 87633; 92960; 93005; 93306; 94640; 94660; 94762; 97162; 97166; 99252; 99285; Q9957; Q9967; A4216; C8929; G0463

== ENCOUNTER 2024-10-04 17:17 | Inpatient (IN) | payer MEDICARE, SELFPAY ==
[2024-10-04] VITALS (23 sets, daily range): BP systolic 120–163; BP diastolic 64–95; PULSE 104–120; RESP 12–25; TEMP 36.6–37.3; O2SAT 91–99; BMI 30.3; BMI 26.4
[2024-10-04] MEDS: MethylPREDNISolone 125 MG/2 ML Vial IV (18:29)
[2024-10-04] MEDS: Ipratropium/Albuterol Sulfate 3 ML AMPUL.NEB INHALATION (18:38)
[2024-10-04] MEDS: Albuterol 2.5 MG/3 ML VIAL.NEB. INHALATION (18:38)
[2024-10-04 18:50] LABS: Blood Gas Specimen Type VEN; O2 Delivery Device Not entered; SITE Not entered; VBG BASE EXCESS 7 mmol/L (-1.0-3.5); VBG Bicarbonate 33 mmol/L (22-26); VBG PO2 32 mmHg (25-40); VBG SO2 54 % (50-70); VBG TCO2 35 mmol/L (23-33); VBG pCO2 63.6 mmHg (41-51); VBG pH 7.32 (7.32-7.42)
--- NOTE | 2024-10-04 18:50 | RAD_ITS ---
STUDY: X-RAY CHEST REASON FOR EXAM: Male, 69 years old. SOB TECHNIQUE: AP portable COMPARISON: September 19, 2023 FINDINGS: Lungs are hyperinflated.. There is interstitial thickening seen in both lower lobes slightly more pronounced on the right and probable bullous cavity in left lower lobe. There is slightly increased density in the right lower lobe There is no demonstrated pleural abnormality. Normal size heart. Normal mediastinum and christiane. Normal visualized pulmonary arteries. Normal visualized aortic arch and descending thoracic aorta. Normal visualized thoracic spine. Normal visualized ribs, clavicles, and shoulders. There is no demonstrated abnormality of the visualized soft tissue structures of the upper abdomen. RAD/Chest 1 View IMPRESSION: Chronic interstitial and emphysematous changes in the lower lobes. . There is slight increased density in the right lower lobe since prior exam possibly representing atelectasis or evolving infiltrate Electronically Signed: Dax Mujica MD at 19:42 EST Reading Location ID and State: [facility] / [place] Tel , Service support ,
[2024-10-04 18:53] LABS: Absolute Neutrophil Count 13.1 X10^3/uL (2.0-7.7); Basophil# 0.04 X10^3/uL; Basophil% 0.3 % (0-1); Eosinophil# 0.16 X10^3/uL; Eosinophils% 1.1 % (0-5); Hematocrit 41.2 % (40-54); Lymphocyte % 2.1 % (19-41); Mean Corp Hgb Conc 31.6 g/dL (32-36); Mean Corpuscular Hgb 30.5 pg (27.0-32.0); Mean Corpuscular Volume 96.7 fL (80-94); Mean Platelet Vol. 10.9 fl (6.2-12.0); Monocyte% 4.2 % (0-10); NRBC Flagged by Analyzer 0 % (0-5); Neutrophil # 13.09 X10^3/uL (2.7-7.7); Neutrophil % 91.8 % (47-70); POSITIVE DIFFERENTIAL YES; POSITIVE MORPHOLOGY YES; Platelet Count 220 K/mm3 (150-450); RBC Distribution Width CV 14.1 % (11.6-14.6); RBC Distribution Width SD 50.1 fl (35.1-43.9); Red Blood Count 4.26 M/mm3 (4.6-6.2); White Blood Count 14.3 K/mm3 (4.4-11.0)
[2024-10-04 18:54] LABS: Anion Gap 3 (5-15); BUN 26 mg/dL (7-18); BUN/Creat Ratio 26.6 RATIO (10-20); Calcium,Total 10.4 mg/dL (8.5-10.1); Chloride 99 mmol/L (98-107); Creatinine, Serum 0.98 mg/dL (0.70-1.30); EST Glomerular Filtration Rate 81 mL/min (>60); Est Glom Filt Rate - Afr Amer 98 mL/min (>60); Estimated Creatinine Clearance 79.95 ml/min; Glucose 213 mg/dL (74-106); Potassium 4.5 mmol/L (3.5-5.1); Sodium Level 138 mmol/L (136-145); Troponin-I HS 23 pg/mL (3.0-78.0)
[2024-10-04 18:56] LABS: Differential Indicated SCAN CRITERIA MET
--- NOTE | 2024-10-04 19:17 | CT_ITS ---
We are attempting to reach an attending provider to discuss findings. An addendum with communication details will be sent when the communication is complete. STUDY: CTA CHEST REASON FOR EXAM: Male, 69 years old. SOB, elevated d-dimer, hypoxia RADIATION DOSAGE (If Supplied By Facility): CTDIvol = ( 22.10 ) mGy, DLP = ( 450.88 ) mGycm TECHNIQUE: The examination was performed with the intravenous administration of IV 100mL Isovue-370. Post-processing of the angiographic images was performed, with multiplanar reformation and 3D reconstruction. Individualized dose optimization techniques were used for this CT. COMPARISON: None. FINDINGS: Normal enhancement of the main pulmonary artery and right and left pulmonary arteries. There are tiny intraluminal clot noted within the subsegmental and segmental arterial branches of the right lower lobe . Atherosclerotic changes of the aorta without evidence for aneurysm. There is no demonstrated aortic dissection. Heart size is normal. There is no appreciable coronary artery calcification Normal mediastinum. Normal hilar regions. Normal visualized trachea and bronchi. The lungs are well expanded. There are chronic interstitial and emphysematous changes. There are also bronchiectatic changes in both lower lobes There is atelectasis or infiltrate in both lower lobes more pronounced on the right. There is a large multi septated thin-walled cavity in the left lower lobe Normal pleura. Normal chest wall structures. Dorsal spine demonstrates mild spondylosis Normal visualized upper abdomen. CT/CTA Chest W/WO Contrast IMPRESSION: Pulmonary emboli within the subsegmental and segmental branches of the right lower lobe pulmonary artery Chronic interstitial and emphysematous changes Bibasilar atelectasis or infiltrate more severe on the right Electronically Signed: Dax Mujica MD at 20:11 EST ,
[2024-10-04 19:24] LABS: Differential Comment SCANNED
--- NOTE | 2024-10-04 19:36 | EDS_ITS ---
HPI <LISA Johns - Last Filed: 10/04/24 21:43> History of Present Illness Chief Complaint: Shortness of Breath Narrative Narrative: Patient presenting today with his due to concerns for shortness of breath he has had over the last few days. He has a history of stage IV COPD and is in palliative care for this reason. He normally uses 7 L supplemental O2 at baseline, his oxygen saturation was low today around 74%, his did turn the oxygen up to 8 L but he remained in the 80s, prompting her to bring him in for evaluation. reports that his heart rate over the last few days has been elevated around 145 bpm which is unusual for him. He denies any recent illness or sick contacts, he has not been coughing, he denies chest pain and history of blood clots/recent surgery/travel/immobilization. 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 Stage 4 very severe COPD by GOLD classification Home Medications ?Medication ?Instructions ?Recorded ?Last Taken ?Type ibuprofen 200 mg tablet 800 mg PO DAILY PRN Pain 10/19/18 10/18/18 History aspirin 81 mg tablet,delayed 81 mg PO DAILY@0800 10/20/18 09/18/23 Rx release Disability Placard #1 ea 10/06/21 Unknown Rx albuterol sulfate 2.5 mg/3 mL 2.5 mg (3 mL) inhalation Q4H PRN 09/08/23 09/18/23 Rx (0.083 %) solution for nebulization Sob &/Or Wheezing #180 mL guaifenesin 1,200 mg tablet, 1,200 mg PO Q12H #60 tabs 09/08/23 09/19/23 Rx extended release 12 hr umeclidinium 62.5 mcg-vilanterol 1 inh inhalation DAILY #1 device 10/10/23 Unknown Rx 25 mcg/actuation powdr for inhalation sennosides 8.6 mg-docusate sodium 1 tab PO QDAY constipation 01/17/24 Unknown History 50 mg tablet (Senexon-S) mometasone 200 mcg/actuation HFA 2 inh inhalation BID #3 device 02/15/24 Unknown Rx aerosol inhaler (Asmanex HFA) prednisone 20 mg tablet 20 mg PO DAILY 04/23/24 Unknown History ipratropium 0.5 mg-albuterol 3 mg 3 ml inhalation Q4H PRN PRN SOB 06/29/24 Unknown Rx (2.5 mg base)/3 mL nebulization &/OR WHEEZING #180 mL soln ropinirole 1 mg tablet 2 mg (2 x 1 mg) PO QHS RESTLESS 07/09/24 Unknown Rx LEGS #60 tabs diltiazem HCl 120 mg 120 mg PO BID #180 caps 07/11/24 Unknown Rx capsule,extended release 24 hr albuterol sulfate 90 mcg/actuation 2 inh PO Q6H PRN PRN Sob &/Or 07/12/24 Unknown Rx aerosol inhaler Wheezing #3 device lorazepam 0.5 mg tablet (Ativan) 0.5 mg PO Q4H PRN anxiety 10/04/24 Unknown History Allergy/AdvReac Type Severity Reaction Status Date / Time No Known Allergies Allergy Verified 10/04/24 17:27 Family History Sister Muscular dystrophy Brother Muscular dystrophy Father Heart disease Mother Cancer Breast Surgical History History of back surgery Brain aneurysm Social History household members: spouse Smoking Status: Former smoker how long ago did patient quit smokin, 1ppd second hand exposure: Yes alcohol intake: current alcohol intake frequency: 0-2 drinks per day Alcohol type: beer substance use type: does not use caffeine: Yes Type: coffee Number of servings: 3 ROS <LISA Johns - Last Filed: 10/04/24 21:43> ROS ED Constitutional Constitutional ED: Denies chills or fever(s) Cardiovascular Cardiovascular: Denies chest pain Respiratory/Chest Respiratory/Chest: Reports cough, dyspnea, dyspnea on exertion and tachypnea Gastrointestinal Gastrointestinal: Denies abdominal pain, nausea or vomiting Musculoskeletal Musculoskeletal: Denies arthralgias or myalgias Integumentary Denies rash Neurologic Neurologic: Denies weakness EXAM <LISA Johns - Last Filed: 10/04/24 21:43> Physical Exam Const Vital Signs: 10/04/24 17:17 10/04/24 17:18 10/04/24 17:18 Temperature 99.2 F H Temperature Source Axillary Pulse Rate 120 H Respiratory Rate 22 H Respiratory Effort Respiratory Pattern Blood Pressure 146/80 H Blood Pressure Mean 102 Pulse Ox 99 Oxygen Delivery Method Bi-pap Bi-pap Bi-pap Fraction of Inspired Oxygen (FIO2) 50 50 10/04/24 17:18 10/04/24 17:20 10/04/24 17:21 Temperature Temperature Source Pulse Rate Respiratory Rate Respiratory Effort Short of Breath Respiratory Pattern Normal Blood Pressure Blood Pressure Mean Pulse Ox 99 Oxygen Delivery Method Bi-pap Fraction of Inspired Oxygen (FIO2) 50 10/04/24 17:26 10/04/24 17:26 10/04/24 17:30 Temperature 99.2 F H Temperature Source Axillary Pulse Rate 115 H Respiratory Rate 20 H 22 H Respiratory Effort Respiratory Pattern Blood Pressure 154/90 H Blood Pressure Mean 111 Pulse Ox 97 97 96 Oxygen Delivery Method Bi-pap Bi-pap Bi-pap Fraction of Inspired Oxygen (FIO2) 40 50 40 10/04/24 17:30 10/04/24 17:44 10/04/24 17:44 Temperature Temperature Source Pulse Rate 115 H 113 H Respiratory Rate 23 H 22 H Respiratory Effort Respiratory Pattern Blood Pressure 154/90 H Blood Pressure Mean 106 Pulse Ox 96 93 93 Oxygen Delivery Method Bi-pap Fraction of Inspired Oxygen (FIO2) 40 40 10/04/24 17:45 10/04/24 18:00 10/04/24 18:15 Temperature Temperature Source Pulse Rate 111 H 108 H Respiratory Rate 22 H 20 H Respiratory Effort Respiratory Pattern Blood Pressure 163/95 H 152/88 H 157/81 H Blood Pressure Mean 111 100 103 Pulse Ox 92 93 Oxygen Delivery Method Fraction of Inspired Oxygen (FIO2) 10/04/24 18:23 10/04/24 18:40 10/04/24 19:00 Temperature 98.3 F 98.2 F Temperature Source Temporal Temporal Pulse Rate 108 H 109 H 112 H Respiratory Rate 19 H 18 20 H Respiratory Effort Respiratory Pattern Normal Blood Pressure 157/81 H 138/79 H Blood Pressure Mean 106 98 Pulse Ox 93 93 Oxygen Delivery Method Bi-pap Bi-pap Fraction of Inspired Oxygen (FIO2) 40 10/04/24 19:11 10/04/24 19:11 10/04/24 20:00 Temperature Temperature Source Pulse Rate 112 H 111 H 111 H Respiratory Rate 20 H 20 H 23 H Respiratory Effort Respiratory Pattern Normal Blood Pressure 143/81 H Blood Pressure Mean 94 Pulse Ox 93 95 Oxygen Delivery Method Fraction of Inspired Oxygen (FIO2) 40 10/04/24 20:00 10/04/24 20:53 10/04/24 20:56 Temperature 98.9 F 98.9 F 98.9 F Temperature Source Temporal Temporal Pulse Rate 110 H 104 H 107 H Respiratory Rate 25 H 23 H 21 H Respiratory Effort Respiratory Pattern Blood Pressure 143/81 H 136/84 H 136/84 H Blood Pressure Mean 101 101 101 Pulse Ox 95 96 95 Oxygen Delivery Method Bi-pap Bi-pap Fraction of Inspired Oxygen (FIO2) 40 40 Positive well nourished, well developed and no apparent distress General Appearance ED: well developed HEENT Reports normocephalic and head/scalp atraumatic Mouth ED: Yes moist mucous membranes normal Eyes PERRL and EOMs intact bilaterally Neck full ROM and supple Chest Wall inspection of chest normal Resp normal respiratory effort and clear to auscultation bilaterally Resp Narrative: Decreased air movement bilaterally. Cardio regular rhythm Cardio Narrative: Tachycardic rate GI soft to palpation, non-tender, non-distended and no masses Back/Spine normal ROM and normal to inspection Extremity normal to inspection and full ROM Neuro oriented x3, CN's II-XII intact bilaterally, moves all extremities, no focal motor deficits and no sensory deficits noted Sensorium / Orientation: awake and alert Psych mental status grossly normal and thought process normal Skin no rashes or lesions noted and no wounds <Dr. Porfirio Pratt, DO - Last Filed: 10/05/24 00:49> Physical Exam Const Vital Signs: 10/04/24 17:17 10/04/24 17:18 10/04/24 17:18 Temperature 99.2 F H Temperature Source Axillary Pulse Rate 120 H Respiratory Rate 22 H Respiratory Effort Respiratory Pattern Blood Pressure 146/80 H Blood Pressure Mean 102 Pulse Ox 99 Oxygen Delivery Method Bi-pap Bi-pap Bi-pap Fraction of Inspired Oxygen (FIO2) 50 50 10/04/24 17:18 10/04/24 17:20 10/04/24 17:21 Temperature Temperature Source Pulse Rate Respiratory Rate Respiratory Effort Short of Breath Respiratory Pattern Normal Blood Pressure Blood Pressure Mean Pulse Ox 99 Oxygen Delivery Method Bi-pap Fraction of Inspired Oxygen (FIO2) 50 10/04/24 17:26 10/04/24 17:26 10/04/24 17:30 Temperature 99.2 F H Temperature Source Axillary Pulse Rate 115 H Respiratory Rate 20 H 22 H Respiratory Effort Respiratory Pattern Blood Pressure 154/90 H Blood Pressure Mean 111 Pulse Ox 97 97 96 Oxygen Delivery Method Bi-pap Bi-pap Bi-pap Fraction of Inspired Oxygen (FIO2) 40 50 40 10/04/24 17:30 10/04/24 17:44 10/04/24 17:44 Temperature Temperature Source Pulse Rate 115 H 113 H Respiratory Rate 23 H 22 H Respiratory Effort Respiratory Pattern Blood Pressure 154/90 H Blood Pressure Mean 106 Pulse Ox 96 93 93 Oxygen Delivery Method Bi-pap Fraction of Inspired Oxygen (FIO2) 40 40 10/04/24 17:45 10/04/24 18:00 10/04/24 18:15 Temperature Temperature Source Pulse Rate 111 H 108 H Respiratory Rate 22 H 20 H Respiratory Effort Respiratory Pattern Blood Pressure 163/95 H 152/88 H 157/81 H Blood Pressure Mean 111 100 103 Pulse Ox 92 93 Oxygen Delivery Method Fraction of Inspired Oxygen (FIO2) 10/04/24 18:23 10/04/24 18:40 10/04/24 19:00 Temperature 98.3 F 98.2 F Temperature Source Temporal Temporal Pulse Rate 108 H 109 H 112 H Respiratory Rate 19 H 18 20 H Respiratory Effort Respiratory Pattern Normal Blood Pressure 157/81 H 138/79 H Blood Pressure Mean 106 98 Pulse Ox 93 93 Oxygen Delivery Method Bi-pap Bi-pap Fraction of Inspired Oxygen (FIO2) 40 10/04/24 19:11 10/04/24 19:11 10/04/24 20:00 Temperature Temperature Source Pulse Rate 112 H 111 H 111 H Respiratory Rate 20 H 20 H 23 H Respiratory Effort Respiratory Pattern Normal Blood Pressure 143/81 H Blood Pressure Mean 94 Pulse Ox 93 95 Oxygen Delivery Method Fraction of Inspired Oxygen (FIO2) 40 10/04/24 20:00 10/04/24 20:53 10/04/24 20:56 Temperature 98.9 F 98.9 F 98.9 F Temperature Source Temporal Temporal Pulse Rate 110 H 104 H 107 H Respiratory Rate 25 H 23 H 21 H Respiratory Effort Respiratory Pattern Blood Pressure 143/81 H 136/84 H 136/84 H Blood Pressure Mean 101 101 101 Pulse Ox 95 96 95 Oxygen Delivery Method Bi-pap Bi-pap Fraction of Inspired Oxygen (FIO2) 40 40 [facility] <LISA Johns - Last Filed: 10/04/24 21:43> [facility] Narrative Medical decision making narrative: Patient presenting today with hypoxia, tachypnea, and shortness of breath that started a few days ago. reports his heart rate has been consistently elevated over the last few days. He dropped into the 70s today despite being on 6 L supplemental O2. He does have a history of end-stage COPD and is in palliative care for this reason. He is tachycardic here at 120 bpm. He has not been having fevers at home or any infectious symptoms. He is currently on BiPAP. Initially, I was unable to appreciate any wheezing due to decreased air movement bilaterally, however after he was given IV Solu-Medrol, DuoNeb, and albuterol breathing treatments he did start to sound more wheezy. Labs obtai mike, he has a WBC of 14.3, D-dimer is elevated at 3.1, VBG shows hypercapnia, his BUN is 26, troponin is 23. CTA of the chest shows pulmonary emboli within the subsegmental and segmental branches of the right lower pulmonary artery, no heart strain. He also has bibasilar atelectasis or infiltrates that is more severe on the right. Given he does have a leukocytosis, we will cover him for pneumonia with Rocephin and azithromycin. He will be started on a heparin drip. I spoke with the hospitalist and patient admitted in stable condition. Lab Data Attestation: I reviewed the patient's lab results. Labs: Laboratory Results - last 24 hr 10/04/24 17:39 WBC 14.3 H RBC 4.26 L Hgb 13.0 Hct 41.2 MCV 96.7 H MCH 30.5 MCHC 31.6 L RDW Std Deviation 50.1 H RDW Coeff of Clara 14.1 Plt Count 220 MPV 10.9 Immature Gran % (Auto) 0.500 Neut % (Auto) 91.8 H Lymph % (Auto) 2.1 L Alpine % (Auto) 4.2 Eos % (Auto) 1.1 Baso % (Auto) 0.3 Absolute Neuts (auto) 13.1 H Absolute Lymphs (auto) 0.30 L Nucleated RBC % 0 Differential Comment SCANNED PT 15.2 H INR 1.2 APTT 32.2 D-Dimer Quant (PE/DVT) 3.10 H* Sodium 138 Potassium 4.5 Chloride 99 Carbon Dioxide 36.0 H Anion Gap 3 L BUN 26 H Creatinine 0.98 Estim Creat Clear Calc 79.95 Est GFR (MDRD) Af Amer 98 Est GFR (MDRD) Non-Af 81 BUN/Creatinine Ratio 26.6 H Glucose 213 H Calcium 10.4 H Troponin I High Sens 23 B-Natriuretic Peptide 31.6 ABG Data ABG results: ABG 10/04/24 18:46 Specimen Type JENISE Sample Site Not entered O2 % 40.0 VBG pH 7.32 VBG pO2 32 VBG HCO3 33 H VBG Total CO2 35 H VBG O2 Sat (Calc) 54 VBG Base Excess 7 H POC Mix VBG pCO2 Pt Tmp 63.6 H O2 Delivery Device Not entered Radiography Diagnostic Testing: Clinical Impression(s) from Imaging Studies Chest X-Ray 10/04/24 18:50 IMPRESSION: Chronic interstitial and emphysematous changes in the lower lobes. . There is slight increased density in the right lower lobe since prior exam possibly representing atelectasis or evolving infiltrate Electronically Signed: Dax Mujica MD at 19:42 EST Reading Location ID and State: [address] [place] [address] Tel [phone], Service support , Chest CTA 10/04/24 19:17 IMPRESSION: Pulmonary emboli within the subsegmental and segmental branches of the right lower lobe pulmonary artery Chronic interstitial and emphysematous changes Bibasilar atelectasis or infiltrate more severe on the right Electronically Signed: Dax Mujica MD at 20:11 EST Reading Location ID and State: [address] [place] [address] Tel [phone], Service support , ADDENDUM: 10/04/242020 IMPRESSION: Pulmonary emboli within the subsegmental and segmental branches of the right lower lobe pulmonary artery Chronic interstitial and emphysematous changes Bibasilar atelectasis or infiltrate more severe on the right N.B. : The above Results were Read Back by Dax Mujica MD to LISA Johns, and understanding confirmed on 10/04/2024 20:14:20 (ET). Electronically Signed: Dax Mujica MD at 20:11 EST , EKG Initial EKG: Comments: 120 bpm, sinus tachycardia, no ST elevation, interpreted by attending ED physician <Dr. Porfirio Pratt, DO - Last Filed: 10/05/24 00:49> [facility] MDM Narrative Medical decision making narrative: Patient presenting today with hypoxia, tachypnea, and shortness of breath that started a few days ago. reports his heart rate has been consistently elevated over the last few days. He dropped into the 70s today despite being on 6 L supplemental O2. He does have a history of end-stage COPD and is in palliative care for this reason. He is tachycardic here at 120 bpm. He has not been having fevers at home or any infectious symptoms. He is currently on BiPAP. Initially, I was unable to appreciate any wheezing due to decreased air movement bilaterally, however after he was given IV Solu-Medrol, DuoNeb, and albuterol breathing treatments he did start to sound more wheezy. Labs obtained, he has a WBC of 14.3, D-dimer is elevated at 3.1, VBG shows hypercapnia, his BUN is 26, troponin is 23. CTA of the chest shows pulmonary emboli within the subsegmental and segmental branches of the right lower pulmonary artery, no heart strain. He also has bibasilar atelectasis or infiltrates that is more severe on the right. Given he does have a leukocytosis, we will cover him for pneumonia with Rocephin and azithromycin. He will be started on a heparin drip. I spoke with the hospitalist and patient admitted in stable condition. Supervisory Physician Note Patient was seen and examined with the Advanced Practice Provider. Nursing notes and vital signs have been reviewed. Pertinent old records have been reviewed. I agree with the essential elements of the ATIF's history, physical exam, assessment, and plan. The differential diagnosis and management options were discussed with the ATIF. I participated in determining and agree with the mago nagement, procedures, final impression and disposition as documented. See changes noted by me. Please see addendum or separate note for any additional details. 69-year-old male with history of SUNIL, COPD on 7 L nasal cannula baseline, HTN, CAD presents for evaluation of shortness of breath. Progressively worsening over the past several days. Hypoxic at 70% at home. Denies fever, chills, chest pain, URI symptoms, abdominal pain, nausea, vomiting. Denies any bilateral lower extremity swelling or pain. No recent surgery or travel. Gen: A&O x3 Head: Normocephalic, atraumatic Eyes: No sclera icterus, conjunctiva clear ENT: Moist mucous membranes Neck: Trachea midline, No JVD CV: Tachycardic, regular rhythm, no murmurs, no peripheral edema Resp: Diminished in the bilateral bases, mildly coarse, poor airflow, + expiratory wheezing diffusely, on BiPAP GI: Abd soft, non-distended, non-tender, no r/r/g Musc: Full ROM, no deformity Skin: Warm, dry Neuro: Alert, oriented, grossly intact, sensation intact Psych: Cooperative, appropriate mood and affect On arrival, patient tachycardic and tachypneic. Placed on BiPAP. Differential diagnosis includes but is not limited to COPD exacerbation, pneumonia, PE, CHF, ACS. Solu-Medrol, DuoNebs ordered for wheezing. EKG was personally reviewed and interpreted by me. Sinus tachycardia with a heart rate of 120. No acute ischemic changes. CBC with a leukocytosis. D-dimer elevated at 3.1. CTA chest ordered to rule out PE. BMP relatively unremarkable. BNP unremarkable. Troponin within normal limits. CTA chest positive for PE. Possible pneumonia. Rocephin and azithromycin ordered. Heparin started. Patient admitted. Impression: 1. Pulmonary embolism 2. Acute on chronic respiratory failure requiring BiPAP 3. COPD exacerbation 4. Possible community-acquired pneumonia Lab Data Labs: Laboratory Results - last 24 hr 10/04/24 17:39 WBC 14.3 H RBC 4.26 L Hgb 13.0 Hct 41.2 MCV 96.7 H MCH 30.5 MCHC 31.6 L RDW Std Deviation 50.1 H RDW Coeff of Clara 14.1 Plt Count 220 MPV 10.9 Immature Gran % (Auto) 0.500 Neut % (Auto) 91.8 H Lymph % (Auto) 2.1 L Alpine % (Auto) 4.2 Eos % (Auto) 1.1 Baso % (Auto) 0.3 Absolute Neuts (auto) 13.1 H Absolute Lymphs (auto) 0.30 L Nucleated RBC % 0 Differential Comment SCANNED PT 15.2 H INR 1.2 APTT 32.2 D-Dimer Quant (PE/DVT) 3.10 H* Sodium 138 Potassium 4.5 Chloride 99 Carbon Dioxide 36.0 H Anion Gap 3 L BUN 26 H Creatinine 0.98 Estim Creat Clear Calc 79.95 Est GFR (MDRD) Af Amer 98 Est GFR (MDRD) Non-Af 81 BUN/Creatinine Ratio 26.6 H Glucose 213 H Calcium 10.4 H Troponin I High Sens 23 B-Natriuretic Peptide 31.6 ABG Data ABG results: ABG 10/04/24 18:46 Specimen Type JENISE Sample Site Not entered O2 % 40.0 VBG pH 7.32 VBG pO2 32 VBG HCO3 33 H VBG Total CO2 35 H VBG O2 Sat (Calc) 54 VBG Base Excess 7 H POC Mix VBG pCO2 Pt Tmp 63.6 H O2 Delivery Device Not entered Radiography Diagnostic Testing: Clinical Impression(s) from Imaging Studies Chest X-Ray 10/04/24 18:50 IMPRESSION: Chronic interstitial and emphysematous changes in the lower lobes. . There is slight increased density in the right lower lobe since prior exam possibly representing atelectasis or evolving infiltrate Electronically Signed: Dax Mujica MD at 19:42 EST , Chest CTA 10/04/24 19:17 IMPRESSION: Pulmonary emboli within the subsegmental and segmental branches of the right lower lobe pulmonary artery Chronic interstitial and emphysematous changes Bibasilar atelectasis or infiltrate more severe on the right Electronically Signed: Dax Mujica MD at 20:11 EST , ADDENDUM: 10/04/242020 IMPRESSION: Pulmonary emboli within the subsegmental and segmental branches of the right lower lobe pulmonary artery Chronic interstitial and emphysematous changes Bibasilar atelectasis or infiltrate more severe on the right N.B. : The above Results were Read Back by Dax Mujica MD to LISA Johns, and understanding confirmed on 10/04/2024 20:14:20 (ET). Electronically Signed: Dax Mujica MD at 20:11 EST , Discharge Plan Dx/Rx/DC Orders Clinical Impression: Pulmonary embolism, COPD (chronic obstructive pulmonary disease), Pneumonia, Hypoxia Disposition Disposition: Acute Care Hospital [facility] Discharge Date/Time: 10/04/24 22:13
[2024-10-04 19:41] LABS: BNP,B-Type NATRIURETIC PEPTIDE 31.6 pg/mL (0-100)
--- NOTE | 2024-10-04 19:42 | EKG12_ITS ---
Test Reason : SOB Blood Pressure : */* mmHG Vent. Rate : 120 BPM Atrial Rate : 120 BPM P-R Int : 124 ms QRS Dur : 74 ms QT Int : 300 ms P-R-T Axes : 72 67 60 degrees QTcB Int : 424 ms Sinus tachycardia Otherwise normal ECG Confirmed by ADONIS KATE, RORY ([id number]), department editor YULI ANTUNEZ ([id number]) on 10/10/2024 1:24:31 P M Referred By: MILES/KARLOS Confirmed By: RORY LAMB MD
--- NOTE | 2024-10-04 20:10 | ED.RN ---
This RN was unable to get an axillary temp on the patient and the bipap mask is on so I am unable to get an oral temp on patient either. During attempts to get axillary temperature, machine would time out and not show a temperature.
--- NOTE | 2024-10-04 20:32 | HP.PCM.HOS_ITS ---
HPI - General General Date of Admission: 10/04/24 Date of Service: 10/04/24 Chief Complaint: Dyspnea, worsening hypoxia. HPI Narrative The patient is a 69 y/o M w/ PMHx: Stage IV COPD w/ Chronic Hypoxic Respiratory Failure (6L NC baseline) following with Palliative Therapy, SUNIL on BIPAP q HS, Chronic sinus tachycardia, HTN, Hx brain aneurysm status post-craniotomy with stent placement remotely, Former tobacco use who presents to the [facility] ED on 10/04/2024 with worsening dyspnea over the last 2 days normally using 6 L baseline at home and BiPAP at night however he has progressively been worsening noted to be in the 70s on his baseline 6 L prompting her to increase it up to 7 and eventually up to 8 however he remained low prompting EMS call with also noted significantly worsened tachycardia as he does have underlying sinus tachycardia with no recent cough, congestion, fever or chills or any recent ill contacts prompting ED evaluation. He denies any recent surgery or travel. He does report decreased mobility because of his underlying chronic dyspnea. Workup in the ED included T99.2, heart rate 120, BP 146/80, respiratory rate 22, 99% on the BiPAP 50% FiO2 with most recent repeat vital signs T98.9 Temporally, heart rate 110, BP 143/81, respiratory rate 25, 95% on BiPAP 40% FiO2, CBC with WBC 14.3, hemoglobin 13, platelet 220 with left shift and lymphopenia, D-dimer 3.10, VBG with bicarb 33, CO2 35, BMP with complex at 36, BUN/creatinine 26/0.98, glucose 213, calcium 10.4, troponin 23, BNP 31.6, respiratory panel with SARS COVID/influenza/RSV PCR negative, chest x-ray with chronic interstitial and emphysematous changes in the lower lobes with slight increased density in the right lower lobe since prior possibly atelectasis or evolving infiltrate, CTPA with pulmonary emboli within the subsegmental and segmental branches of the right lower lobe pulmonary artery, chronic interstitial and emphysematous changes, bibasilar atelectasis or possibly infiltrate more severe on the right, EKG with sinus tachycardia with no acute evidence of ischemia. In the ED patient ministered Solu-Medrol 125 mg IV x 1, DuoNeb and albuterol therapies, IV Rocephin and azithromycin, heparin drip with bolus initiated also. 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 Stage 4 very severe COPD by GOLD classification Home Medications ?Medication ?Instructions ?Recorded ?Last Taken ?Type ibuprofen 200 mg tablet 800 mg PO DAILY PRN Pain 10/19/18 10/18/18 History aspirin 81 mg tablet,delayed 81 mg PO DAILY@0800 10/20/18 09/18/23 Rx release Disability Placard #1 ea 10/06/21 Unknown Rx albuterol sulfate 2.5 mg/3 mL 2.5 mg (3 mL) inhalation Q4H PRN 09/08/23 09/18/23 Rx (0.083 %) solution for nebulization Sob &/Or Wheezing #180 mL guaifenesin 1,200 mg tablet, 1,200 mg PO Q12H #60 tabs 09/08/23 09/19/23 Rx extended release 12 hr umeclidinium 62.5 mcg-vilanterol 1 inh inhalation DAILY #1 device 10/10/23 Unknown Rx 25 mcg/actuation powdr for inhalation sennosides 8.6 mg-docusate sodium 1 tab PO QDAY constipation 01/17/24 Unknown History 50 mg tablet (Senexon-S) mometasone 200 mcg/actuation HFA 2 inh inhalation BID #3 device 02/15/24 Unknown Rx aerosol inhaler (Asmanex HFA) prednisone 20 mg tablet 20 mg PO DAILY 04/23/24 Unknown History ipratropium 0.5 mg-albuterol 3 mg 3 ml inhalation Q4H PRN PRN SOB 06/29/24 Unknown Rx (2.5 mg base)/3 mL nebulization &/OR WHEEZING #180 mL soln ropinirole 1 mg tablet 2 mg (2 x 1 mg) PO QHS RESTLESS 07/09/24 Unknown Rx LEGS #60 tabs diltiazem HCl 120 mg 120 mg PO BID #180 caps 07/11/24 Unknown Rx capsule,extended release 24 hr albuterol sulfate 90 mcg/actuation 2 inh PO Q6H PRN PRN Sob &/Or 07/12/24 Unknown Rx aerosol inhaler Wheezing #3 device lorazepam 0.5 mg tablet (Ativan) 0.5 mg PO Q4H PRN anxiety 10/04/24 Unknown History Allergy/AdvReac Type Severity Reaction Status Date / Time No Known Allergies Allergy Verified 10/04/24 17:27 Family History Sister Muscular dystrophy Brother Muscular dystrophy Father Heart disease Mother Cancer Breast Surgical History History of back surgery Brain aneurysm Social History household members: spouse Smoking Status: Former smoker how long ago did patient quit smokin, 1ppd second hand exposure: Yes alcohol intake: current alcohol intake frequency: 0-2 drinks per day Alcohol type: beer substance use type: does not use caffeine: Yes Type: coffee Number of servings: 3 ROS ROS Narrative Admission Review of Systems: CONSTITUTIONAL: No weight loss, fever, chills, + weakness or fatigue. HEENT: Eyes: No visual loss, blurred vision, double vision or yellow sclerae. Ears, Nose, Throat: No hearing loss, sneezing, congestion, runny nose or sore throat. SKIN: No rash or itching, lesions, wounds. CARDIOVASCULAR: No chest pain, chest pressure or chest discomfort, palpitations, edema, orthopnea, syncopal events. RESPIRATORY: + Dyspnea, occasional wheezing but not severe. No marked cough or productive sputum or hemoptysis. GASTROINTESTINAL: No anorexia, nausea, vomiting or diarrhea, abdominal pain, melena, BRBPR. GENITOURINARY: No dysuria, frequency, urgency or retention. NEUROLOGICAL: No headache, dizziness, syncope, paralysis, ataxia, numbness or tingling in the extremities, focal weakness, change in bowel or bladder control, seizure. MUSCULOSKELETAL: + muscle, back pain, joint pain or stiffness. HEMATOLOGIC: No anemia, bleeding or bruising. LYMPHATICS: No enlarged nodes. No history of splenectomy. PSYCHIATRIC: + History of anxiety. ENDOCRINOLOGIC: No reports of sweating, cold or heat intolerance. No polyuria or polydipsia. ALLERGIES: No history of asthma, hives, eczema or rhinitis. Vital Signs Vital Signs Vital Signs: 10/04/24 17:17 10/04/24 17:18 10/04/24 17:18 Temperature 99.2 F H Temperature Source Axillary Pulse Rate 120 H Respiratory Rate 22 H Respiratory Effort Respiratory Pattern Blood Pressure 146/80 H Blood Pressure Mean 102 Pulse Ox 99 Oxygen Delivery Method Bi-pap Bi-pap Bi-pap Fraction of Inspired Oxygen (FIO2) 50 50 10/04/24 17:18 10/04/24 17:20 10/04/24 17:21 Temperature Temperature Source Pulse Rate Respiratory Rate Respiratory Effort Short of Breath Respiratory Pattern Normal Blood Pressure Blood Pressure Mean Pulse Ox 99 Oxygen Delivery Method Bi-pap Fraction of Inspired Oxygen (FIO2) 50 10/04/24 17:26 10/04/24 17:26 10/04/24 17:30 Temperature 99.2 F H Temperature Source Axillary Pulse Rate 115 H Respiratory Rate 20 H 22 H Respiratory Effort Respiratory Pattern Blood Pressure 154/90 H Blood Pressure Mean 111 Pulse Ox 97 97 96 Oxygen Delivery Method Bi-pap Bi-pap Bi-pap Fraction of Inspired Oxygen (FIO2) 40 50 40 10/04/24 17:30 10/04/24 17:44 10/04/24 17:44 Temperature Temperature Source Pulse Rate 115 H 113 H Respiratory Rate 23 H 22 H Respiratory Effort Respiratory Pattern Blood Pressure 154/90 H Blood Pressure Mean 106 Pulse Ox 96 93 93 Oxygen Delivery Method Bi-pap Fraction of Inspired Oxygen (FIO2) 40 40 10/04/24 17:45 10/04/24 18:00 10/04/24 18:15 Temperature Temperature Source Pulse Rate 111 H 108 H Respiratory Rate 22 H 20 H Respiratory Effort Respiratory Pattern Blood Pressure 163/95 H 152/88 H 157/81 H Blood Pressure Mean 111 100 103 Pulse Ox 92 93 Oxygen Delivery Method Fraction of Inspired Oxygen (FIO2) 10/04/24 18:23 10/04/24 18:40 10/04/24 19:00 Temperature 98.3 F 98.2 F Temperature Source Temporal Temporal Pulse Rate 108 H 109 H 112 H Respiratory Rate 19 H 18 20 H Respiratory Effort Respiratory Pattern Normal Blood Pressure 157/81 H 138/79 H Blood Pressure Mean 106 98 Pulse Ox 93 93 Oxygen Delivery Method Bi-pap Bi-pap Fraction of Inspired Oxygen (FIO2) 40 10/04/24 19:11 10/04/24 19:11 10/04/24 20:00 Temperature Temperature Source Pulse Rate 112 H 111 H 111 H Respiratory Rate 20 H 20 H 23 H Respiratory Effort Respiratory Pattern Normal Blood Pressure 143/81 H Blood Pressure Mean 94 Pulse Ox 93 95 Oxygen Delivery Method Fraction of Inspired Oxygen (FIO2) 40 10/04/24 20:00 Temperature 98.9 F Temperature Source Temporal Pulse Rate 110 H Respiratory Rate 25 H Respiratory Effort Respiratory Pattern Blood Pressure 143/81 H Blood Pressure Mean 101 Pulse Ox 95 Oxygen Delivery Method Bi-pap Fraction of Inspired Oxygen (FIO2) 40 Weight Weight: 199 lb 11.821 oz Body Mass Index (BMI) 30.3 Physical Exam Narrative Physical Examination: General: Awake, alert, oriented x 3 and cooperative, seated upright in the ED bed, fatigued, BiPAP still in place, notes feeling improved since initial ED arrival, respiratory distress initial with increased work of breathing accessory muscle usage has improved. Skin: Normal color, normal turgor, no icterus, no cyanosis. HEENT: AT/NC, EOMI, PERRLA, dry MM, BiPAP in place, difficult to discern carotid bruits, no marked JVD noted. Lungs: Significantly diminished, greater bases, mildly increased respiratory rate but no distress, BiPAP still in place, no rales or rhonchi, no marked wheezing currently noted but significantly diminished. Heart: Mildly tachycardic with regular rhythm, improved, no gallop, rub audible. Abdomen: Soft, obese, NTTP, ND, normal BS, no appreciated HSM. Extremities: No cyanosis, no clubbing, no marked peripheral edema, no pain to calf palpation. Neurological: Patient awake, alert, oriented as noted, cognitive function intact; pupils equally reactive to light and accommodation, cranial nerves gross normal, moving all 4 extremities, no focal deficits, strength severely globally decreased secondary to acute presentation. Psychiatric: Affect appears fatigued otherwise normal, no acute evidence of depressive or anxiety feelings but does have underlying anxiety history. Results Lab / Micro Data 10/04/24 17:39 10/04/24 17:39 Labs: Laboratory Results - last 24 hr 10/04/24 17:39: WBC 14.3 H, RBC 4.26 L, Hgb 13.0, Hct 41.2, MCV 96.7 H, MCH 30.5, MCHC 31.6 L, RDW Std Deviation 50.1 H, RDW Coeff of Clara 14.1, Plt Count 220, MPV 10.9, Immature Gran % (Auto) 0.500, Neut % (Auto) 91.8 H, Lymph % (Auto) 2.1 L, [place] % (Auto) 4.2, Eos % (Auto) 1.1, Baso % (Auto) 0.3, Absolute Neuts (auto) 13.1 H, Absolute Lymphs (auto) 0.30 L, Nucleated RBC % 0, Differential Comment SCANNED, D-Dimer Quant (PE/DVT) 3.10 H*, Sodium 138, Potassium 4.5, Chloride 99, Carbon Dioxide 36.0 H, Anion Gap 3 L, BUN 26 H, Creatinine 0.98, Estim Creat Clear Calc 79.95, Est GFR (MDRD) Af Amer 98, Est GFR (MDRD) Non-Af 81, BUN/Creatinine Ratio 26.6 H, Glucose 213 H, Calcium 10.4 H , Troponin I High Sens 23, B-Natriuretic Peptide 31.6 Micro: Microbiology 10/04/24 18:34 Mucosa - Nose SARS-CoV-2, Influenza & RSV (PCR) - Final ABG Data ABG results: ABG 10/04/24 18:46 Specimen Type JENISE Sample Site Not entered O2 % 40.0 VBG pH 7.32 VBG pO2 32 VBG HCO3 33 H VBG Total CO2 35 H VBG O2 Sat (Calc) 54 VBG Base Excess 7 H POC Mix VBG pCO2 Pt Tmp 63.6 H O2 Delivery Device Not entered Imaging Radiology Impression Chest X-Ray 10/04/24 18:50 IMPRESSION: Chronic interstitial and emphysematous changes in the lower lobes. . There is slight increased density in the right lower lobe since prior exam possibly representing atelectasis or evolving infiltrate Electronically Signed: Dax Mujica MD at 19:42 EST , Chest CTA 10/04/24 19:17 IMPRESSION: Pulmonary emboli within the subsegmental and segmental branches of the right lower lobe pulmonary artery Chronic interstitial and emphysematous changes Bibasilar atelectasis or infiltrate more severe on the right Electronically Signed: Dax Mujica MD at 20:11 EST , ADDENDUM: 10/04/242020 IMPRESSION: Pulmonary emboli within the subsegmental and segmental branches of the right lower lobe pulmonary artery Chronic interstitial and emphysematous changes Bibasilar atelectasis or infiltrate more severe on the right N.B. : The above Results were Read Back by Dax Mujica MD to LISA Johns, and understanding confirmed on 10/04/2024 20:14:20 (ET). Electronically Signed: Dax Mujica MD at 20:11 EST , Assessment & Plan Assessment/Plan (1) Pulmonary embolism: PLAN: Plan The patient is a 69 y/o M w/ PMHx: Stage IV COPD w/ Chronic Hypoxic Respiratory Failure (6L NC baseline) following with Palliative Therapy, SUNIL on BIPAP q HS, Chronic sinus tachycardia, HTN, Hx brain aneurysm status post-craniotomy with stent placement remotely, Former tobacco use who presents to the [facility] ED on 10/04/2024 with worsening dyspnea over the last 2 days normally using 6 L baseline at home and BiPAP at night however he has progressively been worsening noted to be in the 70s on his baseline 6 L prompting her to increase it up to 7 and eventually up to 8 however he remained low prompting EMS call with also noted significantly worsened tachycardia as he does have underlying sinus tachycardia with no recent cough, congestion, fever or chills or any recent ill contacts prompting ED evaluation. #1. Acute on Chronic Hypoxic Respiratory Failure secondary to Acute Pulmonary Embolism with questionable BL Pneumonia as well as questionable Acute on Chronic COPD Exacerbation: EKG without acute findings, CXR no acute process with chronic interstitial and emphysematous changes with possibly atelectasis, D-dimer elevated,CTPA with pulmonary emboli within the subsegmental and segmental branches of the right lower lobe pulmonary artery, chronic interstitial and emphysematous changes, bibasilar atelectasis or possibly infiltrate more severe on the right, CBC w/ WBC 14.3 with left shift however patient is on steroids, troponin x 1 normal, BMP normal. Patient with significant chronic debility with decreased activity because of chronic hypoxia. Given acute on chronic respiratory failure requiring BiPAP will admit to the ICU, consult regional sales executive per protocol, maintain on telemetry, will obtain echocardiogram, continue heparin drip with oral investigation of agents and transition once clarified which is affordable. In the ED patient ministered antibiotics for possible pneumonia as well as IV Solu-Medrol for COPD exacerbation concurrently, upon evaluation minimal wheezing noted primarily diminished denies any recent fever, chills, cough thus lower suspicion for pneumonia as does have significant scarring disease history and severe lung disease thus certainly could be atelectasis on film. Discussed with family and patient and will at this time hold further antibiotic therapies but will obtain procalcitonin as well as repeat CBC and if elevated low threshold to add back antibiotic therapy, sputum culture and urine antigens also requested as well as full respiratory viral panel. Will continue IV Solu-Medrol at this time as evaluation was later in the course of ED care thus certainly could have improved since initial evaluation. #2. History of brain aneurysm: Noted history of aneurysm, unclear exact location, status postcraniotomy and per description possibly stenting, encourage continued outpatient follow-up as previously arranged. #3. Hypertension: Continue home regimen including diltiazem, PRN hydralazine. #4. Chronic sinus tachycardia: We will continue patient on diltiazem regimen, likely worsened recent tachycardia because of #1. #5. Anxiety: We will continue patient home as needed Ativan regimen cautiously with hold for sedation. #6. Restless leg syndrome: Will continue patient home nightly Requip regimen. #7. SUNIL: Currently on continuous BIPAP, normally uses q HS only, transition once respiratory status improved. #8. Former tobacco use: Encourage continued tobacco cessation. #9. DVT prophylaxis: Continue heparin drip with planned oral transition following financial cost assessment. #10. CODE status: Patient DANE is his was present and living will is currently in place. Discussed CODE status at length including difference between FULL code, DNR-CCA and DNR-CC status. Following discussions about the differences in these status, requested DNR-CCA, no intubation, no aggressive measures. Advanced Care Planning Face to Face Time: 16 minutes. Charges/Coding Visit Charges Inpatient E&M: 71477 Init Hosp L3 Procedures Hospitalists Procedures: 59308 Advncd Care Plan 30 Min
[2024-10-04] MEDS: HEPARIN/D5w 25,000 UNITS 25,000 UNITS/250 ML IV.SOLN. 10 UNITS CONT INF (20:45)
[2024-10-04] MEDS: Heparin Injection (Vial) 5,000 UNIT/ML VIAL 4000 UNIT IV (20:47)
[2024-10-04] MEDS: Ceftriaxone 1 GM/50 ML BAG IV (20:48)
[2024-10-04 21:16] LABS: International Normalized Ratio 1.2; Prothrombin Time (Protime)PT. 15.2 SECONDS (11.7-14.9)
[2024-10-04 21:17] LABS: Partial Thromboplast Time 32.2 Seconds (24.1-36.2)
[2024-10-04] MEDS: Azithromycin 500 MG in Dextrose 5%-Water (250mL Bag) 250 ML 250 MG IV (21:46)
[2024-10-04] MEDS: Pramipexole Di-HCl 1 MG Tablet PO (22:40)
[2024-10-04] MEDS: dilTIAZem CD 120 MG Capsule PO (22:40)
[2024-10-04] MEDS: guaiFENesin 1,200 MG Tablet 1200 MG PO (22:40)
[2024-10-05] VITALS (24 sets, daily range): BP systolic 111–172; BP diastolic 66–86; PULSE 88–124; RESP 12–28; TEMP 36.3–36.7; O2SAT 88–100; BMI 26.4
[2024-10-05 02:53] LABS: Procalcitonin 13.55 ng/mL (0.00-0.09)
[2024-10-05 03:06] LABS: Absolute Lymphocyte Count 0.13 X10^3/uL (0.83-4.51); Absolute Neutrophil Count 9.8 X10^3/uL (2.0-7.7); Basophil# 0.02 X10^3/uL; Basophil% 0.2 % (0-1); Hemoglobin 11.3 g/dL (13.0-16.5); Lymphocyte # 0.13 X10^3/ul (0.83-4.51); Lymphocyte % 1.3 % (19-41); Mean Corp Hgb Conc 32.3 g/dL (32-36); Mean Corpuscular Hgb 30.6 pg (27.0-32.0); Mean Corpuscular Volume 94.9 fL (80-94); Mean Platelet Vol. 10.5 fl (6.2-12.0); Monocyte% 2.9 % (0-10); NRBC Flagged by Analyzer 0 % (0-5); Neutrophil # 9.83 X10^3/uL (2.7-7.7); Neutrophil % 95.4 % (47-70); POSITIVE DIFFERENTIAL YES; Platelet Count 182 K/mm3 (150-450); RBC Distribution Width SD 49.1 fl (35.1-43.9); Red Blood Count 3.69 M/mm3 (4.6-6.2); White Blood Count 10.3 K/mm3 (4.4-11.0)
[2024-10-05 03:17] LABS: Partial Thromboplast Time 59.4 Seconds (24.1-36.2)
[2024-10-05 03:23] LABS: ALB/GLOB Ratio 0.5 RATIO (0.9-2.4); AST(SGOT) 43 U/L (15-37); Alanine Aminotransfer ALT/SGPT 37 U/L (16-61); Albumin, Serum 2.5 g/dL (3.2-5.0); Alkaline Phosphatase 95 U/L (45-117); Anion Gap 5 (5-15); BUN 23 mg/dL (7-18); Calcium,Total 10.1 mg/dL (8.5-10.1); Chloride 98 mmol/L (98-107); Creatinine, Serum 0.77 mg/dL (0.70-1.30); EST Glomerular Filtration Rate 108 mL/min (>60); Est Glom Filt Rate - Afr Amer 130 mL/min (>60); Estimated Creatinine Clearance 86.69 ml/min; Globulin 4.7 g/dL (2.2-4.2); Glucose 197 mg/dL (74-106); Potassium 3.8 mmol/L (3.5-5.1); Protein, Total 7.2 g/dL (6.4-8.2); Sodium Level 137 mmol/L (136-145)
[2024-10-05] MEDS: dilTIAZem CD 120 MG Capsule PO ×2 (08:41→21:12)
[2024-10-05] MEDS: guaiFENesin 1,200 MG Tablet 1200 MG PO ×2 (08:41→21:12)
[2024-10-05] MEDS: Senna/Docusate Sodium 1 Tablet PO (08:42)
--- NOTE | 2024-10-05 09:30 | PCM.PN.HOSP ---
Subjective Subjective Remains on BiPAP this morning. No major issues overnight Objective Data Objective Data Vital Signs: Vital Signs Temp Pulse Resp BP Pulse Ox O2 Del Method O2 Flow Rate 97.8 F 105 H 23 H 140/80 H 90 High Flow 8 10/05/24 09:00 10/05/24 09:00 10/05/24 09:00 10/05/24 09:00 10/05/24 09:00 10/05/24 09:00 10/05/24 09:00 FiO2 40 10/05/24 08:00 Oxygen Flow Rate (L/min) 8 Oxygen Delivery Method High Flow Weight: 174 lb 2.643 oz Body Mass Index (BMI) 26.4 Intake & Output: Intake and Output for Last 24 Hours 10/04/24 10/05/24 10/06/24 03:59 03:59 03:59 Intake Total 305 / 305 Output Total 450 / 450 Balance -145 / -145 Lab / Micro Data 10/05/24 03:00 10/05/24 03:00 Labs: Laboratory Results - last 24 hr 10/04/24 17:39: WBC 14.3 H, RBC 4.26 L, Hgb 13.0, Hct 41.2, MCV 96.7 H, MCH 30.5, MCHC 31.6 L, RDW Std Deviation 50.1 H, RDW Coeff of Clara 14.1, Plt Count 220, MPV 10.9, Immature Gran % (Auto) 0.500, Neut % (Auto) 91.8 H, Lymph % (Auto) 2.1 L, Bee % (Auto) 4.2, Eos % (Auto) 1.1, Baso % (Auto) 0.3, Absolute Neuts (auto) 13.1 H, Absolute Lymphs (auto) 0.30 L, Nucleated RBC % 0, Differential Comment SCANNED, PT 15.2 H, INR 1.2, APTT 32.2, D-Dimer Quant (PE/DVT) 3.10 H*, Sodium 138, Potassium 4.5, Chloride 99, Carbon Dioxide 36.0 H, Anion Gap 3 L, BUN 26 H, Creatinine 0.98, Estim Creat Clear Calc 79.95, Est GFR (MDRD) Af Amer 98, Est GFR (MDRD) Non-Af 81, BUN/Creatinine Ratio 26.6 H, Glucose 213 H, Calcium 10.4 H, Troponin I High Sens 23, B-Natriuretic Peptide 31.6 10/05/24 01:05: Procalcitonin 13.55 H 10/05/24 03:00: WBC 10.3, RBC 3.69 L, Hgb 11.3 L, Hct 35.0 L, MCV 94.9 H, MCH 30.6, MCHC 32.3, RDW Std Deviation 49.1 H, RDW Coeff of Clara 14.0, Plt Count 182, MPV 10.5, Immature Gran % (Auto) 0.200, Neut % (Auto) 95.4 H, Lymph % (Auto) 1.3 L, Bee % (Auto) 2.9, Eos % (Auto) 0.0, Baso % (Auto) 0.2, Absolute Neuts (auto) 9.8 H, Absolute Lymphs (auto) 0.13 L, Nucleated RBC % 0, APTT 59.4 H, Sodium 137, Potassium 3.8, Chloride 98, Carbon Dioxide 35.0 H, Anion Gap 5, BUN 23 H, Creatinine 0.77, Estim Creat Clear Calc 86.69, Est GFR (MDRD) Af Amer 130, Est GFR (MDRD) Non-Af 108, BUN/Creatinine Ratio 30.0 H, Glucose 197 H, Calcium 10.1, Total Bilirubin 0.50, AST 43 H, ALT 37, Alkaline Phosphatase 95, Total Protein 7.2, Albumin 2.5 L, Globulin 4.7 H, Albumin/Globulin Ratio 0.5 L Micro: Microbiology 10/04/24 23:35 Mucosa - Nasopharyngeal Respiratory Panel (PCR) - Final 10/05/24 00:45 Urine, Clean Catch Streptococcus pneumoniae Antigen (M - Final 10/05/24 00:45 Urine, Clean Catch Legionella Antigen - Final 10/04/24 18:34 Mucosa - Nose SARS-CoV-2, Influenza & RSV (PCR) - Final ABG Data ABG results: ABG 10/04/24 18:46 Specimen Type JENISE Sample Site Not entered O2 % 40.0 VBG pH 7.32 VBG pO2 32 VBG HCO3 33 H VBG Total CO2 35 H VBG O2 Sat (Calc) 54 VBG Base Excess 7 H POC Mix VBG pCO2 Pt Tmp 63.6 H O2 Delivery Device Not entered Radiography Diagnostic Testing: Radiology Impression Chest X-Ray 10/04/24 18:50 IMPRESSION: Chronic interstitial and emphysematous changes in the lower lobes. . There is slight increased density in the right lower lobe since prior exam possibly representing atelectasis or evolving infiltrate Electronically Signed: Dax Mujica MD at 19:42 EST Reading Location ID and State: [address] [place] [address] Tel [phone], Service support , Chest CTA 10/04/24 19:17 IMPRESSION: Pulmonary emboli within the subsegmental and segmental branches of the right lower lobe pulmonary artery Chronic interstitial and emphysematous changes Bibasilar atelectasis or infiltrate more severe on the right Electronically Signed: Dax Mujica MD at 20:11 EST Reading Location ID and State: [address] [place] [address] Tel [phone], Service support , ADDENDUM: 10/04/242020 IMPRESSION: Pulmonary emboli within the subsegmental and segmental branches of the right lower lobe pulmonary artery Chronic interstitial and emphysematous changes Bibasilar atelectasis or infiltrate more severe on the right N.B. : The above Results were Read Back by Dax Mujica MD to LISA Johns, and understanding confirmed on 10/04/2024 20:14:20 (ET). Electronically Signed: Dax Mujica MD at 20:11 EST Reading Location ID and State: [address] [place] [address] Tel [phone], Service support , Physical Exam Narrative General: Alert, Oriented x3, Cooperative, No apparent distress HEENT: Atraumatic, PERRLA, EOMI, Normocephalic Oral: Moist Mucosa Neck: Supple, No JVD Lungs: Diminished, Normal air movement, No rhonchi, No wheeze, No rales, tachypneic Cardiovascular: Tachycardic, Regular Rhythm, Normal S1, Normal S2, No murmurs Abdomen: Soft, Non Tender, Non-Distended, No Hepato-splenomegaly Extremities: No edema, Capillary Refill Less than 3 Seconds Skin: No rashes, No breakdown Musculoskeletal: No Tenderness to Palpation of Joints or Extremities Neurological: No focal neurological deficits, moves all extremities Psych/Mental Status: Normal Affect, Appropriate Assessment & Plan Assessment/Plan (1) Pulmonary embolism: PLAN: Plan 1. Acute on chronic hypoxic respiratory failure secondary to acute PE with possible bilateral pneumonia and acute on chronic COPD exacerbation ? Transition to Eliquis ? Continue with antibiotics for possible pneumonia ? Continue with steroids and breathing treatments for COPD exacerbation ? Acute respiratory failure appears to have resolved 2. Essential HTN/chronic sinus tachycardia ? Continue with his Cardizem ? Blood pressures are stable ? Will monitor make adjustments as necessary 3. Anxiety/restless leg syndrome ? Stable ? Continue with his home medications DVT: Eliquis Charges/Coding Visit Charges Inpatient E&M: 80548 Subs Hosp L2
--- NOTE | 2024-10-05 09:45 | EX.PCM.CONCC ---
Assessment & Plan Assessment/Plan (1) Acute on chronic respiratory failure with hypoxemia: PLAN: Plan RECOMMENDATIONS: 1. Continue to wean supplemental oxygen as tolerated. 2. Continue PAP therapy with naps and nightly. 3. Okay to transition to Eliquis and discontinue weight-based heparin infusion. 4. Initiate scheduled bronchodilator therapy and continue IV steroids. 5. Empiric antibiotics as ordered. Check MRSA screen. If negative, vancomycin can be discontinued. 6. Encourage incentive spirometer use and mobilize patient as tolerated. 7. Okay for transfer out of the intensive care unit. IMPRESSIONS: 1. Acute on chronic hypoxemic respiratory failure Likely multifactorial in etiology with end-stage COPD in a state of exacerbation due to underlying pneumonia and small pulmonary emboli contributing. Accordingly, the patient will be continued on empiric antibiotics, scheduled bronchodilators and IV steroids. His weight-based heparin infusion can be transition to Eliquis from my perspective. Otherwise, continue to wean supplemental oxygen as tolerated. Given the patient's known history of obstructive sleep apnea, continue PAP therapy with naps and nightly. 2. History of tobacco dependency in remission/anxiety/restless leg syndrome/hypertension/history of SUNIL Complicates care, management, recovery and prognosis. Continue home medications as indicated. Continue follow-up with palliative care medicine on outpatient basis. CODE STATUS: DNR CCA without intubation This note was generated with [employer] dictation software. It may contain incorrect words, spelling, and punctuation that were not noted in checking the note before signing. HPI Consult Data Date of Consult: 10/05/24 HPI Narrative Reason for Consultation: Acute on chronic respiratory failure HPI Narrative: The patient is a 69-year-old male, with a history as outlined below, who presented to the emergency department on October 04 with worsening shortness of breath and hypoxemia. The patient was previously under the care of Dr. Zamudio of pulmonary medicine until his departure. He has a documented history of end-stage COPD along with chronic hypoxemic respiratory failure and obstructive sleep apnea, for which he is prescribed noninvasive positive pressure ventilatory support at his baseline. The patient reportedly utilizes approximately 6 L/min of supplemental oxygen at his baseline. He is on maximum therapy regarding his COPD. He denied a history of venous thromboembolic disease. On presentation to the emergency department, the patient was documented to have a low-grade fever and was notably tachycardic and tachypneic. Initial laboratory evaluation demonstrated an elevated white blood cell count of 14,000. D-dimer was elevated at 3.1. Chemistry profile was notable for a bicarbonate of 36 with normal creatinine. Procalcitonin was elevated at 13.5. CTA chest demonstrated small subsegmental PE in the right lower lobe along with chronic interstitial changes with emphysema, bronchiectasis and infiltrates in both lower lobes. The patient was ultimately placed on a weight-based heparin infusion, along with antimicrobials, bronchodilators and steroids. The patient was placed on AVAPS therapy and admitted to the medical intensive care unit for further management. This morning, the patient was able to be weaned off of his PAP therapy and reported overall improvement in his respiratory status. He denies the presence of a productive cough. COVID, influenza and RSV PCR's were negative. I did confirm with the patient his CODE STATUS and wishes to be DNR CCA without intubation. 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 Stage 4 very severe COPD by GOLD classification Home Medications ?Medication ?Instructions ?Recorded ?Last Taken ?Type ibuprofen 200 mg tablet 800 mg PO DAILY PRN Pain 10/19/18 10/18/18 History aspirin 81 mg tablet,delayed 81 mg PO DAILY@0800 10/20/18 09/18/23 Rx release Disability Placard #1 ea 10/06/21 Unknown Rx albuterol sulfate 2.5 mg/3 mL 2.5 mg (3 mL) inhalation Q4H PRN 09/08/23 09/18/23 Rx (0.083 %) solution for nebulization Sob &/Or Wheezing #180 mL guaifenesin 1,200 mg tablet, 1,200 mg PO Q12H #60 tabs 09/08/23 09/19/23 Rx extended release 12 hr umeclidinium 62.5 mcg-vilanterol 1 inh inhalation DAILY #1 device 10/10/23 Unknown Rx 25 mcg/actuation powdr for inhalation sennosides 8.6 mg-docusate sodium 1 tab PO QDAY constipation 01/17/24 Unknown History 50 mg tablet (Senexon-S) mometasone 200 mcg/actuation HFA 2 inh inhalation BID #3 device 02/15/24 Unknown Rx aerosol inhaler (Asmanex HFA) prednisone 20 mg tablet 20 mg PO DAILY 04/23/24 Unknown History ipratropium 0.5 mg-albuterol 3 mg 3 ml inhalation Q4H PRN PRN SOB 06/29/24 Unknown Rx (2.5 mg base)/3 mL nebulization &/OR WHEEZING #180 mL soln ropinirole 1 mg tablet 2 mg (2 x 1 mg) PO QHS RESTLESS 07/09/24 Unknown Rx LEGS #60 tabs diltiazem HCl 120 mg 120 mg PO BID #180 caps 07/11/24 Unknown Rx capsule,extended release 24 hr albuterol sulfate 90 mcg/actuation 2 inh PO Q6H PRN PRN Sob &/Or 07/12/24 Unknown Rx aerosol inhaler Wheezing #3 device lorazepam 0.5 mg tablet (Ativan) 0.5 mg PO Q4H PRN anxiety 10/04/24 Unknown History Allergy/AdvReac Type Severity Reaction Status Date / Time No Known Allergies Allergy Verified 10/04/24 17:27 Family History Sister Muscular dystrophy Brother Muscular dystrophy Father Heart disease Mother Cancer Breast Surgical History History of back surgery Brain aneurysm Social History household members: spouse Smoking Status: Former smoker how long ago did patient quit smokin, 1ppd second hand exposure: Yes alcohol intake: current alcohol intake frequency: 0-2 drinks per day Alcohol type: beer substance use type: does not use caffeine: Yes Type: coffee Number of servings: 3 ROS ROS Narrative 10 systems were reviewed with pertinent positives as noted in the HPI above. Physical Exam Const alert and no apparent distress General Appearance: cooperative HEENT normocephalic and head/scalp atraumatic HEENT Narrative: Dry mucous membranes. Poor dentition. Eyes PERRL, EOMs intact bilaterally and conjunctivae normal Neck supple General: trachea midline Resp normal respiratory effort Resp Narrative: Globally diminished air movement without appreciable wheezes, rales or rhonchi. Cardio regular rate and regular rhythm GI normal to inspection, nondistended, normoactive bowel sounds Extremity no clubbing, cyanosis or edema Skin no rashes or lesions noted Neuro CN's II-XII intact bilaterally, moves all extremities and no focal motor deficits Psych cooperative and affect normal Lab / Micro Data 10/05/24 03:00 10/05/24 03:00 Labs: Laboratory Results - last 24 hr 10/04/24 17:39: WBC 14.3 H, RBC 4.26 L, Hgb 13.0, Hct 41.2, MCV 96.7 H, MCH 30.5, MCHC 31.6 L, RDW Std Deviation 50.1 H, RDW Coeff of Clara 14.1, Plt Count 220, MPV 10.9, Immature Gran % (Auto) 0.500, Neut % (Auto) 91.8 H, Lymph % (Auto) 2.1 L, [place] % (Auto) 4.2, Eos % (Auto) 1.1, Baso % (Auto) 0.3, Absolute Neuts (auto) 13.1 H, Absolute Lymphs (auto) 0.30 L, Nucleated RBC % 0, Differential Comment SCANNED, PT 15.2 H, INR 1.2, APTT 32.2, D-Dimer Quant (PE/DVT) 3.10 H*, Sodium 138, Potassium 4.5, Chloride 99, Carbon Dioxide 36.0 H, Anion Gap 3 L, BUN 26 H, Creatinine 0.98, Estim Creat Clear Calc 79.95, Est GFR (MDRD) Af Amer 98, Est GFR (MDRD) Non-Af 81, BUN/Creatinine Ratio 26.6 H, Glucose 213 H, Calcium 10.4 H, Troponin I High Sens 23, B-Natriuretic Peptide 31.6 10/05/24 01:05: Procalcitonin 13.55 H 10/05/24 03:00: WBC 10.3, RBC 3.69 L, Hgb 11.3 L, Hct 35.0 L, MCV 94.9 H, MCH 30.6, MCHC 32.3, RDW Std Deviation 49.1 H, RDW Coeff of Clara 14.0, Plt Count 182, MPV 10.5, Immature Gran % (Auto) 0.200, Neut % (Auto) 95.4 H, Lymph % (Auto) 1.3 L, [place] % (Auto) 2.9, Eos % (Auto) 0.0, Baso % (Auto) 0.2, Absolute Neuts (auto) 9.8 H, Absolute Lymphs (auto) 0.13 L, Nucleated RBC % 0, APTT 59.4 H, Sodium 137, Potassium 3.8, Chloride 98, Carbon Dioxide 35.0 H, Anion Gap 5, BUN 23 H, Creatinine 0.77, Estim Creat Clear Calc 86.69, Est GFR (MDRD) Af Amer 130, Est GFR (MDRD) Non-Af 108, BUN/Creatinine Ratio 30.0 H, Glucose 197 H, Calcium 10.1, Total Bilirubin 0.50, AST 43 H, ALT 37, Alkaline Phosphatase 95, Total Protein 7.2, Albumin 2.5 L, Globulin 4.7 H, Albumin/Globulin Ratio 0.5 L Micro: Microbiology 10/04/24 23:35 Mucosa - Nasopharyngeal Respiratory Panel (PCR) - Final 10/05/24 00:45 Urine, Clean Catch Streptococcus pneumoniae Antigen (M - Final 10/05/24 00:45 Urine, Clean Catch Legionella Antigen - Final 10/04/24 18:34 Mucosa - Nose SARS-CoV-2, Influenza & RSV (PCR) - Final ABG Data ABG results: ABG 10/04/24 18:46 Specimen Type JENISE Sample Site Not entered O2 % 40.0 VBG pH 7.32 VBG pO2 32 VBG HCO3 33 H VBG Total CO2 35 H VBG O2 Sat (Calc) 54 VBG Base Excess 7 H POC Mix VBG pCO2 Pt Tmp 63.6 H O2 Delivery Device Not entered Imaging Radiology Impression Chest X-Ray 10/04/24 18:50 IMPRESSION: Chronic interstitial and emphysematous changes in the lower lobes. . There is slight increased density in the right lower lobe since prior exam possibly representing atelectasis or evolving infiltrate Electronically Signed: Dax Mujica MD at 19:42 EST Reading Location ID and State: [facility] / [place] Tel , Service support , Chest CTA 10/04/24 19:17 IMPRESSION: Pulmonary emboli within the subsegmental and segmental branches of the right lower lobe pulmonary artery Chronic interstitial and emphysematous changes Bibasilar atelectasis or infiltrate more severe on the right Electronically Signed: Dax Mujica MD at 20:11 EST , ADDENDUM: 10/04/242020 IMPRESSION: Pulmonary emboli within the subsegmental and segmental branches of the right lower lobe pulmonary artery Chronic interstitial and emphysematous changes Bibasilar atelectasis or infiltrate more severe on the right N.B. : The above Results were Read Back by Dax Mujica MD to LISA Johns, and understanding confirmed on 10/04/2024 20:14:20 (ET). Electronically Signed: Dax Mujica MD at 20:11 EST , Charges/Coding Visit Charges Inpatient E&M: 79736 Init Hosp L3
[2024-10-05 09:47] LABS: Partial Thromboplast Time 71.4 Seconds (24.1-36.2)
--- NOTE | 2024-10-05 10:15 | CASEMGMT ---
REJI BENÍTEZ Assessment: Face to Face with pt for initial transition planning/care coordination assessment. REJI BENÍTEZ introduced self and role at [facility], pt voices understanding and consents to assessment. Pt is A&O x4 and answers all questions appropriately at this time. Pt sitting up in bed in no distress. Care providers, pharmacy, and demographics verified/updated. Strata: 1 Admitting Dx: Acute on Chronic Hypoxic Respiratory PCP: Kartik Specialists: [facility] Preferred Pharmacy: [facility] Insurance: [facility] Prescription Benefit: yes LNOK: , Martha. Living Arrangements: Pt lives with in a raised ranch home with a lift into home. ADLs: Pt needs assistance with ADLs and IADLs. Transportation: Pt provides transportation. DME: shower chair, raised toilet, walker, wheelchair, nebulizer, pulse ox, portable tank, O2 through [employer]. HHC/SNF: Denies Hx of. Pt states no further concerns/needs at this time. CM to follow. Advised pt to ask CM if any further question/concerns/needs arise, voices understanding. Pt Goal: TBD Plan: TBD, follow therapy recommendations, follow for changes in O2. Oxygen provider is [facility]. Cameron MENDOZA CM
[2024-10-05] MEDS: Vancomycin HCl 2,000 MG in 0.9% Normal Saline (500mL Bag) 500 ML 250 MG IV (10:17)
[2024-10-05] MEDS: Piperacil/Tazobactam 3.375 GM in 0.9% Normal Saline (50mL MB+) 50 ML IV ×3 (10:17→21:08)
[2024-10-05] MEDS: APIXABAN 5 MG TABLET 10 MG PO ×2 (10:30→21:12)
[2024-10-05] MEDS: FLU VACCINE **HIGH DOSE** TV 24-25 180 MCG/0.5 ML SYRINGE IM (10:30)
--- NOTE | 2024-10-05 10:33 | PCM.RX.CS ---
Consult Antibiotic Management Pharmacy has been consulted to manage selected antibiotic: Vancomycin Type of Intervention Type of Consult: New start Suspected Infection Suspected Infection: Pneumonia Prior Doses of Antibiotics Prior Doses of Antibiotics Received/Current Regimen: Vancomycin 2000 mg IV x 1 given 10/06 @ 1017 Labs Labs: Sodium 137 mmol/L (136-145) 10/05/24 03:00 Potassium 3.8 mmol/L (3.5-5.1) 10/05/24 03:00 Chloride 98 mmol/L (98-107) 10/05/24 03:00 Carbon Dioxide 35.0 mmol/L (21.0-32.0) H 10/05/24 03:00 Anion Gap 5 (5-15) 10/05/24 03:00 BUN 23 mg/dL (7-18) H 10/05/24 03:00 Creatinine 0.77 mg/dL (0.70-1.30) 10/05/24 03:00 Est GFR (MDRD) Af Amer 130 mL/min (>60) 10/05/24 03:00 Est GFR (MDRD) Non-Af 108 mL/min (>60) 10/05/24 03:00 BUN/Creatinine Ratio 30.0 RATIO (10-20) H 10/05/24 03:00 Glucose 197 mg/dL (74-106) H 10/05/24 03:00 Microbiology Microbiology: Microbiology 10/04/24 23:35 Mucosa - Nasopharyngeal Respiratory Panel (PCR) - Final 10/05/24 00:45 Urine, Clean Catch Streptococcus pneumoniae Antigen (M - Final 10/05/24 00:45 Urine, Clean Catch Legionella Antigen - Final 10/04/24 18:34 Mucosa - Nose SARS-CoV-2, Influenza & RSV (PCR) - Final Dosing Weight Weight used for dosin kg Estimated Creatinine Clearance Estimated Creatinine Clearance: ~87 Goal Trough Goal Trough: 15-20 mcg/mL Pharmacy Plan for Drug Dosing Pharmacy Plan for Drug Dosing: Vancomycin 2000 mg IV x 1, followed by 1250 mg Q12H. Pharmacy Service will continue to monitor and adjust dosing as required. Follow-Up Labs Follow-Up Labs: Trough: Vancomycin Date/Time Labs Ordered Labs to be done on [date and time ordered]: 10/06/24 @ 8502
[2024-10-05] MEDS: Ipratropium/Albuterol Sulfate 3 ML AMPUL.NEB INHALATION ×2 (15:27→19:51)
[2024-10-05] MEDS: Ensure Plus High Protein 120 ML LIQUID PO (17:05)
[2024-10-05] MEDS: Pramipexole Di-HCl 1 MG Tablet PO (21:12)
[2024-10-05] MEDS: Vancomycin HCl 1,250 MG in 0.9% Normal Saline (250mL Bag) 250 ML 167 MG IV (23:16)
[2024-10-06] VITALS (11 sets, daily range): BP systolic 118–140; BP diastolic 60–74; PULSE 98–115; RESP 18–24; TEMP 36.4–37.2; O2SAT 93–97; BMI 27.1
[2024-10-06] MEDS: Ondansetron 4 MG/2 ML Vial IV (00:45)
--- NOTE | 2024-10-06 01:55 | CPS ---
pt vomited while on bipap. pt off bipap now. 0030 10/06/24
--- NOTE | 2024-10-06 01:57 | PCM.HOSP.N ---
Hospitalist Note Patient with sudden onset nausea with bout of emesis unfortunately while BIPAP in place. Currently off now. Coarse but oxygenation improving. On BSA with zosyn and vanc.
[2024-10-06] MEDS: Piperacil/Tazobactam 3.375 GM in 0.9% Normal Saline (50mL MB+) 50 ML IV ×3 (06:03→22:17)
[2024-10-06] MEDS: Ipratropium/Albuterol Sulfate 3 ML AMPUL.NEB INHALATION ×3 (06:35→19:44)
[2024-10-06 07:34] LABS: Absolute Lymphocyte Count 0.31 X10^3/uL (0.83-4.51); Absolute Neutrophil Count 7.4 X10^3/uL (2.0-7.7); Basophil# 0.02 X10^3/uL; Basophil% 0.2 % (0-1); Hemoglobin 11.3 g/dL (13.0-16.5); Lymphocyte # 0.31 X10^3/ul (0.83-4.51); Lymphocyte % 3.7 % (19-41); Mean Corp Hgb Conc 32.3 g/dL (32-36); Mean Corpuscular Volume 95.9 fL (80-94); Mean Platelet Vol. 10.3 fl (6.2-12.0); Monocyte# 0.49 X10^3/uL; Monocyte% 5.9 % (0-10); NRBC Flagged by Analyzer 0 % (0-5); Neutrophil # 7.44 X10^3/uL (2.7-7.7); Neutrophil % 89.7 % (47-70); POSITIVE DIFFERENTIAL YES; Platelet Count 220 K/mm3 (150-450); RBC Distribution Width CV 13.6 % (11.6-14.6); RBC Distribution Width SD 48.1 fl (35.1-43.9); Red Blood Count 3.65 M/mm3 (4.6-6.2); White Blood Count 8.3 K/mm3 (4.4-11.0)
[2024-10-06 08:05] LABS: Anion Gap 5 (5-15); BUN 33 mg/dL (7-18); BUN/Creat Ratio 54.8 RATIO (10-20); Calcium,Total 9.9 mg/dL (8.5-10.1); Chloride 101 mmol/L (98-107); EST Glomerular Filtration Rate 142 mL/min (>60); Est Glom Filt Rate - Afr Amer 172 mL/min (>60); Estimated Creatinine Clearance 86.69 ml/min; Glucose 154 mg/dL (74-106); Potassium 3.8 mmol/L (3.5-5.1); Sodium Level 141 mmol/L (136-145)
[2024-10-06] MEDS: dilTIAZem CD 120 MG Capsule PO ×2 (09:12→22:23)
[2024-10-06] MEDS: guaiFENesin 1,200 MG Tablet 1200 MG PO ×2 (09:13→22:23)
[2024-10-06] MEDS: APIXABAN 5 MG TABLET 10 MG PO ×2 (09:13→22:22)
[2024-10-06] MEDS: Senna/Docusate Sodium 1 Tablet PO (09:13)
[2024-10-06] MEDS: Ensure Plus High Protein 120 ML LIQUID PO ×2 (09:15→17:14)
[2024-10-06] MEDS: Vancomycin HCl 1,250 MG in 0.9% Normal Saline (250mL Bag) 250 ML 167 MG IV (11:37)
[2024-10-06] MEDS: 0.9% Saline Lock 10 ML Syringe IV ×3 (11:37→22:22)
--- NOTE | 2024-10-06 11:47 | PCM.PN.HOSP ---
Reason for Visit Reason for Visit: Diagnoses Other pulmonary embolism without acute cor pulmonale (10/04/24) Acute and chronic respiratory failure with hypoxia (10/04/24) Subjective Subjective Saw patient at bedside this morning, present. Patient was mildly fatigued appearing but otherwise sitting up fairly comfortably in bed, conversing normally and in no acute distress. Breathing comfortably on 8 L nasal cannula. States that he feels closer to his baseline today than previous days. Denies any chest pain. Denies any shortness of breath at rest. No other acute concerns this morning. Objective Data Objective Data Vital Signs: Vital Signs Temp Pulse Resp BP Pulse Ox O2 Del Method O2 Flow Rate 98.1 F 113 H 20 H 136/72 H 94 High Flow 8 10/06/24 09:20 10/06/24 11:17 10/06/24 11:17 10/06/24 09:20 10/06/24 09:20 10/06/24 09:20 10/06/24 09:20 FiO2 40 10/05/24 21:01 Oxygen Flow Rate (L/min) 8 Oxygen Delivery Method High Flow Weight: 80.8 kg Body Mass Index (BMI) 27.1 Intake & Output: Intake and Output for Last 24 Hours 10/04/24 10/05/24 10/06/24 23:59 23:59 23:59 Intake Total 305 / 305 774.73 / 774.73 375 / 375 Output Total 300 / 450 450 / 450 Balance 5 / -145 324.73 / 324.73 375 / 375 Medical Nutrition Assessment Dietitian: Malnutrition Criteria Met Start: 10/05/24 15:13 Freq: Status: Active Protocol: Document 10/05/24 15:13 SB (Rec: 10/05/24 15:13 SB [id number]) Nutrition Malnutrition Evidence of Malnutrition Exists Yes Malnutrition (severe): Acute Illness/Injury Evidenced By Suboptimal Energy Intake ( Severe),Weight Loss (Severe) Clinical Problem Acute Disease or Injury Related Malnutrition Etiology sever related to inadequate oral intake and increase energy expenditure Signs/Symptoms as evidenced by PO meeting <50 % of estimated nutrition needs x 1 week and 7% unintentional weight loss x 1 month. Status Active Problem Recommendation Dietitian Recommendations/Changes Continue liberal regular diet to increase oral consumption. Will order 120ml ensure plus high protein TID with medpass, prefers chocolate flavor. Will monitor weight, as available. Reviewed and approved by Maria Elena Macias, [place], JUDITH. Lab / Micro Data 10/06/24 07:09 10/06/24 07:09 Labs: Laboratory Results - last 24 hr 10/06/24 07:09: WBC 8.3, RBC 3.65 L, Hgb 11.3 L, Hct 35.0 L, MCV 95.9 H, MCH 31.0, MCHC 32.3, RDW Std Deviation 48.1 H, RDW Coeff of Clara 13.6, Plt Count 220, MPV 10.3, Immature Gran % (Auto) 0.500, Neut % (Auto) 89.7 H, Lymph % (Auto) 3.7 L, [place] % (Auto) 5.9, Eos % (Auto) 0.0, Baso % (Auto) 0.2, Absolute Neuts (auto) 7.4, Absolute Lymphs (auto) 0.31 L, Nucleated RBC % 0, Sodium 141, Potassium 3.8, Chloride 101, Carbon Dioxide 35.0 H, Anion Gap 5, BUN 33 H, Creatinine 0.60 L, Estim Creat Clear Calc 86.69, Est GFR (MDRD) Af Amer 172, Est GFR (MDRD) Non-Af 142, BUN/Creatinine Ratio 54.8 H, Glucose 154 H, Calcium 9.9 Micro: Microbiology 10/05/24 10:50 Nasal Secretion MRSA (PCR) - Final 10/04/24 23:35 Mucosa - Nasopharyngeal Respiratory Panel (PCR) - Final 10/05/24 00:45 Urine, Clean Catch Streptococcus pneumoniae Antigen (M - Final 10/05/24 00:45 Urine, Clean Catch Legionella Antigen - Final 10/04/24 18:34 Mucosa - Nose SARS-CoV-2, Influenza & RSV (PCR) - Final Physical Exam Const alert, oriented x3, no apparent distress and average body habitus Constitutional Narrative: Elderly male, chronically ill-appearing, mildly fatigued appearing, otherwise sitting up comfortably in bed, breathing comfortably on 8 L nasal cannula, conversing normally. General Appearance: cooperative and comfortable HEENT normocephalic, head/scalp atraumatic, hearing grossly normal bilaterally and nasal mucous membranes and turbinates normal Eyes PERRL, EOMs intact bilaterally and conjunctivae normal Neck full ROM Chest inspection of chest normal Resp normal respiratory effort and no use of accessory muscles Resp Narrative: Breathing comfortably on 8 L nasal cannula at rest. Moderately decreased breath sounds bilaterally throughout, no wheezing or crackles noted. Cardio no murmurs and peripheral pulses 2+ throughout Cardio Narrative: Tachycardic, regular rhythm. GI normal to inspection, nondistended, normoactive bowel sounds, soft to palpation, non-tender and non-distended Back/Spine normal ROM Extremity normal to inspection, full ROM and no pedal edema Skin no rashes or lesions noted Psych mental status grossly normal Assessment & Plan Assessment/Plan (1) Acute on chronic respiratory failure with hypoxemia: (2) Pulmonary embolism: PLAN: Plan Patient is a 69-year-old male who presented [facility] ED on 10/04/2024 with worsening shortness of breath. 1. Acute on chronic hypoxic respiratory failure secondary to acute PE with possible bilateral pneumonia and acute on chronic COPD exacerbation ? Pulmonology following. CTA chest on admit showed pulmonary emboli within the subsegmental and segmental branches of the right lower lobe, otherwise chronic changes. Initially on heparin drip, transitioned to Eliquis on 10/05. Continue treatment with Eliquis, IV antibiotics, IV steroids and scheduled DuoNebs for now. On home 7 L nasal cannula and weaned down to 8 L on 10/06, continue to wean as able. Chronic medical conditions: ? Chronic normocytic anemia: Hemoglobin at baseline around 11 on admission. ? Hypertension, chronic sinus tachycardia: Continue home diltiazem. ? Anxiety: Continue home Ativan as needed. ? Restless leg syndrome: Continue home ropinirole. DVT prophylaxis: Not indicated, on Eliquis CODE STATUS: DNR CCA, DNI Expected disposition: Home, TBD Total clinical time spent by myself addressing the patient's medical issues, reviewing all the data, and collaborating with patient's care team: 35 minutes. Charges/Coding Visit Charges Inpatient E&M: 21971 Subs Hosp L2
--- NOTE | 2024-10-06 18:47 | PN.CC_ITS ---
Objective Data Objective Data Vital Signs: Vital Signs Last response 3 Temperature 36.4 C L 10/06/24 15:22 Temperature Source Oral 10/06/24 15:22 Pulse Rate 102 H 10/06/24 15:22 Pulse Strength Normal (2+) 10/06/24 10:00 Respiratory Rate 20 H 10/06/24 15:22 Respiratory Effort Short of Breath 10/06/24 15:28 Respiratory Depth Shallow 10/06/24 15:28 Respiratory Pattern Tachypnea 10/06/24 15:28 Blood Pressure 130/71 H 10/06/24 15:22 Blood Pressure Mean 90 10/06/24 15:22 Blood Pressure Source Monitor 10/06/24 15:22 Blood Pressure Position Sitting 10/06/24 15:22 Blood Pressure Location Left Arm 10/06/24 15:22 Pulse Ox 94 10/06/24 15:22 Oxygen Delivery Method High Flow 10/06/24 15:28 Oxygen Flow Rate (L/min) 8 10/06/24 15:28 Fraction of Inspired Oxygen (FIO2) 40 10/05/24 21:01 I&O: I&O Last 24 Hours 3 10/05/24 10/06/24 10/06/24 23:59 11:59 23:59 Intake Total 640 / 774.73 375 / 650 275 / 650 Output Total 125 / 450 500 / 500 Balance 515 / 324.73 375 / 150 -225 / 150 I&O: Total Stay 3 10/04/24 17:17 thru 10/06/24 18:00 Intake Total 1729.73 Output Total 1250 Balance 479.73 Current Meds Ordered / Administered: Current meds ordered / Administered 3 Generic Name Dose Route Start Last Admin Trade Name Freq PRN Reason Stop Dose Admin Acetaminophen 650 mg 10/04/24 22:10 Acetaminophen 325 Mg Tablet PO Q4H PRN PRN Fever, pain 1-10/10 Al Hydroxide/Mg Hydroxide 30 ml 10/04/24 22:10 Mag Hydrox/Al Hydrox/Simeth 30 Ml Udc PO Q6H PRN PRN Gastric Burning Albuterol Sulfate 2.5 mg 10/04/24 22:10 Albuterol 2.5 Mg/3 Ml Vial.Neb. INHALATION Q2H PRN PRN Dyspnea, wheezing Albuterol/Ipratropium 3 ml 10/05/24 10:00 10/06/24 11:16 Ipratropium/Albuterol Sulfate 3 Ml Ampul.Neb INHALATION 3 ml Q4HWA.RT BRIAN Administration Apixaban 10 mg 10/05/24 10:00 10/06/24 09:13 Apixaban 5 Mg Tablet PO 10 mg BID BRIAN Administration Diltiazem HCl 120 mg 10/04/24 22:10 10/06/24 09:12 Diltiazem Cd 120 Mg Capsule PO 120 mg BID BRIAN Administration Protocol Guaifenesin 1,200 mg 10/04/24 22:10 10/06/24 09:13 Guaifenesin 1,200 Mg Tablet PO 1,200 mg Q12 BRIAN Administration Sodium Chloride 100 mls @ 15 mls/hr 10/04/24 22:36 IV .Q6H40M PRN Saline Flush Sodium Chloride 100 mls @ 15 mls/hr 10/04/24 22:36 IV .Q6H40M PRN Additional IVPB Infusion Piperacillin Sod/Tazobactam 50 mls @ 12.5 mls/hr 10/05/24 09:50 10/06/24 16:15 Sod 3.375 gm/ Sodium Chloride IV 12.5 mls/hr Q8 BRIAN Administration Vancomycin IV-PHARMACY TO DOSE 500 mls @ 250 mls/hr 10/05/24 09:50 1 each/ Sodium Chloride IV PRN PRN Rx to Dose Protocol Vancomycin HCl 1,250 mg/ 275 mls @ 167 mls/hr 10/05/24 23:00 10/06/24 13:16 Sodium Chloride IV Infused Q12H BRIAN Infusion Lorazepam 0.5 mg 10/04/24 22:10 Lorazepam 0.5 Mg Tablet PO Q4H PRN PRN anxiety Melatonin 3 mg 10/04/24 22:10 Melatonin 3 Mg Tablet PO QHS PRN PRN INSOMNIA Methylprednisolone 40 mg 10/05/24 06:00 10/06/24 15:12 Methylprednisolone 40 Mg/Ml Vial IV 40 mg Q8 BRIAN Administration Nutritional Formula (Lactose Free) 120 ml 10/05/24 17:00 10/06/24 17:14 Ensure Plus High Protein 120 Ml Liquid PO 120 ml TIDCM BRIAN Administration Ondansetron HCl 4 mg 10/04/24 22:10 10/06/24 00:45 Ondansetron 4 Mg/2 Ml Vial IV 4 mg Q8H PRN PRN Administration NAUSEA/VOMITING Pramipexole Dihydrochloride 1 mg 10/04/24 22:30 10/05/24 21:12 Pramipexole Di-Hcl 1 Mg Tablet PO 1 mg QHS BRIAN Administration Prochlorperazine Edisylate 5 mg 10/04/24 22:10 Prochlorperazine 10 Mg/2 Ml Vial IV Q4H PRN PRN Breakthrough Nausea/Vomiting Senna/Docusate Sodium 1 tablet 10/05/24 10:00 10/06/24 09:13 Senna/Docusate Sodium 1 Tablet PO 1 tablet DAILY BRIAN Administration Sodium Chloride 10 - 40 ml 10/04/24 22:36 10/06/24 16:16 0.9% Saline Lock 10 Ml Syringe IV 10 ml UD PRN Administration SALINE FLUSH Vancomycin Protocol 1 lab 10/06/24 20:30 Vancomycin Trough/Random Due [facility] 10/07/24 00:30 DAILY [facility] Medical Records Data Medical Nutrition Assessment Dietitian: Malnutrition Criteria Met Start: 10/05/24 15:13 Freq: Status: Active Protocol: Document 10/05/24 15:13 SB (Rec: 10/05/24 15:13 SB [id number]) Nutrition Malnutrition Evidence of Malnutrition Exists Yes Malnutrition (severe): Acute Illness/Injury Evidenced By Suboptimal Energy Intake ( Severe),Weight Loss (Severe) Clinical Problem Acute Disease or Injury Related Malnutrition Etiology sever related to inadequate oral intake and increase energy expenditure Signs/Symptoms as evidenced by PO meeting <50 % of estimated nutrition needs x 1 week and 7% unintentional weight loss x 1 month. Status Active Problem Recommendation Dietitian Recommendations/Changes Continue liberal regular diet to increase oral consumption. Will order 120ml ensure plus high protein TID with medpass, prefers chocolate flavor. Will monitor weight, as available. Reviewed and approved by Maria Elena Macias RDN, LD. Lab / Micro Data 10/06/24 07:09 10/06/24 07:09 Labs: Laboratory Results - last 24 hr 10/06/24 07:09: WBC 8.3, RBC 3.65 L, Hgb 11.3 L, Hct 35.0 L, MCV 95.9 H, MCH 31.0, MCHC 32.3, RDW Std Deviation 48.1 H, RDW Coeff of Clara 13.6, Plt Count 220, MPV 10.3, Immature Gran % (Auto) 0.500, Neut % (Auto) 89.7 H, Lymph % (Auto) 3.7 L, Hitchcock % (Auto) 5.9, Eos % (Auto) 0.0, Baso % (Auto) 0.2, Absolute Neuts (auto) 7.4, Absolute Lymphs (auto) 0.31 L, Nucleated RBC % 0, Sodium 141, Potassium 3.8, Chloride 101, Carbon Dioxide 35.0 H, Anion Gap 5, BUN 33 H, Creatinine 0.60 L, Estim Creat Clear Calc 86.69, Est GFR (MDRD) Af Amer 172, Est GFR (MDRD) Non- Af 142, BUN/Creatinine Ratio 54.8 H, Glucose 154 H, Calcium 9.9 Assessment and Plan . Assessment and plan: Acute Exacerbation of COPD PE (subsegmental) Acute/Chronic Mixed Respiratory Failure -agree with recs for oral anticoagulation -steroids/bd/abx -Bipap prn and with sleep; follow discussed aspiration risk with pt/spouse The entirety of this encounter was done via Telemedicine Physical Exam Narrative Gen: Thin, NAD; A&O x 3 ENT: sclera anicteric; moist conjunctiva and mucous membranes CV: rrr, nl s1 and s2, no mrg; pulses 2+/symmetric and normal cap refill Lungs: CTAB, limited effort, no use of accessory muscles Abdomen: Soft, nt/nd; normal bowel sounds Ext: no clubbing, cyanosis; no edema Neuro: nonfocal Psych: mood/affect appropriate for situation Subjective Subjective Episode of emesis overnight while wearing bipap; he has since had breakfast and had no further bouts. Despite this feels he is breathing better than when he came in .
[2024-10-06] MEDS: Pramipexole Di-HCl 1 MG Tablet PO (22:23)
[2024-10-06] MEDS: Acetaminophen 325 MG Tablet 650 MG PO (22:34)
[2024-10-06 23:14] LABS: Vancomycin, Trough Level 12.7 ug/mL (5.0-15.0)
--- NOTE | 2024-10-06 23:19 | PCM.RX.CS ---
Consult Antibiotic Management Pharmacy has been consulted to manage selected antibiotic: Vancomycin Type of Intervention Type of Consult: Follow-up Labs Labs: Sodium 141 mmol/L (136-145) 10/06/24 07:09 Potassium 3.8 mmol/L (3.5-5.1) 10/06/24 07:09 Chloride 101 mmol/L (98-107) 10/06/24 07:09 Carbon Dioxide 35.0 mmol/L (21.0-32.0) H 10/06/24 07:09 Anion Gap 5 (5-15) 10/06/24 07:09 BUN 33 mg/dL (7-18) H 10/06/24 07:09 Creatinine 0.60 mg/dL (0.70-1.30) L 10/06/24 07:09 Est GFR (MDRD) Af Amer 172 mL/min (>60) 10/06/24 07:09 Est GFR (MDRD) Non-Af 142 mL/min (>60) 10/06/24 07:09 BUN/Creatinine Ratio 54.8 RATIO (10-20) H 10/06/24 07:09 Glucose 154 mg/dL (74-106) H 10/06/24 07:09 Vancomycin Trough 12.7 ug/mL (5.0-15.0) 10/06/24 22:30 Microbiology Microbiology: Microbiology 10/05/24 10:50 Nasal Secretion MRSA (PCR) - Final 10/04/24 23:35 Mucosa - Nasopharyngeal Respiratory Panel (PCR) - Final 10/05/24 00:45 Urine, Clean Catch Streptococcus pneumoniae Antigen (M - Final 10/05/24 00:45 Urine, Clean Catch Legionella Antigen - Final 10/04/24 18:34 Mucosa - Nose SARS-CoV-2, Influenza & RSV (PCR) - Final Goal Trough Goal Trough: 15-20 mcg/mL Pharmacy Plan for Drug Dosing Pharmacy Plan for Drug Dosing: Pharmacy Service will continue to monitor and adjust dosing as required. TROUGH 12.7 @ 11 HOURS. INCREASE TO 1500MG Q12H AND FOLLOW UP TROUGH PRIOR TO 4TH DOSE Follow-Up Labs Follow-Up Labs: Trough: Vancomycin Date/Time Labs Ordered Labs to be done on [date and time ordered]: 10/08 @ 1030
[2024-10-06] MEDS: Vancomycin HCl 1,500 MG in 0.9% Normal Saline (500mL Bag) 500 ML 250 MG IV (23:52)
[2024-10-07] VITALS (11 sets, daily range): BP systolic 116–140; BP diastolic 63–72; PULSE 80–110; RESP 18–24; TEMP 36.6–37.3; O2SAT 94–97
--- NOTE | 2024-10-07 01:04 | CPS ---
Patient placed on home NIV for the night with 10L oxygen bleed. Sp02 94% at 23:32
[2024-10-07] MEDS: oxyCODONE 5 MG Tablet PO ×5 (02:13→22:21)
[2024-10-07] MEDS: Piperacil/Tazobactam 3.375 GM in 0.9% Normal Saline (50mL MB+) 50 ML IV ×3 (05:40→22:32)
[2024-10-07] MEDS: 0.9% Saline Lock 10 ML Syringe IV ×2 (05:40→22:23)
[2024-10-07] MEDS: Acetaminophen 325 MG Tablet 650 MG PO ×4 (06:16→22:20)
[2024-10-07 06:38] LABS: Hemoglobin 9.8 g/dL (13.0-16.5); Mean Corp Hgb Conc 30.6 g/dL (32-36); Mean Corpuscular Hgb 29.8 pg (27.0-32.0); Mean Corpuscular Volume 97.3 fL (80-94); Mean Platelet Vol. 10.2 fl (6.2-12.0); Platelet Count 190 K/mm3 (150-450); RBC Distribution Width CV 13.2 % (11.6-14.6); RBC Distribution Width SD 47.8 fl (35.1-43.9); Red Blood Count 3.29 M/mm3 (4.6-6.2); White Blood Count 5.9 K/mm3 (4.4-11.0)
[2024-10-07 07:01] LABS: Anion Gap 2 (5-15); BUN 28 mg/dL (7-18); BUN/Creat Ratio 62.9 RATIO (10-20); Calcium,Total 9.6 mg/dL (8.5-10.1); Chloride 102 mmol/L (98-107); Creatinine, Serum 0.44 mg/dL (0.70-1.30); EST Glomerular Filtration Rate 201 mL/min (>60); Est Glom Filt Rate - Afr Amer 243 mL/min (>60); Estimated Creatinine Clearance 86.69 ml/min; Glucose 172 mg/dL (74-106); Potassium 4.2 mmol/L (3.5-5.1); Sodium Level 140 mmol/L (136-145)
[2024-10-07] MEDS: Ipratropium/Albuterol Sulfate 3 ML AMPUL.NEB INHALATION ×4 (07:40→19:47)
[2024-10-07 08:48] LABS: Ferritin 594 ng/mL (26-388); Iron 48 ug/dL (65-175); Iron Binding Capacity,Total 192 ug/dL (250-450)
[2024-10-07] MEDS: guaiFENesin 1,200 MG Tablet 1200 MG PO ×2 (09:37→22:22)
[2024-10-07] MEDS: APIXABAN 5 MG TABLET 10 MG PO ×2 (09:37→22:21)
[2024-10-07] MEDS: Senna/Docusate Sodium 1 Tablet PO ×2 (09:37→22:22)
[2024-10-07] MEDS: dilTIAZem CD 120 MG Capsule PO ×2 (09:38→22:22)
[2024-10-07] MEDS: Ensure Plus High Protein 120 ML LIQUID PO ×3 (09:38→17:31)
[2024-10-07] MEDS: Vancomycin HCl 1,500 MG in 0.9% Normal Saline (500mL Bag) 500 ML 250 MG IV ×2 (10:49→22:32)
--- NOTE | 2024-10-07 11:13 | PN.HOSP_ITS ---
Reason for Visit Reason for Visit: Diagnoses Other pulmonary embolism without acute cor pulmonale (10/04/24) Acute and chronic respiratory failure with hypoxia (10/04/24) Subjective Subjective Saw patient at bedside this morning. Patient appeared to have slightly more energy today than yesterday. Otherwise was stable on the liters nasal cannula and breathing appeared similar to yesterday. He stated he felt a bit better today. Denied any new concerns today. Objective Data Objective Data Vital Signs: Vital Signs Temp Pulse Resp BP Pulse Ox O2 Del Method O2 Flow Rate 98.6 F 108 H 22 H 118/63 96 High Flow 8 10/07/24 09:41 10/07/24 11:01 10/07/24 11:01 10/07/24 09:41 10/07/24 09:41 10/07/24 09:42 10/07/24 09:42 FiO2 40 10/05/24 21:01 Oxygen Flow Rate (L/min) 8 Oxygen Delivery Method High Flow Weight: 80.8 kg Body Mass Index (BMI) 27.1 Intake & Output: Intake and Output for Last 24 Hours 10/05/24 10/06/24 10/07/24 23:59 23:59 23:59 Intake Total 774.73 / 774.73 940 / 940 930 / 930 Output Total 450 / 450 850 / 850 475 / 475 Balance 324.73 / 324.73 90 / 90 455 / 455 Medical Nutrition Assessment Dietitian: Malnutrition Criteria Met Start: 10/05/24 15:13 Freq: Status: Active Protocol: Document 10/05/24 15:13 SB (Rec: 10/05/24 15:13 SB [id number]) Nutrition Malnutrition Evidence of Malnutrition Exists Yes Malnutrition (severe): Acute Illness/Injury Evidenced By Suboptimal Energy Intake ( Severe),Weight Loss (Severe) Clinical Problem Acute Disease or Injury Related Malnutrition Etiology sever related to inadequate oral intake and increase energy expenditure Signs/Symptoms as evidenced by PO meeting <50 % of estimated nutrition needs x 1 week and 7% unintentional weight loss x 1 month. Status Active Problem Recommendation Dietitian Recommendations/Changes Continue liberal regular diet to increase oral consumption. Will order 120ml ensure plus high protein TID with medpass, prefers chocolate flavor. Will monitor weight, as available. Reviewed and approved by Maria Elena Macias RDN, LD. Lab / Micro Data 10/07/24 04:40 10/07/24 04:40 Labs: Laboratory Results - last 24 hr 10/06/24 22:30: Vancomycin Trough 12.7 10/07/24 04:40: WBC 5.9, RBC 3.29 L, Hgb 9.8 L, Hct 32.0 L, MCV 97.3 H, MCH 29.8, MCHC 30.6 L D, RDW Std Deviation 47.8 H, RDW Coeff of Clara 13.2, Plt Count 190, MPV 10.2, Sodium 140, Potassium 4.2, Chloride 102, Carbon Dioxide 37.0 H, A nion Gap 2 L, BUN 28 H, Creatinine 0.44 L, Estim Creat Clear Calc 86.69, Est GFR (MDRD) Af Amer 243, Est GFR (MDRD) Non-Af 201, BUN/Creatinine Ratio 62.9 H, G lucose 172 H, Calcium 9.6, Iron 48 L, TIBC 192 L, Iron Saturation 25.0, Ferritin 594 H, Folate 15.20 Micro: Microbiology 10/05/24 10:50 Nasal Secretion MRSA (PCR) - Final 10/04/24 23:35 Mucosa - Nasopharyngeal Respiratory Panel (PCR) - Final 10/05/24 00:45 Urine, Clean Catch Streptococcus pneumoniae Antigen (M - Final 10/05/24 00:45 Urine, Clean Catch Legionella Antigen - Final 10/04/24 18:34 Mucosa - Nose SARS-CoV-2, Influenza & RSV (PCR) - Final Physical Exam Const alert, oriented x3, no apparent distress and average body habitus Constitutional Narrative: Elderly male, chronically ill-appearing, mildly fatigued appearing, otherwise sitting up comfortably in bed, breathing comfortably on 8 L nasal cannula, conversing normally. Stable. General Appearance: cooperative and comfortable HEENT normocephalic, head/scalp atraumatic, hearing grossly normal bilaterally and nasal mucous membranes and turbinates normal Eyes PERRL, EOMs intact bilaterally and conjunctivae normal Neck full ROM Chest inspection of chest normal Resp normal respiratory effort and no use of accessory muscles Resp Narrative: Breathing comfortably on 8 L nasal cannula at rest. Moderately decreased breath sounds bilaterally throughout, no wheezing or crackles noted. Stable. Cardio no murmurs and peripheral pulses 2+ throughout Cardio Narrative: Tachycardic, regular rhythm. GI normal to inspection, nondistended, normoactive bowel sounds, soft to palpation, non-tender and non-distended Back/Spine normal ROM Extremity normal to inspection, full ROM and no pedal edema Skin no rashes or lesions noted Psych mental status grossly normal Assessment & Plan Assessment/Plan (1) Acute on chronic respiratory failure with hypoxemia: (2) Pulmonary embolism: PLAN: Plan Patient is a 69-year-old male who presented [facility] ED on 10/04/2024 with worsening shortness of breath. 1. Acute on chronic hypoxic respiratory failure secondary to acute PE with possible bilateral pneumonia and acute on chronic COPD exacerbation ? Pulmonology following. CTA chest on admit showed pulmonary emboli within the subsegmental and segmental branches of the right lower lobe, otherwise chronic changes. Initially on heparin drip, transitioned to Eliquis on 10/05. Continue treatment with Eliquis, IV antibiotics, IV steroids and scheduled DuoNebs for now. On home 7 L nasal cannula and weaned down to 8 L on 10/07, continue to wean as able. Appreciate pulmonology recommendations. Suspect patient will be okay for discharge home in the next few days. Chronic medical conditions: ? Chronic normocytic anemia: Hemoglobin at baseline around 11 on admission. ? Hypertension, chronic sinus tachycardia: Continue home diltiazem. ? Anxiety: Continue home Ativan as needed. ? Restless leg syndrome: Continue home ropinirole. DVT prophylaxis: Not indicated, on Eliquis CODE STATUS: DNR CCA, DNI Expected disposition: Home, TBD Total clinical time spent by myself addressing the patient's medical issues, reviewing all the data, and collaborating with patient's care team: 35 minutes. Charges/Coding Visit Charges Inpatient E&M: 48785 Subs Hosp L2
--- NOTE | 2024-10-07 17:52 | PN.CC_ITS ---
Objective Data Objective Data Vital Signs: Vital Signs Last response 3 Temperature 36.7 C 10/07/24 15:40 Temperature Source Oral 10/07/24 15:40 Pulse Rate 80 10/07/24 15:40 Pulse Strength Normal (2+) 10/07/24 10:00 Respiratory Rate 20 H 10/07/24 15:40 Respiratory Effort Normal, Non-Labored 10/07/24 14:00 Respiratory Depth Normal 10/07/24 14:00 Respiratory Pattern Normal 10/07/24 15:40 Blood Pressure 116/66 10/07/24 15:40 Blood Pressure Mean 82 10/07/24 15:40 Blood Pressure Source Monitor 10/07/24 15:40 Blood Pressure Position Sitting 10/07/24 15:40 Blood Pressure Location Right Arm 10/07/24 15:40 Pulse Ox 95 10/07/24 15:40 Oxygen Delivery Method High Flow 10/07/24 15:40 Oxygen Flow Rate (L/min) 8 10/07/24 16:37 Fraction of Inspired Oxygen (FIO2) 40 10/05/24 21:01 I&O: I&O Last 24 Hours 3 10/06/24 10/07/24 10/07/24 23:59 11:59 23:59 Intake Total 565 / 940 930 / 1700 770 / 1700 Output Total 850 / 850 475 / 625 150 / 625 Balance -285 / 90 455 / 1075 620 / 1075 I&O: Total Stay 3 10/04/24 17:17 thru 10/07/24 12:57 Intake Total 3719.73 Output Total 2225 Balance 1494.73 Current Meds Ordered / Administered: Current meds ordered / Administered 3 Generic Name Dose Route Start Last Admin Trade Name Freq PRN Reason Stop Dose Admin Acetaminophen 650 mg 10/04/24 22:10 10/07/24 17:32 Acetaminophen 325 Mg Tablet PO 650 mg Q4H PRN PRN Administration Fever, pain 1-10 Al Hydroxide/Mg Hydroxide 30 ml 10/04/24 22:10 Mag Hydrox/Al Hydrox/Simeth 30 Ml Udc PO Q6H PRN PRN Gastric Burning Albuterol Sulfate 2.5 mg 10/04/24 22:10 Albuterol 2.5 Mg/3 Ml Vial.Neb. INHALATION Q2H PRN PRN Dyspnea, wheezing Albuterol/Ipratropium 3 ml 10/05/24 10:00 10/07/24 15:33 Ipratropium/Albuterol Sulfate 3 Ml Ampul.Neb INHALATION 3 ml Q4HWA.RT BRIAN Administration Apixaban 10 mg 10/05/24 10:00 10/07/24 09:37 Apixaban 5 Mg Tablet PO 10 mg BID BRIAN Administration Diltiazem HCl 120 mg 10/04/24 22:10 10/07/24 09:38 Diltiazem Cd 120 Mg Capsule PO 120 mg BID BRIAN Administration Protocol Guaifenesin 1,200 mg 10/04/24 22:10 10/07/24 09:37 Guaifenesin 1,200 Mg Tablet PO 1,200 mg Q12 BRIAN Administration Sodium Chloride 100 mls @ 15 mls/hr 10/04/24 22:36 IV .Q6H40M PRN Saline Flush Sodium Chloride 100 mls @ 15 mls/hr 10/04/24 22:36 IV .Q6H40M PRN Additional IVPB Infusion Piperacillin Sod/Tazobactam 50 mls @ 12.5 mls/hr 10/05/24 09:50 10/07/24 15:01 Sod 3.375 gm/ Sodium Chloride IV 12.5 mls/hr Q8 BRIAN Administration Vancomycin IV-PHARMACY TO DOSE 500 mls @ 250 mls/hr 10/05/24 09:50 1 each/ Sodium Chloride IV PRN PRN Rx to Dose Protocol Vancomycin HCl 1,500 mg/ 530 mls @ 250 mls/hr 10/06/24 23:00 10/07/24 12:57 Sodium Chloride IV Infused Q12H BRIAN Infusion Lorazepam 0.5 mg 10/04/24 22:10 Lorazepam 0.5 Mg Tablet PO Q4H PRN PRN anxiety Melatonin 3 mg 10/04/24 22:10 Melatonin 3 Mg Tablet PO QHS PRN PRN INSOMNIA Methylprednisolone 40 mg 10/05/24 06:00 10/07/24 15:01 Methylprednisolone 40 Mg/Ml Vial IV 40 mg Q8 BRIAN Administration Nutritional Formula (Lactose Free) 120 ml 10/05/24 17:00 10/07/24 17:31 Ensure Plus High Protein 120 Ml Liquid PO 120 ml TIDCM BRIAN Administration Ondansetron HCl 4 mg 10/04/24 22:10 10/06/24 00:45 Ondansetron 4 Mg/2 Ml Vial IV 4 mg Q8H PRN PRN Administration NAUSEA/VOMITING Oxycodone HCl 5 mg 10/07/24 02:03 10/07/24 17:32 Oxycodone 5 Mg Tablet PO 5 mg Q4H PRN PRN Administration pain 4-10 Oxycodone HCl 5 mg 10/07/24 07:39 Oxycodone 5 Mg Tablet PO Q4H PRN dyspnea Pramipexole Dihydrochloride 1 mg 10/04/24 22:30 10/06/24 22:23 Pramipexole Di-Hcl 1 Mg Tablet PO 1 mg QHS BRIAN Administration Prochlorperazine Edisylate 5 mg 10/04/24 22:10 Prochlorperazine 10 Mg/2 Ml Vial IV Q4H PRN PRN Breakthrough Nausea/Vomiting Senna/Docusate Sodium 1 tablet 10/07/24 10:00 10/07/24 09:37 Senna/Docusate Sodium 1 Tablet PO 1 tablet BID BRIAN Administration Sodium Chloride 10 - 40 ml 10/04/24 22:36 10/07/24 05:40 0.9% Saline Lock 10 Ml Syringe IV 10 ml UD PRN Administration SALINE FLUSH Vancomycin Protocol 1 lab 10/08/24 08:30 Vancomycin Trough/Random Due MC 10/08/24 12:30 DAILY [facility] Medical Records Data Medical Nutrition Assessment Dietitian: Malnutrition Criteria Met Start: 10/05/24 15:13 Freq: Status: Active Protocol: Document 10/05/24 15:13 SB (Rec: 10/05/24 15:13 SB [id number]) Nutrition Malnutrition Evidence of Malnutrition Exists Yes Malnutrition (severe): Acute Illness/Injury Evidenced By Suboptimal Energy Intake ( Severe),Weight Loss (Severe) Clinical Problem Acute Disease or Injury Related Malnutrition Etiology sever related to inadequate oral intake and increase energy expenditure Signs/Symptoms as evidenced by PO meeting <50 % of estimated nutrition needs x 1 week and 7% unintentional weight loss x 1 month. Status Active Problem Recommendation Dietitian Recommendations/Changes Continue liberal regular diet to increase oral consumption. Will order 120ml ensure plus high protein TID with medpass, prefers chocolate flavor. Will monitor weight, as available. Reviewed and approved by Maria Elena Macias RDN, JUDITH. Lab / Micro Data 10/07/24 04:40 10/07/24 04:40 Labs: Laboratory Results - last 24 hr 10/06/24 22:30: Vancomycin Trough 12.7 10/07/24 04:40: WBC 5.9, RBC 3.29 L, Hgb 9.8 L, Hct 32.0 L, MCV 97.3 H, MCH 29.8, MCHC 30.6 L D, RDW Std Deviation 47.8 H, RDW Coeff of Clara 13.2, Plt Count 190, MPV 10.2, Sodium 140, Potassium 4.2, Chloride 102, Carbon Dioxide 37.0 H, A nion Gap 2 L, BUN 28 H, Creatinine 0.44 L, Estim Creat Clear Calc 86.69, Est GFR (MDRD) Af Amer 243, Est GFR (MDRD) Non-Af 201, BUN/Creatinine Ratio 62.9 H, G lucose 172 H, Calcium 9.6, Iron 48 L, TIBC 192 L, Iron Saturation 25.0, Ferritin 594 H, Folate 15.20 Assessment and Plan . Assessment and plan: Acute Exacerbation of COPD PE (subsegmental) Acute/Chronic Mixed Respiratory Failure -agree with recs for oral anticoagulation -steroids/bd/abx -Bipap prn and with sleep; follow discussed aspiration risk with pt/spouse The entirety of this encounter was done via Telemedicine Physical Exam Narrative Gen: Thin, NAD; A&O x 3 ENT: sclera anicteric; moist conjunctiva and mucous membranes CV: rrr, nl s1 and s2, no mrg; pulses 2+/symmetric and normal cap refill Lungs: CTAB, limited effort, no use of accessory muscles Abdomen: Soft, nt/nd; normal bowel sounds Ext: no clubbing, cyanosis; no edema Neuro: nonfocal Psych: mood/affect appropriate for situation Subjective Subjective Wore bipap for 2 hours last night. No further bouts of emesis. He is feeling a little better but has not mobilized beyond getting to chair.
[2024-10-07] MEDS: Pramipexole Di-HCl 1 MG Tablet PO (22:22)
[2024-10-08] VITALS (9 sets, daily range): BP systolic 124–138; BP diastolic 54–77; PULSE 84–100; RESP 16–20; TEMP 36.3–36.7; O2SAT 93–96; BMI 28.5
[2024-10-08] MEDS: Acetaminophen 325 MG Tablet 650 MG PO ×2 (05:23→21:21)
[2024-10-08] MEDS: oxyCODONE 5 MG Tablet PO ×2 (05:24→19:30)
[2024-10-08] MEDS: 0.9% Saline Lock 10 ML Syringe IV ×2 (05:26→10:42)
[2024-10-08] MEDS: Piperacil/Tazobactam 3.375 GM in 0.9% Normal Saline (50mL MB+) 50 ML IV (05:32)
[2024-10-08 06:37] LABS: Hematocrit 31.1 % (40-54); Hemoglobin 9.8 g/dL (13.0-16.5); Mean Corp Hgb Conc 31.5 g/dL (32-36); Mean Corpuscular Hgb 30.2 pg (27.0-32.0); Mean Corpuscular Volume 95.7 fL (80-94); Mean Platelet Vol. 10.1 fl (6.2-12.0); Platelet Count 199 K/mm3 (150-450); RBC Distribution Width CV 13.1 % (11.6-14.6); RBC Distribution Width SD 45.6 fl (35.1-43.9); Red Blood Count 3.25 M/mm3 (4.6-6.2); White Blood Count 5.1 K/mm3 (4.4-11.0)
[2024-10-08 07:14] LABS: Anion Gap -1 (5-15); BUN 21 mg/dL (7-18); BUN/Creat Ratio 50.5 RATIO (10-20); Calcium,Total 9.2 mg/dL (8.5-10.1); Chloride 98 mmol/L (98-107); Creatinine, Serum 0.42 mg/dL (0.70-1.30); EST Glomerular Filtration Rate 218 mL/min (>60); Est Glom Filt Rate - Afr Amer 263 mL/min (>60); Estimated Creatinine Clearance 95.25 ml/min; Glucose 206 mg/dL (74-106); Potassium 4.3 mmol/L (3.5-5.1); Sodium Level 137 mmol/L (136-145)
[2024-10-08] MEDS: Ipratropium/Albuterol Sulfate 3 ML AMPUL.NEB INHALATION ×2 (07:21→23:58)
[2024-10-08] MEDS: Ensure Plus High Protein 120 ML LIQUID PO ×3 (08:57→17:08)
[2024-10-08] MEDS: dilTIAZem CD 120 MG Capsule PO ×2 (08:58→21:23)
[2024-10-08] MEDS: guaiFENesin 1,200 MG Tablet 1200 MG PO ×2 (08:58→21:22)
[2024-10-08] MEDS: Senna/Docusate Sodium 1 Tablet PO ×2 (08:58→21:23)
[2024-10-08] MEDS: Vancomycin Trough/Random Due 1 LAB MC (08:59)
[2024-10-08] MEDS: APIXABAN 5 MG TABLET 10 MG PO ×2 (08:59→21:22)
--- NOTE | 2024-10-08 10:27 | PCM.PN.HOSP ---
Reason for Visit Reason for Visit: Diagnoses Other pulmonary embolism without acute cor pulmonale (10/04/24) Acute and chronic respiratory failure with hypoxia (10/04/24) Subjective Subjective Saw patient at bedside this morning. Patient appeared similar today to yesterday. Was continuing to breathe comfortably on 8 L at rest. Stated he felt similar today to yesterday. Denied any new concerns this morning. Objective Data Objective Data Vital Signs: Vital Signs Temp Pulse Resp BP Pulse Ox O2 Del Method O2 Flow Rate 97.4 F L 97 18 124/54 H 94 High Flow 8 10/08/24 09:04 10/08/24 09:04 10/08/24 09:04 10/08/24 09:04 10/08/24 09:04 10/08/24 09:04 10/08/24 09:04 FiO2 40 10/05/24 21:01 Oxygen Flow Rate (L/min) 8 Oxygen Delivery Method High Flow Weight: 85.3 kg Body Mass Index (BMI) 28.5 Intake & Output: Intake and Output for Last 24 Hours 10/06/24 10/07/24 10/08/24 23:59 23:59 23:59 Intake Total 940 / 940 1930 / 1930 855 / 855 Output Total 850 / 850 1300 / 1300 200 / 200 Balance 90 / 90 630 / 630 655 / 655 Medical Nutrition Assessment Dietitian: Malnutrition Criteria Met Start: 10/05/24 15:13 Freq: Status: Active Protocol: Document 10/05/24 15:13 SB (Rec: 10/05/24 15:13 SB [id number]) Nutrition Malnutrition Evidence of Malnutrition Exists Yes Malnutrition (severe): Acute Illness/Injury Evidenced By Suboptimal Energy Intake ( Severe),Weight Loss (Severe) Clinical Problem Acute Disease or Injury Related Malnutrition Etiology sever related to inadequate oral intake and increase energy expenditure Signs/Symptoms as evidenced by PO meeting <50 % of estimated nutrition needs x 1 week and 7% unintentional weight loss x 1 month. Status Active Problem Recommendation Dietitian Recommendations/Changes Continue liberal regular diet to increase oral consumption. Will order 120ml ensure plus high protein TID with medpass, prefers chocolate flavor. Will monitor weight, as available. Reviewed and approved by Maria Elena Macias, [place], JUDITH. Lab / Micro Data 10/08/24 06:23 10/08/24 06:23 Labs: Laboratory Results - last 24 hr 10/08/24 06:23: WBC 5.1, RBC 3.25 L, Hgb 9.8 L, Hct 31.1 L, MCV 95.7 H, MCH 30.2, MCHC 31.5 L, RDW Std Deviation 45.6 H, RDW Coeff of Clara 13.1, Plt Count 199, MPV 10.1, Sodium 137, Potassium 4.3, Chloride 98, Carbon Dioxide 40.0 H, Anion Gap -1 L, BUN 21 H, Creatinine 0.42 L, Estim Creat Clear Calc 95.25, Est GFR (MDRD) Af Amer 263, Est GFR (MDRD) Non-Af 218, BUN/Creatinine Ratio 50.5 H, Glucose 206 H, Calcium 9.2 Micro: Microbiology 10/05/24 10:50 Nasal Secretion MRSA (PCR) - Final 10/04/24 23:35 Mucosa - Nasopharyngeal Respiratory Panel (PCR) - Final 10/05/24 00:45 Urine, Clean Catch Streptococcus pneumoniae Antigen (M - Final 10/05/24 00:45 Urine, Clean Catch Legionella Antigen - Final 10/04/24 18:34 Mucosa - Nose SARS-CoV-2, Influenza & RSV (PCR) - Final Physical Exam Const alert, oriented x3, no apparent distress and average body habitus Constitutional Narrative: Elderly male, chronically ill-appearing, mildly fatigued appearing, otherwise sitting up comfortably in bed, breathing comfortably on 8 L nasal cannula, conversing normally. Stable. General Appearance: cooperative and comfortable HEENT normocephalic, head/scalp atraumatic, hearing grossly normal bilaterally and nasal mucous membranes and turbinates normal Eyes PERRL, EOMs intact bilaterally and conjunctivae normal Neck full ROM Chest inspection of chest normal Resp normal respiratory effort and no use of accessory muscles Resp Narrative: Breathing comfortably on 8 L nasal cannula at rest. Moderately decreased breath sounds bilaterally throughout, no wheezing or crackles noted. Stable. Cardio no murmurs and peripheral pulses 2+ throughout Cardio Narrative: Tachycardic, regular rhythm. GI normal to inspection, nondistended, normoactive bowel sounds, soft to palpation, non-tender and non-distended Back/Spine normal ROM Extremity normal to inspection, full ROM and no pedal edema Skin no rashes or lesions noted Psych mental status grossly normal Assessment & Plan Assessment/Plan (1) Acute on chronic respiratory failure with hypoxemia: (2) Pulmonary embolism: PLAN: Plan Patient is a 69-year-old male who presented [facility] [place] ED on 10/04/2024 with worsening shortness of breath. 1. Acute on chronic hypoxic respiratory failure secondary to acute PE with possible bilateral pneumonia and acute on chronic COPD exacerbation ? Pulmonology following. CTA chest on admit showed pulmonary emboli within the subsegmental and segmental branches of the right lower lobe, otherwise chronic changes. Initially on heparin drip, transitioned to Eliquis on 10/05. Treated with IV antibiotics, IV steroids and scheduled DuoNebs through 10/07, transitioned to Augmentin, prednisone and DuoNebs as needed on 10/08. Appreciate pulmonology recs on plan for prednisone taper on discharge. We were told by family that patient was on 7 L nasal cannula at home but his most recent oxygen prescription is for 2 L at rest and 6 L on exertion. Has consistently been on 8 L at rest here. Will need home O2 ambulatory testing prior to discharge. Discussing with patient and on therapy needs on discharge as noted below. Continue to wean supplemental oxygen as able. 2. Acute on chronic debility ? PT/OT/case management following. Patient has several DME supplies at home through [facility] and helps with everything else. Patient has been a two-person assist with going from sitting to standing and pivoting during this hospitalization. Will discuss with patient and on plans for either home or SNF on discharge. Chronic medical conditions: ? Chronic normocytic anemia: Hemoglobin at baseline around 11 on admission. ? Hypertension, chronic sinus tachycardia: Continue home diltiazem. ? Anxiety: Continue home Ativan as needed. ? Restless leg syndrome: Continue home ropinirole. DVT prophylaxis: Not indicated, on Eliquis CODE STATUS: DNR CCA, DNI Expected disposition: Home versus SNF, 1 to 2 days Total clinical time spent by myself addressing the patient's medical issues, reviewing all the data, and collaborating with patient's care team: 35 minutes. Charges/Coding Visit Charges Inpatient E&M: 63228 Subs Hosp L2
[2024-10-08] MEDS: Furosemide 40 MG/4 ML Vial IV (10:42)
[2024-10-08 11:14] LABS: Vancomycin, Trough Level 14.3 ug/mL (5.0-15.0)
[2024-10-08] MEDS: Mag Hydrox/Al Hydrox/Simeth 30 ML UDC PO ×2 (13:04→19:30)
--- NOTE | 2024-10-08 14:37 | CHAPLAIN ---
Type of Pastoral Visit __x_ Initial Visit ___ Follow-up Visit ___ On-call Visit ___ General Patient Visit ___ Spiritual Assessment ___ Family Conference ___ Bereavement ___ Rapid Response ___ Code Blue ___ Other (describe below) Pastoral Care Referral From _x__ Patient _x__ Family ___ Nurse ___ Physician ___ Hard Metals Hand Engraver ___ Production Miner ___ Other (describe below) Sacrament/Intervention _x__ Active listening ___ Anointing ___ Congregational ___ Bereavement ___ Communion _x__ Elizabeth exploration ___ _x__ Life review _x__ Prayer ___ Reconciliation ___ Sacrament of Sick _x__ Supportive presence ___ Wedding ___ Other (describe below) Pastoral Comments patient appears to be emotional and his spouse acknowledges that he is having a bad moment right now; pt agrees and states that he is grieving the loss of several friends in the last couple of years and this being here makes it harder; pt has concerns about 'this illness now' and if it will mean his ; pt addresses the spiritual part with I know I will go to [facility]; spouse says he is worried about me; both talk about how their elizabeth in God is helpful; pt asks for prayer; time given to presence, listening to answers of open ended questions, and prayer:
[2024-10-08 16:52] LABS: Vitamin B12 775 pg/mL (211-911)
[2024-10-08] MEDS: Amox/Clavulanate 875 MG Tablet PO (17:04)
[2024-10-08] MEDS: LORazepam 0.5 MG Tablet PO ×2 (19:30→23:44)
[2024-10-08] MEDS: Pramipexole Di-HCl 1 MG Tablet PO (21:23)
[2024-10-09] VITALS (9 sets, daily range): BP systolic 130–144; BP diastolic 61–118; PULSE 95–106; RESP 18–22; TEMP 36.4–36.8; O2SAT 91–97
--- NOTE | 2024-10-09 | CPS ---
Patient requested breathing tx
[2024-10-09] MEDS: oxyCODONE 5 MG Tablet PO ×3 (02:50→14:44)
--- NOTE | 2024-10-09 02:58 | CPS ---
10Loxygen bled into home unit HS
[2024-10-09] MEDS: Acetaminophen 325 MG Tablet 650 MG PO ×2 (08:22→14:44)
[2024-10-09] MEDS: Amox/Clavulanate 875 MG Tablet PO (08:49)
[2024-10-09] MEDS: predniSONE 20 MG Tablet 40 MG PO (08:49)
[2024-10-09] MEDS: guaiFENesin 1,200 MG Tablet 1200 MG PO (08:50)
[2024-10-09] MEDS: dilTIAZem CD 120 MG Capsule PO (08:50)
[2024-10-09] MEDS: APIXABAN 5 MG TABLET 10 MG PO (08:50)
[2024-10-09] MEDS: Senna/Docusate Sodium 1 Tablet PO (08:50)
[2024-10-09] MEDS: Ensure Plus High Protein 120 ML LIQUID PO (08:51)
--- NOTE | 2024-10-09 11:09 | CASEMGMT ---
Discharge Planning A list of HH providers including quality and resource use data and consistent with the patient's preferred geographic region, medical needs, and insurance network was created in [facility] Guide.? This list was provided to the RN JEYSON. Jenna Mata, Discharge Planning Asst.
--- NOTE | 2024-10-09 13:55 | CASEMGMT ---
RN CM in to discuss needs at discharge, at bedside. RN CM discussed progress with therapy and possible HHC at discharge. Patient and decline HHC at this time, list of HHC agencies provided to patient if they should reconsider. RN CM discuss oxygen testing and update that oxygen order was verified at 2lpm at rest and 6lpm with ambulation. Patient and voiced understanding. states she has oxygen tank for at discharge. Patient is active with palliative care and per , Palliative POLICE COMMUNICATIONS DISPATCHER is scheduled to see patient tomorrow. Patient and had no further questions. Awaiting oxygen testing and will assist with updated script if needed.
--- NOTE | 2024-10-09 15:21 | DS.PCM_ITS ---
Providers Date of Admission: 10/04/24 Date of Discharge: 10/09/24 Primary Care Physician: Dr. Phan Verdugo MD Consultations 10/04/24 22:10 Consult: Specimen Preparation Assistant / Pulmonary Medicine Routine Consulting Provider: Intensivists/Pulmonary Med Reason for Consult: Acute on Chronic Hypoxic Respiratory Failure, ? COPD exac, PE EMERGENT Consult: No MD Notified: Yes Date Notified: 10/04/24 Time Notified: 21:29 Method of Notification: Text Reason For Visit: ACUTE ON CHRONIC HYPOXIC RESPIRATORY Diagnosis Discharge Diagnosis (1) Acute on chronic respiratory failure with hypoxemia: Status: Chronic Code(s): J96.21 - Acute and chronic respiratory failure with hypoxia (2) Pulmonary embolism: Status: Acute Code(s): I26.99 - Other pulmonary embolism without acute cor pulmonale Medications at Discharge Home Medications ibuprofen 200 mg tablet 800 mg PO DAILY PRN Pain 10/19/18 aspirin 81 mg tablet,delayed release 81 mg PO DAILY@0800 10/20/18 Disability Placard #1 ea 10/06/21 albuterol sulfate 2.5 mg/3 mL (0.083 %) solution for nebulization 2.5 mg (3 mL) inhalation Q4H PRN Sob &/Or Wheezing #180 mL 09/08/23 guaifenesin 1,200 mg tablet, extended release 12 hr 1,200 mg PO Q12H #60 tabs 09/08/23 umeclidinium 62.5 mcg-vilanterol 25 mcg/actuation powdr for inhalation 1 inh inhalation DAILY #1 device 10/10/23 sennosides 8.6 mg-docusate sodium 50 mg tablet (Senexon-S) 1 tab PO QDAY constipation 01/17/24 mometasone 200 mcg/actuation HFA aerosol inhaler (Asmanex HFA) 2 inh inhalation BID #3 device 02/15/24 ipratropium 0.5 mg-albuterol 3 mg (2.5 mg base)/3 mL nebulization soln 3 ml inhalation Q4H PRN PRN SOB &/OR WHEEZING #180 mL 06/29/24 ropinirole 1 mg tablet 2 mg (2 x 1 mg) PO QHS RESTLESS LEGS #60 tabs 07/09/24 diltiazem HCl 120 mg capsule,extended release 24 hr 120 mg PO BID #180 caps 07/11/24 albuterol sulfate 90 mcg/actuation aerosol inhaler 2 inh PO Q6H PRN PRN Sob &/Or Wheezing #3 device 07/12/24 lorazepam 0.5 mg tablet (Ativan) 0.5 mg PO Q4H PRN anxiety 10/04/24 oxycodone 5 mg tablet 5 mg PO Q4H PRN dyspnea 10/07/24 amoxicillin 875 mg-potassium clavulanate 125 mg tablet 1 tab PO BIDCM 3 days #6 tabs 10/09/24 apixaban 5 mg tablet (Eliquis) 5 mg PO BID 30 days #60 tabs 10/09/24 prednisone 10 mg tablet 10 mg PO DAILY #30 tabs 10/09/24 prednisone 10 mg tablet See Taper PO DAILY #27 tabs 10/09/24 Hospital Course Operations None Procedures EKG and - (Chest x-ray, CTA chest) Summary of Care Provided Minutes Spent on Discharge: 35 Hospital Course: Patient is a 69-year-old male who presented [facility] ED on 10/04/2024 with worsening shortness of breath. Hospital course as noted below. Patient discharged home with no therapy needs stable condition on 10/09. 1. Acute on chronic hypoxic respiratory failure secondary to acute PE with possible bilateral pneumonia and acute on chronic COPD exacerbation ? Pulmonology followed. CTA chest on admit showed pulmonary emboli within the subsegmental and segmental branches of the right lower lobe, otherwise chronic changes. Initially on heparin drip, transitioned to Eliquis on 10/05. Treated with IV antibiotics, IV steroids and scheduled DuoNebs through 10/07, transitioned to Augmentin, prednisone and DuoNebs as needed on 10/08. We were initially told that patient was on 6 L nasal cannula both at rest and with exertion at home, however his most recent prescription was for 2 L at rest and 6 L on exertion. Patient completed O2 testing on discharge and only qualified for 2 L at rest and 6 L on exertion as before. Discharged home on the following medications. Prednisone taper of 40 mg for 3 days, then 30 mg for 3 days, then 20 mg for 3 days, then 10 mg daily going forward. Eliquis 5 mg twice daily; given small PE burden and the patient received several days of 10 mg twice daily here, opted to start with 5 mg twice daily on discharge. Augmentin twice daily for 3 days to complete a 7-day course of antibiotics total. Stable for discharge home on 10/09. Recommend close outpatient pulmonology follow-up. 2. Acute on chronic debility ? PT/OT/case management followed. Patient has several DME supplies at home through [facility] and helps with everything else. Patient with borderline therapy scores during hospitalization but patient and are both comfortable with him being discharged home with no additional needs. Chronic medical conditions: ? Chronic normocytic anemia: Hemoglobin at baseline around 11 on admission. ? Hypertension, chronic sinus tachycardia: Continue home diltiazem. ? Anxiety: Continue home Ativan as needed. ? Restless leg syndrome: Continue home ropinirole. Total clinical time spent by myself addressing the patient's medical issues, reviewing all the data, and collaborating with patient's care team: 35 minutes. Physical Exam Const alert, oriented x3, no apparent distress and average body habitus Constitutional Narrative: Elderly male, chronically ill-appearing, mildly fatigued appearing, otherwise sitting up comfortably in bed, breathing comfortably on 6 L nasal cannula, conversing normally. Stable. General Appearance: cooperative and comfortable HEENT normocephalic, head/scalp atraumatic, hearing grossly normal bilaterally and nasal mucous membranes and turbinates normal Eyes PERRL, EOMs intact bilaterally and conjunctivae normal Neck full ROM Chest inspection of chest normal Resp normal respiratory effort and no use of accessory muscles Resp Narrative: Breathing comfortably on 6 L nasal cannula at rest. Moderately decreased breath sounds bilaterally throughout, no wheezing or crackles noted. Stable. Cardio no murmurs and peripheral pulses 2+ throughout Cardio Narrative: Tachycardic, regular rhythm. GI normal to inspection, nondistended, normoactive bowel sounds, soft to palpation, non-tender and non-distended Back/Spine normal ROM Extremity normal to inspection, full ROM and no pedal edema Skin no rashes or lesions noted Psych mental status grossly normal Medical Records Data Medical Nutrition Assessment Dietitian: Malnutrition Criteria Met Start: 10/05/24 15:13 Freq: Status: Active Protocol: Document 10/05/24 15:13 SB (Rec: 10/05/24 15:13 SB [id number]) Nutrition Malnutrition Evidence of Malnutrition Exists Yes Malnutrition (severe): Acute Illness/Injury Evidenced By Suboptimal Energy Intake ( Severe),Weight Loss (Severe) Clinical Problem Acute Disease or Injury Related Malnutrition Etiology sever related to inadequate oral intake and increase energy expenditure Signs/Symptoms as evidenced by PO meeting <50 % of estimated nutrition needs x 1 week and 7% unintentional weight loss x 1 month. Status Active Problem Recommendation Dietitian Recommendations/Changes Continue liberal regular diet to increase oral consumption. Will order 120ml ensure plus high protein TID with medpass, prefers chocolate flavor. Will monitor weight, as available. Reviewed and approved by Maria Elena Macias RDN, LD. Weight / BMI Weight Weight: 85.3 kg Body Mass Index (BMI) 28.5 ABG / Lab / Microbiology Data 10/08/24 06:23 10/08/24 06:23 Laboratory: Laboratory Results - last 24 hr 10/07/24 04:40: Vitamin B12 775 Microbiology: Microbiology 10/05/24 10:50 Nasal Secretion MRSA (PCR) - Final 10/04/24 23:35 Mucosa - Nasopharyngeal Respiratory Panel (PCR) - Final 10/05/24 00:45 Urine, Clean Catch Streptococcus pneumoniae Antigen (M - Final 10/05/24 00:45 Urine, Clean Catch Legionella Antigen - Final 10/04/24 18:34 Mucosa - Nose SARS-CoV-2, Influenza & RSV (PCR) - Final D/C Instructions DC O2, CPAP, BIPAP Needs RN Home O2 Qualification: Home O2 Qualification: Is the patient on home oxygen Yes 10/09/24 14:33 Home O2 Qualification: AT REST 1-Pulse Ox at rest 97 10/09/24 14:33 1- Oxygen flow rate at rest 2 10/09/24 14:33 Home O2 Qualification: WITH AMBULATION 1- Pulse Ox with ambulation 96 10/09/24 14:33 1- Oxygen Flow Rate with 6 10/09/24 14:33 ambulation PSN CPAP & BiPAP: BiPAP & CPAP Settings per PSN Mode AVAPS 10/05/24 19:56 Bipap Delivery Device Face Mask 10/05/24 19:56 BiPAP Expiratory Pressure 10 10/05/24 16:50 BiPAP Rate 12 10/05/24 16:50 Fraction of Inspired Oxygen ( 40 10/05/24 21:01 FIO2) Additional Home O2 Discharge instructions: No DC home with Oxygen: No Meaningful Use Info Meaningful Use Meaningful Use Diagnoses (Choose all that apply): None applicable Ischemic Stroke Statin Dosing Therapy Reference: STATIN DOSE THERAPY REFERENCE: * Patients > 75 years receive moderate or high dose statin therapy. * Patients 75 years or YOUNGER should receive HIGH intensity statin dose unless contraindicated. You will be required to document reason for non-treatment if statin daily dose does not meet guidelines. HIGH DOSE STATIN THERAPY DAILY Atorvastatin > than or = to 40 mg Rosuvastatin > than or = to 20 mg Amlodipine + Atorvastatin > than or = to 2.5/40 mg Ezetimibe + Simvastatin 10/80 mg Simvastatin 80mg Discharge Plan Admission Admit Date/Time: 10/04/24 21:05 Primary Reason for Your Visit: Worsening shortness of breath Attending Provider: Magnus Treadwell Primary Care Provider: Phan Verdugo Consulting Providers: Rosa Ingram; Wilmer Casanova; Ubaldo Torres; Missael Zamudio; Mark Bergman; Mukul Rios; Rich Erwin; Alexis Moses; Sujey Silva; Mark Cerrato; Luis Gill; Virgilio Gore; Arely Jones; Rodolfo Abdi; William,Aureliano; James Moe; Vazquez Shen; Asael Pollard; Krzysztof Schaefer; Manny Walden; Jake Kulkarni; Sidney Otto; Sammy Hinojosa Instructions Additional Instructions / Restrictions: ? Please take Augmentin for 3 more days to complete a 7-day course of antibiotics total. ? Please start taking Eliquis 5 mg twice daily for your pulmonary embolism. ? Please take prednisone as follows: 40 mg daily for 3 days, then 30 mg daily for 3 days, then 20 mg daily for 3 days, then 10 mg daily going forward. ? Follow-up with pulmonology as needed. Discharge Orders/Prescriptions Prescriptions: New amoxicillin-pot clavulanate 875-125 mg Tablet 1 tab PO BIDCM 3 Days Qty: 6 0RF Eliquis 5 mg tablet 5 mg PO BID 30 Days Qty: 60 2RF prednisone 10 mg tablet See Taper PO DAILY Qty: 27 0RF Taper: Prednisone Taper 40 mg WITH BREAKFAST for 3 Days and 0 Hour 30 mg WITH BREAKFAST for 3 Days and 0 Hour 20 mg WITH BREAKFAST for 3 Days and 0 Hour prednisone 10 mg tablet 10 mg PO DAILY Qty: 30 2RF Continued albuterol sulfate 2.5 mg /3 mL (0.083 %) solution for nebulization 2.5 mg inhalation Q4H PRN (Reason: Sob &/Or Wheezing) Qty: 180 3RF guaifenesin 1,200 mg tablet extended release 12hr 1,200 mg PO Q12H Qty: 60 11RF sennosides-docusate sodium [Senexon-S] 8.6-50 mg tablet 1 tab PO QDAY umeclidinium-vilanterol 62.5-25 mcg/actuation blister with device 1 inh inhalation DAILY Qty: 1 11RF ibuprofen 200 MG tablet 800 mg PO DAILY PRN (Reason: Pain) aspirin 81 MG tablet 81 mg PO DAILY@0800 0RF lorazepam [Ativan] 0.5 mg tablet 0.5 mg PO Q4H PRN (Reason: anxiety) oxycodone 5 mg tablet 5 mg PO Q4H PRN (Reason: dyspnea) Asmanex HFA 200 mcg/actuation HFA aerosol inhaler 2 inh INHALATION BID Qty: 3 3RF ipratropium-albuterol 0.5 mg-3 mg(2.5 mg base)/3 mL solution for nebulization 3 ml inhalation Q4H PRN PRN (Reason: SOB &/OR WHEEZING) Qty: 180 6RF ropinirole 1 mg tablet 2 mg PO QHS Qty: 60 11RF Rx Instructions: administer 1-3 hours before bedtime diltiazem HCl 120 mg capsule,extended release 24hr 120 mg PO BID Qty: 180 3RF albuterol sulfate 90 mcg/actuation HFA aerosol inhaler 2 inh PO Q6H PRN PRN (Reason: Sob &/Or Wheezing) Qty: 3 2RF Discontinued prednisone 20 mg tablet 20 mg PO DAILY No Action (DME) Disability Placard See Rx Instructions .Route .MEDSUPPLY Qty: 1 0RF Rx Instructions: expires 10/06/2026 Referrals / Follow Up: Mark Bergman DO [Med Staff - Active Staff] - Phan Verdugo MD [Primary Care Provider] - Disposition Disposition (needs filled in before D/C Order can be placed): Home, Self Care Charges/Coding Visit Charges Inpatient E&M: 41636 Disch Hosp >30min
--- NOTE | 2024-10-09 16:17 | CASEMGMT ---
Patient has order for discharge. Patient maintaining on 2lpm at rest and 6lpm with ambulation. Patient is discharging on Eliqius, REJI BENÍTEZ called [facility], copay is $146. REJI BENÍTEZ provided savings card over the phone for 30 day free trial. REJI CM in to updated patient and regarding Eliquis copay and savings card applied. Patient and had no further questions or concerns.
== END 2024-10-09 17:05 | disposition home or self-care (01) | DRG 175 ==
LOC: ED 21:43 → ICU 21:48 → PCU 10-05 16:47
PROVIDERS: Family Medicine; Internal Medicine Critical Care Medicine; Physician Assistant; Admitting Provider Family Medicine; Emergency Provider Surgery; PCP Family Medicine; Visit Provider Hospitalist
DX: I26.99 Other pulmonary embolism without acute cor pulmonale (principal); J96.21 Acute and chronic respiratory failure with hypoxia; E43 Unspecified severe protein-calorie malnutrition; J18.9 Pneumonia, unspecified organism; J47.0 Bronchiectasis with acute lower respiratory infection; J44.1 Chronic obstructive pulmonary disease with (acute) exacerbation; J44.0 Chronic obstructive pulmonary disease with (acute) lower respiratory infection; Z51.5 Encounter for palliative care; Z66 Do not resuscitate; I10 Essential (primary) hypertension; G25.81 Restless legs syndrome; D64.9 Anemia, unspecified; Z68.30 Body mass index [BMI] 30.0-30.9, adult; G47.33 Obstructive sleep apnea (adult) (pediatric); I25.10 Atherosclerotic heart disease of native coronary artery without angina pectoris; F41.9 Anxiety disorder, unspecified; R11.2 Nausea with vomiting, unspecified; Z87.891 Personal history of nicotine dependence; Z79.01 Long term (current) use of anticoagulants; R53.81 Other malaise; Z79.51 Long term (current) use of inhaled steroids
CPT/HCPCS: 36415; 71045; 71275; 80048; 80053; 80202; 82607; 82728; 82746; 82803; 83540; 83550; 83880; 84145; 84484; 85025; 85027; 85379; 85610; 85730; 87070; 87077; 87186; 87205; 87449; 87631; 87633; 87641; 90662; 93005; 94002; 94003; 94640; 94762; 97110; 97162; 97166; 97530; 97535; 97802; 97803; 99285; A4216; J1940; J2405